=== PATIENT | male | born 1935 | race Caucasian/White ===

== ENCOUNTER → 2016-06-17 | Outpatient (CLI) | payer BC ==
[~2016-06-17] MED LIST: ACET-1047 PO; ASCA500 PO; ASPI81TA28 PO; ATOR-26 PO; DAPT500I IV; DILT120C50 PO; DOXY-300 PO; DOXY100C76 PO; ENOX120I SQ; ERYOPO1 OPL; ERYTHROMYCIN OPL; FERR1TAB13 PO; FERR1TAB61 PO; FERROUS SULFATE PO; FOLI-29 PO; FURO-85 PO; IPRASOL4 INH; LEVO-366 PO; LINE1TAB2 PO; LNX125 PO; LPR100 PO; LPR25 PO; LVQ500 PO; MULT-506 PO; OXYC-57 PO; PANT40TA PO; POTA10CA28 PO; PRED10TA PO; PRED1SUS3 OPL; PREDFORTE OPL; PRLSR20 PO; PROB1CAP54 PO; SENN-65 PO; SOTA80TA PO; SULF800T23 PO; WARF2.5T8 PO; WARF2TAB8 PO
== END | disposition home or self-care (01) ==
LOC: C.LAB 11:14
PROVIDERS: ATTEND Internal Medicine Hematology & Oncology
DX: D69.6 Thrombocytopenia, unspecified (principal); D75.89 Other specified diseases of blood and blood-forming organs

== ENCOUNTER 2016-08-09 05:19 | Day surgery (SDC) | payer BC ==
[2016-08-08 19:12] VITALS: BMI 27.0
[~2016-08-09] VITALS: Ht 180.3 cm; Wt 88.5 kg
[~2016-08-09 05:19] MED LIST changes: -ACET-1047 PO; -DAPT500I IV; -DILT120C50 PO; -DOXY-300 PO; -ENOX120I SQ; -ERYOPO1 OPL; -FERR1TAB13 PO; -FERROUS SULFATE PO; -IPRASOL4 INH; -LEVO-366 PO; -LINE1TAB2 PO; -LNX125 PO; -LPR100 PO; -LPR25 PO; -LVQ500 PO; -OXYC-57 PO; -PANT40TA PO; -PRED10TA PO; -PRED1SUS3 OPL; -SENN-65 PO; -WARF2TAB8 PO
[2016-08-09 05:39] VITALS: BP 73/48; PULSE 71; TEMP 36.7; O2SAT 94; Ht 180.3 cm; Wt 88.5 kg
[2016-08-09] MEDS ORDERED: LACTATED RINGER'S 1000ML 1,000 ML IV SCH (06:00)
[2016-08-09] MEDS ORDERED: CEFAZOLIN 2000 MG/60 ML D5W IV SCH (06:00)
[2016-08-09 06:31] LABS: INR 1.3 (0.9-1.1); PARTIAL THROMBOPLASTIN RATIO 1.1; PROTHROMBIN TIME (PATIENT) 14.5 SECONDS (9.0-12.0)
[2016-08-09] MEDS ORDERED: MIDAZOLAM HCL 1 MG/ML 2ML VIAL ONE (06:43)
[2016-08-09] MEDS ORDERED: FENTANYL CITRATE INJ 50 MCG/1 ML 2 ML VIAL ONE (06:43)
[2016-08-09 06:56] LABS: HEMATOCRIT 42.7 % (42-52); MEAN CELL VOLUME 97.9 fL (80-100); MEAN CORPUSCULAR HEMOGLOBIN 33.7 pg (25-34); MEAN CORPUSCULAR HGB CONC 34.4 g/dl (32-36); MEAN PLATELET VOLUME 9.2 fL (7.4-10.4); PLATELET COUNT 90 K/uL (130-400); PLT ESTIMATE DECREASED; RED BLOOD COUNT 4.36 M/uL (4.7-6.1); WHITE BLOOD COUNT 5.24 K/uL (4.8-10.8)
[2016-08-09] MEDS ORDERED: BUPIVACAINE 0.5 % 5 MG/1 ML MPF 30ML VIAL ONE (06:56)
[2016-08-09] MEDS ORDERED: LIDOCAINE HCL 1% 20 ML VIAL ONE (06:56)
[2016-08-09] MEDS ORDERED: VANCOMYCIN 1GM/270ML NSS ONE (07:04)
--- NOTE | 2016-08-09 07:17 | History and Physical ---
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 Allergies Coded Allergies: No Known Allergies (Unverified , 08/09/16) Home Medications Scheduled Ascorbic Acid (Vitamin C), 1 TAB PO QAM Aspirin (Aspirin Ec), 81 MG PO DAILY Atorvastatin (Lipitor), 80 MG PO QAM Doxycycline Monohydrate (Monodox), 100 MG PO QAM Ferrous Sulfate (Iron), 65 MG PO QAM Folic Acid-Vit B2-Vit B6-Vit B (Folgard), 1 TAB PO QAM Furosemide (Lasix), 20 MG PO QAM Multivitamin (Multivitamin), 1 TAB PO QAM Omeprazole (Prilosec), 20 MG PO BID Potassium Chloride (Micro-K Ext Rel), Unknown Dose PO DAILY Probiotic Product (Acidophilus), 1 TAB PO BID Sotalol Hcl (Sotalol Hcl), 1 TAB PO BID Sulfa/Trimethoprim (Bactrim Ds 800MG/160MG), 1 TAB PO BID Warfarin Sod (Jantoven), 2.5 MG PO QAM [Erythromcin Oint], Unknown Dose OPL QPM [Predforte], Unknown Dose OPL BID Review of Systems Constitutional: No fever, No chills, No sweats, No weight loss, No weakness, No fatigue, No problem reported Eyes: No worsening of vision, No eye pain, No redness, No discharge, No diplopia, No problem reported ENT: No hearing loss, No unusual epistaxis, No nasal symptoms, No sore throat, No tinnitus, No dental problems, No trouble swallowing, No problem reported Respiratory: No cough, No sputum, No wheezing, No shortness of breath, No dyspnea on exertion, No dyspnea at rest, No hemoptysis, No problem reported Cardiovascular: + problem reported (CAD, pacemaker, ), No chest pain, No orthopnea, No PND, No edema, No claudication, No palpitations Abdomen: + problem reported (abdominal surgery for colon cancer), No pain, No nausea, No vomiting, No diarrhea, No constipation, No GI bleeding Genitourinary - Male: No hematuria, No dysuria, No urinary frequency, No urinary urgency, No urinary hesitancy, No urinary retention, No urinary incontinence, No penile discharge, No lesions, No impotence, No problem reported Neurologic: No memory loss, No paralysis, No weakness, No numbness/tingling, No vertigo, No balance problems, No problem reported Psychiatric: No depression symptoms, No anhedonism, No anxiety, No insomnia, No substance abuse, No problem reported Endocrine: No fatigue, No excessive thirst, No excessive urination, No problem reported Integumentary: No rash, No itch, No new/changing skin lesions, No color change , No bleeding, No problem reported Physical Exam Vital Signs Date Time Temp Pulse Resp B/P (MAP) Pulse Ox O2 Delivery O2 Flow Rate FiO2 08/09/16 05:39 36.7 71 18 73/48 (56) 94 Room Air General Appearance: WD/WN, no apparent distress Head: normocephalic Eyes: normal inspection ENT: normal ENT inspection Neck: supple, no JVD Respiratory/Chest: chest non-tender, lungs clear Cardiovascular: regular rate, rhythm, no edema, no gallop, no JVD Abdomen/GI: normal bowel sounds, non tender, soft Genitourinary - Male: normal male genitalia, normal phallus Extremities/Musculoskelatal: normal inspection, no calf tenderness Neurologic/Psych: alert, normal mood/affect Diagnostics Laboratory Results Results Past 24 Hours Test 08/09/16 05:47 Range/Units White Blood Count 5.24 4.8-10.8 K/uL Red Blood Count 4.36 4.7-6.1 M/uL Hemoglobin 14.7 14.0-18.0 g/dL Hematocrit 42.7 42-52 % Mean Corpuscular Volume 97.9 80-100 fL Mean Corpuscular Hemoglobin 33.7 25-34 pg Mean Corpuscular Hemoglobin Concent 34.4 32-36 g/dl RDW Standard Deviation 53.8 36.4-46.3 fL RDW Coefficient of Variation 15.2 11.5-14.5 % Platelet Count 90 130-400 K/uL Mean Platelet Volume 9.2 7.4-10.4 fL Platelet Estimate DECREASED Prothrombin Time 14.5 9.0-12.0 SECONDS Prothromb Time International Ratio 1.3 0.9-1.1 Activated Partial Thromboplast Time 27.5 21.0-31.0 SECONDS Partial Thromboplastin Ratio 1.1 Impression Assessment and Plan IMP: infected port site, base wound culture is MRSA- staph-A, I recommend to removal port catheter, D/W benefits, risks and alternatives of the procedure, the risks- infection, bleeding, sepsis, pt understood, he agrees with the procedure, I answered all questions, pt will see wound care doctor in 2 days, once the wound healed pt will have new port insertion, ASA Classification: ASA Class III VTE Prophylaxis VTE Risk Assessment Done? Y/N: Yes Risk Level: Moderate Given or contraindicated: SCD's Note Total Time: Critical Care 30 - 74 minutes
--- NOTE | 2016-08-09 07:17 | History & Physical Bridge Note ---
H&P Re-Evaluation Bridge Note: I have examined the patient, reviewed the History & Physical and in the interval since the performance of the History & Physical I have noted the following changes of clinical significance: No changes noted
[2016-08-09] MEDS ORDERED: VANCOMYCIN 1GM/270ML NSS IV ONE (07:30)
[2016-08-09] MEDS ORDERED: LACTATED RINGER'S 1000ML 1,000 ML IV PRN (07:39)
[2016-08-09] MEDS ORDERED: DiphenhydrAMINE HCL 50 MG/ML VIAL ONE (07:44)
[2016-08-09] MEDS ORDERED: ONDANSETRON INJ 2 MG/ML 2 ML VIAL IV PRN (07:45)
[2016-08-09] MEDS ORDERED: SODIUM CHLORIDE 0.9% 1000ML 1,000 ML IV SCH (07:55)
--- NOTE | 2016-08-09 07:55 | [facility] Post Operative Brief Note ---
Immediate Operative Summary Operative Date Aug 09, 2016. Pre-Operative Diagnosis infected port site Post-Operative Diagnosis same Procedure(s) Performed removal port catheter Surgeon Holden Luque Independent Producer Surgeon(s) technical sme Estimated Blood Loss 2 ml Findings infected port site Fluids (cc crystalloids) 1000ml Specimens culture tip of catheter Drains packing the wound Anesthesia sedation + local anesthesia Complication(s) None Disposition Recovery Room / PACU
[2016-08-09] MEDS ORDERED: OXYCODONE/ACETAMINOPHEN 5-325 TAB PO PRN ×2 (08:00)
--- NOTE | 2016-08-09 08:03 | Discharge Instructions ---
Discharge Instructions Date of Service Aug 09, 2016. Visit Reason for Visit: Port Catheter In Place Discharge Discharge Diagnosis / Problem: S/P removal port Discharge Goals Goal(s): Decrease discomfort, Improve nutritional status Activity Recommendations Activity Limitations: resume your previous activity Lifting Limitations: none Exercise/Sports Limitations: none May Resume Sexual Activity: when tolerated Shower/Bathe: may shower/bathe in 3 days Driving or Machine Use: resume 3 days after discharge Anesthesia . Post Anesthesia Instructions: If you have had General Anesthesia or IV Sedation: * Do not drive today. * Resume driving when surgeon permits. * Do not make important decisions or sign legal documents today. * Call surgeon for: 1. Temperature elevations greater than 101 degrees F. 2. Uncontrollable pain. 3. Excessive bleeding. 4. Persistent nausea and vomiting. 5. Medication intolerance (nausea, vomiting or rash). * For nausea and vomiting use only clear liquids such as: tea, soda, bouillon until nausea subsides, then gradually increase diet as tolerated. * If you have any concerns or questions, call your surgeon's office. If physician is unavailable and it is an emergency, call 911 or go to the nearest emergency room. . Instructions / Follow-Up Instructions / Follow-Up keep the dressing for 2 days, follow up wound care center in 2 days, please to make an appointment for wound care center before pt discharge to home, Follow up me on next Monday. Diet Recommendations Recommended Home Diet: resume previous diet Procedures Procedures Performed: removal port catheter Pending Studies Studies pending at discharge: no Medical Emergencies . Who to Call and When: Medical Emergencies: If at any time you feel your situation is an emergency, please call 911 immediately. . Non-Emergent Contact Non-Emergency issues call your: Primary Care Provider, Surgeon Call Non-Emergent contact if: you have a fever, temperature is above 100.5, your pain is not controlled, your pain is worsening, wound has increased drainage, wound has increased redness . . "Provider Documentation" section prepared by Holden Xie. . [place] Drug Monitoring Program Search Results: no issues identified
[2016-08-09 08:25] VITALS: BP 95/48; PULSE 62; TEMP 37; O2SAT 96
--- NOTE | 2016-08-09 08:40 | OPERATIVE REPORT ---
DATE OF OPERATION: 08/09/2016 PREOPERATIVE DIAGNOSIS: Infected port site. POSTOPERATIVE DIAGNOSIS: Same. PROCEDURE: Removed of the port. SURGEON: Dr. Holden Xie. ANESTHESIA: Conscious sedation plus local. ESTIMATED BLOOD LOSS: About 2 mL. IV FLUIDS: 1000 mL. FINDINGS: Infected port site, culture tip of the catheter. COMPLICATIONS: None. INDICATIONS FOR THE PROCEDURE: This is an 81-year-old gentleman who presented infected port site and the patient had a wound culture showing MRSA and the patient required to remove the port. I did talk to the patient about the benefit and risk, alternate procedure. I indicated the risks may include but not limited such as bleeding, infection, sepsis. The patient understands and he signed informed consent. I answered all questions. DETAILS OF PROCEDURE: We brought the patient to the OR, put the patient in the supine position. The patient received SCD on bilateral legs to prevent DVT. Also, the patient received 1 gram of vancomycin IV for prophylactic antibiotic based on the patient has MRSA infection and also the patient received 2 grams Ancef for prophylactic antibiotic. The patient received conscious sedation by the anesthesiology and the patient's right upper chest was prepped and draped in routine sterile fashion. After a timeout the patient had a small opening on the port site we injected the local by using 1% lidocaine mixed with 2.5% Marcaine to make a little bit bigger incision. Then we removed the 4-0 Prolene suture on the port site and then we easily completely removal of the port and the catheter. We cut the tip of the catheter and sent for culture. Then I used Betadine packing the wound. Hemostasis was obtained. We put the dressing on. The patient tolerated the procedure well. All the instrument, needle and sponge count correct x2 at the end of case. After the procedure, I did talk to the patient's about the OR finding and procedure we did and also gave them postop care instruction. They understand. The patient will follow up with wound care center in 2 days. We will follow up patient next Monday. The patient is still on p.o. clindamycin and patient will resume Coumadin today. They understand. I attest to the content of the Intraoperative Record and any orders documented therein. Any exceptions are noted below. ALAINA
--- NOTE | 2016-08-09 08:50 | Anesthesiology Progress Note ---
Anesthesia Post Op Note Date & Time Aug 09, 2016 at 08:49 Vital Signs Pain Intensity: 0 Vital Signs Past 12 Hours Date Time Temp Pulse Resp B/P (MAP) Pulse Ox O2 Delivery O2 Flow Rate FiO2 08/09/16 08:25 37 62 20 95/48 96 Room Air 08/09/16 08:15 37.6 59 21 83/54 99 Room Air 08/09/16 08:05 57 22 86/52 97 Mask 10 08/09/16 07:59 37.2 58 23 93/51 100 Mask 10 08/09/16 05:39 36.7 71 18 73/48 (56) 94 Room Air Notes Mental Status: alert / awake / arousable, participated in evaluation Pt Amnestic to Procedure: No (recall as expected) Nausea / Vomiting: adequately controlled Pain: adequately controlled Airway Patency, RR, SpO2: stable & adequate BP & HR: stable & adequate Hydration State: stable & adequate Anesthetic Complications: no major complications apparent
[2016-08-09 08:55] VITALS: BP 90/49; PULSE 64; O2SAT 98
[2016-08-09 09:10] VITALS: BP 78/49; PULSE 65; TEMP 37.1; O2SAT 98
[2016-08-10] MEDS ORDERED: CEFAZOLIN IV 2,000 MG/60 ML D5W IV ONE (06:00)
[2016-08-10] MEDS ORDERED: FERROUS SULFATE PO (15:59)
[2016-08-10] MEDS ORDERED: WARF2TAB8 PO (16:04)
[2016-08-10] MEDS ORDERED: ERYOPO1 OPL (16:08)
[2016-08-10] MEDS ORDERED: PRED1SUS3 OPL (16:10)
[2016-08-17] MEDS ORDERED: LNX125 PO (13:28)
[2016-08-17] MEDS ORDERED: LPR100 PO (13:28)
[2016-08-17] MEDS ORDERED: DILT120C50 PO (13:28)
[2016-08-17] MEDS ORDERED: ENOX120I SQ (13:30)
[2016-08-17] MEDS ORDERED: DAPT500I IV (13:30)
[2016-08-25] MEDS ORDERED: ENOX120I SQ (09:24)
[2016-08-25] MEDS ORDERED: DOXY-300 PO (09:24)
[2016-08-25] MEDS ORDERED: ATOR-26 PO (09:24)
[2016-08-25] MEDS ORDERED: FERR1TAB13 PO ×2 (09:26)
[2016-08-25] MEDS ORDERED: LEVO-366 PO (09:28)
[2016-08-25] MEDS ORDERED: PANT40TA PO (09:30)
[2016-08-25] MEDS ORDERED: POTA10CA28 PO (09:30)
[2016-08-25] MEDS ORDERED: FOLI-29 PO (09:31)
[2016-09-09] MEDS ORDERED: LINE1TAB2 PO (08:14)
[2016-09-09] MEDS ORDERED: LVQ500 PO (08:14)
[2016-09-09] MEDS ORDERED: LPR25 PO (08:14)
[2016-09-09] MEDS ORDERED: ACET-1047 PO (08:14)
[2016-09-09] MEDS ORDERED: DOXY-300 PO (08:18)
[2016-09-09] MEDS ORDERED: PRED10TA PO (08:18)
== END 2016-08-09 09:10 | disposition home or self-care (01) ==
LOC: C.ACU 05:19
PROVIDERS: ATTEND Surgery
DX: T82.7XXA Infection and inflammatory reaction due to other cardiac and vascular devices, implants and grafts, initial encounter (principal); X58.XXXA Exposure to other specified factors, initial encounter; C18.9 Malignant neoplasm of colon, unspecified

== ENCOUNTER 2016-08-10 15:25 | Inpatient (IN) | payer OTHER, BC ==
[~2016-08-10] VITALS: Ht 180.3 cm; Wt 87.0 kg
[2016-08-10] MEDS ORDERED: ACETAMINOPHEN 500 MG TAB PO STA (15:30)
[2016-08-10] MEDS ORDERED: SODIUM CHLORIDE 0.9% 1000ML 1,000 ML IV ONE (15:30)
[2016-08-10] MEDS ORDERED: PIPERACILLIN/TAZOBACTAM 4.5 GM/100ML D5W IV STA (15:34)
[2016-08-10] MEDS ORDERED: LEVOFLOXACIN / D5W 750 MG IV STA (15:35)
[2016-08-10] MEDS ORDERED: VANCOMYCIN INJ 2,250 MG in SODIUM CHLORIDE 0.9% 500ML 500 ML IV ONE (15:45)
[2016-08-10] MEDS ORDERED: FERROUS SULFATE PO (15:59)
--- NOTE | 2016-08-10 15:59 | DIAGNOSTIC IMAGING REPORT ---
CHEST ONE VIEW PORTABLE CLINICAL HISTORY: Sepsis COMPARISON STUDY: 06/13/2016 FINDINGS: The cardiac and mediastinal contours remain stable. There is a left subclavian pacer/defibrillator present. The previously identified right internal jugular A-Port catheter has been removed. There is enlargement central pulmonary arteries suggestive of pulmonary arterial hypertension. There is no lobar consolidation. There is no overt failure. There are no pleural effusions.[ There are multiple calcifications in the region of the left shoulder. 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 IMPRESSION: AP portable study. Possible pulmonary arterial hypertension. No acute findings. Electronically signed by: Eyad Escobar M.D. 08/10/2016 3:57 PM Dictated Date/Time: 08/10/2016 3:55 PM
[2016-08-10] MEDS ORDERED: DAPTOmycin IV 550 MG in SODIUM CHLORIDE 0.9% 50ML 50 ML IV ONE (16:00)
[2016-08-10] MEDS ORDERED: WARF2TAB8 PO (16:04)
[2016-08-10] MEDS ORDERED: ERYOPO1 OPL (16:08)
[2016-08-10 16:09] LABS: HEMATOCRIT 41.1 % (42-52); MEAN CORPUSCULAR HEMOGLOBIN 33.7 pg (25-34); MEAN CORPUSCULAR HGB CONC 34.1 g/dl (32-36); RED BLOOD COUNT 4.15 M/uL (4.7-6.1); WHITE BLOOD COUNT 8.76 K/uL (4.8-10.8)
[2016-08-10] MEDS ORDERED: PRED1SUS3 OPL (16:10)
[2016-08-10 16:20] LABS: MEAN PLATELET VOLUME 10.1 fL (7.4-10.4); PLATELET COUNT 69 K/uL (130-400)
[2016-08-10 16:26] LABS: COMPLETE YES; EOS % 2.1 %; IG% 0.2 %; LYMPH % 6.3 %; LYMPH ABS # 0.55 K/uL (1.2-3.4); MONO % 5.1 %; NEUT % 86.3 %
[2016-08-10 16:32] LABS: BUN/CREATININE RATIO 14.2 (10-20); CALCIUM 8.1 mg/dl (8.5-10.1); CREATININE 1.9 mg/dl (0.60-1.40); MAGNESIUM 2.1 mg/dl (1.8-2.4); POTASSIUM 4.7 mmol/L (3.5-5.1)
[2016-08-10] MEDS ORDERED: GELATIN SPONGE 12-7MM ONE (16:47)
[2016-08-10] MEDS ORDERED: SODIUM CHLORIDE 0.9% 1000ML 1,000 ML IV STA ×2 (16:53)
[2016-08-10 16:57] LABS: ALB/GLOB RATIO 1.1 (0.9-2); C-REACTIVE PROTEIN 9.31 mg/dl (0-0.29); CKMB/CK RATIO 1.6 (0-3.0); PHOSPHORUS 2.6 mg/dl (2.5-4.9)
[2016-08-10 16:58] LABS: VEN BLD GAS O2 SATURATION 62.4 %; VEN BLOOD GAS BASE EXCESS -0.9 mmol/L
[2016-08-10 17:00] LABS: INR 1.5 (0.9-1.1); PARTIAL THROMBOPLASTIN RATIO 1.1; PROTHROMBIN TIME (PATIENT) 16.3 SECONDS (9.0-12.0)
[2016-08-10] MEDS ORDERED: NOREPINEPHRINE BIT INJ 8 MG in DEXTROSE 5% 500ML 500 ML IV STA (17:19)
--- NOTE | 2016-08-10 17:20 | DIAGNOSTIC IMAGING REPORT ---
CHEST ONE VIEW PORTABLE CLINICAL HISTORY: central line placement COMPARISON STUDY: 08/10/2016 FINDINGS: The cardiac and mediastinal contours remain stable. There is a left subclavian pacer/defibrillator present. Since the prior study, a left internal jugular central venous catheter has been placed. The tip projects over the superior vena cava. There is no pneumothorax. There is progressive elevation of the interstitium. An element of mild congestive failure/fluid overload but be considered. Multiple calcifications project over the left shoulder similar to the prior study.[ IMPRESSION: No evidence of pneumothorax status post placement of a left internal jugular central venous catheter. The tip projects over the superior vena cava. Electronically signed by: Eyad Escobar M.D. 08/10/2016 5:18 PM Dictated Date/Time: 08/10/2016 5:17 PM
--- NOTE | 2016-08-10 17:27 | EMERGENCY ROOM VISIT NOTE ---
History Report prepared by [place]: Waldemar Phillips Under the Supervision of: Dr. Grover Burton D.O. First contact with patient: 14:53 Stated Complaint: SEPTIC History of Present Illness The patient is a 81 year old male who presents to the Emergency Room with complaints of a persistent fever beginning today. Per EMS, the patient has a history of colon cancer. He has a history of a partial colectomy and has received one chemotherapy treatment. He had his port removed yesterday at the cancer center due to apparent infection. The patient was hypotensive with a systolic pressure in the 70's yesterday. His oxygen saturation was 84% on room air today. He is on Coumadin for A-Fib. The patient denies any urinary symptoms , headache, chest pain or SOB. He notes that he has been coughing a bit. He was placed on Bactrim following his port removal yesterday. Source of History: patient Onset: Today Quality: other (fever) Timing: other (persistent) Associated Symptoms: + cough, No headache, No chest pain, No SOB Review of Systems See HPI for pertinent positives & negatives. A total of 10 systems reviewed and were otherwise negative. Past Medical & Surgical Medical Problems: (1) RADHA (acute kidney injury) (2) Colon cancer (3) DVT, bilateral lower limbs (4) Elevated troponin (5) Hyperlipidemia (6) Septic shock Family History No pertinent family history stated. Social History Smoking Status: Never Smoker Drug Use: none Marital Status: Current/Historical Medications Scheduled Ascorbic Acid (Vitamin C), 1 TAB PO QAM Aspirin (Aspirin Ec), 81 MG PO DAILY Atorvastatin (Lipitor), 80 MG PO QAM Doxycycline Monohydrate (Monodox), 100 MG PO QAM Erythromycin (Erythromycin), 1 APPLN OPL QPM Folic Acid-Vit B2-Vit B6-Vit B (Folgard), 1 TAB PO QAM Furosemide (Lasix), 20 MG PO QAM Multivitamin (Multivitamin), 1 TAB PO QAM Omeprazole (Prilosec), 20 MG PO BID Potassium Chloride (Micro-K Ext Rel), 10 MEQ PO DAILY Prednisolone Acetate (Ophth) (Pred Forte 1% Oph), 1 DROPS OPL BID Probiotic Product (Acidophilus), 1 TAB PO BID Sotalol Hcl (Sotalol Hcl), 1 TAB PO BID Sulfa/Trimethoprim (Bactrim Ds 800MG/160MG), 1 TAB PO BID Warfarin Sod (Jantoven), 2 MG PO QPM [Ferrous Sulfate], 65 MG PO DAILY Allergies Coded Allergies: Vancomycin (Verified Allergy, Unknown, SHORTNESS OF BREATH, 08/10/16) Physical Exam Vital Signs Date Time Temp Pulse Resp B/P (MAP) Pulse Ox O2 Delivery O2 Flow Rate FiO2 08/10/16 17:46 125 18 83/62 93 Room Air 08/10/16 16:55 134 22 94 08/10/16 16:54 127 18 76/51 94 Room Air 08/10/16 16:54 76/51 08/10/16 16:53 67/51 08/10/16 16:45 77/49 08/10/16 16:40 126 24 94 08/10/16 16:30 89/55 08/10/16 16:25 126 23 96 08/10/16 16:20 84/55 08/10/16 16:14 137 08/10/16 16:10 106 26 98 08/10/16 15:55 92/50 08/10/16 15:55 138 25 76 08/10/16 15:54 96 Room Air 08/10/16 15:47 92/50 08/10/16 15:45 39.5 131 20 75/56 98 Room Air 08/10/16 15:40 128 27 90 08/10/16 15:29 75/56 Physical Exam GENERAL: Patient is awake, alert, and mildly anxious appearing, but does not appear uncomfortable. EYES: The conjunctivae are clear. Surgical changes to the left eye. PERRL. EARS, NOSE, MOUTH AND THROAT: The nose is without any evidence of any deformity. Mucous membranes are dry, tongue is midline NECK: The neck is nontender and supple. RESPIRATORY: Lung sounds diminished throughout. Rales at both bases. No tachypnea or conversational dyspnea. CARDIOVASCULAR: Tachycardic and irregular. No definite murmur noted to auscultation. GASTROINTESTINAL: The abdomen is soft. Bowel sounds are present in all quadrants. Abdomen is nontender MUSCULOSKELETAL/EXTREMITIES: There is no evidence of gross deformity full range of motion is noted in the hips and shoulders SKIN: Color was rutty. Pedal edema bilaterally. Warm and dry. Pulses symmetric but diminished. Wound noted in the right upper chest wall consistent with recently removed port. Wound was packed with mild surrounding erythema noted. NEUROLOGIC: Patient is awake alert and oriented x3. Medical Decision & Procedures ER Provider Diagnostic Interpretation: X-ray results as stated below per interpretation by me and the radiologist. CHEST ONE VIEW PORTABLE FINDINGS: The cardiac and mediastinal contours remain stable. There is a left subclavian pacer/defibrillator present. The previously identified right internal jugular A-Port catheter has been removed. There is enlargement central pulmonary arteries suggestive of pulmonary arterial hypertension. There is no lobar consolidation. There is no overt failure. There are no pleural effusions.[ There are multiple calcifications in the region of the left shoulder. 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 IMPRESSION: AP portable study. Possible pulmonary arterial hypertension. No acute findings. Electronically signed by: Eyad Escobar M.D. CHEST ONE VIEW PORTABLE CLINICAL HISTORY: central line placement FINDINGS: The cardiac and mediastinal contours remain stable. There is a left subclavian pacer/defibrillator present. Since the prior study, a left internal jugular central venous catheter has been placed. The tip projects over the superior vena cava. There is no pneumothorax. There is progressive elevation of the interstitium. An element of mild congestive failure/fluid overload but be considered. Multiple calcifications project over the left shoulder similar to the prior study.[ IMPRESSION: No evidence of pneumothorax status post placement of a left internal jugular central venous catheter. The tip projects over the superior vena cava. Electronically signed by: Eyad Escboar M.D. Laboratory Results 08/10/16 15:45 Red Blood Count 4.15, Mean Corpuscular Volume 99.0, Mean Corpuscular Hemoglobin 33.7, Mean Corpuscular Hemoglobin Concent 34.1, Mean Platelet Volume 10.1, Neutrophils (%) (Auto) 86.3, Lymphocytes (%) (Auto) 6.3, Monocytes (%) (Auto) 5.1, Eosinophils (%) (Auto) 2.1, Basophils (%) (Auto) 0.0, Neutrophils # (Auto) 7.56, Lymphocytes # (Auto) 0.55, Monocytes # (Auto) 0.45, Eosinophils # (Auto) 0.18, Basophils # (Auto) 0.00 08/10/16 15:45 Test 08/10/16 15:45 08/10/16 16:42 White Blood Count 8.76 K/uL (4.8-10.8) Red Blood Count 4.15 M/uL (4.7-6.1) Hemoglobin 14.0 g/dL (14.0-18.0) Hematocrit 41.1 % (42-52) Mean Corpuscular Volume 99.0 fL (80-100) Mean Corpuscular Hemoglobin 33.7 pg (25-34) Mean Corpuscular Hemoglobin Concent 34.1 g/dl (32-36) Platelet Count 69 K/uL (130-400) Mean Platelet Volume 10.1 fL (7.4-10.4) Neutrophils (%) (Auto) 86.3 % Lymphocytes (%) (Auto) 6.3 % Monocytes (%) (Auto) 5.1 % Eosinophils (%) (Auto) 2.1 % Basophils (%) (Auto) 0.0 % Neutrophils # (Auto) 7.56 K/uL (1.4-6.5) Lymphocytes # (Auto) 0.55 K/uL (1.2-3.4) Monocytes # (Auto) 0.45 K/uL (0.11-0.59) Eosinophils # (Auto) 0.18 K/uL (0-0.5) Basophils # (Auto) 0.00 K/uL (0-0.2) RDW Standard Deviation 56.3 fL (36.4-46.3) RDW Coefficient of Variation 15.7 % (11.5-14.5) Immature Granulocyte % (Auto) 0.2 % Immature Granulocyte # (Auto) 0.02 K/uL (0.00-0.02) Erythrocyte Sedimentation Rate 8 mm/hr (0-14) Anion Gap 7.0 mmol/L (3-11) Est Creatinine Clear Calc Drug Dose 31.9 ml/min Estimated GFR () 37.2 Estimated GFR (Non- 32.1 BUN/Creatinine Ratio 14.2 (10-20) Calcium Level 8.1 mg/dl (8.5-10.1) Phosphorus Level 2.6 mg/dl (2.5-4.9) Magnesium Level 2.1 mg/dl (1.8-2.4) Total Bilirubin 1.1 mg/dl (0.2-1) Aspartate Amino Transf (AST/SGOT) 29 U/L (15-37) Alanine Aminotransferase (ALT/SGPT) 22 U/L (12-78) Alkaline Phosphatase 64 U/L (45-117) Total Creatine Kinase 83 U/L (39-308) Creatine Kinase MB 1.3 ng/ml (0.5-3.6) Creatine Kinase MB Ratio 1.6 (0-3.0) Troponin I 0.756 ng/ml (0-0.045) C-Reactive Protein 9.31 mg/dl (0-0.29) Pro-B-Type Natriuretic Peptide 7355 pg/ml (0-1800) Total Protein 6.4 gm/dl (6.4-8.2) Albumin 3.3 gm/dl (3.4-5.0) Globulin 3.1 gm/dl (2.5-4.0) Albumin/Globulin Ratio 1.1 (0.9-2) Lipase 77 U/L (73-393) Prothrombin Time 16.3 SECONDS (9.0-12.0) Prothromb Time International Ratio 1.5 (0.9-1.1) Activated Partial Thromboplast Time 28.9 SECONDS (21.0-31.0) Partial Thromboplastin Ratio 1.1 Venous Blood pH 7.43 (7.36-7.41) Venous Blood Partial Pressure CO2 36 mmHg (38.0-50.0) Venous Blood Partial Pressure O2 32 mmHg Venous Blood HCO3 23 mmol/L Venous Blood Oxygen Saturation 62.4 % Venous Blood Base Excess -0.9 mmol/L Date/Time Source Procedure Growth Status 08/10/16 00:00 Nasal MRSA DNA Surveillance Screen - Final Specimen Positive for MRSA by DNA Probe Complete Laboratory results per my review. Medications Administered Medications (Trade) Dose Ordered Sig/Thu Route Start Time Stop Time Status Last Admin Dose Admin Sodium Chloride 1,000 ml @ 999 mls/hr Q1H1M ONCE IV 08/10/16 15:30 08/10/16 16:30 DC 08/10/16 15:59 999 MLS/HR Acetaminophen (Tylenol Tab) 1,000 mg NOW STAT PO 08/10/16 15:30 08/10/16 15:32 DC 08/10/16 16:04 1,000 MG Piperacillin Sod/ Tazobactam Sod (Zosyn Iv) 4.5 gm NOW STAT IV 08/10/16 15:34 08/10/16 15:35 DC 08/10/16 16:04 4.5 GM Levofloxacin 150 ml @ 100 mls/hr NOW STAT IV 08/10/16 15:35 08/10/16 17:04 DC 08/10/16 16:04 100 MLS/HR Daptomycin 550 mg/ Sodium Chloride 61 ml @ 120 mls/hr NOW ONCE IV 08/10/16 16:00 08/10/16 16:30 DC 08/10/16 16:45 120 MLS/HR Gelatin (Surgifoam Sponge 12-7MM (SMALL)) 1 ea STK-MED ONCE .ROUTE 08/10/16 16:47 08/10/16 16:48 DC 08/10/16 16:47 1 EA Sodium Chloride 1,000 ml @ 999 mls/hr Q1H1M STAT IV 08/10/16 16:53 08/10/16 17:53 DC 08/10/16 17:02 999 MLS/HR Sodium Chloride 1,000 ml @ 250 mls/hr Q4H STAT IV 08/10/16 16:53 08/10/16 20:52 DC 08/10/16 18:15 250 MLS/HR Norepinephrine Bitartrate 8 mg/ Dextrose 508 ml @ 0 mls/hr Q0M STAT IV 08/10/16 17:19 08/10/16 17:22 DC 08/10/16 17:40 33 MLS/HR Procedure Central Venous Catheter Indication: sepsis Catheter type: triple lumen Location: left IJ Verbal consent was obtained after the risks and benefits were explained, including but not limited to pneumothorax, hemothorax, vessel injury, bleeding, scarring, infection, pain, and bone/joint/nerve damage. At this time, the risks of the procedure are less than the risks of NOT performing the procedure. A time out was taken and the correct patient and site identified. The patient was placed in the supine position and the skin was prepped in the standard fashion with chlorhexidine and full sterile drapes applied. The proper landmarks were identified with ultrasound, anesthetized with 1% lidocaine without epinephrine, and the needle was inserted through the skin in the standard fashion. The needle was carefully advanced into blood vessel lumen under ultrasound guidance. The guidewire was placed uneventfully. The vessel is dilated and the catheter was placed. It was sutured into position. There was good blood return from all ports. The patient tolerated the procedure well and there were no complications. Post procedure x-ray was normal. ECG Indication: other (sepsis) Rate (beats per minute): 135 Rhythm: atrial fibrillation (with RVR) Findings: other (Diffuse T-wave abnormality. No PVC. ) Comparison ECG Date: no prior available ED Course 1523: The patient was evaluated in room B11B. A complete history and physical examination were performed. 1530: Ordered Tylenol Tab 1000 mg PO, NSS 1,000 ml @ 999 mls/hr IV, Zosyn 4.5 gm IV, Levofloxacin 150 mL @ 100 mL/hr IV. 1600: Ordered Daptomycin 550 mg/NSS 61 ml @ 1000 mls/hr IV. 1620: I placed the central line. See the procedure note for details. 1653: Ordered NSS 1,000 ml @ 250 mls/hr IV, NSS 1,000 ml @ 999 mls/hr IV 1719: Ordered Norepinephrine Bitartrate 8 mg/Dextrose 508 mL IV. 1720: Upon reevaluation, the patient is resting. I discussed results and treatment plan with him. He verbalizes agreement and understanding. I spoke with Dr. David of the [facility]. The patient will be evaluated for further management and care. Medical Decision Differential diagnosis: Etiologies such as sepsis, UTI, pneumonia, metabolic, electrolyte abnormalities , cardiac sources, intracerebral event, toxicologic, neurologic, as well as others were entertained. Blood pressure screening: Patient was found to have low blood pressure on screening and does not require follow-up. Medication Reconciliation: I attest that I have personally reviewed the patient' s current medications list. The patient is an 81-year-old male who presented to emergency department for an evaluation of hypotension. The patient has a history of colon cancer and recently had a port removed from his right chest wall because of infection at the skin site and a reported positive culture for Staphylococcus. The final culture is still pending and we do not know if this is MRSA. The patient was started on Bactrim and had approximately 3 doses of this medication but continued to have worsening symptoms. He went to his outpatient physician today and they were concerned because the patient was tachycardic and hypotensive. The patient came to our emergency department by ambulance. He was also noted to have hypoxia. The patient denies having any chest pain or shortness of breath. The patient states that he x-ray feels quite well but he was found to have a fever upon arrival to our facility. Given the patient's past medical history and comorbidities a septic protocol workup was undertaken. The patient was treated with IV fluids with only a minimal improvement in his blood pressure. He was also given IV antibiotics to try to cover the possibility of line sepsis and bacteremia. The patient was reevaluated multiple times. A central line was placed. I discussed his case with the on-call [facility] hospitalist as well as the on-call custom shop worker. The patient was evaluated in the emergency department by the admitting team. I discussed the patient's laboratory and radiographic studies with him. Consults Time Called: 1700 Consulting Physician: Dr. David -[facility] Returned Call: [phone] I discussed the patient's case with Dr. David. The patient will be evaluated for further management. Additional Consults: Time Called: [phone] Consulted Physician: Dr. Angel -ICU Returned Call: [phone] Additional Comments: I discussed the patient's case with Dr. Angel. He would like a repeat lactic acid. The patient will be evaluated in the ICU. Impression Primary Impression: Sepsis Additional Impressions: Bacteremia Atrial fibrillation with RVR Critical Care I have personally spent greater than 50 minutes of critical care time in the direct management of this patient. This includes bedside care, interpretation of diagnostic studies, and testing, discussion with consultants, patient, and family members, and other required patient management activities. This 50 minutes is in excess of all separately billable procedures. Scribe Attestation The scribe's documentation has been prepared under my direction and personally reviewed by me in its entirety. I confirm that the note above accurately reflects all work, treatment, procedures, and medical decision making performed by me. Departure Information Dispostion Being Evaluated By Hospitalist Referrals Janeen Graves (PCP) Problem Qualifiers Primary Impression: Sepsis Sepsis type: sepsis due to unspecified organism Qualified Codes: A41.9 - Sepsis, unspecified organism
[2016-08-10] MEDS ORDERED: VANCOMYCIN INJ 1,000 MG in SODIUM CHLORIDE 0.9% 250ML 250 ML IV STA (18:43)
[2016-08-10] MEDS ORDERED: HEPARIN SOD 5000 UNIT/0.5 ML CARP SQ SCH (18:45)
[2016-08-10] MEDS ORDERED: ACETAMINOPHEN 325 MG TAB PO PRN (18:45)
[2016-08-10] MEDS ORDERED: NOREPINEPHRINE BIT INJ 8 MG in DEXTROSE 5% 500ML 500 ML IV PRN (20:12)
[2016-08-10 20:51] LABS: URINE APPEARANCE CLEAR (CLEAR); URINE BILIRUBIN NEG (NEG); URINE COLOR YELLOW; URINE NITRITE NEG (NEG); URINE SPECIFIC GRAVITY 1.019 (1.000-1.030); UROBILINOGEN NEG (NEG); ZZUR CULT IF INDIC CLEAN CATCH NO
[2016-08-10 20:52] LABS: MANUAL MICROSCOPIC REQUIRED? NO; REVIEW REQ? NO
[2016-08-10] MEDS ORDERED: WARFARIN SOD 2 MG TAB PO SCH (21:00)
[2016-08-10] MEDS: SODIUM CHLORIDE 0.9% 1000ML 1,000 ML IV SCH (21:16)
--- NOTE | 2016-08-10 21:24 | Critical Care Consultation ---
Critical Care Consultation Date of Consultation: Aug 10, 2016. Attending Physician: Remi Berg MD Reason for Consultation: Hypotension requiring pressors and tachycardic: Presumed Sepsis History of Present Illness Chuy White is a 81-year-old male who presented to the emergency room 1 day post removal of an infected port in his right upper chest. Patient was seen in the cancer center yesterday for removal and placed on Bactrim. Cultures were taken from the port which has since grown staph aureus; unknown at this time if culture is MRSA. However, pt has past history of MRSA infection s/p lower extremity bypass surgery. According to the patient and his he became dizzy today and has been experiencing a persistent fever. The attempted to take his blood pressure with a home cuff and was unable to obtain a reading. They called his family doctor who suggested a higher level of care. Per emergency room documentation patient's systolic blood pressure was in the mid 70s upon arrival. Pulse oximetry read 90-98% on room air; however, per emergency room physician H&P at some point his pulse oximetry had read 84% on room air. Patient is treated with Coumadin for persistent atrial fibrillation; heart rate in the emergency department was in the low 100s. INR is 1.5 Patient has a history of colon cancer stage IIIB with partial colectomy in March 2016 and is status post one chemotherapy treatment of FOLFOX. Family states that chemotherapy had been delayed multiple times due to illness/ thrombocytopenia/infected port. Cytogenetics and MDS FISH panels were negative at last office visit. Due to thrombocytopenia, pt was advised to speak with his engine mechanic for alternate anticoagulation. Dr. Jaramillo feels that Xeloda tablets should be the next chemotherapy plan; however, Coumadin is known to cause hemorrhage in combination. Per out pt records, this does not appear to have been followed up on as of yet since pt has experienced this infectious complication. Cr is 1.9 on admission, per out pt records baseline Cr is 1.2 Patient denies chills, malaise, dyspnea/shortness of breath/cough, chest pain/ pressure, awareness of tachyarrhythmia. He denies abdominal pain, nausea/ vomiting/diarrhea, change in bowel or bladder habits. He has no ongoing numbness/tingling and denies loss of consciousness. 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 Quit within the last month secondary to thrombocytopenia with chemotherapy) Drug Use: none Marital Status: Housing Status: lives with significant other Occupation Status: retired Allergies Coded Allergies: Vancomycin (Verified Allergy, Unknown, SHORTNESS OF BREATH, 08/10/16) Home Medications Scheduled Ascorbic Acid (Vitamin C), 1 TAB PO QAM Aspirin (Aspirin Ec), 81 MG PO DAILY Atorvastatin (Lipitor), 80 MG PO QAM Doxycycline Monohydrate (Monodox), 100 MG PO QAM Erythromycin (Erythromycin), 1 APPLN OPL QPM Folic Acid-Vit B2-Vit B6-Vit B (Folgard), 1 TAB PO QAM Furosemide (Lasix), 20 MG PO QAM Multivitamin (Multivitamin), 1 TAB PO QAM Omeprazole (Prilosec), 20 MG PO BID Potassium Chloride (Micro-K Ext Rel), 10 MEQ PO DAILY Prednisolone Acetate (Ophth) (Pred Forte 1% Oph), 1 DROPS OPL BID Probiotic Product (Acidophilus), 1 TAB PO BID Sotalol Hcl (Sotalol Hcl), 1 TAB PO BID Sulfa/Trimethoprim (Bactrim Ds 800MG/160MG), 1 TAB PO BID Warfarin Sod (Jantoven), 2 MG PO QPM [Ferrous Sulfate], 65 MG PO DAILY Current Inpatient Medications Current Inpatient Medications Medications (Trade) Dose Ordered Sig/Thu Route Start Time Stop Time Status Last Admin Dose Admin Sodium Chloride 1,000 ml @ 100 mls/hr Q10H IV 08/10/16 19:00 09/09/16 18:59 08/10/16 21:16 100 MLS/HR Acetaminophen (Tylenol Tab) 650 mg Q4H PRN PO 08/10/16 18:45 09/09/16 18:44 Ranitidine HCl (zANTac SYRUP) 300 mg HS PO 08/10/16 21:00 09/09/16 20:59 Piperacillin Sod/ Tazobactam Sod 3.375 gm/Dextrose 115 ml @ 28.75 mls/ hr Q8 STAT IV 08/10/16 18:43 08/10/16 22:42 UNV Lactobacillus Acidophilus (Lactinex Granules Pack) 1 gm TIDM PO 08/11/16 07:15 09/10/16 07:59 Daptomycin 520 mg/ Sodium Chloride 60.4 ml @ 100 mls/hr DAILY IV 08/11/16 09:00 08/25/16 08:59 UNV Norepinephrine Bitartrate 8 mg/ Dextrose 508 ml @ 0 mls/hr Q0M PRN IV 08/10/16 20:12 09/09/16 20:11 Aspirin (Ecotrin Tab) 81 mg DAILY PO 08/11/16 09:00 09/10/16 08:59 Atorvastatin Calcium (Lipitor Tab) 80 mg QAM PO 08/11/16 09:00 09/10/16 08:59 UNV Erythromycin (Erythromycin Oph Oint) 1 appln QPM OPL 08/10/16 21:00 08/20/16 20:59 Prednisolone Acetate (Pred Forte 1% Oph Susp) 1 drops BID OPL 08/10/16 21:00 09/09/16 20:59 Warfarin Sodium (Coumadin Tab) 2 mg QPM PO 08/10/16 21:00 09/09/16 20:59 UNV Review of Systems 12 systems reviewed and negative other than previously mentioned in the HPI. Physical Exam Date Time Temp Pulse Resp B/P (MAP) Pulse Ox O2 Delivery O2 Flow Rate FiO2 08/10/16 20:31 122 18 109/76 97 Room Air 08/10/16 20:00 113 18 92/64 94 Room Air 08/10/16 19:12 37.1 08/10/16 17:46 125 18 83/62 93 Room Air 08/10/16 16:55 134 22 94 08/10/16 16:54 127 18 76/51 94 Room Air 08/10/16 16:54 76/51 08/10/16 16:53 67/51 08/10/16 16:45 77/49 08/10/16 16:40 126 24 94 08/10/16 16:30 89/55 08/10/16 16:25 126 23 96 08/10/16 16:20 84/55 08/10/16 16:14 137 08/10/16 16:10 106 26 98 08/10/16 15:55 92/50 08/10/16 15:55 138 25 76 08/10/16 15:54 96 Room Air 08/10/16 15:47 92/50 08/10/16 15:45 39.5 131 20 75/56 98 Room Air 08/10/16 15:40 128 27 90 08/10/16 15:29 75/56 Vital Signs - as noted Laboratory Data - as noted Physical Exam: General - NAD, sleeping in bed comfortably upon entering Eyes - PERRL, EOMI No icterus, gaze conjugate, left eye partially suturing closed 2/2 to PMHx above ENT - Mucosa moist, no lesions or candidiasis Neck - Supple, trachea midline, no masses or lymphadenopathy, no JVD or bruits Lungs - No paradoxical chest wall movement, clear to auscultation bilaterally, no wheezes, rales, or rhonchi Heart - irregularly irregular, No murmur, rubs, clicks, or gallops appreciated Abdomen - BS present, no bruits noted, tympanic to percussion, soft, nontender, nondistended, no organomegaly Extremities - No edema, pedal pulses intact Neuro - A&O X 4 Strength extremities equal and appropriate bilaterally Reflexes: Normal and equal CN:PERRL, EOMI, no facial asymmetry, uvula/tongue midline Laboratory Results Last 24 Hours Test 08/10/16 15:40 08/10/16 15:45 08/10/16 16:42 08/10/16 19:21 Bedside Lactic Acid Venous 1.60 mmol/L 0.53 mmol/L White Blood Count 8.76 K/uL Red Blood Count 4.15 M/uL Hemoglobin 14.0 g/dL Hematocrit 41.1 % Mean Corpuscular Volume 99.0 fL Mean Corpuscular Hemoglobin 33.7 pg Mean Corpuscular Hemoglobin Concent 34.1 g/dl Platelet Count 69 K/uL Mean Platelet Volume 10.1 fL Neutrophils (%) (Auto) 86.3 % Lymphocytes (%) (Auto) 6.3 % Monocytes (%) (Auto) 5.1 % Eosinophils (%) (Auto) 2.1 % Basophils (%) (Auto) 0.0 % Neutrophils # (Auto) 7.56 K/uL Lymphocytes # (Auto) 0.55 K/uL Monocytes # (Auto) 0.45 K/uL Eosinophils # (Auto) 0.18 K/uL Basophils # (Auto) 0.00 K/uL RDW Standard Deviation 56.3 fL RDW Coefficient of Variation 15.7 % Immature Granulocyte % (Auto) 0.2 % Immature Granulocyte # (Auto) 0.02 K/uL Erythrocyte Sedimentation Rate 8 mm/hr Sodium Level 137 mmol/L Potassium Level 4.7 mmol/L Chloride Level 104 mmol/L Carbon Dioxide Level 26 mmol/L Anion Gap 7.0 mmol/L Blood Urea Nitrogen 27 mg/dl Creatinine 1.90 mg/dl Est Creatinine Clear Calc Drug Dose 31.9 ml/min Estimated GFR () 37.2 Estimated GFR (Non- 32.1 BUN/Creatinine Ratio 14.2 Random Glucose 97 mg/dl Calcium Level 8.1 mg/dl Phosphorus Level 2.6 mg/dl Magnesium Level 2.1 mg/dl Total Bilirubin 1.1 mg/dl Aspartate Amino Transf (AST/SGOT) 29 U/L Alanine Aminotransferase (ALT/SGPT) 22 U/L Alkaline Phosphatase 64 U/L Total Creatine Kinase 83 U/L Creatine Kinase MB 1.3 ng/ml Creatine Kinase MB Ratio 1.6 Troponin I 0.756 ng/ml C-Reactive Protein 9.31 mg/dl Pro-B-Type Natriuretic Peptide 7355 pg/ml Total Protein 6.4 gm/dl Albumin 3.3 gm/dl Globulin 3.1 gm/dl Albumin/Globulin Ratio 1.1 Lipase 77 U/L Prothrombin Time 16.3 SECONDS Prothromb Time International Ratio 1.5 Activated Partial Thromboplast Time 28.9 SECONDS Partial Thromboplastin Ratio 1.1 Venous Blood pH 7.43 Venous Blood Partial Pressure CO2 36 mmHg Venous Blood Partial Pressure O2 32 mmHg Venous Blood HCO3 23 mmol/L Venous Blood Oxygen Saturation 62.4 % Venous Blood Base Excess -0.9 mmol/L Test 08/10/16 20:34 Urine Color YELLOW Urine Appearance CLEAR Urine pH 5.0 Urine Specific [place] 1.019 Urine Protein 1+ Urine Glucose (UA) NEG Urine Ketones NEG Urine Occult Blood 2+ Urine Nitrite NEG Urine Bilirubin NEG Urine Urobilinogen NEG Urine Leukocyte Esterase NEG Urine WBC (Auto) 1-5 /hpf Urine RBC (Auto) 5-10 /hpf Urine Hyaline Casts (Auto) 1-5 /lpf Urine Epithelial Cells (Auto) 5-10 /lpf Urine Bacteria (Auto) NEG Diagnostic Results ULTRASOUND VENOUS DOPPLER LWR EXT BILA CLINICAL HISTORY: Leg swelling COMPARISON STUDY: No previous studies for comparison. FINDINGS: The right common femoral vein is incompletely compressible. There is intraluminal thrombus present. It is conceivable that this is subacute. No thrombus is visualized within the right superficial femoral vein. There is a 7.6 cm right popliteal fossa mass with echogenic borders. This appears avascular. It is unclear whether this is solid or complex cystic. An MRI is recommended in follow-up. Left common femoral vein is incompletely compressible. No thrombus is visualized within the left superficial femoral or popliteal veins. The proximal trifurcation veins of the left calf appear unremarkable. IMPRESSION: 1. Bilateral common femoral vein DVT 2. Indeterminate 7.6 cm right popliteal fossa mass. Further workup is recommended in follow-up. Electronically signed by: Eyad Escobar M.D. 08/10/2016 10:49 PM Dictated Date/Time: 08/10/2016 10:46 PM CHEST ONE VIEW PORTABLE CLINICAL HISTORY: Sepsis COMPARISON STUDY: 06/13/2016 FINDINGS: The cardiac and mediastinal contours remain stable. There is a left subclavian pacer/defibrillator present. The previously identified right internal jugular A-Port catheter has been removed. There is enlargement central pulmonary arteries suggestive of pulmonary arterial hypertension. There is no lobar consolidation. There is no overt failure. There are no pleural effusions.[ There are multiple calcifications in the region of the left shoulder. 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 IMPRESSION: AP portable study. Possible pulmonary arterial hypertension. No acute findings. Electronically signed by: Eyad Escobar M.D. 08/10/2016 3:57 PM Dictated Date/Time: 08/10/2016 3:55 PM CHEST ONE VIEW PORTABLE CLINICAL HISTORY: central line placement COMPARISON STUDY: 08/10/2016 FINDINGS: The cardiac and mediastinal contours remain stable. There is a left subclavian pacer/defibrillator present. Since the prior study, a left internal jugular central venous catheter has been placed. The tip projects over the superior vena cava. There is no pneumothorax. There is progressive elevation of the interstitium. An element of mild congestive failure/fluid overload but be considered. Multiple calcifications project over the left shoulder similar to the prior study. IMPRESSION: No evidence of pneumothorax status post placement of a left internal jugular central venous catheter. The tip projects over the superior vena cava. Electronically signed by: Eyad Escobar M.D. 08/10/2016 5:18 PM Dictated Date/Time: 08/10/2016 5:17 PM Assessment & Plan (1) Elevated troponin (2) RADHA (acute kidney injury) (3) Septic shock (4) Bacteremia (5) Atrial fibrillation with RVR (6) Hyperlipidemia (7) Colon cancer (8) DVT, bilateral lower limbs I.D: * WBC: WNL 8.76 * Febrile on Admission: 39.5 * Septic Shock: Hypotensive, tachycardia, tachypnea, RADHA, infected port on right upper thorax with Staph Aureus * Lactic Acid: 1.60 to 0.53 * Obtain Procalcitonin with next Lab * Abx: * Continue Daptomycin (1st Dose in ED 08/10/16) * Add Zosyn (1st Dose 08/10/16) * Trend Fever Curve, Tx fever with Tylenol * Blood Cultures Pending * Follow Daily Labs Cardiovascular: * Hypotension with systolic pressures in the 70s * Patient started levophed in the emergency department; D/C'd now * Due to tachycardia; will switch vasopressor to phenylephrine with the hopes that reflex bradycardia often seen with phenylephrine will assist patient's A. fib RVR * SOFA Score: 7: < 33% Mortality * [place] II Score: 15 (22% non-operative mortality) * Tachycardia in the low 100s to 120s * Continue to monitor; will consider low dose metoprolol if phenylephrine does not assist with improvement of HR * Known atrial fibrillation on Coumadin * Patient started on heparin drip for bilateral DVTs; will hold Coumadin currently and bridge prior to discharge * Hyperlipidemia on atorvastatin 80 mg * Hold secondary to interaction with daptomycin: Increased risk for myopathies * Will consider cardiology consult for future anticoagulation needs * Patient was to follow-up with Dr. Roberts in regards to thrombocytopenia hindering chemotherapy treatment. Heme/onc requesting alternate anticoagulation as Coumadin increases hemorrhage risk with future plans for chemotherapy PO. * Monitor on telemetry * Obtain echo * Trend CPK, troponin, and BNP * Elevated troponin, no acute changes on EKG/Chest Pain, Likely secondary to cardiac demand due to A. Fib RVR Heme: * H&H: 14.0/41.1; platelets 69 (chronic thrombocytopenia) * PT/INR: 16.3/1.5 & APTT 28.9 * Obtained lower extremity venous Dopplers to rule out DVT: Results as above in imaging * Begin Standard Dose Heparin without Bolus * Cross and Screen ordered * Consider filter placement for high risk DVT/PE * PESI Score: 192 Class V, Very High Risk (10-24.5% 30 day mortality) * Spoke with pt: no objections to receiving blood products if needed : * RADHA: Creatinine 1.5 (baseline 1.2) * Continue NSS at 100 * Pt 2.3L positive after fluid resuscitation in ED * Avoid nephrotoxic agents * Patient voiding; no Armstrong in place * Monitor daily labs Pulmonary: * Adequate saturations on room air * Supplemental oxygen as needed * Monitor on telemetry GI: * Nothing by mouth while on pressors * Continue home medications: Ranitidine & Lactobacillus acidophilus Neuro: * A&O x 4 * Pain well controlled * Monitor for neurologic changes * Known Alcohol Abuse: pt states no use in 3 wks and never experienced withdrawal * Monitor for signs of withdrawal Endocrine: * No known formal dx of DM or thyroid dz * Will check A1c and TSH with morning labs in setting of A. Fib RVR as well as steroid tx Access: Left IJ in ED, [address]. Will monitor SBP with regards to consideration of Arterial Line CCT: 60 minutes; Not including any billable procedures. Thank you for including us in the care of this patient. Please review Dr. Delvis Angel's addendum for further recommendations. I have personally evaluated and examined this patient. I agree with assessment and plan of Ced Swain PA-C. Patient is an 81-year-old male with stage III colon cancer, concern for sepsis related to a tunnel catheter which had to be removed. Patient is previously had MRSA in his femoropopliteal bypass graft. In discussion with the family he has bilateral femoropopliteal bypasses, the right being vein harvest in the left being graft material. He is on 100 mg doxycycline daily as prophylaxis. Additionally he was found to have what appear to be subacute DVTs in the bilateral common femoral veins. If we presume that he has additional pulmonary embolism, his PESI score based on his vital signs are characteristics we give him 142 points placing the classify very high risk tendon 24% 30 day mortality. Patient has an elevated BNP as well as troponins, formal echocardiogram pending. Will restart Coumadin.
[2016-08-10] MEDS ORDERED: PHENYLEPHRINE HCL INJ 20 MG in DEXTROSE 5% 500ML 500 ML IV PRN (21:25)
--- NOTE | 2016-08-10 21:35 | HISTORY & PHYSICAL EXAMINATION ---
DATE OF ADMISSION: 08/10/2016 CHIEF COMPLAINT: Severe fatigue. HISTORY OF PRESENT ILLNESS: The patient is an 81-year-old man, who was recently diagnosed with colon cancer about 3 months ago during an abdominal surgery for intestinal obstruction. Status post resection, he started chemotherapy. He had a port placed in his right upper chest. He received one dose of chemotherapy. The port looked infected and hence was removed yesterday at the cancer center. The patient was given Bactrim and the port was sent for analysis. The port grew Staph aureus, but unsure if it is MRSA or not yet. The patient presented today hypotensive, systolic blood pressure in the 70s and hypoxic with oxygen saturation in the 80s. The patient is on Coumadin for atrial fibrillation. His INR was 1.5 and his creatinine was 1.9; there is no old creatinine to compare with, so renal baseline creatinine is unknown. LABORATORY DATA: Rest of his lab showed a sodium of 137, potassium 4.7, BUN is 27, normal magnesium and phosphorus. Troponin was 0.75, likely demand ischemia and natriuretic peptide was 7355. White blood cell count 8.7, hemoglobin is 14 and platelet count was 69. IMAGING: Chest x-ray showed no evidence of pneumothorax after placement of an internal jugular venous catheter. There were no other acute findings. REVIEW OF SYSTEMS: Denies any headache, double vision, blurry vision. Denies any chest pain or palpitations. He denied any shortness of breath despite having oxygen saturation of 84% on admission. Currently his breathing is much better. Denies any cough or wheezing. Denies any vomiting, abdominal pain or nausea. Denies any focal weakness, tingling or numbness. He admits to fever, chills, generalized weakness and fatigue. PAST MEDICAL HISTORY: Dyslipidemia, colon cancer and status post lower extremity stent. FAMILY HISTORY: Noncontributory. SOCIAL HISTORY: Does not smoke or drink. , lives with his . HOME MEDICATIONS 1. Ascorbic acid supplement. 2. Aspirin 81 mg daily. 3. Atorvastatin. 4. Doxycycline 100 mg p.o. q.a.m. 5. Erythromycin ophthalmic cream, q.p.m. 6. Folic acid. 7. Lasix 20 mg daily. 8. Multivitamin. 9. Omeprazole. 10. Potassium supplements. 11. Prednisolone ophthalmic drops. 12. Probiotic. 13. Sotalol 1 tablet p.o. b.i.d. 14. Bactrim that he was given recently. 15. Warfarin 2 mg p.o. daily. 16. Ferrous sulfate supplement. ALLERGIES: TO VANCOMYCIN; ALLERGY WAS NOT IDENTIFIED. PHYSICAL EXAMINATION: VITAL SIGNS: Temperature is 37.1, heart rate 125, respirations 18, blood pressure 83/63 and pulse ox 93% on room air. GENERAL: The patient is of average built, in moderate distress. HEENT: No jaundice, no pallor, wet mucous membrane. NECK: Supple. HEART: S1, S2 irregular irregularity , A-Fib with RVR, LUNGS: Clear to auscultation bilaterally. Normal chest wall expansion. ABDOMEN: Soft, nontender and nondistended. NEUROLOGIC: Awake, alert, oriented to time, place and person. Moves all extremities. Sensation is intact. Cranial nerves II-XII appears to be intact. SKIN: No rash or erythema. Previous port site is covered. ASSESSMENT AND PLAN: 1. Septic shock secondary to below. 2. Staph infection of port device and status post removal, 08/09/2016. 3. Most likely bacteremia secondary to above. 4. History of colon cancer, status post resection and chemotherapy. 5. Elevated creatinine, baseline renal function is unknown. 6. Elevated troponin, likely demand ischemia. 7. Dyslipidemia. 8. Peripheral artery disease status post peripheral stents. PLAN: 1. Admit patient to ICU. 2. IV fluid hydration. 3. Follow up lactic acid. 4. Keep patient on IV pressors as needed. 5. Start patient on Zosyn and daptomycin for potential mixed infections. 6. Follow up blood cultures. 7. Follow up report culture, which is growing Staph so far. 8. Due to thrombocytopenia of 69 and being on Coumadin with an INR of 1.5, we will hold pharmacologic deep venous thrombosis prophylaxis, we will keep patient only on sequential compression device boots. 9. Consult critical care attending on the case. 10. Consult infectious diseases. Further recommendations will follow. PARKD
[2016-08-10 21:59] VITALS: BP 101/66; PULSE 102; TEMP 36.8; O2SAT 94; Ht 180.3 cm; Wt 87.0 kg
[2016-08-10] MEDS ORDERED: PIPERACILL/TAZOBAC IV 3.375 GM in DEXTROSE 5% 100ML 100 ML IV SCH (22:00)
[2016-08-10] MEDS: PIPERACILL/TAZOBAC IV 4.5 GM in DEXTROSE 5% 100ML 100 ML IV SCH (22:07)
[2016-08-10] MEDS: PrednisoLONE ACET 1% OP SUSP 5 ML BTL OPL SCH (22:17)
[2016-08-10] MEDS: ERYTHROMYCIN OP OINT 5 MG/GM 3.5 GM TUBE OPL SCH (22:17)
[2016-08-10] MEDS: RANITIDINE HCL SYRUP 150 MG/10 ML UDC PO SCH (22:18)
[2016-08-10 22:30] VITALS: BP 91/70; PULSE 102; TEMP 36.8; O2SAT 94
--- NOTE | 2016-08-10 22:51 | DIAGNOSTIC IMAGING REPORT ---
ULTRASOUND VENOUS DOPPLER LWR EXT BILA CLINICAL HISTORY: Leg swelling COMPARISON STUDY: No previous studies for comparison. FINDINGS: The right common femoral vein is incompletely compressible. There is intraluminal thrombus present. It is conceivable that this is subacute. No thrombus is visualized within the right superficial femoral vein. There is a 7.6 cm right popliteal fossa mass with echogenic borders. This appears avascular. It is unclear whether this is solid or complex cystic. An MRI is recommended in follow-up. Left common femoral vein is incompletely compressible. No thrombus is visualized within the left superficial femoral or popliteal veins. The proximal trifurcation veins of the left calf appear unremarkable. IMPRESSION: 1. Bilateral common femoral vein DVT 2. Indeterminate 7.6 cm right popliteal fossa mass. Further workup is recommended in follow-up. Electronically signed by: Eyad Escobar M.D. 08/10/2016 10:49 PM Dictated Date/Time: 08/10/2016 10:46 PM
[2016-08-10] MEDS ORDERED: HEPARIN 25,000 UNIT/500ML D5W 500 ML IV PRN (23:30)
[2016-08-10 23:59] VITALS: O2SAT 94
[2016-08-11] VITALS (40 sets, daily range): BP systolic 88–130; BP diastolic 30–87; PULSE 108–140; TEMP 36.7–37.1; O2SAT 69–99
[2016-08-11] MEDS ORDERED: METOPROLOL TARTRATE 1 MG/ML VIAL IV STA ×4 (04:47→23:35)
[2016-08-11] MEDS ORDERED: METOPROLOL TARTRATE 1 MG/ML VIAL ONE ×4 (05:08→23:38)
[2016-08-11] MEDS: SODIUM CHLORIDE 0.9% 1000ML 1,000 ML IV SCH (05:27)
[2016-08-11] MEDS: PIPERACILL/TAZOBAC IV 4.5 GM in DEXTROSE 5% 100ML 100 ML IV SCH (05:27)
[2016-08-11 06:14] LABS: COMPLETE YES; EOS % 2.7 %; HEMATOCRIT 35.8 % (42-52); IG% 0.4 %; LYMPH % 5.9 %; MEAN CORPUSCULAR HEMOGLOBIN 34.1 pg (25-34); MEAN CORPUSCULAR HGB CONC 35.2 g/dl (32-36); MEAN PLATELET VOLUME 9.5 fL (7.4-10.4); MONO % 3.6 %; NEUT % 87.4 %; PLATELET COUNT 47 K/uL (130-400); RED BLOOD COUNT 3.69 M/uL (4.7-6.1); WHITE BLOOD COUNT 6.74 K/uL (4.8-10.8)
[2016-08-11 06:31] LABS: PARTIAL THROMBOPLASTIN RATIO 3.9
[2016-08-11 06:57] LABS: CALCIUM 7.1 mg/dl (8.5-10.1); CREATININE 1.3 mg/dl (0.60-1.40); MAGNESIUM 1.8 mg/dl (1.8-2.4); POTASSIUM 3.9 mmol/L (3.5-5.1)
[2016-08-11 07:03] LABS: PHOSPHORUS 2.5 mg/dl (2.5-4.9); THYROID STIMULATING HORMONE 1.01 uIu/ml (0.300-4.500)
[2016-08-11 07:44] LABS: ESTIMATED AVERAGE GLUCOSE 123 mg/dl; HA1C FLAG Normal (Normal)
[2016-08-11] MEDS: PrednisoLONE ACET 1% OP SUSP 5 ML BTL OPL SCH ×2 (07:50→20:24)
[2016-08-11] MEDS: LACTOBACILLUS ACIDOPHILUS 1 GM PACK PO SCH ×3 (07:50→17:52)
[2016-08-11] MEDS: ASPIRIN 81 MG ECTAB PO SCH (07:51)
[2016-08-11] MEDS ORDERED: ATORVASTATIN 40 MG TAB PO SCH (09:00)
[2016-08-11] MEDS ORDERED: PERFLUTREN LIPID MICROSPHERE (DEFINITY) IV ONE (09:18)
--- NOTE | 2016-08-11 09:57 | Medical Consult ---
Consultation Date of Consultation: Aug 11, 2016. Attending Physician: Chad Badillo MD, PhD Reason for Consultation: Septic shock History of Present Illness Patient is an 81-year-old male who presents the emergency department with complaints of fever prior to admission. The patient has recent history of colon cancer, and he had partial colectomy completed in March 2016. Following colectomy, the patient had a port placed for chemotherapy. He received 1 dose of chemotherapy, and upon re-evaluation yesterday of his port was noted to have increasing erythema of the surrounding area and had removal of his port. Following removal of his port, the patient noted that his blood pressure dropped., and the had decreased oxygen saturation. He did have a culture of the removed port which is growing MRSA that is resistant to clindamycin, erythromycin, and doxycycline. The patient's white blood cell count on admission was 8.73. The ESR was 8. His troponin was mildly elevated at 0.756. PC reactive protein was 9.31. Lactic acid was unremarkable. Blood cultures are pending. MRSA nasal swab was negative. C diff toxin is pending. He did have a chest x-ray on admission which showed possible pulmonary arterial hypertension. Venous showed bilateral common femoral vein DVT. He was started empirically on IV daptomycin, Levaquin and Zosyn. Past Medical/Surgical History Medical Problems: (1) Atrial fibrillation with RVR Status: Acute (2) Bacteremia Status: Acute (3) Sepsis Status: Acute Medical Problems: (1) RADHA (acute kidney injury) (2) Colon cancer (3) DVT, bilateral lower limbs (4) Elevated troponin (5) Hyperlipidemia (6) Septic shock Family History Noncontributory Social History Smoking Status: Former Smoker (30 year history, 1-1.5 ppd; quit 2006) Smokeless Tobacco Use: No Alcohol Use: heavy (patient reports 2 pints of beer per day; outpatient record states to light beers per day. Quit within the last month secondary to thrombocytopenia with chemotherapy) Drug Use: none Marital Status: Housing Status: lives with significant other Occupation Status: retired Allergies Coded Allergies: Vancomycin (Verified Allergy, Severe, SHORTNESS OF BREATH, 08/11/16) Home Medications Reported Home Medications Medications Dose Route/Sig Max Daily Dose Days Date Category Dose Instructions Pred Forte 1% Oph (Prednisolone Acetate (Ophth)) 1 % Liudmila 1 Drops OPL BID 08/10/16 Reported Erythromycin 1 Appln/1 Gm Oint 1 Appln OPL QPM 08/10/16 Reported Jantoven (Warfarin Sodium) 2 Mg Tab 2 Mg PO QPM 08/10/16 Reported [Ferrous Sulfate] 65 Mg PO DAILY 08/10/16 Reported Bactrim Ds 800MG/160MG (Trimethoprim/Sulfamethoxazole) Tab 1 Tab PO BID 08/08/16 Reported Aspirin Ec (Aspirin) 81 Mg Tab 81 Mg PO DAILY 06/07/16 Reported TO START THIS MED WHEN STOPS WARFARIN (4 DAYS PRIOR TO SURGERY) Acidophilus (Probiotic Product) 1 Cap Cap 1 Tab PO BID 06/07/16 Reported Prilosec (Omeprazole) 20 Mg Capcr 20 Mg PO BID 06/07/16 Reported Sotalol Hcl 80 Mg Tab 1 Tab PO BID 90 06/07/16 Reported Monodox (Doxycycline Monohydrate) 100 Mg Cap 100 Mg PO QAM 06/07/16 Reported TAKES EVERY DAY...DUE TO PAST INFECTION...WAS TOLD TO CONTINUE UNTIL FURTHER NOTICE Micro-K Ext Rel (Potassium Chloride) Unknown Strength Capcr 10 Meq PO DAILY 06/07/16 Reported 2 TAB PO QAM Folgard (Folic Acid-Vit B2-Vit B6-Vit B) 1 Tab Tab 1 Tab PO QAM 06/07/16 Reported Lasix (Furosemide) 20 Mg Tab 20 Mg PO QAM 06/07/16 Reported Multivitamin (Multivitamins) Tab 1 Tab PO QAM 06/07/16 Reported Lipitor (Atorvastatin Calcium) 80 Mg Tab 80 Mg PO QAM 06/07/16 Reported Vitamin C (Ascorbic Acid) 500 Mg Tab 1 Tab PO QAM 06/07/16 Reported Current Inpatient Medications Current Inpatient Medications Medications (Trade) Dose Ordered Sig/Thu Route Start Time Stop Time Status Last Admin Dose Admin Acetaminophen (Tylenol Tab) 650 mg Q4H PRN PO 08/10/16 18:45 09/09/16 18:44 Ranitidine HCl (zANTac SYRUP) 300 mg HS PO 08/10/16 21:00 09/09/16 20:59 08/10/16 22:18 300 MG Lactobacillus Acidophilus (Lactinex Granules Pack) 1 gm TIDM PO 08/11/16 07:15 09/10/16 07:59 08/11/16 07:50 1 GM Daptomycin 525 mg/ Sodium Chloride 60.5 ml @ 100 mls/hr Q24H IV 08/11/16 16:00 08/24/16 15:59 Aspirin (Ecotrin Tab) 81 mg DAILY PO 08/11/16 09:00 09/10/16 08:59 08/11/16 07:51 81 MG Atorvastatin Calcium (Lipitor Tab) 80 mg QAM PO 08/11/16 09:00 09/10/16 08:59 Future Hold Erythromycin (Erythromycin Oph Oint) 1 appln QPM OPL 08/10/16 21:00 08/20/16 20:59 08/10/16 22:17 1 APPLN Prednisolone Acetate (Pred Forte 1% Oph Susp) 1 drops BID OPL 08/10/16 21:00 09/09/16 20:59 08/11/16 07:50 1 DROPS Heparin Sodium/ Dextrose 500 ml @ 26 mls/hr [id number] PRN IV 08/10/16 23:30 09/09/16 23:29 08/10/16 23:56 29 MLS/HR Review of Systems Constitutional: + fever, + weakness, + fatigue, No chills, No sweats Eyes: No worsening of vision ENT: No hearing loss Respiratory: No cough, No shortness of breath Cardiovascular: No chest pain, No palpitations Abdomen: No pain, No nausea, No vomiting, No diarrhea Musculoskeletal: No joint pain, No muscle pain, No swelling Genitourinary - Male: No hematuria, No dysuria, No urinary frequency Integumentary: + new/changing skin lesions (erythema around port site prior to removal), No rash, No itch Physical Exam Date Time Temp Pulse Resp B/P (MAP) Pulse Ox O2 Delivery O2 Flow Rate FiO2 08/11/16 08:00 Nasal Cannula 2.0 08/11/16 08:00 37.1 127 22 97/70 (79) 99 Nasal Cannula 2.0 08/11/16 07:46 130 24 102/30 (54) 08/11/16 07:15 126 23 110/70 (83) 98 08/11/16 07:00 124 27 101/65 (77) 08/11/16 06:00 119 16 110/70 (83) 93 Nasal Cannula 2.0 08/11/16 05:50 125 24 102/67 (79) 08/11/16 05:40 121 23 98/68 (78) 96 08/11/16 05:30 118 24 101/66 (78) 96 08/11/16 05:23 108 21 114/69 (84) 69 08/11/16 05:10 121 31 101/72 (82) 96 08/11/16 05:01 117 27 113/72 (86) 97 08/11/16 05:00 115 30 91 08/11/16 04:57 121 113/72 08/11/16 04:20 120 26 107/72 (84) 97 Nasal Cannula 2.0 08/11/16 04:10 121 24 93/70 (78) 98 Nasal Cannula 2.0 08/11/16 04:00 96 Nasal Cannula 2.0 08/11/16 04:00 36.9 123 26 100/76 (84) 97 Nasal Cannula 2.0 08/11/16 03:50 123 25 100/65 (77) 91 Room Air 08/11/16 03:40 125 22 102/65 (77) 90 Room Air 08/11/16 03:30 120 28 89/68 (75) 93 Room Air 08/11/16 03:21 123 26 111/75 (87) 91 Room Air 08/11/16 03:10 124 23 103/80 (88) 93 Room Air 08/11/16 03:00 118 23 119/84 (96) 93 Room Air 08/11/16 02:00 126 24 100/68 (79) 92 Room Air 08/11/16 01:50 117 25 100/68 (79) 92 Room Air 08/11/16 00:00 36.8 118 19 110/78 (89) 93 Room Air 08/10/16 23:59 94 Room Air 08/10/16 22:30 36.8 102 18 91/70 (77) 94 Room Air 08/10/16 21:59 36.8 102 18 101/66 94 Room Air 08/10/16 20:31 122 18 109/76 97 Room Air 08/10/16 20:00 113 18 92/64 94 Room Air 08/10/16 19:12 37.1 08/10/16 17:46 125 18 83/62 93 Room Air 08/10/16 16:55 134 22 94 08/10/16 16:54 127 18 76/51 94 Room Air 08/10/16 16:54 76/51 08/10/16 16:53 67/51 08/10/16 16:45 77/49 08/10/16 16:40 126 24 94 08/10/16 16:30 89/55 08/10/16 16:25 126 23 96 08/10/16 16:20 84/55 08/10/16 16:14 137 08/10/16 16:10 106 26 98 08/10/16 15:55 92/50 08/10/16 15:55 138 25 76 08/10/16 15:54 96 Room Air 08/10/16 15:47 92/50 08/10/16 15:45 39.5 131 20 75/56 98 Room Air 08/10/16 15:40 128 27 90 08/10/16 15:29 75/56 General Appearance: WD/WN, no apparent distress Head: normocephalic, atraumatic Eyes: normal inspection, sclerae normal ENT: hearing grossly normal Neck: supple, + pertinent finding (Left IJ in place) Respiratory/Chest: chest non-tender, no respiratory distress, no accessory muscle use, + wheezing (very mild end expiratory left) Cardiovascular: + tachycardia Abdomen/GI: normal bowel sounds, non tender, soft Extremities/Musculoskelatal: normal inspection, no pedal edema Neurologic/Psych: alert, normal mood/affect Skin: normal color, warm/dry, no rash Laboratory Results ULTRASOUND VENOUS DOPPLER LWR EXT BILA CLINICAL HISTORY: Leg swelling COMPARISON STUDY: No previous studies for comparison. FINDINGS: The right common femoral vein is incompletely compressible. There is intraluminal thrombus present. It is conceivable that this is subacute. No thrombus is visualized within the right superficial femoral vein. There is a 7.6 cm right popliteal fossa mass with echogenic borders. This appears avascular. It is unclear whether this is solid or complex cystic. An MRI is recommended in follow-up. Left common femoral vein is incompletely compressible. No thrombus is visualized within the left superficial femoral or popliteal veins. The proximal trifurcation veins of the left calf appear unremarkable. IMPRESSION: 1. Bilateral common femoral vein DVT 2. Indeterminate 7.6 cm right popliteal fossa mass. Further workup is recommended in follow-up. CHEST ONE VIEW PORTABLE CLINICAL HISTORY: central line placement COMPARISON STUDY: 08/10/2016 FINDINGS: The cardiac and mediastinal contours remain stable. There is a left subclavian pacer/defibrillator present. Since the prior study, a left internal jugular central venous catheter has been placed. The tip projects over the superior vena cava. There is no pneumothorax. There is progressive elevation of the interstitium. An element of mild congestive failure/fluid overload but be considered. Multiple calcifications project over the left shoulder similar to the prior study.[ IMPRESSION: No evidence of pneumothorax status post placement of a left internal jugular central venous catheter. The tip projects over the superior vena cava. Item Value Date Time Blood Culture Received 08/10/16 1545 Blood Pending Blood Culture Received 08/10/16 1535 Blood Pending MRSA DNA Surveillance Screen - Final Complete 08/10/16 0000 Nasal Specimen Positive for MRSA by DNA Probe Last 24 Hours Test 08/10/16 15:40 08/10/16 15:45 08/10/16 16:42 08/10/16 19:21 Bedside Lactic Acid Venous 1.60 mmol/L 0.53 mmol/L White Blood Count 8.76 K/uL Red Blood Count 4.15 M/uL Hemoglobin 14.0 g/dL Hematocrit 41.1 % Mean Corpuscular Volume 99.0 fL Mean Corpuscular Hemoglobin 33.7 pg Mean Corpuscular Hemoglobin Concent 34.1 g/dl Platelet Count 69 K/uL Mean Platelet Volume 10.1 fL Neutrophils (%) (Auto) 86.3 % Lymphocytes (%) (Auto) 6.3 % Monocytes (%) (Auto) 5.1 % Eosinophils (%) (Auto) 2.1 % Basophils (%) (Auto) 0.0 % Neutrophils # (Auto) 7.56 K/uL Lymphocytes # (Auto) 0.55 K/uL Monocytes # (Auto) 0.45 K/uL Eosinophils # (Auto) 0.18 K/uL Basophils # (Auto) 0.00 K/uL RDW Standard Deviation 56.3 fL RDW Coefficient of Variation 15.7 % Immature Granulocyte % (Auto) 0.2 % Immature Granulocyte # (Auto) 0.02 K/uL Erythrocyte Sedimentation Rate 8 mm/hr Sodium Level 137 mmol/L Potassium Level 4.7 mmol/L Chloride Level 104 mmol/L Carbon Dioxide Level 26 mmol/L Anion Gap 7.0 mmol/L Blood Urea Nitrogen 27 mg/dl Creatinine 1.90 mg/dl Est Creatinine Clear Calc Drug Dose 31.9 ml/min Estimated GFR () 37.2 Estimated GFR (Non- 32.1 BUN/Creatinine Ratio 14.2 Random Glucose 97 mg/dl Calcium Level 8.1 mg/dl Phosphorus Level 2.6 mg/dl Magnesium Level 2.1 mg/dl Total Bilirubin 1.1 mg/dl Aspartate Amino Transf (AST/SGOT) 29 U/L Alanine Aminotransferase (ALT/SGPT) 22 U/L Alkaline Phosphatase 64 U/L Total Creatine Kinase 83 U/L Creatine Kinase MB 1.3 ng/ml Creatine Kinase MB Ratio 1.6 Troponin I 0.756 ng/ml C-Reactive Protein 9.31 mg/dl Pro-B-Type Natriuretic Peptide 7355 pg/ml Total Protein 6.4 gm/dl Albumin 3.3 gm/dl Globulin 3.1 gm/dl Albumin/Globulin Ratio 1.1 Lipase 77 U/L Prothrombin Time 16.3 SECONDS Prothromb Time International Ratio 1.5 Activated Partial Thromboplast Time 28.9 SECONDS Partial Thromboplastin Ratio 1.1 Venous Blood pH 7.43 Venous Blood Partial Pressure CO2 36 mmHg Venous Blood Partial Pressure O2 32 mmHg Venous Blood HCO3 23 mmol/L Venous Blood Oxygen Saturation 62.4 % Venous Blood Base Excess -0.9 mmol/L Test 08/10/16 20:34 08/10/16 23:26 08/11/16 00:34 08/11/16 05:59 Urine Color YELLOW Urine Appearance CLEAR Urine pH 5.0 Urine Specific [place] 1.019 Urine Protein 1+ Urine Glucose (UA) NEG Urine Ketones NEG Urine Occult Blood 2+ Urine Nitrite NEG Urine Bilirubin NEG Urine Urobilinogen NEG Urine Leukocyte Esterase NEG Urine WBC (Auto) 1-5 /hpf Urine RBC (Auto) 5-10 /hpf Urine Hyaline Casts (Auto) 1-5 /lpf Urine Epithelial Cells (Auto) 5-10 /lpf Urine Bacteria (Auto) NEG Bedside Glucose 135 mg/dl Total Creatine Kinase 83 U/L Troponin I 0.680 ng/ml Pro-B-Type Natriuretic Peptide 7346 pg/ml White Blood Count 6.74 K/uL Red Blood Count 3.69 M/uL Hemoglobin 12.6 g/dL Hematocrit 35.8 % Mean Corpuscular Volume 97.0 fL Mean Corpuscular Hemoglobin 34.1 pg Mean Corpuscular Hemoglobin Concent 35.2 g/dl Platelet Count 47 K/uL Mean Platelet Volume 9.5 fL Neutrophils (%) (Auto) 87.4 % Lymphocytes (%) (Auto) 5.9 % Monocytes (%) (Auto) 3.6 % Eosinophils (%) (Auto) 2.7 % Basophils (%) (Auto) 0.0 % Neutrophils # (Auto) 5.89 K/uL Lymphocytes # (Auto) 0.40 K/uL Monocytes # (Auto) 0.24 K/uL Eosinophils # (Auto) 0.18 K/uL Basophils # (Auto) 0.00 K/uL RDW Standard Deviation 55.5 fL RDW Coefficient of Variation 15.6 % Immature Granulocyte % (Auto) 0.4 % Immature Granulocyte # (Auto) 0.03 K/uL Activated Partial Thromboplast Time 100.8 SECONDS Partial Thromboplastin Ratio 3.9 Sodium Level 137 mmol/L Potassium Level 3.9 mmol/L Chloride Level 106 mmol/L Carbon Dioxide Level 24 mmol/L Anion Gap 7.0 mmol/L Blood Urea Nitrogen 19 mg/dl Creatinine 1.30 mg/dl Est Creatinine Clear Calc Drug Dose 50.7 ml/min Estimated GFR () 58.9 Estimated GFR (Non- 50.8 BUN/Creatinine Ratio 15.0 Random Glucose 110 mg/dl Estimated Average Glucose 123 mg/dl Hemoglobin A1c 5.9 % Lactic Acid Level 0.7 mmol/L Calcium Level 7.1 mg/dl Phosphorus Level 2.5 mg/dl Magnesium Level 1.8 mg/dl Total Bilirubin 1.0 mg/dl Aspartate Amino Transf (AST/SGOT) 26 U/L Alanine Aminotransferase (ALT/SGPT) 20 U/L Alkaline Phosphatase 51 U/L Total Protein 5.1 gm/dl Albumin 2.5 gm/dl Globulin 2.6 gm/dl Albumin/Globulin Ratio 1.0 Procalcitonin 0.07 ng/ml Thyroid Stimulating Hormone (TSH) 1.010 uIu/ml Random Cortisol 24.80 mcg/dl Test 08/11/16 09:08 Assessment & Plan Patient with septic shock, infected port with MRSA 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 The patient is currently on IV Daptomycin, Levaquin and Zosyn. Blood cultures are pending. Will D/C Zosyn/Levaquin but continue Daptomycin. Patient may need echo if blood cultures are positive. We will continue to follow. Case reviewed and agree with above assessment.
--- NOTE | 2016-08-11 11:36 | ECHOCARDIOGRAM REPORT ---
*NOTICE TO RECEIVING [employer] This information is strictly Confidential and protected under [place] law. [place] law prohibits you from making any further disclosure of this information unless further disclosure is expressly permitted by the written consent of the person to whom it pertains or is authorized by law. A general authorization for the release of medical or other information is not sufficient for this purpose. Hospital accepts no responsibility if the information is made available to any other person, INCLUDING THE PATIENT. Interpretation Summary * Name: SWATI PERERA Study Date: 08/11/2016 08:36 AM BP: 97/70 mmHg * Patient Location: .MSICU\S\E107\S\1 HR: 127 * : 1935 (M/d/yyyy) Gender: Male Height: 71 in * Age: 81 yrs Ethnicity: [place] Weight: 193 lb * Ordering Physician: Monisha Swain * Referring Physician: Self, Referred * Performed By: Diane Hernandez RDCS * * Reason For Study: DVT, possible PE, Pulm HTN * BSA: 2.1 m2 * -- Conclusions -- * Normal LV chamber size with mild concentric LVH. * Normal LV systolic function, EF 60-65%. * No segmental left ventricular wall motion abnormalities are noted. * Grade II diastolic dysfunction. * The right ventricular cavity size is normal (basal dimension <4.2 cm in right ventricular apical 4-chamber view). * There is a pacemaker lead in the right ventricle. * The right ventricular systolic function is mildly reduced. * Aortic valve sclerosis moderate, without significant aortic valvular stenosis. * Trace tricuspid regurgitation. Procedure Details * A complete two-dimensional transthoracic echocardiogram was performed (2D, M-mode, Doppler and color flow Doppler). * A contrast injection of Definity was performed to improve assessment of LV function. * Contrast was injected into an intravenous site in the central line. * One vial of Definity ultrasound contrast was diluted in normal saline to a total volume of 10 ml. A total of '3' ml of solution was administered during imaging. * Lot # [id number] of Definity utilized for procedure. * Expiration date SEP 06. * The attending nurse who injected the contrast agent was Liana Sanchez RN. Left Ventricle * The left ventricle is normal in size. * There is mild concentric left ventricular hypertrophy. * Ejection Fraction = 60-65%. * Left ventricular systolic function is normal. * No segmental left ventricular wall motion abnormalities are noted. * The left ventricular wall motion is normal. Right Ventricle * The right ventricular cavity size is normal (basal dimension <4.2 cm in right ventricular apical 4-chamber view). * There is a pacemaker lead in the right ventricle. * The right ventricular systolic function is mildly reduced. Atria * The left atrial size is normal. * Right atrial size is normal. * No ASD detected; PFO is not assessed. Mitral Valve * The mitral valve is normal in structure and function. Tricuspid Valve * The tricuspid valve anatomy is normal. * There is no tricuspid stenosis. * There is trace tricuspid regurgitation. Aortic Valve * The aortic valve is trileaflet. * Aortic valve sclerosis moderate, without significant aortic valvular stenosis. * There is no significant aortic regurgitation. Pulmonic Valve * The pulmonary valve is not well seen, but the Doppler examination is normal without significant regurgitation or stenosis. Great Vessels * The aortic root and proximal ascending aorta are normal sized. Pericardium/Pleural * There is no pericardial effusion. Left Ventricular Diastolic Function * Diastolic dysfunction, Grade II (pseudonormalization pattern). MMode 2D Measurements and Calculations IVSd 1.2 cm LVIDd 4.2 cm LVIDs 2.6 cm LVPWd 0.81 cm IVS/LVPW 1.5 FS 36.5 % EDV(Teich) 77.3 ml ESV(Teich) 25.7 ml EF(Teich) 66.7 % EDV(cubed) 72.5 ml ESV(cubed) 18.5 ml EF(cubed) 74.4 % LV mass(C)d 136.9 grams LV mass(C)dI 65.9 grams/m\S\2 SV(Teich) 51.5 ml SI(Teich) 24.8 ml/m\S\2 SV(cubed) 54.0 ml SI(cubed) 26.0 ml/m\S\2 Ao root diam 2.9 cm Ao root area 6.8 cm\S\2 ACS 1.3 cm LA dimension 3.4 cm asc Aorta Diam 3.2 cm LA/Ao 1.2 LVAd ap4 24.4 cm\S\2 LVLd ap4 7.6 cm EDV(MOD-sp4) 65.9 ml EDV(sp4-el) 66.3 ml LVAs ap4 13.3 cm\S\2 LVLs ap4 5.6 cm ESV(MOD-sp4) 27.2 ml ESV(sp4-el) 26.9 ml EF(MOD-sp4) 58.7 % EF(sp4-el) 59.5 % SV(MOD-sp4) 38.7 ml SI(MOD-sp4) 18.6 ml/m\S\2 SV(sp4-el) 39.4 ml SI(sp4-el) 19.0 ml/m\S\2 Doppler Measurements and Calculations MV E max julian 85.9 cm/sec MV dec time 0.21 sec Ao V2 max 122.7 cm/sec Ao max PG 6.0 mmHg Ao max PG (full) 3.9 mmHg LV V1 max PG 2.1 mmHg LV V1 max 73.2 cm/sec PA V2 max 71.9 cm/sec PA max PG 2.1 mmHg PA acc slope 616.3 cm/sec\S\2 PA acc time 0.07 sec TR max julian 245.7 cm/sec PA pr(Accel) 48.9 mmHg
[2016-08-11] MEDS: DAPTOmycin IV 525 MG in SODIUM CHLORIDE 0.9% 50ML 50 ML IV SCH (16:55)
--- NOTE | 2016-08-11 17:40 | Progress Note ---
Subjective Date of Service: Aug 11, 2016. Subjective Pt evaluation today including: conversation w/ patient, conversation w/ family , physical exam, chart review, lab review, conversation w/ data virtualization consultant, review of inpatient medication list feeling ok, no c/o, was feeling cold, but no more, no f/c Problem List Medical Problems: (1) Atrial fibrillation with RVR Status: Acute (2) Bacteremia Status: Acute (3) Sepsis Status: Acute Review of Systems Constitutional: + weakness, + fatigue, No fever, No chills, No sweats, No weight loss, No problem reported Eyes: No worsening of vision, No eye pain, No redness, No discharge, No diplopia ENT: No hearing loss, No unusual epistaxis, No nasal symptoms, No sore throat, No tinnitus, No dental problems, No trouble swallowing Respiratory: No cough, No sputum, No wheezing, No shortness of breath, No dyspnea on exertion, No dyspnea at rest, No hemoptysis Cardiac: No chest pain, No orthopnea, No PND, No edema, No claudication, No palpitations Abdomen: No pain, No nausea, No vomiting, No diarrhea, No constipation Musculoskeletal: No joint pain, No muscle pain, No swelling, No calf pain Male : No dysuria, No urinary frequency, No incontinence, No nocturia more than once/night, No slowing stream, No hematuria Neurologic: No memory loss, No paralysis, No weakness, No numbness/tingling, No vertigo, No balance problems Psychiatric: No depression symptoms, No anhedonism, No anxiety, No insomnia, No substance abuse Heme: No abnormal bleeding/bruising, No clotting problems, No swollen lymph nodes, No night sweats Endo: No fatigue, No excessive thirst, No excessive urination Skin: No rash, No itch, No new/changing skin lesions, No color change, No bleeding Objective Vital Signs Date Time Temp Pulse Resp B/P (MAP) Pulse Ox O2 Delivery O2 Flow Rate FiO2 08/11/16 16:00 36.7 129 29 115/82 (93) 98 Nasal Cannula 2.0 08/11/16 16:00 Nasal Cannula 2.0 08/11/16 15:00 128 30 114/76 (89) 98 Nasal Cannula 2.0 08/11/16 14:00 124 30 130/87 (101) 97 Nasal Cannula 2.0 08/11/16 13:00 124 27 97/63 (74) 98 Nasal Cannula 2.0 08/11/16 12:00 Nasal Cannula 2.0 08/11/16 12:00 36.9 136 22 92/65 (74) 97 Nasal Cannula 2.0 08/11/16 11:00 130 24 97/66 (76) 91 Nasal Cannula 2.0 08/11/16 10:00 126 24 88/64 (72) 95 Nasal Cannula 2.0 08/11/16 09:16 127 30 92/70 (77) 96 Nasal Cannula 2.0 08/11/16 08:00 Nasal Cannula 2.0 08/11/16 08:00 37.1 127 22 97/70 (79) 99 Nasal Cannula 2.0 08/11/16 07:46 130 24 102/30 (54) 08/11/16 07:15 126 23 110/70 (83) 98 08/11/16 07:00 124 27 101/65 (77) 08/11/16 06:00 119 16 110/70 (83) 93 Nasal Cannula 2.0 08/11/16 05:50 125 24 102/67 (79) 08/11/16 05:40 121 23 98/68 (78) 96 08/11/16 05:30 118 24 101/66 (78) 96 08/11/16 05:23 108 21 114/69 (84) 69 08/11/16 05:10 121 31 101/72 (82) 96 08/11/16 05:01 117 27 113/72 (86) 97 08/11/16 05:00 115 30 91 08/11/16 04:57 121 113/72 08/11/16 04:20 120 26 107/72 (84) 97 Nasal Cannula 2.0 08/11/16 04:10 121 24 93/70 (78) 98 Nasal Cannula 2.0 08/11/16 04:00 96 Nasal Cannula 2.0 08/11/16 04:00 36.9 123 26 100/76 (84) 97 Nasal Cannula 2.0 08/11/16 03:50 123 25 100/65 (77) 91 Room Air 08/11/16 03:40 125 22 102/65 (77) 90 Room Air 08/11/16 03:30 120 28 89/68 (75) 93 Room Air 08/11/16 03:21 123 26 111/75 (87) 91 Room Air 08/11/16 03:10 124 23 103/80 (88) 93 Room Air 08/11/16 03:00 118 23 119/84 (96) 93 Room Air 08/11/16 02:00 126 24 100/68 (79) 92 Room Air 08/11/16 01:50 117 25 100/68 (79) 92 Room Air 08/11/16 00:00 36.8 118 19 110/78 (89) 93 Room Air 08/10/16 23:59 94 Room Air 08/10/16 22:30 36.8 102 18 91/70 (77) 94 Room Air 08/10/16 21:59 36.8 102 18 101/66 94 Room Air 08/10/16 20:31 122 18 109/76 97 Room Air 08/10/16 20:00 113 18 92/64 94 Room Air 08/10/16 19:12 37.1 08/10/16 17:46 125 18 83/62 93 Room Air Physical Exam General Appearance: WD/WN, no apparent distress, + thin, + pertinent finding ( sick looking) Eyes: normal inspection, PERRL, EOMI, sclerae normal ENT: normal ENT inspection, hearing grossly normal, pharynx normal Neck: supple, no adenopathy, thyroid normal, no JVD, no carotid bruits, trachea midline Respiratory/Chest: chest non-tender, normal breath sounds, no respiratory distress, no accessory muscle use, + decreased breath sounds Cardiovascular: regular rate, rhythm, no edema, no gallop, no JVD, no murmur Abdomen: normal bowel sounds, non tender, soft, no organomegaly, no pulsatile mass Extremities: normal range of motion, non-tender, normal inspection, no pedal edema, no calf tenderness, normal capillary refill, pelvis stable Neurologic/Psychiatric: pan washer hand II-XII nml as tested, no motor/sensory deficits, alert, normal mood/affect, oriented x 3 Skin: normal color, warm/dry, no rash Lymphatic: no adenopathy Laboratory Results Last 24 Hours Test 08/10/16 19:21 08/10/16 20:34 08/10/16 23:26 08/11/16 00:34 Bedside Lactic Acid Venous 0.53 mmol/L Urine Color YELLOW Urine Appearance CLEAR Urine pH 5.0 Urine Specific [place] 1.019 Urine Protein 1+ Urine Glucose (UA) NEG Urine Ketones NEG Urine Occult Blood 2+ Urine Nitrite NEG Urine Bilirubin NEG Urine Urobilinogen NEG Urine Leukocyte Esterase NEG Urine WBC (Auto) 1-5 /hpf Urine RBC (Auto) 5-10 /hpf Urine Hyaline Casts (Auto) 1-5 /lpf Urine Epithelial Cells (Auto) 5-10 /lpf Urine Bacteria (Auto) NEG Bedside Glucose 135 mg/dl Total Creatine Kinase 83 U/L Troponin I 0.680 ng/ml Pro-B-Type Natriuretic Peptide 7346 pg/ml Test 08/11/16 05:59 08/11/16 09:08 08/11/16 11:25 08/11/16 14:10 White Blood Count 6.74 K/uL Red Blood Count 3.69 M/uL Hemoglobin 12.6 g/dL Hematocrit 35.8 % Mean Corpuscular Volume 97.0 fL Mean Corpuscular Hemoglobin 34.1 pg Mean Corpuscular Hemoglobin Concent 35.2 g/dl Platelet Count 47 K/uL Mean Platelet Volume 9.5 fL Neutrophils (%) (Auto) 87.4 % Lymphocytes (%) (Auto) 5.9 % Monocytes (%) (Auto) 3.6 % Eosinophils (%) (Auto) 2.7 % Basophils (%) (Auto) 0.0 % Neutrophils # (Auto) 5.89 K/uL Lymphocytes # (Auto) 0.40 K/uL Monocytes # (Auto) 0.24 K/uL Eosinophils # (Auto) 0.18 K/uL Basophils # (Auto) 0.00 K/uL RDW Standard Deviation 55.5 fL RDW Coefficient of Variation 15.6 % Immature Granulocyte % (Auto) 0.4 % Immature Granulocyte # (Auto) 0.03 K/uL Activated Partial Thromboplast Time 100.8 SECONDS 78.0 SECONDS Partial Thromboplastin Ratio 3.9 3.0 Sodium Level 137 mmol/L Potassium Level 3.9 mmol/L Chloride Level 106 mmol/L Carbon Dioxide Level 24 mmol/L Anion Gap 7.0 mmol/L Blood Urea Nitrogen 19 mg/dl Creatinine 1.30 mg/dl Est Creatinine Clear Calc Drug Dose 50.7 ml/min Estimated GFR () 58.9 Estimated GFR (Non- 50.8 BUN/Creatinine Ratio 15.0 Random Glucose 110 mg/dl Estimated Average Glucose 123 mg/dl Hemoglobin A1c 5.9 % Lactic Acid Level 0.7 mmol/L Calcium Level 7.1 mg/dl Phosphorus Level 2.5 mg/dl Magnesium Level 1.8 mg/dl Total Bilirubin 1.0 mg/dl Aspartate Amino Transf (AST/SGOT) 26 U/L Alanine Aminotransferase (ALT/SGPT) 20 U/L Alkaline Phosphatase 51 U/L Total Protein 5.1 gm/dl Albumin 2.5 gm/dl Globulin 2.6 gm/dl Albumin/Globulin Ratio 1.0 Procalcitonin 0.07 ng/ml Thyroid Stimulating Hormone (TSH) 1.010 uIu/ml Random Cortisol 24.80 mcg/dl Total Creatine Kinase 76 U/L Troponin I 0.902 ng/ml Pro-B-Type Natriuretic Peptide 8000 pg/ml Bedside Glucose 113 mg/dl Assessment and Plan 81 yo admitted on 08/10/2016 with sepsis and Staph infection of port device and status post removal Septic shock upon admission, improved MRSA infection of port device and status post removal, 08/09/2016. bacteremia secondary to above acute letty lower ext DVT, on heparin drip 7.6 cm popliteal fossa mass , need to f/u colon cancer, status post resection and chemotherapy. possible acute kidney failure with Elevated creatinine, baseline renal function is unknown. Elevated troponin, likely demand ischemia. Dyslipidemia. Peripheral artery disease status post peripheral stents. Thrombocytopenia of 69 to 40's , worsening today hx of afib being on Coumadin with an INR of 1.5, cont ICU, IV fluid hydration, IV pressors as needed ID on the case , Follow up blood cultures to adjust abx d/w pt and fam full code Continued [facility] stay due to: multiple IV medications needed Discharge planning: uncertain
[2016-08-11] MEDS ORDERED: NURSING VERBAL MED ORDER STA (20:12)
[2016-08-11] MEDS ORDERED: LEVALBUTEROL 1.25MG/0.5ML NEB INH PRN (20:15)
[2016-08-11] MEDS ORDERED: FONDAPARINUX 2.5 MG/0.5 ML SYR SQ SCH (20:15)
[2016-08-11] MEDS: RANITIDINE HCL SYRUP 150 MG/10 ML UDC PO SCH (20:24)
[2016-08-11] MEDS: ERYTHROMYCIN OP OINT 5 MG/GM 3.5 GM TUBE OPL SCH (20:24)
--- NOTE | 2016-08-11 21:27 | Critical Care Progress Note ---
Critical Care Progress Note Date of Service Aug 11, 2016. ICU Day ICU Day Number: [address] Angel Subjective Chuy White is an 81yo M who presented to the ICU last evening in septic shock and was later found have bilateral femoral DVTs. Pt was initially treated for sepsis with fluid resuscitation; Zosyn, Levaquin, and daptomycin. His SBP was in the mid 70's and required pressors. Patient was switched from levophed to phenylephrine upon arrival in the ICU. Blood cultures are still pending; however, patient's removed tunnel catheter has grown MRSA that is resistant to clindamycin, erythromycin, doxycycline. Patient was seen by infectious disease today who agreed with d/c of levaquin and zosyn. Otherwise patient had no acute events overnight or during the day. He is resting comfortably in bed upon my evaluation. Patient underwent Cardiac ECHO today after discovery of his bilateral femoral DVTs. Findings were as follows: * Normal LV chamber size with mild concentric LVH. * Normal LV systolic function, EF 60-65%. * No segmental left ventricular wall motion abnormalities are noted. * Grade II diastolic dysfunction. * The right ventricular cavity size is normal (basal dimension <4.2 cm in right ventricular apical 4-chamber view). * There is a pacemaker lead in the right ventricle. * The right ventricular systolic function is mildly reduced. * Aortic valve sclerosis moderate, without significant aortic valvular stenosis. * Trace tricuspid regurgitation. Patient spoke at length with Dr. Angel regarding CODE STATUS and treatment options. He stated he has a living will at home and will request his bring it in the morning. He states that he does not wish to have heroic measures and wishes to begin DO NOT INTUBATE/DO NOT RESUSCITATE. Patient will seek further advice from Dr. Jaramillo (Heme/Onc) in regards to placement of filter for PE prophylaxis as well as with his . Patient is understanding that he requires continued anticoagulation for both his bilateral femoral DVTs as well as ongoing A. fib. Patient was willing to speak with palliative care in regards to future options. Patient denies fever, chills, malaise. He denies dyspnea, shortness of breath, cough, chest pain/pressure, awareness of tachyarrhythmia. Patient denies change in bowel or bladder habits, abdominal pain, N/V/D, numbness/tingling of extremities, dizzy or lightheadedness. Objective Vital Signs - as noted Laboratory Data - as noted Physical Exam: General - NAD Eyes - PERRL, EOMI No icterus, gaze conjugate ENT - Mucosa moist, no lesions or candidiasis Neck - Supple, trachea midline, no masses or lymphadenopathy, no JVD or bruits Lungs - No paradoxical chest wall movement, clear to auscultation bilaterally, no wheezing noted to right lung trujillo without rales, or rhonchi Heart -irregularly irregular, No murmur, rubs, clicks, or gallops appreciated, dressing clean, dry, and intact in right pectoral area Abdomen - BS present, no bruits noted, tympanic to percussion, soft, nontender, nondistended, no organomegaly Extremities - No edema, pedal pulses intact, skin with many purpura/ecchymosis Neuro - A&O x 4 Strength extremities equal and appropriate bilaterally Reflexes: Normal and equal CN:PERRL, EOMI, no facial asymmetry, uvula/tongue midline Current SOFA Score SOFA Score Response (Comments) Value Platelets (x10) < 50 3 Bilirubin (mg/dL) < 1.2 0 Cassandra Coma Score 15 0 Level of Hypotension No Hypotension 0 Creatinine (mg/dL) 1.2 - 1.9 1 Total 4 Previous SOFA Scores 08/10/16: 7 Assessment & Plan (1) Elevated troponin (2) RADHA (acute kidney injury) (3) Septic shock (4) Bacteremia (5) Atrial fibrillation with RVR (6) Hyperlipidemia (7) Colon cancer (8) DVT, bilateral lower limbs (9) MRSA (methicillin resistant Staphylococcus aureus) infection Infectious Disease: * MRSA noted on cultures from removed port: Resistant to gentamicin, erythromycin, and doxycycline * Infectious disease consult: Appreciate Rabia Bernabe's input * Blood cultures pending * Negative lactic acid * Negative procalcitonin * Continue Unasyn Coverage (first day 08/10/16) * Afebrile 24 hours * WBCs: 6.74 * Continue to follow clinically Cardiac: * Echo today: Findings as listed above in HPI * Continues with A. fib RVR * 5 mg metoprolol IV Now and then scheduled 5mg q4h * Continued anticoagulation * BNP/Troponin: Continues to be elevated * Trend q 8h * hypotension resolved: Phenylephrine discontinued at 05 30 this morning * Continue to hold patient's home atorvastatin secondary to daptomycin treatment : Increase risk of myopathy when used in combination * Monitor on telemetry Heme/Onc: * Spoke with patient's oncology doctor: Dr. Jaramillo * She recommends temporary filter placement and consult of vascular surgeon * She is concerned about platelets being below 50 while patient continues on anticoagulation; may suggest supplemental platelets * Hit panel ordered: Negative * Discontinued heparin drip; creatinine clearance/GFR reviewed * Ordered Arixtra 7.5 mg subcutaneous daily * Monitor daily labs Pulmonary: * Today's ECHO is not convincing for acute pulmonary embolus: No abnormalities noted to Right heart movement on ultrasound * Patient requires continued anticoagulation secondary to bilateral femoral DVTs and A. fib * Anticoagulation therapy changed as stated in heme above * Wheezing on physical exam today * Scheduled levalbuterol respiratory regimen * Adequate saturations on room air; supplemental oxygen as needed * Continue to monitor /electrolytes: * RADHA improving: Now 1.3, down from 1.9 (baseline 1.2) * Fluids discontinued today as patient was off pressors and diet was started * Continues to void; no Armstrong * Monitor daily labs GI: * 2 bowel movements today, loose and brown; no current sign of GI bleed * Low Fat Diet started: Pt tolerating well * Continue patient's home ranitidine & Lactobacillus acidophilus Neuro: * Alert and oriented 4 * No complaints of pain * Monitor clinically for neurologic changes Endocrine: * TSH within normal limits * Elevated A1C: No current indication for insulin use as inpatient * Alert provider of BSG greater than 180 Access: Left IJ placed in ED, [address]: 47 minutes; Not including any billable procedures. Thank you for including us in the care of this patient. Please review Dr. Delvis Angel's addendum for further recommendations. I have personally evaluated and examined this patient. I agree with assessment and plan of Ced Swain PA-C. Will start HR control with Beta-hailey, may add Calcium channel hailey. DIgoxin relatively contraindicated given ckd and RADHA. will discuss goals of care. Consults & Procedures Consultants: Infectious disease: Shy Bernabe PA-C Wound Care Heme/Onc: Dr Jaramillo Procedures: Left I.J: 08/10 in ED Data Medications: Current Inpatient Medications Medications (Trade) Dose Ordered Sig/Thu Route Start Time Stop Time Status Last Admin Dose Admin Acetaminophen (Tylenol Tab) 650 mg Q4H PRN PO 08/10/16 18:45 09/09/16 18:44 Ranitidine HCl (zANTac SYRUP) 300 mg HS PO 08/10/16 21:00 09/09/16 20:59 08/11/16 20:24 300 MG Lactobacillus Acidophilus (Lactinex Granules Pack) 1 gm TIDM PO 08/11/16 07:15 09/10/16 07:59 08/11/16 17:52 1 GM Daptomycin 525 mg/ Sodium Chloride 60.5 ml @ 100 mls/hr Q24H IV 08/11/16 16:00 08/24/16 15:59 08/11/16 16:55 100 MLS/HR Aspirin (Ecotrin Tab) 81 mg DAILY PO 08/11/16 09:00 09/10/16 08:59 08/11/16 07:51 81 MG Atorvastatin Calcium (Lipitor Tab) 80 mg QAM PO 08/11/16 09:00 09/10/16 08:59 Future Hold Erythromycin (Erythromycin Oph Oint) 1 appln QPM OPL 08/10/16 21:00 08/20/16 20:59 08/11/16 20:24 1 APPLN Prednisolone Acetate (Pred Forte 1% Oph Susp) 1 drops BID OPL 08/10/16 21:00 09/09/16 20:59 08/11/16 20:24 1 DROPS Fondaparinux (Arixtra Inj) 7.5 mg QD SQ 08/11/16 20:15 09/10/16 20:14 UNV Levalbuterol (Xopenex 1.25MG/ 0.5ML Neb) 1.25 mg Q6R PRN INH 08/11/16 20:15 09/10/16 20:14 08/11/16 20:34 1.25 MG I & O: 24-Hour Column 08/12/16 08:00 Intake Total 1016 ml Output Total 750 ml Balance 266 ml Vital Signs: Date Time Temp Pulse Resp B/P (MAP) Pulse Ox O2 Delivery O2 Flow Rate FiO2 08/11/16 20:35 126 24 95 Nasal Cannula 2.0 08/11/16 20:23 136 119/83 08/11/16 18:01 131 28 110/63 (79) 95 Nasal Cannula 2.0 08/11/16 17:00 130 26 127/78 (94) 92 Nasal Cannula 2.0 08/11/16 16:00 36.7 129 29 115/82 (93) 98 Nasal Cannula 2.0 08/11/16 16:00 Nasal Cannula 2.0 08/11/16 15:00 128 30 114/76 (89) 98 Nasal Cannula 2.0 08/11/16 14:00 124 30 130/87 (101) 97 Nasal Cannula 2.0 08/11/16 13:00 124 27 97/63 (74) 98 Nasal Cannula 2.0 08/11/16 12:00 Nasal Cannula 2.0 08/11/16 12:00 36.9 136 22 92/65 (74) 97 Nasal Cannula 2.0 08/11/16 11:00 130 24 97/66 (76) 91 Nasal Cannula 2.0 08/11/16 10:00 126 24 88/64 (72) 95 Nasal Cannula 2.0 08/11/16 09:16 127 30 92/70 (77) 96 Nasal Cannula 2.0 08/11/16 08:00 Nasal Cannula 2.0 08/11/16 08:00 37.1 127 22 97/70 (79) 99 Nasal Cannula 2.0 08/11/16 07:46 130 24 102/30 (54) 08/11/16 07:15 126 23 110/70 (83) 98 08/11/16 07:00 124 27 101/65 (77) 08/11/16 06:00 119 16 110/70 (83) 93 Nasal Cannula 2.0 08/11/16 05:50 125 24 102/67 (79) 08/11/16 05:40 121 23 98/68 (78) 96 08/11/16 05:30 118 24 101/66 (78) 96 08/11/16 05:23 108 21 114/69 (84) 69 08/11/16 05:10 121 31 101/72 (82) 96 08/11/16 05:01 117 27 113/72 (86) 97 08/11/16 05:00 115 30 91 08/11/16 04:57 121 113/72 08/11/16 04:20 120 26 107/72 (84) 97 Nasal Cannula 2.0 08/11/16 04:10 121 24 93/70 (78) 98 Nasal Cannula 2.0 08/11/16 04:00 96 Nasal Cannula 2.0 08/11/16 04:00 36.9 123 26 100/76 (84) 97 Nasal Cannula 2.0 08/11/16 03:50 123 25 100/65 (77) 91 Room Air 08/11/16 03:40 125 22 102/65 (77) 90 Room Air 08/11/16 03:30 120 28 89/68 (75) 93 Room Air 08/11/16 03:21 123 26 111/75 (87) 91 Room Air 08/11/16 03:10 124 23 103/80 (88) 93 Room Air 08/11/16 03:00 118 23 119/84 (96) 93 Room Air 08/11/16 02:00 126 24 100/68 (79) 92 Room Air 08/11/16 01:50 117 25 100/68 (79) 92 Room Air 08/11/16 00:00 36.8 118 19 110/78 (89) 93 Room Air 08/10/16 23:59 94 Room Air 08/10/16 22:30 36.8 102 18 91/70 (77) 94 Room Air 08/10/16 21:59 36.8 102 18 101/66 94 Room Air Laboratory Results: Last 24 Hours Test 08/10/16 23:26 08/11/16 00:34 08/11/16 05:59 08/11/16 09:08 Bedside Glucose 135 mg/dl Total Creatine Kinase 83 U/L 76 U/L Troponin I 0.680 ng/ml 0.902 ng/ml Pro-B-Type Natriuretic Peptide 7346 pg/ml 8000 pg/ml White Blood Count 6.74 K/uL Red Blood Count 3.69 M/uL Hemoglobin 12.6 g/dL Hematocrit 35.8 % Mean Corpuscular Volume 97.0 fL Mean Corpuscular Hemoglobin 34.1 pg Mean Corpuscular Hemoglobin Concent 35.2 g/dl Platelet Count 47 K/uL Mean Platelet Volume 9.5 fL Neutrophils (%) (Auto) 87.4 % Lymphocytes (%) (Auto) 5.9 % Monocytes (%) (Auto) 3.6 % Eosinophils (%) (Auto) 2.7 % Basophils (%) (Auto) 0.0 % Neutrophils # (Auto) 5.89 K/uL Lymphocytes # (Auto) 0.40 K/uL Monocytes # (Auto) 0.24 K/uL Eosinophils # (Auto) 0.18 K/uL Basophils # (Auto) 0.00 K/uL RDW Standard Deviation 55.5 fL RDW Coefficient of Variation 15.6 % Immature Granulocyte % (Auto) 0.4 % Immature Granulocyte # (Auto) 0.03 K/uL Activated Partial Thromboplast Time 100.8 SECONDS Partial Thromboplastin Ratio 3.9 Sodium Level 137 mmol/L Potassium Level 3.9 mmol/L Chloride Level 106 mmol/L Carbon Dioxide Level 24 mmol/L Anion Gap 7.0 mmol/L Blood Urea Nitrogen 19 mg/dl Creatinine 1.30 mg/dl Est Creatinine Clear Calc Drug Dose 50.7 ml/min Estimated GFR () 58.9 Estimated GFR (Non- 50.8 BUN/Creatinine Ratio 15.0 Random Glucose 110 mg/dl Estimated Average Glucose 123 mg/dl Hemoglobin A1c 5.9 % Lactic Acid Level 0.7 mmol/L Calcium Level 7.1 mg/dl Phosphorus Level 2.5 mg/dl Magnesium Level 1.8 mg/dl Total Bilirubin 1.0 mg/dl Aspartate Amino Transf (AST/SGOT) 26 U/L Alanine Aminotransferase (ALT/SGPT) 20 U/L Alkaline Phosphatase 51 U/L Total Protein 5.1 gm/dl Albumin 2.5 gm/dl Globulin 2.6 gm/dl Albumin/Globulin Ratio 1.0 Procalcitonin 0.07 ng/ml Thyroid Stimulating Hormone (TSH) 1.010 uIu/ml Random Cortisol 24.80 mcg/dl Test 08/11/16 11:25 08/11/16 14:10 08/11/16 20:07 08/11/16 20:22 Bedside Glucose 113 mg/dl 117 mg/dl Activated Partial Thromboplast Time 78.0 SECONDS Partial Thromboplastin Ratio 3.0
[2016-08-11] MEDS ORDERED: FONDAPARINUX SQ SCH (21:30)
--- NOTE | 2016-08-11 22:17 | Medical Consult ---
Consultation Date of Consultation: Aug 11, 2016. Attending Physician: Chad Badillo MD, PhD Reason for Consultation: colon cancer History of Present Illness 81 year old male with stage IIIB colon cancer s/p surgery and was started on adjuvant chemotherapy with FOLFOX He received 1 cycle of chemotherapy with FOLFOX with 20% dose reduction due to thrombocytopenia. He was on doxycycline prophylaxis Last chemotherapy was 3 weeks ago. Treatment delayed last week due to problem with his portacath, his incision opened and surgery recommended port removal. . He states that after port removed he developed chills and fever and felt generally weak. He denies any cough or shortness of breath or pain in his legs He is admitted with septic shock and infected portacath MRSA, RADHA, elevated troponin and bilateral DVT He received BS antibiotics with daptomycin zosyn and levaquin. 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 Quit within the last month secondary to thrombocytopenia with chemotherapy) Drug Use: none Marital Status: Housing Status: lives with significant other Occupation Status: retired Allergies Coded Allergies: Vancomycin (Verified Allergy, Severe, SHORTNESS OF BREATH, 08/11/16) Current Inpatient Medications Current Inpatient Medications Medications (Trade) Dose Ordered Sig/Thu Route Start Time Stop Time Status Last Admin Dose Admin Acetaminophen (Tylenol Tab) 650 mg Q4H PRN PO 08/10/16 18:45 09/09/16 18:44 Ranitidine HCl (zANTac SYRUP) 300 mg HS PO 08/10/16 21:00 09/09/16 20:59 08/11/16 20:24 300 MG Lactobacillus Acidophilus (Lactinex Granules Pack) 1 gm TIDM PO 08/11/16 07:15 09/10/16 07:59 08/11/16 17:52 1 GM Daptomycin 525 mg/ Sodium Chloride 60.5 ml @ 100 mls/hr Q24H IV 08/11/16 16:00 08/24/16 15:59 08/11/16 16:55 100 MLS/HR Aspirin (Ecotrin Tab) 81 mg DAILY PO 08/11/16 09:00 09/10/16 08:59 08/11/16 07:51 81 MG Atorvastatin Calcium (Lipitor Tab) 80 mg QAM PO 08/11/16 09:00 09/10/16 08:59 Future Hold Erythromycin (Erythromycin Oph Oint) 1 appln QPM OPL 08/10/16 21:00 08/20/16 20:59 08/11/16 20:24 1 APPLN Prednisolone Acetate (Pred Forte 1% Oph Susp) 1 drops BID OPL 08/10/16 21:00 09/09/16 20:59 08/11/16 20:24 1 DROPS Levalbuterol (Xopenex 1.25MG/ 0.5ML Neb) 1.25 mg Q6R PRN INH 08/11/16 20:15 09/10/16 20:14 08/11/16 20:34 1.25 MG Fondaparinux 7.5 mg/Syringe 1.5 ml @ 0 mls/sec Q24H SQ 08/11/16 21:30 09/10/16 21:29 Review of Systems Constitutional: + fever, + weakness (generalized), + fatigue, No weight loss Eyes: No eye pain ENT: No unusual epistaxis, No nasal symptoms Respiratory: No cough, No sputum, No shortness of breath, No dyspnea on exertion, No dyspnea at rest Cardiovascular: No chest pain, No orthopnea, No palpitations Abdomen: No pain, No nausea, No vomiting, No diarrhea, No constipation, No GI bleeding Genitourinary - Male: No hematuria, No dysuria Psychiatric: No depression symptoms, No anxiety Endocrine: No fatigue Hematologic / Lymphatic: No swollen lymph nodes Integumentary: No rash, No itch Physical Exam Date Time Temp Pulse Resp B/P (MAP) Pulse Ox O2 Delivery O2 Flow Rate FiO2 08/11/16 21:02 124 103/66 08/11/16 20:35 126 24 95 Nasal Cannula 2.0 08/11/16 20:23 136 119/83 08/11/16 18:01 131 28 110/63 (79) 95 Nasal Cannula 2.0 08/11/16 17:00 130 26 127/78 (94) 92 Nasal Cannula 2.0 08/11/16 16:00 36.7 129 29 115/82 (93) 98 Nasal Cannula 2.0 08/11/16 16:00 Nasal Cannula 2.0 08/11/16 15:00 128 30 114/76 (89) 98 Nasal Cannula 2.0 08/11/16 14:00 124 30 130/87 (101) 97 Nasal Cannula 2.0 08/11/16 13:00 124 27 97/63 (74) 98 Nasal Cannula 2.0 08/11/16 12:00 Nasal Cannula 2.0 08/11/16 12:00 36.9 136 22 92/65 (74) 97 Nasal Cannula 2.0 08/11/16 11:00 130 24 97/66 (76) 91 Nasal Cannula 2.0 08/11/16 10:00 126 24 88/64 (72) 95 Nasal Cannula 2.0 08/11/16 09:16 127 30 92/70 (77) 96 Nasal Cannula 2.0 08/11/16 08:00 Nasal Cannula 2.0 08/11/16 08:00 37.1 127 22 97/70 (79) 99 Nasal Cannula 2.0 08/11/16 07:46 130 24 102/30 (54) 08/11/16 07:15 126 23 110/70 (83) 98 08/11/16 07:00 124 27 101/65 (77) 08/11/16 06:00 119 16 110/70 (83) 93 Nasal Cannula 2.0 08/11/16 05:50 125 24 102/67 (79) 08/11/16 05:40 121 23 98/68 (78) 96 08/11/16 05:30 118 24 101/66 (78) 96 08/11/16 05:23 108 21 114/69 (84) 69 08/11/16 05:10 121 31 101/72 (82) 96 08/11/16 05:01 117 27 113/72 (86) 97 08/11/16 05:00 115 30 91 08/11/16 04:57 121 113/72 08/11/16 04:20 120 26 107/72 (84) 97 Nasal Cannula 2.0 08/11/16 04:10 121 24 93/70 (78) 98 Nasal Cannula 2.0 08/11/16 04:00 96 Nasal Cannula 2.0 08/11/16 04:00 36.9 123 26 100/76 (84) 97 Nasal Cannula 2.0 08/11/16 03:50 123 25 100/65 (77) 91 Room Air 08/11/16 03:40 125 22 102/65 (77) 90 Room Air 08/11/16 03:30 120 28 89/68 (75) 93 Room Air 08/11/16 03:21 123 26 111/75 (87) 91 Room Air 08/11/16 03:10 124 23 103/80 (88) 93 Room Air 08/11/16 03:00 118 23 119/84 (96) 93 Room Air 08/11/16 02:00 126 24 100/68 (79) 92 Room Air 08/11/16 01:50 117 25 100/68 (79) 92 Room Air 08/11/16 00:00 36.8 118 19 110/78 (89) 93 Room Air 08/10/16 23:59 94 Room Air 08/10/16 22:30 36.8 102 18 91/70 (77) 94 Room Air 08/10/16 21:59 36.8 102 18 101/66 94 Room Air General Appearance: WD/WN, no apparent distress, + pertinent finding (ill appearing, awake and alert, oriented x 3) Head: normocephalic, atraumatic Neck: supple, no adenopathy, no JVD Respiratory/Chest: chest non-tender, lungs clear, normal breath sounds, no respiratory distress, no accessory muscle use Cardiovascular: regular rate, rhythm, no edema, no JVD Abdomen/GI: normal bowel sounds, non tender, soft, no organomegaly Neurologic/Psych: no motor/sensory deficits (grossly), alert, oriented x 3 Skin: warm/dry Laboratory Results Last 24 Hours Test 08/10/16 23:26 08/11/16 00:34 08/11/16 05:59 08/11/16 09:08 Bedside Glucose 135 mg/dl Total Creatine Kinase 83 U/L 76 U/L Troponin I 0.680 ng/ml 0.902 ng/ml Pro-B-Type Natriuretic Peptide 7346 pg/ml 8000 pg/ml White Blood Count 6.74 K/uL Red Blood Count 3.69 M/uL Hemoglobin 12.6 g/dL Hematocrit 35.8 % Mean Corpuscular Volume 97.0 fL Mean Corpuscular Hemoglobin 34.1 pg Mean Corpuscular Hemoglobin Concent 35.2 g/dl Platelet Count 47 K/uL Mean Platelet Volume 9.5 fL Neutrophils (%) (Auto) 87.4 % Lymphocytes (%) (Auto) 5.9 % Monocytes (%) (Auto) 3.6 % Eosinophils (%) (Auto) 2.7 % Basophils (%) (Auto) 0.0 % Neutrophils # (Auto) 5.89 K/uL Lymphocytes # (Auto) 0.40 K/uL Monocytes # (Auto) 0.24 K/uL Eosinophils # (Auto) 0.18 K/uL Basophils # (Auto) 0.00 K/uL RDW Standard Deviation 55.5 fL RDW Coefficient of Variation 15.6 % Immature Granulocyte % (Auto) 0.4 % Immature Granulocyte # (Auto) 0.03 K/uL Activated Partial Thromboplast Time 100.8 SECONDS Partial Thromboplastin Ratio 3.9 Sodium Level 137 mmol/L Potassium Level 3.9 mmol/L Chloride Level 106 mmol/L Carbon Dioxide Level 24 mmol/L Anion Gap 7.0 mmol/L Blood Urea Nitrogen 19 mg/dl Creatinine 1.30 mg/dl Est Creatinine Clear Calc Drug Dose 50.7 ml/min Estimated GFR () 58.9 Estimated GFR (Non- 50.8 BUN/Creatinine Ratio 15.0 Random Glucose 110 mg/dl Estimated Average Glucose 123 mg/dl Hemoglobin A1c 5.9 % Lactic Acid Level 0.7 mmol/L Calcium Level 7.1 mg/dl Phosphorus Level 2.5 mg/dl Magnesium Level 1.8 mg/dl Total Bilirubin 1.0 mg/dl Aspartate Amino Transf (AST/SGOT) 26 U/L Alanine Aminotransferase (ALT/SGPT) 20 U/L Alkaline Phosphatase 51 U/L Total Protein 5.1 gm/dl Albumin 2.5 gm/dl Globulin 2.6 gm/dl Albumin/Globulin Ratio 1.0 Procalcitonin 0.07 ng/ml Thyroid Stimulating Hormone (TSH) 1.010 uIu/ml Random Cortisol 24.80 mcg/dl Test 08/11/16 11:25 08/11/16 14:10 08/11/16 20:22 08/11/16 20:58 Bedside Glucose 113 mg/dl 117 mg/dl Activated Partial Thromboplast Time 78.0 SECONDS Partial Thromboplastin Ratio 3.0 Assessment & Plan 81 year old male with stage III colon cancer s/p surgery and 1 cycle of FOLFOX admitted with septic shock, MRSA infection, infected port, RADHA He is feeling improved today - he is On Daptomycin Colon cancer: I explained to patient that chemotherapy will need to be held at this time due to sepsis. Bilateral DVTs: on anticoagulation. No bleeding symptoms. recommend close monitoring of his CBC. Recommend consult vascular surgery for consideration for temporary IVC filter if thrombocytopenia persists or if any bleeding Acute on chronic thrombocytopenia: likely worsened due to sepsis. Thrombocytopenia had improved since he quit alcohol Support provided Thank you for consult.
[2016-08-12] VITALS (22 sets, daily range): BP systolic 78–128; BP diastolic 51–89; PULSE 115–162; TEMP 36.4–37.4; O2SAT 79–98
[2016-08-12] MEDS: METOPROLOL TARTRATE 1 MG/ML VIAL IV. SCH ×2 (01:02→04:34)
[2016-08-12 05:39] LABS: BASO % 0.1 %; BASO ABS # 0.01 K/uL (0-0.2); COMPLETE YES; EOS % 2.1 %; HEMATOCRIT 36.5 % (42-52); IG% 0.3 %; LYMPH % 9.6 %; LYMPH ABS # 0.96 K/uL (1.2-3.4); MEAN CELL VOLUME 96.8 fL (80-100); MEAN CORPUSCULAR HEMOGLOBIN 33.2 pg (25-34); MEAN CORPUSCULAR HGB CONC 34.2 g/dl (32-36); MEAN PLATELET VOLUME 10.1 fL (7.4-10.4); MONO % 6.7 %; NEUT % 81.2 %; PLATELET COUNT 55 K/uL (130-400); RED BLOOD COUNT 3.77 M/uL (4.7-6.1); WHITE BLOOD COUNT 9.95 K/uL (4.8-10.8)
[2016-08-12 05:57] LABS: BUN/CREATININE RATIO 12.6 (10-20); CREATININE 1.1 mg/dl (0.60-1.40); MAGNESIUM 1.9 mg/dl (1.8-2.4); POTASSIUM 3.7 mmol/L (3.5-5.1)
[2016-08-12 06:03] LABS: ALB/GLOB RATIO 0.9 (0.9-2); CALCIUM 7.6 mg/dl (8.5-10.1); PHOSPHORUS 2.3 mg/dl (2.5-4.9)
[2016-08-12] MEDS ORDERED: SODIUM PHOSPHATE 3 MMOL/1 ML INFUSION IV STA (06:07)
[2016-08-12] MEDS: LACTOBACILLUS ACIDOPHILUS 1 GM PACK PO SCH ×3 (06:40→16:21)
[2016-08-12] MEDS ORDERED: POTASSIUM CHLORIDE 10 MEQ TABCR PO ONE (06:45)
[2016-08-12] MEDS ORDERED: SODIUM PHOSPHATE INJ 15 MMOL in SODIUM CHLORIDE 0.9% 250ML 250 ML IV SCH (07:00)
--- NOTE | 2016-08-12 07:58 | Critical Care Progress Note ---
Critical Care Progress Note Date of Service Aug 12, 2016. ICU Day ICU Day Number: [address] Angel Subjective Feels fine, no chest pain nor shortness of breath. No nausea, no vomiting Objective Vital Signs - as noted Laboratory Data - as noted Physical Exam: General - NAD Eyes - PERRL, EOMI No icterus, gaze conjugate ENT - Mucosa moist, no lesions or candidiasis Neck - Supple, trachea midline, no masses or lymphadenopathy, no JVD or bruits Lungs - No paradoxical chest wall movement, clear to auscultation bilaterally, no wheezing noted to right lung trujillo without rales, or rhonchi Heart -irregularly irregular, No murmur, rubs, clicks, or gallops appreciated, dressing clean, dry, and intact in right pectoral area Abdomen - BS present, no bruits noted, tympanic to percussion, soft, nontender, nondistended, no organomegaly Extremities - No edema, pedal pulses intact, skin with many purpura/ecchymosis Neuro - A&O x 4 Strength extremities equal and appropriate bilaterally Reflexes: Normal and equal CN:PERRL, EOMI, no facial asymmetry, uvula/tongue midline Current SOFA Score SOFA Score Response (Comments) Value Platelets (x10) < 100 2 Bilirubin (mg/dL) < 1.2 0 Cassandra Coma Score 15 0 Level of Hypotension No Hypotension 0 Creatinine (mg/dL) < 1.2 0 Total 2 Previous SOFA Scores 08/10/16: 7; 08/11/16: 4 Assessment & Plan (1) Elevated troponin (2) RADHA (acute kidney injury) (3) Septic shock (4) Bacteremia (5) Atrial fibrillation with RVR (6) Hyperlipidemia (7) Colon cancer (8) DVT, bilateral lower limbs (9) MRSA (methicillin resistant Staphylococcus aureus) infection Infectious Disease: * MRSA noted on cultures from removed port: Resistant to gentamicin, erythromycin, and doxycycline * Infectious disease consult: Appreciate Rabia Bernabe's input * Blood cultures pending Cardiac: * Echo today: Findings as listed above in HPI * Continues with A. fib RVR * increase Beta blockade * Continued anticoagulation * BNP/Troponin: Continues to be elevated * Trend q 8h * Continue to hold patient's home atorvastatin secondary to daptomycin treatment : Increase risk of myopathy when used in combination * Monitor on telemetry Heme/Onc: * Spoke with patient's oncology doctor: Dr. Jaramillo * She recommends temporary filter placement and consult of vascular surgeon * She is concerned about platelets being below 50 while patient continues on anticoagulation; may suggest supplemental platelets * Hit panel ordered: Negative * Discontinued heparin drip; creatinine clearance/GFR reviewed * Ordered Arixtra 7.5 mg subcutaneous daily * Monitor daily labs * Bilateral DVT * placed consult for IVC filter with Vasc Surgery * awaiting further discussion with . Pulmonary: * Today's ECHO is not convincing for acute pulmonary embolus: No abnormalities noted to Right heart movement on ultrasound * Patient requires continued anticoagulation secondary to bilateral femoral DVTs and A. fib /electrolytes: * RADHA improving: Now 1.1, down from 1.9 (baseline 1.2) * Continues to void; no Armstrong * Monitor daily labs GI: * Low Fat Diet started: Pt tolerating well * Continue patient's home ranitidine & Lactobacillus acidophilus Neuro: * Alert and oriented 4 * No complaints of pain * Monitor clinically for neurologic changes Endocrine: * TSH within normal limits * Elevated A1C: No current indication for insulin use as inpatient * Alert provider of BSG greater than 180 Access: Left IJ placed in ED, [address] I have personally spent 40 minutes of critical care time in the direct management of this patient. This is a life/limb threatening event. This includes time spent evaluating patient, direct bedside care, chart review, placing orders, interpretation of diagnostic studies, discussion with consultants, patient, and family members, as well as other required patient management activities. This time is exclusive of all separately billable procedures, and teaching time and separate from and in addition to any other critical care service time. Consults & Procedures Consultants: Infectious disease: Shy Bernabe PA-C Wound Care Heme/Onc: Dr Jaramillo Procedures: Left I.J: 08/10 in ED Data Medications: Current Inpatient Medications Medications (Trade) Dose Ordered Sig/Thu Route Start Time Stop Time Status Last Admin Dose Admin Acetaminophen (Tylenol Tab) 650 mg Q4H PRN PO 08/10/16 18:45 09/09/16 18:44 Ranitidine HCl (zANTac SYRUP) 300 mg HS PO 08/10/16 21:00 09/09/16 20:59 08/11/16 20:24 300 MG Lactobacillus Acidophilus (Lactinex Granules Pack) 1 gm TIDM PO 08/11/16 07:15 09/10/16 07:59 08/12/16 06:40 1 GM Daptomycin 525 mg/ Sodium Chloride 60.5 ml @ 100 mls/hr Q24H IV 08/11/16 16:00 08/24/16 15:59 08/11/16 16:55 100 MLS/HR Aspirin (Ecotrin Tab) 81 mg DAILY PO 08/11/16 09:00 09/10/16 08:59 08/11/16 07:51 81 MG Atorvastatin Calcium (Lipitor Tab) 80 mg QAM PO 08/11/16 09:00 09/10/16 08:59 Future Hold Erythromycin (Erythromycin Oph Oint) 1 appln QPM OPL 08/10/16 21:00 08/20/16 20:59 08/11/16 20:24 1 APPLN Prednisolone Acetate (Pred Forte 1% Oph Susp) 1 drops BID OPL 08/10/16 21:00 09/09/16 20:59 08/11/16 20:24 1 DROPS Levalbuterol (Xopenex 1.25MG/ 0.5ML Neb) 1.25 mg Q6R PRN INH 08/11/16 20:15 09/10/16 20:14 08/11/16 20:34 1.25 MG Fondaparinux 7.5 mg/Syringe 1.5 ml @ 0 mls/sec Q24H SQ 08/11/16 21:30 09/10/16 21:29 08/11/16 21:59 1.5 MLS/SEC Metoprolol Tartrate (Lopressor Iv) 5 mg Q4 IV. 08/12/16 00:00 09/11/16 00:00 08/12/16 04:34 5 MG Heparin Sodium (Porcine) (Heparin 10 Unit/ ml 5 ml Flush) 5 ml PRN PRN FLUSH 08/12/16 02:30 09/11/16 02:29 Sodium Phosphate 15 mmol/Sodium Chloride 255 ml @ 127.5 mls/ hr TODAY@0700 IV 08/12/16 07:00 08/12/16 08:59 08/12/16 06:41 127.5 MLS/HR Vital Signs: Date Time Temp Pulse Resp B/P (MAP) Pulse Ox O2 Delivery O2 Flow Rate FiO2 08/12/16 06:00 129 25 119/77 94 08/12/16 05:00 130 25 98/73 92 08/12/16 04:34 124 119/76 08/12/16 04:30 143 25 119/76 93 08/12/16 04:00 137 26 99/64 92 08/12/16 04:00 37.4 08/12/16 04:00 93 Nasal Cannula 2.0 08/12/16 03:37 140 25 94/72 94 08/12/16 03:01 143 26 88/64 93 08/12/16 02:17 134 26 117/76 93 08/12/16 01:02 141 108/89 08/12/16 01:01 138 24 108/89 93 08/12/16 00:01 36.7 08/12/16 00:00 136 29 109/68 94 08/11/16 23:59 95 Nasal Cannula 2.0 08/11/16 23:41 120 117/84 08/11/16 23:05 133 25 117/84 95 08/11/16 22:00 133 26 108/74 95 08/11/16 21:02 124 103/66 08/11/16 20:56 129 33 103/66 96 08/11/16 20:35 126 24 95 Nasal Cannula 2.0 08/11/16 20:23 136 119/83 08/11/16 20:00 140 35 119/83 95 08/11/16 20:00 95 Nasal Cannula 2.0 08/11/16 20:00 36.7 08/11/16 18:01 131 28 110/63 (79) 95 Nasal Cannula 2.0 08/11/16 17:00 130 26 127/78 (94) 92 Nasal Cannula 2.0 08/11/16 16:00 36.7 129 29 115/82 (93) 98 Nasal Cannula 2.0 08/11/16 16:00 Nasal Cannula 2.0 08/11/16 15:00 128 30 114/76 (89) 98 Nasal Cannula 2.0 08/11/16 14:00 124 30 130/87 (101) 97 Nasal Cannula 2.0 08/11/16 13:00 124 27 97/63 (74) 98 Nasal Cannula 2.0 08/11/16 12:00 Nasal Cannula 2.0 08/11/16 12:00 36.9 136 22 92/65 (74) 97 Nasal Cannula 2.0 08/11/16 11:00 130 24 97/66 (76) 91 Nasal Cannula 2.0 08/11/16 10:00 126 24 88/64 (72) 95 Nasal Cannula 2.0 08/11/16 09:16 127 30 92/70 (77) 96 Nasal Cannula 2.0 08/11/16 08:00 Nasal Cannula 2.0 08/11/16 08:00 37.1 127 22 97/70 (79) 99 Nasal Cannula 2.0 08/11/16 07:46 130 24 102/30 (54) 08/11/16 07:15 126 23 110/70 (83) 98 08/11/16 07:00 124 27 101/65 (77) Laboratory Results: Last 24 Hours Test 08/11/16 09:08 08/11/16 11:25 08/11/16 14:10 08/11/16 20:22 Total Creatine Kinase 76 U/L Troponin I 0.902 ng/ml Pro-B-Type Natriuretic Peptide 8000 pg/ml Bedside Glucose 113 mg/dl 117 mg/dl Activated Partial Thromboplast Time 78.0 SECONDS Partial Thromboplastin Ratio 3.0 Test 08/11/16 20:58 08/12/16 05:10 08/12/16 05:13 Heparin-PF4 Antibody Screen NEG White Blood Count 9.95 K/uL Red Blood Count 3.77 M/uL Hemoglobin 12.5 g/dL Hematocrit 36.5 % Mean Corpuscular Volume 96.8 fL Mean Corpuscular Hemoglobin 33.2 pg Mean Corpuscular Hemoglobin Concent 34.2 g/dl Platelet Count 55 K/uL Mean Platelet Volume 10.1 fL Neutrophils (%) (Auto) 81.2 % Lymphocytes (%) (Auto) 9.6 % Monocytes (%) (Auto) 6.7 % Eosinophils (%) (Auto) 2.1 % Basophils (%) (Auto) 0.1 % Neutrophils # (Auto) 8.07 K/uL Lymphocytes # (Auto) 0.96 K/uL Monocytes # (Auto) 0.67 K/uL Eosinophils # (Auto) 0.21 K/uL Basophils # (Auto) 0.01 K/uL RDW Standard Deviation 54.4 fL RDW Coefficient of Variation 15.5 % Immature Granulocyte % (Auto) 0.3 % Immature Granulocyte # (Auto) 0.03 K/uL Sodium Level 137 mmol/L Potassium Level 3.7 mmol/L Chloride Level 104 mmol/L Carbon Dioxide Level 26 mmol/L Anion Gap 7.0 mmol/L Blood Urea Nitrogen 14 mg/dl Creatinine 1.10 mg/dl Est Creatinine Clear Calc Drug Dose 59.9 ml/min Estimated GFR () 72.1 Estimated GFR (Non- 62.2 BUN/Creatinine Ratio 12.6 Random Glucose 90 mg/dl Calcium Level 7.6 mg/dl Phosphorus Level 2.3 mg/dl Magnesium Level 1.9 mg/dl Total Bilirubin 0.8 mg/dl Aspartate Amino Transf (AST/SGOT) 24 U/L Alanine Aminotransferase (ALT/SGPT) 21 U/L Alkaline Phosphatase 53 U/L Troponin I 0.547 ng/ml Pro-B-Type Natriuretic Peptide 9190 pg/ml Total Protein 5.3 gm/dl Albumin 2.5 gm/dl Globulin 2.8 gm/dl Albumin/Globulin Ratio 0.9 Bedside Glucose 92 mg/dl
[2016-08-12] MEDS: ASPIRIN 81 MG ECTAB PO SCH (08:03)
[2016-08-12] MEDS: PrednisoLONE ACET 1% OP SUSP 5 ML BTL OPL SCH ×2 (08:03→22:05)
[2016-08-12] MEDS ORDERED: METOPROLOL TARTRATE 50 MG TAB PO SCH (09:00)
--- NOTE | 2016-08-12 13:43 | Infectious Disease Progress Nt ---
Progress Note Date of Service Aug 12, 2016. Subjective Pt evaluation today including: conversation w/ patient, conversation w/ family , physical exam, chart review, lab review, review of studies, review of inpatient medication list Patient is feeling slightly improved today. He feels that his breathing is better. His white blood cell count was 9.95 today. His creatinine was 1.10. His BMP is trending up slightly and was 9190 today. His blood cultures are showing no growth to date. C diff toxin was negative. MRSA nasal swab was positive. The patient was evaluated by wound care. He continues on IV daptomycin without problems. Patient states that he has moved his bowels, but has not had diarrhea today. All Other Systems: Reviewed and Negative Medications Current Inpatient Medications Medications (Trade) Dose Ordered Sig/Thu Route Start Time Stop Time Status Last Admin Dose Admin Acetaminophen (Tylenol Tab) 650 mg Q4H PRN PO 08/10/16 18:45 09/09/16 18:44 Lactobacillus Acidophilus (Lactinex Granules Pack) 1 gm TIDM PO 08/11/16 07:15 09/10/16 07:59 08/12/16 06:40 1 GM Daptomycin 525 mg/ Sodium Chloride 60.5 ml @ 100 mls/hr Q24H IV 08/11/16 16:00 08/24/16 15:59 08/11/16 16:55 100 MLS/HR Aspirin (Ecotrin Tab) 81 mg DAILY PO 08/11/16 09:00 09/10/16 08:59 08/12/16 08:03 81 MG Atorvastatin Calcium (Lipitor Tab) 80 mg QAM PO 08/11/16 09:00 09/10/16 08:59 Future Hold Erythromycin (Erythromycin Oph Oint) 1 appln QPM OPL 08/10/16 21:00 08/20/16 20:59 08/11/16 20:24 1 APPLN Prednisolone Acetate (Pred Forte 1% Oph Susp) 1 drops BID OPL 08/10/16 21:00 09/09/16 20:59 08/12/16 08:03 1 DROPS Levalbuterol (Xopenex 1.25MG/ 0.5ML Neb) 1.25 mg Q6R PRN INH 08/11/16 20:15 09/10/16 20:14 08/11/16 20:34 1.25 MG Fondaparinux 7.5 mg/Syringe 1.5 ml @ 0 mls/sec Q24H SQ 08/11/16 21:30 09/10/16 21:29 08/11/16 21:59 1.5 MLS/SEC Metoprolol Tartrate (Lopressor Iv) 5 mg Q4 IV. 08/12/16 00:00 09/11/16 00:00 Future Hold 08/12/16 04:34 5 MG Heparin Sodium (Porcine) (Heparin 10 Unit/ ml 5 ml Flush) 5 ml PRN PRN FLUSH 08/12/16 02:30 09/11/16 02:29 Metoprolol Tartrate (Lopressor Tab) 75 mg BID PO 08/12/16 21:00 08/12/16 21:01 Metoprolol Tartrate (Lopressor Tab) 100 mg BID PO 08/13/16 09:00 09/12/16 08:59 Ranitidine HCl (zANTac TAB) 300 mg HS PO 08/12/16 21:00 09/11/16 20:59 Objective Vital Signs Date Time Temp Pulse Resp B/P (MAP) Pulse Ox O2 Delivery O2 Flow Rate FiO2 08/12/16 10:00 133 23 107/66 (80) 93 08/12/16 09:01 115 24 102/65 (77) 94 08/12/16 08:00 Nasal Cannula 08/12/16 08:00 36.4 142 27 92/60 (71) 93 Nasal Cannula 2.0 08/12/16 08:00 93 Nasal Cannula 2.0 08/12/16 06:00 129 25 119/77 94 08/12/16 05:00 130 25 98/73 92 08/12/16 04:34 124 119/76 08/12/16 04:30 143 25 119/76 93 08/12/16 04:00 137 26 99/64 92 08/12/16 04:00 37.4 08/12/16 04:00 93 Nasal Cannula 2.0 08/12/16 03:37 140 25 94/72 94 08/12/16 03:01 143 26 88/64 93 08/12/16 02:17 134 26 117/76 93 08/12/16 01:02 141 108/89 08/12/16 01:01 138 24 108/89 93 08/12/16 00:01 36.7 6/23/17 00:00 136 29 109/68 94 08/11/16 23:59 95 Nasal Cannula 2.0 08/11/16 23:41 120 117/84 08/11/16 23:05 133 25 117/84 95 08/11/16 22:00 133 26 108/74 95 08/11/16 21:02 124 103/66 08/11/16 20:56 129 33 103/66 96 08/11/16 20:35 126 24 95 Nasal Cannula 2.0 08/11/16 20:23 136 119/83 08/11/16 20:00 140 35 119/83 95 08/11/16 20:00 95 Nasal Cannula 2.0 08/11/16 20:00 36.7 08/11/16 18:01 131 28 110/63 (79) 95 Nasal Cannula 2.0 08/11/16 17:00 130 26 127/78 (94) 92 Nasal Cannula 2.0 08/11/16 16:00 36.7 129 29 115/82 (93) 98 Nasal Cannula 2.0 08/11/16 16:00 Nasal Cannula 2.0 08/11/16 15:00 128 30 114/76 (89) 98 Nasal Cannula 2.0 08/11/16 14:00 124 30 130/87 (101) 97 Nasal Cannula 2.0 Physical Exam General Appearance: WD/WN, no apparent distress Eyes: normal inspection, sclerae normal ENT: hearing grossly normal Neck: supple, trachea midline Respiratory/Chest: chest non-tender, no respiratory distress, no accessory muscle use, + decreased breath sounds Cardiovascular: + tachycardia Abdomen: normal bowel sounds, non tender, soft Neurologic/Psychiatric: alert, normal mood/affect Skin: normal color, warm/dry, no rash Laboratory Results Item Value Date Time C.difficile Toxin B Gene (PCR) - Final Complete 08/11/16 1155 Stool No C. difficile toxin B gene detected Blood Culture - Preliminary Resulted 08/10/16 1545 Blood NO GROWTH TO DATE. Blood Culture - Preliminary Resulted 08/10/16 1535 Blood NO GROWTH TO DATE. MRSA DNA Surveillance Screen - Final Complete 08/10/16 0000 Nasal Specimen Positive for MRSA by DNA Probe Last 24 Hours Test 08/11/16 14:10 08/11/16 20:22 08/11/16 20:58 08/12/16 05:10 Activated Partial Thromboplast Time 78.0 SECONDS Partial Thromboplastin Ratio 3.0 Bedside Glucose 117 mg/dl Heparin-PF4 Antibody Screen NEG White Blood Count 9.95 K/uL Red Blood Count 3.77 M/uL Hemoglobin 12.5 g/dL Hematocrit 36.5 % Mean Corpuscular Volume 96.8 fL Mean Corpuscular Hemoglobin 33.2 pg Mean Corpuscular Hemoglobin Concent 34.2 g/dl Platelet Count 55 K/uL Mean Platelet Volume 10.1 fL Neutrophils (%) (Auto) 81.2 % Lymphocytes (%) (Auto) 9.6 % Monocytes (%) (Auto) 6.7 % Eosinophils (%) (Auto) 2.1 % Basophils (%) (Auto) 0.1 % Neutrophils # (Auto) 8.07 K/uL Lymphocytes # (Auto) 0.96 K/uL Monocytes # (Auto) 0.67 K/uL Eosinophils # (Auto) 0.21 K/uL Basophils # (Auto) 0.01 K/uL RDW Standard Deviation 54.4 fL RDW Coefficient of Variation 15.5 % Immature Granulocyte % (Auto) 0.3 % Immature Granulocyte # (Auto) 0.03 K/uL Sodium Level 137 mmol/L Potassium Level 3.7 mmol/L Chloride Level 104 mmol/L Carbon Dioxide Level 26 mmol/L Anion Gap 7.0 mmol/L Blood Urea Nitrogen 14 mg/dl Creatinine 1.10 mg/dl Est Creatinine Clear Calc Drug Dose 59.9 ml/min Estimated GFR () 72.1 Estimated GFR (Non- 62.2 BUN/Creatinine Ratio 12.6 Random Glucose 90 mg/dl Calcium Level 7.6 mg/dl Phosphorus Level 2.3 mg/dl Magnesium Level 1.9 mg/dl Total Bilirubin 0.8 mg/dl Aspartate Amino Transf (AST/SGOT) 24 U/L Alanine Aminotransferase (ALT/SGPT) 21 U/L Alkaline Phosphatase 53 U/L Troponin I 0.547 ng/ml Pro-B-Type Natriuretic Peptide 9190 pg/ml Total Protein 5.3 gm/dl Albumin 2.5 gm/dl Globulin 2.8 gm/dl Albumin/Globulin Ratio 0.9 Test 08/12/16 05:13 Bedside Glucose 92 mg/dl Assessment and Plan (1) RADHA (acute kidney injury) Status: Resolved (2) Septic shock (3) Atrial fibrillation with RVR Status: Resolved (4) DVT, bilateral lower limbs (5) MRSA (methicillin resistant Staphylococcus aureus) infection Status: Acute Patient with septic shock, infected port with MRSA now s/p removal [employer], and B/L LE DVT in the setting of colorectal cancer receiving chemotherapy as outpatient. The patient is currently on IV Daptomycin. Blood cultures are showing no growth. Because it does not appear that this patient is bacteremic and port was removed, feel that he likely will only need about 2 weeks of IV abx therapy. Also, with history of previously infected venous graft, feel that the patient should restart his previous Doxycycline suppression following IV therapy- since he was not bacteremic, feel that the area should not have been seeded with the more resistant MRSA. Discussed this with Dr. Angel and Dr. Nino. We will follow. Case reviewed and agree with above assessment. No alternative suppressive agents available for this pt, doxy is safest for jail use, would resume with this when ready
--- NOTE | 2016-08-12 14:20 | Surgery Consultation ---
Consultation Date of Service Aug 12, 2016. (Kaitlin Mohr, MAILE) Chief Complaint BLE DVT, need IVC filter (Kaitlin Mohr, MAILE) History of Present Illness The patient is a 81 year old male with multiple medical problems, including Stage III colon ca and thrombocytopenia, admitted with sepsis and BL common femoral v DVT, seen in consultation today for possible IVC filter insertion. Pt on anticoagulation, however, d/t hypercoagulable state and moderate bleeding risk, IVC filter being considered. Pt denies any complaints presently except fatigue. Denies CASTANEDA, fever, chills, chest pain, SOB, abd pain, N/V, rest pain, claudication, other complaints. (Kaitlin Mohr, MAILE) Vitals Vital Signs Past 12 Hours Date Time Temp Pulse Resp B/P (MAP) Pulse Ox O2 Delivery O2 Flow Rate FiO2 08/12/16 10:00 133 23 107/66 (80) 93 08/12/16 09:01 115 24 102/65 (77) 94 08/12/16 08:00 Nasal Cannula 08/12/16 08:00 36.4 142 27 92/60 (71) 93 Nasal Cannula 2.0 08/12/16 08:00 93 Nasal Cannula 2.0 08/12/16 06:00 129 25 119/77 94 08/12/16 05:00 130 25 98/73 92 08/12/16 04:34 124 119/76 08/12/16 04:30 143 25 119/76 93 08/12/16 04:00 137 26 99/64 92 08/12/16 04:00 37.4 08/12/16 04:00 93 Nasal Cannula 2.0 08/12/16 03:37 140 25 94/72 94 08/12/16 03:01 143 26 88/64 93 08/12/16 02:17 134 26 117/76 93 (Kaitlin Mohr, MAILE) Allergies Coded Allergies: Vancomycin (Verified Allergy, Severe, SHORTNESS OF BREATH, 08/11/16) Home Medications Scheduled Ascorbic Acid (Vitamin C), 1 TAB PO QAM Aspirin (Aspirin Ec), 81 MG PO DAILY Atorvastatin (Lipitor), 80 MG PO QAM Doxycycline Monohydrate (Monodox), 100 MG PO QAM Erythromycin (Erythromycin), 1 APPLN OPL QPM Folic Acid-Vit B2-Vit B6-Vit B (Folgard), 1 TAB PO QAM Furosemide (Lasix), 20 MG PO QAM Multivitamin (Multivitamin), 1 TAB PO QAM Omeprazole (Prilosec), 20 MG PO BID Potassium Chloride (Micro-K Ext Rel), 10 MEQ PO DAILY Prednisolone Acetate (Ophth) (Pred Forte 1% Oph), 1 DROPS OPL BID Probiotic Product (Acidophilus), 1 TAB PO BID Sotalol Hcl (Sotalol Hcl), 1 TAB PO BID Sulfa/Trimethoprim (Bactrim Ds 800MG/160MG), 1 TAB PO BID Warfarin Sod (Jantoven), 2 MG PO QPM [Ferrous Sulfate], 65 MG PO DAILY Problem List Medical Problems: (1) RADHA (acute kidney injury) (2) Colon cancer (3) DVT, bilateral lower limbs (4) Elevated troponin (5) Hyperlipidemia (6) MRSA (methicillin resistant Staphylococcus aureus) infection (7) Septic shock (Kaitlin Mohr, SEBASTIANC) Surgical / Medical History Hx Cardiac Surgery: No Hx Abdominal Surgery: Yes (Colon surgery (not spec.)) Hx Cancer Surgery: Yes (Removal of Colon mass) Hx Thoracic Surgery: No Hx Orthopedic: No Hx Urinary Tract Surgery: No HX Other Surgery: Yes (Bilateral popliteal bypass ) Past Medical/Surgical History: High Cholesterol, Hypertension, Other (atrial fibrillation) (Kaitlin Mohr, SEBASTIANC) Family History + HTN (Kaitlin Mohr, SEBASTIANC) Social History Smoking Status: Former Smoker (30 year history, 1-1.5 ppd; quit 2006) Hx Tobacco Use In Past Year?: No (Quit smoking in 2006) Hx Alcohol Use - Type & Amnt: No Hx Substance Use -Type & Amnt: No (Kaitlin Mohr, SEBASTIANC) Review of Systems Constitutional: + malaise, No chills, No fever Skin: No change in color Eyes: No visual changes ENMT: No sore throat Respiratory: No cough, No GRAY, No hemoptysis, No short of breath Cardiovascular: No chest pain, No palpitations, No syncope, No edema, No intermittent claudication Gastrointestinal: No abdominal pain, No nausea, No vomiting Neurologic: No dizziness, No headache, No numbness, No tingling (Kaitlin Mohr, PA-C) Physical Exam Constitutional: General Apperance: well-nourished, well-developed Level of Distress: NAD, chronically ill Psychiatric: Mental Status: active & alert, normal mood, normal affect Orientation: oriented except where noted, to time, to place, to person Memory: recent memory normal, remote memory normal Head: normocephalic, atraumatic Eyes: EOM: EOMI ENMT: normal ENT inspection, hearing grossly normal Neck: supple, trachea midline Lungs: Respiratory effort: no dyspnea Auscultation: no wheezing, no rales/crackles, no rhonchi Cardiovascular: Apical Impulse: not displaced Heart Auscultation: no rubs, no gallops, pertinent finding (irregular) Peripheral Pulses: Pulses: full and equal, in all extremities except if noted Bruits: none appreciated Carotid Pulse: normal on the left, normal on the right Brachial Pulses: normal on the left, normal on the right Radial Pulse: normal on the left, normal on the right Femoral Pulse: normal on the left, normal on the right Posterior Tibialis Pulse: decreased on the left, decreased on the right Dorsalis Pedis Pulse: decreased on the left, decreased on the right Abdomen: Bowel Sounds: normal Inspection & Palpation: soft, non-distended, no tenderness, guarding & rebound Musculoskeletal: normal strength (5/5 throughout), normal tone Extremities: Upper Right: no cyanosis, no edema, no varicosities Upper Left: no cyanosis, no edema, no varicosities Lower Right: no cyanosis, no edema, no varicosities Lower Left: no cyanosis, no edema, no varicosities Neurologic: Cranial Nerves: grossly intact Sensation: grossly intact (Kaitlin Mohr, PA-C) Assessment and Plan ASSESSMENT and PLAN: BL comm fem DVT thrombocytopenia Hypercoagulable state d/t stage III colon ca Pt discussed with Dr Molina, recommend IVC filter insertion. Procedure, risks, benefits, and alternatives discussed with pt, he expresses understanding and agreement. (Kaitlin Mohr, PA-C) Patient was seen, examined, and chart reviewed. Agree with exam and treatment plan of the Vascular PA. I have discussed the risks options and benefits of the procedure with the patient. The patient understands the risks options and benefits and agrees to the procedure. (Curt Molina M.D.)
[2016-08-12] MEDS ORDERED: CEFAZOLIN IV 1,000 MG in DEXTROSE 5% 50ML 50 ML IV ONE (15:00)
[2016-08-12] MEDS: SODIUM CHLOR 0.45% + 20MEQ KCL 1,000 ML IV SCH (15:15)
[2016-08-12] MEDS ORDERED: ONDANSETRON INJ 2 MG/ML 2 ML VIAL IV PRN (15:30)
[2016-08-12] MEDS ORDERED: ATROPINE SULFATE 0.1 MG/ML 5ML SYR IV PRN (15:30)
[2016-08-12] MEDS ORDERED: FENTANYL CITRATE INJ 50 MCG/1 ML 2 ML VIAL IV PRN (15:30)
[2016-08-12] MEDS ORDERED: WARFARIN SOD 5 MG TAB PO ONE (16:00)
[2016-08-12] MEDS ORDERED: MIDAZOLAM HCL 1 MG/ML 2ML VIAL ONE (16:17)
[2016-08-12] MEDS ORDERED: FENTANYL CITRATE INJ 50 MCG/1 ML 2 ML VIAL ONE (16:18)
[2016-08-12] MEDS: DAPTOmycin IV 525 MG in SODIUM CHLORIDE 0.9% 50ML 50 ML IV SCH (16:20)
[2016-08-12] MEDS ORDERED: PROPOFOL IV EMULSION 10 MG/ML 20 ML VIAL IV ONE (17:08)
[2016-08-12] MEDS ORDERED: LIDOCAINE HCL 1% 20 ML VIAL SQ ONE (17:09)
[2016-08-12] MEDS ORDERED: IODIXANOL (VISIPAQUE) 270 MG/ML 50ML FLUSH ONE (17:09)
--- NOTE | 2016-08-12 17:12 | [facility] Post Operative Brief Note ---
Immediate Operative Summary Operative Date Aug 12, 2016. Pre-Operative Diagnosis DVT, Thrombocytopenia, Hypercoagulable state Post-Operative Diagnosis Same Procedure(s) Performed Insertion of Vena Cava Filter, Right Jugular Approach, Ultrasound Localization of Right Internal Jugular vein, Fluoroscopy for positioning. Surgeon Dr. Willis Clinical Document Improvement Educator Surgeon(s) Dr. Harrell Estimated Blood Loss 1 Findings filter upright in infrarenal IVC Specimens NONE Anesthesia MAC Complication(s) None Disposition Surgical ICU
--- NOTE | 2016-08-12 17:25 | Progress Note ---
Subjective Date of Service: Aug 12, 2016. Subjective Pt evaluation today including: conversation w/ patient, conversation w/ family , physical exam, chart review, lab review, review of studies, conversation w/ product/industry consultant, review of inpatient medication list Report feeling okay, eating and drinking, pressor support was off yesterday 5 AM Probably generalized weakness, no fever and chill Problem List Medical Problems: (1) Atrial fibrillation with RVR Status: Acute (2) Bacteremia Status: Acute (3) Sepsis Status: Acute Review of Systems Constitutional: + weakness, + fatigue, No fever, No chills, No sweats, No weight loss, No problem reported Eyes: No worsening of vision, No eye pain, No redness, No discharge, No diplopia ENT: No hearing loss, No unusual epistaxis, No nasal symptoms, No sore throat, No tinnitus, No dental problems, No trouble swallowing Respiratory: No cough, No sputum, No wheezing, No shortness of breath, No dyspnea on exertion, No dyspnea at rest, No hemoptysis Cardiac: No chest pain, No orthopnea, No PND, No edema, No claudication, No palpitations Abdomen: No pain, No nausea, No vomiting, No diarrhea, No constipation Musculoskeletal: No joint pain, No muscle pain, No swelling, No calf pain Male : No dysuria, No urinary frequency, No incontinence, No nocturia more than once/night, No slowing stream, No hematuria Neurologic: No memory loss, No paralysis, No weakness, No numbness/tingling, No vertigo, No balance problems Psychiatric: No depression symptoms, No anhedonism, No anxiety, No insomnia, No substance abuse Heme: No abnormal bleeding/bruising, No clotting problems, No swollen lymph nodes, No night sweats Endo: No fatigue, No excessive thirst, No excessive urination Skin: No rash, No itch, No new/changing skin lesions, No color change, No bleeding Objective Vital Signs Date Time Temp Pulse Resp B/P (MAP) Pulse Ox O2 Delivery O2 Flow Rate FiO2 08/12/16 12:00 96 Nasal Cannula 2.0 08/12/16 10:00 133 23 107/66 (80) 93 08/12/16 09:01 115 24 102/65 (77) 94 08/12/16 08:00 Nasal Cannula 08/12/16 08:00 36.4 142 27 92/60 (71) 93 Nasal Cannula 2.0 08/12/16 08:00 93 Nasal Cannula 2.0 08/12/16 06:00 129 25 119/77 94 08/12/16 05:00 130 25 98/73 92 08/12/16 04:34 124 119/76 08/12/16 04:30 143 25 119/76 93 08/12/16 04:00 137 26 99/64 92 08/12/16 04:00 37.4 08/12/16 04:00 93 Nasal Cannula 2.0 08/12/16 03:37 140 25 94/72 94 08/12/16 03:01 143 26 88/64 93 08/12/16 02:17 134 26 117/76 93 08/12/16 01:02 141 108/89 08/12/16 01:01 138 24 108/89 93 08/12/16 00:01 36.7 08/12/16 00:00 136 29 109/68 94 08/11/16 23:59 95 Nasal Cannula 2.0 08/11/16 23:41 120 117/84 08/11/16 23:05 133 25 117/84 95 08/11/16 22:00 133 26 108/74 95 08/11/16 21:02 124 103/66 08/11/16 20:56 129 33 103/66 96 08/11/16 20:35 126 24 95 Nasal Cannula 2.0 08/11/16 20:23 136 119/83 08/11/16 20:00 140 35 119/83 95 08/11/16 20:00 95 Nasal Cannula 2.0 08/11/16 20:00 36.7 08/11/16 18:01 131 28 110/63 (79) 95 Nasal Cannula 2.0 Physical Exam General Appearance: WD/WN, no apparent distress, + thin, + pertinent finding Eyes: normal inspection, PERRL, EOMI, sclerae normal ENT: normal ENT inspection, hearing grossly normal, pharynx normal Neck: supple, no adenopathy, thyroid normal, no JVD, no carotid bruits, trachea midline Respiratory/Chest: chest non-tender, normal breath sounds, no respiratory distress, no accessory muscle use, + decreased breath sounds Cardiovascular: regular rate, rhythm, no edema, no gallop, no JVD, no murmur Abdomen: normal bowel sounds, non tender, soft, no organomegaly, no pulsatile mass Extremities: normal range of motion, non-tender, normal inspection, no pedal edema, no calf tenderness, normal capillary refill, pelvis stable Neurologic/Psychiatric: yarder boss II-XII nml as tested, no motor/sensory deficits, alert, normal mood/affect, oriented x 3 Skin: normal color, warm/dry, no rash Lymphatic: no adenopathy Laboratory Results Last 24 Hours Test 08/11/16 20:22 08/11/16 20:58 08/12/16 05:10 08/12/16 05:13 Bedside Glucose 117 mg/dl 92 mg/dl Heparin-PF4 Antibody Screen NEG White Blood Count 9.95 K/uL Red Blood Count 3.77 M/uL Hemoglobin 12.5 g/dL Hematocrit 36.5 % Mean Corpuscular Volume 96.8 fL Mean Corpuscular Hemoglobin 33.2 pg Mean Corpuscular Hemoglobin Concent 34.2 g/dl Platelet Count 55 K/uL Mean Platelet Volume 10.1 fL Neutrophils (%) (Auto) 81.2 % Lymphocytes (%) (Auto) 9.6 % Monocytes (%) (Auto) 6.7 % Eosinophils (%) (Auto) 2.1 % Basophils (%) (Auto) 0.1 % Neutrophils # (Auto) 8.07 K/uL Lymphocytes # (Auto) 0.96 K/uL Monocytes # (Auto) 0.67 K/uL Eosinophils # (Auto) 0.21 K/uL Basophils # (Auto) 0.01 K/uL RDW Standard Deviation 54.4 fL RDW Coefficient of Variation 15.5 % Immature Granulocyte % (Auto) 0.3 % Immature Granulocyte # (Auto) 0.03 K/uL Sodium Level 137 mmol/L Potassium Level 3.7 mmol/L Chloride Level 104 mmol/L Carbon Dioxide Level 26 mmol/L Anion Gap 7.0 mmol/L Blood Urea Nitrogen 14 mg/dl Creatinine 1.10 mg/dl Est Creatinine Clear Calc Drug Dose 59.9 ml/min Estimated GFR () 72.1 Estimated GFR (Non- 62.2 BUN/Creatinine Ratio 12.6 Random Glucose 90 mg/dl Calcium Level 7.6 mg/dl Phosphorus Level 2.3 mg/dl Magnesium Level 1.9 mg/dl Total Bilirubin 0.8 mg/dl Aspartate Amino Transf (AST/SGOT) 24 U/L Alanine Aminotransferase (ALT/SGPT) 21 U/L Alkaline Phosphatase 53 U/L Troponin I 0.547 ng/ml Pro-B-Type Natriuretic Peptide 9190 pg/ml Total Protein 5.3 gm/dl Albumin 2.5 gm/dl Globulin 2.8 gm/dl Albumin/Globulin Ratio 0.9 Test 08/12/16 13:48 08/12/16 13:58 Bedside Glucose 96 mg/dl Assessment and Plan 81 yo admitted on 08/10/2016 with sepsis and Staph infection of port device and status post removal Septic shock upon admission, require pressor support, improved /resolved MRSA infection of port device and status post removal, 08/09/2016. bacteremia secondary to above, infectious disease on the case, need to have daptomycin iv for 2 week acute letty lower ext DVT, on heparin drip Per ICU service : Patient does want IVC, and wants anticoagulation with Coumadin. Patient had respiratory failure secondary to PE, if able to undergo clot removal, would be agreeable to intubation. If clot removal contraindicated , he would not want to undergo intubation. Patient understands embolic stroke risk from Afib and DVT/PE risk. HAS-BLED score 2, moderate risk for major bleeding. Patient affirms he has reasonably good life currently, would prefer to prevent stroke or PE to maximize this quality while accepting bleeding risk. will continue IV herpain while in hospital for reversibility and less effect on INR. Transition to lovenox at 1.5 mg/Kg daily until off IV ABX. After that time could consider transition to Warfarin. Ideally, lovenox over warfarin, regardless opt for reversible medication given thrombocytopenia. 7.6 cm popliteal fossa mass , need to f/u colon cancer, status post resection and chemotherapy. possible acute kidney failure with Elevated creatinine, baseline renal function is unknown. Elevated troponin, likely demand ischemia. Dyslipidemia. Peripheral artery disease status post peripheral stents. Thrombocytopenia of 69 to 40's , worsening today A. fib with RVR heart rate at 130, and hx of afib being on Coumadin, pt is getting Lopressor cont ICU, IV fluid hydration, ID on the case , PT OT evaluation and treatment d/w pt and fam full code Continued [facility] stay due to: multiple IV medications needed Discharge planning: rehab hospital, snf facility, uncertain
[2016-08-12] MEDS ORDERED: DIGOXIN IV 250 MCG in SYRINGE 9 ML IV ONE ×2 (18:45→20:00)
[2016-08-12 19:53] LABS: HEMATOCRIT 35.9 % (42-52); MEAN CELL VOLUME 96.8 fL (80-100); MEAN CORPUSCULAR HEMOGLOBIN 33.4 pg (25-34); RED BLOOD COUNT 3.71 M/uL (4.7-6.1); WHITE BLOOD COUNT 9.45 K/uL (4.8-10.8)
[2016-08-12 19:58] LABS: BASO % 0.1 %; BASO ABS # 0.01 K/uL (0-0.2); COMPLETE YES; EOS % 2.8 %; IG% 0.2 %; LYMPH % 15.9 %; MEAN CORPUSCULAR HGB CONC 34.5 g/dl (32-36); MEAN PLATELET VOLUME 9.9 fL (7.4-10.4); MONO % 7.5 %; NEUT % 73.5 %; PLATELET COUNT 51 K/uL (130-400)
[2016-08-12 20:04] LABS: INR 1.1 (0.9-1.1); PARTIAL THROMBOPLASTIN RATIO 1.4
[2016-08-12] MEDS ORDERED: METOPROLOL TARTRATE 25 MG TAB PO SCH (21:00)
[2016-08-12] MEDS: ERYTHROMYCIN OP OINT 5 MG/GM 3.5 GM TUBE OPL SCH (22:05)
[2016-08-12] MEDS: RANITIDINE HCL 150 MG TAB PO SCH (22:05)
--- NOTE | 2016-08-12 22:26 | Anesthesiology Progress Note ---
Anesthesia Post Op Note Date & Time Aug 12, 2016 at 22:25 Vital Signs Pain Intensity: 0.0 Vital Signs Past 12 Hours Date Time Temp Pulse Resp B/P (MAP) Pulse Ox O2 Delivery O2 Flow Rate FiO2 08/12/16 20:00 138 08/12/16 19:52 138 08/12/16 17:46 162 23 109/76 (87) 79 08/12/16 17:30 131 20 80/62 (68) 91 08/12/16 17:30 97 Nasal Cannula 2.0 08/12/16 17:25 36.7 127 22 85/65 (72) 92 08/12/16 15:00 133 21 93/74 (80) 96 08/12/16 14:02 137 38 78/63 (68) 96 08/12/16 13:01 125 26 87/72 (77) 88 08/12/16 12:00 96 Nasal Cannula 2.0 08/12/16 12:00 36.7 130 25 128/88 (101) 96 Notes Mental Status: alert / awake / arousable Pt Amnestic to Procedure: Yes Nausea / Vomiting: adequately controlled Pain: adequately controlled Airway Patency, RR, SpO2: stable & adequate BP & HR: stable & adequate Hydration State: stable & adequate Anesthetic Complications: no major complications apparent
[2016-08-12] MEDS: HEPARIN 25,000 UNIT/500ML D5W 500 ML IV PRN (22:59)
[2016-08-13] VITALS (28 sets, daily range): BP systolic 87–138; BP diastolic 54–113; PULSE 74–279; TEMP 36.4–36.8; O2SAT 82–98
[2016-08-13] MEDS: SODIUM CHLOR 0.45% + 20MEQ KCL 1,000 ML IV SCH (00:23)
[2016-08-13] MEDS ORDERED: DIGOXIN IV 125 MCG in SYRINGE 9.5 ML IV ONE (00:30)
[2016-08-13 05:43] LABS: HEMATOCRIT 35.2 % (42-52); MEAN CORPUSCULAR HEMOGLOBIN 33.3 pg (25-34); MEAN CORPUSCULAR HGB CONC 34.4 g/dl (32-36); RED BLOOD COUNT 3.63 M/uL (4.7-6.1); WHITE BLOOD COUNT 8.13 K/uL (4.8-10.8)
[2016-08-13 05:46] LABS: BASO % 0.1 %; BASO ABS # 0.01 K/uL (0-0.2); COMPLETE YES; EOS % 3.1 %; IG% 0.1 %; LYMPH % 17.2 %; MEAN PLATELET VOLUME 10.5 fL (7.4-10.4); MONO % 8.1 %; NEUT % 71.4 %; PLATELET COUNT 57 K/uL (130-400)
[2016-08-13 05:59] LABS: PARTIAL THROMBOPLASTIN RATIO 2.4
[2016-08-13 06:19] LABS: ALB/GLOB RATIO 0.9 (0.9-2); CALCIUM 7.8 mg/dl (8.5-10.1); PHOSPHORUS 2.7 mg/dl (2.5-4.9); POTASSIUM 4.3 mmol/L (3.5-5.1)
--- NOTE | 2016-08-13 07:08 | Critical Care Progress Note ---
Critical Care Progress Note Date of Service Aug 13, 2016. ICU Day ICU Day Number: [address] Angel Subjective Resting comfortably, nursing reports that patient achieved heart rate control at approximately midnight last night Objective Vital Signs - as noted Laboratory Data - as noted Physical Exam: General - NAD Eyes - PERRL, EOMI No icterus, gaze conjugate ENT - Mucosa moist, no lesions or candidiasis Neck - Supple, trachea midline, no masses or lymphadenopathy, no JVD or bruits Lungs - No paradoxical chest wall movement, clear to auscultation bilaterally, no wheezing noted to right lung trujillo without rales, or rhonchi Heart -irregularly irregular, No murmur, rubs, clicks, or gallops appreciated, dressing clean, dry, and intact in right pectoral area Abdomen - BS present, no bruits noted, tympanic to percussion, soft, nontender, nondistended, no organomegaly Extremities - No edema, pedal pulses intact, skin with many purpura/ecchymosis Neuro - A&O x 4 Strength extremities equal and appropriate bilaterally Reflexes: Normal and equal CN:PERRL, EOMI, no facial asymmetry, uvula/tongue midline Current SOFA Score SOFA Score Response (Comments) Value Platelets (x10) < 100 2 Bilirubin (mg/dL) < 1.2 0 Cassandra Coma Score 15 0 Level of Hypotension No Hypotension 0 Creatinine (mg/dL) < 1.2 0 Total 2 Previous SOFA Scores 08/10/16: 7; 08/11/16: 4 Assessment & Plan (1) Elevated troponin Likely demand related ischemia due to rapid ventricular response (2) RADHA (acute kidney injury) (3) Atrial fibrillation with RVR (4) Hyperlipidemia (5) Colon cancer (6) DVT, bilateral lower limbs (7) MRSA (methicillin resistant Staphylococcus aureus) infection Infectious Disease: * MRSA noted on cultures from removed port: Resistant to gentamicin, erythromycin, and doxycycline * Blood cultures remained negative at this time * Continue IV daptomycin for 2 weeks * Per ID recommendations transitioned back to doxycycline: This appears to be a pocket infection and may represent a second MRSA infection. 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 * I would continue the central venous access until completing his course of IV antibiotics. PICC line's are associated with increased rates of thrombus in the setting of active cancer. I feel this patient is at high risk for complications related to PICC line's Cardiac: * Echo today: Findings as listed above in HPI * Achieved heart rate control with increasing beta hailey and loaded digoxin. * I will continue to increase the beta hailey and hold the digoxin at this time. I believe the beta hailey will now be able to maintain heart rate control. * Maxx ramey still avoid digoxin given the patient's history of acute kidney injury and drug-related interactions * Continue to hold patient's home atorvastatin secondary to daptomycin treatment : Increase risk of myopathy when used in combination * Monitor on telemetry Heme/Onc: * Chemotherapy per Dr. Jaramillo * Hit panel ordered: Negative * Continue heparin while inpatient * Convert to 1.5 mg/kg Lovenox upon discharge while patient is receiving IV antibiotics, will require close monitoring of renal function * Monitor daily labs * Bilateral DVT * IVC filter in place Pulmonary: * Wean oxygen as tolerated /electrolytes: * Stop IV fluids GI: * Low Fat Diet started: Pt tolerating well * Continue patient's home ranitidine & Lactobacillus acidophilus Neuro: * Alert and oriented 4 * No complaints of pain * Monitor clinically for neurologic changes Endocrine: * TSH within normal limits * Elevated A1C: No current indication for insulin use as inpatient * Alert provider of BSG greater than 180 Access: Left IJ placed in ED, [address] Stable for downgrade to telemetry status. Consults & Procedures Consultants: Infectious disease: Shy Bernabe PA-C Wound Care Heme/Onc: Dr Jaramillo Vascular surgery: Dr. Molina Procedures: Left I.J: 08/10 in ED IVC filter placed in 08/12/2016 Data Medications: Current Inpatient Medications Medications (Trade) Dose Ordered Sig/Thu Route Start Time Stop Time Status Last Admin Dose Admin Acetaminophen (Tylenol Tab) 650 mg Q4H PRN PO 08/10/16 18:45 09/09/16 18:44 Lactobacillus Acidophilus (Lactinex Granules Pack) 1 gm TIDM PO 08/11/16 07:15 09/10/16 07:59 08/12/16 06:40 1 GM Daptomycin 525 mg/ Sodium Chloride 60.5 ml @ 100 mls/hr Q24H IV 08/11/16 16:00 08/24/16 15:59 08/12/16 16:20 100 MLS/HR Aspirin (Ecotrin Tab) 81 mg DAILY PO 08/11/16 09:00 09/10/16 08:59 08/12/16 08:03 81 MG Atorvastatin Calcium (Lipitor Tab) 80 mg QAM PO 08/11/16 09:00 09/10/16 08:59 Future Hold Erythromycin (Erythromycin Oph Oint) 1 appln QPM OPL 08/10/16 21:00 08/20/16 20:59 08/12/16 22:05 1 APPLN Prednisolone Acetate (Pred Forte 1% Oph Susp) 1 drops BID OPL 08/10/16 21:00 09/09/16 20:59 08/12/16 22:05 1 DROPS Levalbuterol (Xopenex 1.25MG/ 0.5ML Neb) 1.25 mg Q6R PRN INH 08/11/16 20:15 09/10/16 20:14 08/11/16 20:34 1.25 MG Metoprolol Tartrate (Lopressor Iv) 5 mg Q4 IV. 08/12/16 00:00 09/11/16 00:00 Future Hold 08/12/16 04:34 5 MG Heparin Sodium (Porcine) (Heparin 10 Unit/ ml 5 ml Flush) 5 ml PRN PRN FLUSH 08/12/16 02:30 09/11/16 02:29 Metoprolol Tartrate (Lopressor Tab) 100 mg BID PO 08/13/16 09:00 09/12/16 08:59 Ranitidine HCl (zANTac TAB) 300 mg HS PO 08/12/16 21:00 09/11/16 20:59 08/12/16 22:05 300 MG Potassium Chloride/Sodium Chloride 1,000 ml @ 125 mls/hr Q8H IV 08/12/16 14:00 09/11/16 13:29 08/13/16 00:23 125 MLS/HR Heparin Sodium/ Dextrose 500 ml @ 23 mls/hr [id number] PRN IV 08/12/16 21:00 09/11/16 20:59 08/12/16 22:59 23 MLS/HR Digoxin (Lanoxin Tab) 0.125 mg DAILY@16 PO 08/13/16 16:00 09/12/16 15:59 Vital Signs: Date Time Temp Pulse Resp B/P (MAP) Pulse Ox O2 Delivery O2 Flow Rate FiO2 08/13/16 06:01 74 20 105/80 (88) 98 Nasal Cannula 3.0 08/13/16 04:01 36.4 80 20 112/74 (87) 97 Nasal Cannula 3.0 08/13/16 04:00 Nasal Cannula 3.0 08/13/16 02:01 77 19 103/62 (76) 97 Nasal Cannula 3.0 08/13/16 00:24 104 08/13/16 00:01 36.5 119 22 89/66 (74) 95 Nasal Cannula 3.0 08/12/16 23:59 Nasal Cannula 3.0 08/12/16 22:00 122 19 91/64 (73) 94 Nasal Cannula 3.0 08/12/16 20:01 36.4 131 26 89/51 (64) 98 Nasal Cannula 3.0 08/12/16 20:00 Nasal Cannula 3.0 08/12/16 20:00 138 08/12/16 19:52 138 08/12/16 17:46 162 23 109/76 (87) 79 08/12/16 17:30 131 20 80/62 (68) 91 08/12/16 17:30 97 Nasal Cannula 2.0 08/12/16 17:25 36.7 127 22 85/65 (72) 92 08/12/16 15:00 133 21 93/74 (80) 96 08/12/16 14:02 137 38 78/63 (68) 96 08/12/16 13:01 125 26 87/72 (77) 88 08/12/16 12:00 96 Nasal Cannula 2.0 08/12/16 12:00 36.7 130 25 128/88 (101) 96 08/12/16 10:00 133 23 107/66 (80) 93 08/12/16 09:01 115 24 102/65 (77) 94 08/12/16 08:00 Nasal Cannula 08/12/16 08:00 36.4 142 27 92/60 (71) 93 Nasal Cannula 2.0 08/12/16 08:00 93 Nasal Cannula 2.0 Laboratory Results: Last 24 Hours Test 08/12/16 13:48 08/12/16 19:46 08/12/16 21:55 08/13/16 01:08 Bedside Glucose 96 mg/dl 108 mg/dl White Blood Count 9.45 K/uL Red Blood Count 3.71 M/uL Hemoglobin 12.4 g/dL Hematocrit 35.9 % Mean Corpuscular Volume 96.8 fL Mean Corpuscular Hemoglobin 33.4 pg Mean Corpuscular Hemoglobin Concent 34.5 g/dl Platelet Count 51 K/uL Mean Platelet Volume 9.9 fL Neutrophils (%) (Auto) 73.5 % Lymphocytes (%) (Auto) 15.9 % Monocytes (%) (Auto) 7.5 % Eosinophils (%) (Auto) 2.8 % Basophils (%) (Auto) 0.1 % Neutrophils # (Auto) 6.95 K/uL Lymphocytes # (Auto) 1.50 K/uL Monocytes # (Auto) 0.71 K/uL Eosinophils # (Auto) 0.26 K/uL Basophils # (Auto) 0.01 K/uL RDW Standard Deviation 54.8 fL RDW Coefficient of Variation 15.4 % Immature Granulocyte % (Auto) 0.2 % Immature Granulocyte # (Auto) 0.02 K/uL Prothrombin Time 12.0 SECONDS Prothromb Time International Ratio 1.1 Activated Partial Thromboplast Time 35.3 SECONDS Partial Thromboplastin Ratio 1.4 Random Cortisol 10.57 mcg/dl Test 08/13/16 05:20 White Blood Count 8.13 K/uL Red Blood Count 3.63 M/uL Hemoglobin 12.1 g/dL Hematocrit 35.2 % Mean Corpuscular Volume 97.0 fL Mean Corpuscular Hemoglobin 33.3 pg Mean Corpuscular Hemoglobin Concent 34.4 g/dl Platelet Count 57 K/uL Mean Platelet Volume 10.5 fL Neutrophils (%) (Auto) 71.4 % Lymphocytes (%) (Auto) 17.2 % Monocytes (%) (Auto) 8.1 % Eosinophils (%) (Auto) 3.1 % Basophils (%) (Auto) 0.1 % Neutrophils # (Auto) 5.80 K/uL Lymphocytes # (Auto) 1.40 K/uL Monocytes # (Auto) 0.66 K/uL Eosinophils # (Auto) 0.25 K/uL Basophils # (Auto) 0.01 K/uL RDW Standard Deviation 55.0 fL RDW Coefficient of Variation 15.5 % Immature Granulocyte % (Auto) 0.1 % Immature Granulocyte # (Auto) 0.01 K/uL Activated Partial Thromboplast Time 62.9 SECONDS Partial Thromboplastin Ratio 2.4 Sodium Level 140 mmol/L Potassium Level 4.3 mmol/L Chloride Level 108 mmol/L Carbon Dioxide Level 26 mmol/L Anion Gap 6.0 mmol/L Blood Urea Nitrogen 16 mg/dl Creatinine 1.00 mg/dl Est Creatinine Clear Calc Drug Dose 65.7 ml/min Estimated GFR () 80.9 Estimated GFR (Non- 69.8 BUN/Creatinine Ratio 16.0 Random Glucose 93 mg/dl Calcium Level 7.8 mg/dl Phosphorus Level 2.7 mg/dl Magnesium Level 2.0 mg/dl Total Bilirubin 0.8 mg/dl Aspartate Amino Transf (AST/SGOT) 18 U/L Alanine Aminotransferase (ALT/SGPT) 19 U/L Alkaline Phosphatase 50 U/L Total Protein 4.9 gm/dl Albumin 2.3 gm/dl Globulin 2.6 gm/dl Albumin/Globulin Ratio 0.9 Problem Qualifiers (1) Colon cancer: Colon location: unspecified part of colon Qualified Codes: C18.9 - Malignant neoplasm of colon, unspecified (2) DVT, bilateral lower limbs: Affected thrombotic vein of extremity: femoral Chronicity: unspecified Qualified Codes: I82.413 - Acute embolism and thrombosis of femoral vein, bilateral
[2016-08-13] MEDS: PrednisoLONE ACET 1% OP SUSP 5 ML BTL OPL SCH ×2 (07:58→21:19)
[2016-08-13] MEDS: LACTOBACILLUS ACIDOPHILUS 1 GM PACK PO SCH ×3 (07:58→16:03)
[2016-08-13] MEDS: ASPIRIN 81 MG ECTAB PO SCH (07:58)
[2016-08-13] MEDS: METOPROLOL TARTRATE 100 MG TAB PO SCH ×2 (07:58→21:20)
--- NOTE | 2016-08-13 08:50 | Progress Note ---
Subjective Date of Service: Aug 13, 2016. Subjective Pt evaluation today including: conversation w/ patient, physical exam, chart review, lab review, review of studies, conversation w/ physician practice consultant, review of inpatient medication list Doing okay, no fever or chill, had breakfast first, no cough sputum, has urination, has bowel movement yesterday, no complaining Problem List Medical Problems: (1) Bacteremia Status: Acute (2) Sepsis Status: Acute Review of Systems Constitutional: + weakness, + fatigue, No fever, No chills, No sweats, No weight loss, No problem reported Eyes: No worsening of vision, No eye pain, No redness, No discharge, No diplopia ENT: No hearing loss, No unusual epistaxis, No nasal symptoms, No sore throat, No tinnitus, No dental problems, No trouble swallowing Respiratory: No cough, No sputum, No wheezing, No shortness of breath, No dyspnea on exertion, No dyspnea at rest, No hemoptysis Cardiac: No chest pain, No orthopnea, No PND, No edema, No claudication, No palpitations Abdomen: No pain, No nausea, No vomiting, No diarrhea, No constipation Musculoskeletal: No joint pain, No muscle pain, No swelling, No calf pain Male : No dysuria, No urinary frequency, No incontinence, No nocturia more than once/night, No slowing stream, No hematuria Neurologic: No memory loss, No paralysis, No weakness, No numbness/tingling, No vertigo, No balance problems Psychiatric: No depression symptoms, No anhedonism, No anxiety, No insomnia, No substance abuse Heme: No abnormal bleeding/bruising, No clotting problems, No swollen lymph nodes, No night sweats Endo: No fatigue, No excessive thirst, No excessive urination Skin: No rash, No itch, No new/changing skin lesions, No color change, No bleeding Objective Vital Signs Date Time Temp Pulse Resp B/P (MAP) Pulse Ox O2 Delivery O2 Flow Rate FiO2 08/13/16 07:30 36.4 82 20 103/68 (80) 98 Nasal Cannula 3.0 08/13/16 07:30 Nasal Cannula 3.0 08/13/16 06:01 74 20 105/80 (88) 98 Nasal Cannula 3.0 08/13/16 04:01 36.4 80 20 112/74 (87) 97 Nasal Cannula 3.0 08/13/16 04:00 Nasal Cannula 3.0 08/13/16 02:01 77 19 103/62 (76) 97 Nasal Cannula 3.0 08/13/16 00:24 104 08/13/16 00:01 36.5 119 22 89/66 (74) 95 Nasal Cannula 3.0 08/12/16 23:59 Nasal Cannula 3.0 08/12/16 22:00 122 19 91/64 (73) 94 Nasal Cannula 3.0 08/12/16 20:01 36.4 131 26 89/51 (64) 98 Nasal Cannula 3.0 08/12/16 20:00 Nasal Cannula 3.0 08/12/16 20:00 138 08/12/16 19:52 138 08/12/16 17:46 162 23 109/76 (87) 79 08/12/16 17:30 131 20 80/62 (68) 91 08/12/16 17:30 97 Nasal Cannula 2.0 08/12/16 17:25 36.7 127 22 85/65 (72) 92 08/12/16 15:00 133 21 93/74 (80) 96 08/12/16 14:02 137 38 78/63 (68) 96 08/12/16 13:01 125 26 87/72 (77) 88 08/12/16 12:00 96 Nasal Cannula 2.0 08/12/16 12:00 36.7 130 25 128/88 (101) 96 08/12/16 10:00 133 23 107/66 (80) 93 08/12/16 09:01 115 24 102/65 (77) 94 Physical Exam General Appearance: WD/WN, no apparent distress, + thin, + pertinent finding ( frail and chronically ill-looking) Eyes: normal inspection, PERRL, EOMI, sclerae normal ENT: normal ENT inspection, hearing grossly normal, pharynx normal Neck: supple, no adenopathy, thyroid normal, no JVD, no carotid bruits, trachea midline Respiratory/Chest: chest non-tender, normal breath sounds, no respiratory distress, no accessory muscle use, + decreased breath sounds, + pertinent finding (right chest wall S/P port removal, local in dressing, no tender or erythema) Cardiovascular: regular rate, rhythm, no edema, no gallop, no JVD, no murmur Abdomen: normal bowel sounds, non tender, soft, no organomegaly, no pulsatile mass Extremities: normal range of motion, non-tender, normal inspection, no pedal edema, no calf tenderness, normal capillary refill, pelvis stable Neurologic/Psychiatric: chute builder II-XII nml as tested, no motor/sensory deficits, alert, normal mood/affect, oriented x 3 Skin: normal color, warm/dry, no rash Lymphatic: no adenopathy Laboratory Results Last 24 Hours Test 08/12/16 13:48 08/12/16 19:46 08/12/16 21:55 08/13/16 01:08 Bedside Glucose 96 mg/dl 108 mg/dl White Blood Count 9.45 K/uL Red Blood Count 3.71 M/uL Hemoglobin 12.4 g/dL Hematocrit 35.9 % Mean Corpuscular Volume 96.8 fL Mean Corpuscular Hemoglobin 33.4 pg Mean Corpuscular Hemoglobin Concent 34.5 g/dl Platelet Count 51 K/uL Mean Platelet Volume 9.9 fL Neutrophils (%) (Auto) 73.5 % Lymphocytes (%) (Auto) 15.9 % Monocytes (%) (Auto) 7.5 % Eosinophils (%) (Auto) 2.8 % Basophils (%) (Auto) 0.1 % Neutrophils # (Auto) 6.95 K/uL Lymphocytes # (Auto) 1.50 K/uL Monocytes # (Auto) 0.71 K/uL Eosinophils # (Auto) 0.26 K/uL Basophils # (Auto) 0.01 K/uL RDW Standard Deviation 54.8 fL RDW Coefficient of Variation 15.4 % Immature Granulocyte % (Auto) 0.2 % Immature Granulocyte # (Auto) 0.02 K/uL Prothrombin Time 12.0 SECONDS Prothromb Time International Ratio 1.1 Activated Partial Thromboplast Time 35.3 SECONDS Partial Thromboplastin Ratio 1.4 Random Cortisol 10.57 mcg/dl Test 08/13/16 05:20 White Blood Count 8.13 K/uL Red Blood Count 3.63 M/uL Hemoglobin 12.1 g/dL Hematocrit 35.2 % Mean Corpuscular Volume 97.0 fL Mean Corpuscular Hemoglobin 33.3 pg Mean Corpuscular Hemoglobin Concent 34.4 g/dl Platelet Count 57 K/uL Mean Platelet Volume 10.5 fL Neutrophils (%) (Auto) 71.4 % Lymphocytes (%) (Auto) 17.2 % Monocytes (%) (Auto) 8.1 % Eosinophils (%) (Auto) 3.1 % Basophils (%) (Auto) 0.1 % Neutrophils # (Auto) 5.80 K/uL Lymphocytes # (Auto) 1.40 K/uL Monocytes # (Auto) 0.66 K/uL Eosinophils # (Auto) 0.25 K/uL Basophils # (Auto) 0.01 K/uL RDW Standard Deviation 55.0 fL RDW Coefficient of Variation 15.5 % Immature Granulocyte % (Auto) 0.1 % Immature Granulocyte # (Auto) 0.01 K/uL Activated Partial Thromboplast Time 62.9 SECONDS Partial Thromboplastin Ratio 2.4 Sodium Level 140 mmol/L Potassium Level 4.3 mmol/L Chloride Level 108 mmol/L Carbon Dioxide Level 26 mmol/L Anion Gap 6.0 mmol/L Blood Urea Nitrogen 16 mg/dl Creatinine 1.00 mg/dl Est Creatinine Clear Calc Drug Dose 65.7 ml/min Estimated GFR () 80.9 Estimated GFR (Non- 69.8 BUN/Creatinine Ratio 16.0 Random Glucose 93 mg/dl Calcium Level 7.8 mg/dl Phosphorus Level 2.7 mg/dl Magnesium Level 2.0 mg/dl Total Bilirubin 0.8 mg/dl Aspartate Amino Transf (AST/SGOT) 18 U/L Alanine Aminotransferase (ALT/SGPT) 19 U/L Alkaline Phosphatase 50 U/L Total Protein 4.9 gm/dl Albumin 2.3 gm/dl Globulin 2.6 gm/dl Albumin/Globulin Ratio 0.9 Assessment and Plan 81 yo admitted on 08/10/2016 with sepsis and Staph infection of port device and status post removal Later was found has bilateral lower extremity DVT, IVC filter placed Septic shock upon admission, require pressor support, improved /resolved MRSA infection of port device and status post removal, 08/09/2016. Resistant to gentamicin, erythromycin, and doxycycline Blood cultures remained negative at this time Continue IV daptomycin for 2 weeks Per ID recommendations transitioned back to doxycycline: This appears to be a pocket infection and may represent a second MRSA infection. 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 continue the central venous access until completing his course of IV antibiotics. PICC line's are associated with increased rates of thrombus in the setting of active cancer. acute letty lower ext DVT, had ivc filter, on heparin drip Per ICU service : Patient does want IVC, and wants anticoagulation with Coumadin. Patient had respiratory failure secondary to PE, if able to undergo clot removal, would be agreeable to intubation. If clot removal contraindicated , he would not want to undergo intubation. Patient understands embolic stroke risk from Afib and DVT/PE risk. HAS-BLED score 2, moderate risk for major bleeding. Patient affirms he has reasonably good life currently, would prefer to prevent stroke or PE to maximize this quality while accepting bleeding risk. will continue IV herpain while in hospital for reversibility and less effect on INR. Transition to lovenox at 1.5 mg/Kg daily until off IV ABX. After that time could consider transition to Warfarin. Ideally, lovenox over warfarin, regardless opt for reversible medication given thrombocytopenia. Hit panel ordered: Negative Continue heparin while inpatient Convert to 1.5 mg/kg Lovenox upon discharge while patient is receiving IV antibiotics, will require close monitoring of renal function Monitor daily labs 7.6 cm popliteal fossa mass , need to f/u colon cancer, status post resection and chemotherapy. Chemotherapy per Dr. Jaramillo possible acute kidney failure with Elevated creatinine, baseline renal function is unknown. Elevated troponin, likely demand ischemia. Dyslipidemia. Peripheral artery disease status post peripheral stents. Thrombocytopenia of 69 to 40's , worsening today A. fib with RVR heart rate at 130, and hx of afib being on Coumadin, pt is getting Lopressor plan to achieved heart rate control with increasing beta hailey and loaded digoxin will continue to increase the beta hailey and hold the digoxin at this time. will still avoid digoxin given the patient's history of acute kidney injury and drug-related interactions Continue to hold patient's home atorvastatin secondary to daptomycin treatment: Increase risk of myopathy when used in combination d/w pt and fam full code d/w rn, structured cabling technician Continued [facility] stay due to: multiple IV medications needed Discharge planning: rehab hospital, longterm facility, uncertain
[2016-08-13 11:32] LABS: PARTIAL THROMBOPLASTIN RATIO 3.3
[2016-08-13 13:47] LABS: FIBRINOGEN* 454 mg/dl (184-400)
[2016-08-13] MEDS: HEPARIN 25,000 UNIT/500ML D5W 500 ML IV PRN (15:01)
[2016-08-13] MEDS ORDERED: WARFARIN SOD 2 MG TAB PO SCH (16:00)
[2016-08-13] MEDS ORDERED: DIGOXIN 0.125 MG TAB PO SCH (16:00)
[2016-08-13] MEDS: DAPTOmycin IV 525 MG in SODIUM CHLORIDE 0.9% 50ML 50 ML IV SCH (16:03)
[2016-08-13] MEDS ORDERED: NURSING VERBAL MED ORDER ONE (19:30)
[2016-08-13] MEDS: ERYTHROMYCIN OP OINT 5 MG/GM 3.5 GM TUBE OPL SCH (21:19)
[2016-08-13] MEDS: RANITIDINE HCL 150 MG TAB PO SCH (21:22)
[2016-08-14] VITALS (12 sets, daily range): BP systolic 94–121; BP diastolic 60–80; PULSE 78–125; TEMP 36.3–37.1; O2SAT 94–99
[2016-08-14 06:16] LABS: HEMATOCRIT 35.1 % (42-52); MEAN CORPUSCULAR HEMOGLOBIN 32.9 pg (25-34); MEAN CORPUSCULAR HGB CONC 33.9 g/dl (32-36); RED BLOOD COUNT 3.62 M/uL (4.7-6.1); WHITE BLOOD COUNT 6.21 K/uL (4.8-10.8)
[2016-08-14 06:17] LABS: BASO % 0.3 %; BASO ABS # 0.02 K/uL (0-0.2); COMPLETE YES; EOS % 3.4 %; IG% 0.2 %; LYMPH % 24.3 %; LYMPH ABS # 1.51 K/uL (1.2-3.4); MEAN PLATELET VOLUME 10.2 fL (7.4-10.4); NEUT % 62.8 %; PLATELET COUNT 64 K/uL (130-400)
[2016-08-14 06:36] LABS: PARTIAL THROMBOPLASTIN RATIO 2.2
[2016-08-14 06:51] LABS: BUN/CREATININE RATIO 17.1 (10-20); CREATININE 0.94 mg/dl (0.60-1.40); MAGNESIUM 2.1 mg/dl (1.8-2.4)
[2016-08-14 06:54] LABS: ALB/GLOB RATIO 0.8 (0.9-2); PHOSPHORUS 3.1 mg/dl (2.5-4.9)
[2016-08-14 07:24] LABS: CALCIUM 8.2 mg/dl (8.5-10.1)
[2016-08-14] MEDS: LACTOBACILLUS ACIDOPHILUS 1 GM PACK PO SCH ×3 (07:57→16:45)
[2016-08-14] MEDS: PrednisoLONE ACET 1% OP SUSP 5 ML BTL OPL SCH ×2 (07:58→20:35)
[2016-08-14] MEDS: METOPROLOL TARTRATE 100 MG TAB PO SCH ×2 (07:58→20:39)
[2016-08-14] MEDS: ASPIRIN 81 MG ECTAB PO SCH (07:58)
--- NOTE | 2016-08-14 10:47 | Hospitalist Progress Note ---
Hospitalist Progress Note Date of Service Aug 14, 2016. Subjective Pt evaluation today including: conversation w/ patient, physical exam, chart review, lab review, review of inpatient medication list Pain: None PO Intake: Tolerating PO diet Voiding: no voiding problems Patient reports feeling well. He is eating well and urinating without difficulties. He denies any pain or discomfort. He states he feels somewhat weak as he has not been out of bed much. He does note a mild productive cough as well. The patient denies fevers, chills, sweats, chest pain, palpitations, claudication, wheezing, shortness of breath, nausea, vomiting, abdominal pain, dysuria, hematuria, urinary retention, paralysis, weakness, numbness and tingling. Additional Comments: See HPI for pertinent positives and negatives. All other systems reviewed and negative. Objective Vital Signs Date Time Temp Pulse Resp B/P (MAP) Pulse Ox O2 Delivery O2 Flow Rate FiO2 08/14/16 07:23 36.3 89 20 116/77 (90) 95 Nasal Cannula 3.0 08/14/16 04:51 37.1 92 16 121/80 (94) 97 2.0 08/14/16 04:00 98 Nasal Cannula 3.0 08/14/16 00:20 36.4 80 18 108/73 (85) 96 2.0 08/13/16 23:59 98 Nasal Cannula 3.0 08/13/16 21:22 90 116/75 (89) 08/13/16 20:00 98 Nasal Cannula 3.0 08/13/16 19:10 36.7 86 20 90/61 (71) 98 Nasal Cannula 3.0 08/13/16 15:30 Nasal Cannula 3.0 08/13/16 15:30 36.8 92 20 89/62 (71) 97 Nasal Cannula 3.0 08/13/16 11:30 Nasal Cannula 3.0 08/13/16 11:30 36.8 93 20 98/54 (69) 97 Nasal Cannula 3.0 Physical Exam General Appearance: WD/WN, no apparent distress Eyes: normal inspection, sclerae normal, + pertinent finding (left pupil irregular in shape, dilated, nonreactive. chronic.) ENT: normal ENT inspection, hearing grossly normal, pharynx normal Neck: supple, no JVD, trachea midline Respiratory/Chest: normal breath sounds, no respiratory distress, + crackles ( slight crackles in bases) Cardiovascular: no gallop, no murmur, + irregularly irregular (rate controlled) Abdomen: normal bowel sounds, non tender, soft Extremities: non-tender, normal inspection, no pedal edema, no calf tenderness Neurologic/Psychiatric: alert, normal mood/affect, oriented x 3 Skin: normal color, warm/dry, no rash Laboratory Results Last 24 Hours Test 08/13/16 10:57 08/13/16 11:10 08/13/16 12:23 08/13/16 20:03 Activated Partial Thromboplast Time 85.7 SECONDS 53.2 SECONDS Partial Thromboplastin Ratio 3.3 2.0 Bedside Glucose 122 mg/dl Fibrinogen 454 mg/dl Fibrin Degradation Products 10-40 mcg/ml Test 08/14/16 05:48 White Blood Count 6.21 K/uL Red Blood Count 3.62 M/uL Hemoglobin 11.9 g/dL Hematocrit 35.1 % Mean Corpuscular Volume 97.0 fL Mean Corpuscular Hemoglobin 32.9 pg Mean Corpuscular Hemoglobin Concent 33.9 g/dl Platelet Count 64 K/uL Mean Platelet Volume 10.2 fL Neutrophils (%) (Auto) 62.8 % Lymphocytes (%) (Auto) 24.3 % Monocytes (%) (Auto) 9.0 % Eosinophils (%) (Auto) 3.4 % Basophils (%) (Auto) 0.3 % Neutrophils # (Auto) 3.90 K/uL Lymphocytes # (Auto) 1.51 K/uL Monocytes # (Auto) 0.56 K/uL Eosinophils # (Auto) 0.21 K/uL Basophils # (Auto) 0.02 K/uL RDW Standard Deviation 54.3 fL RDW Coefficient of Variation 15.3 % Immature Granulocyte % (Auto) 0.2 % Immature Granulocyte # (Auto) 0.01 K/uL Activated Partial Thromboplast Time 57.0 SECONDS Partial Thromboplastin Ratio 2.2 Sodium Level 140 mmol/L Potassium Level 4.0 mmol/L Chloride Level 107 mmol/L Carbon Dioxide Level 28 mmol/L Anion Gap 5.0 mmol/L Blood Urea Nitrogen 16 mg/dl Creatinine 0.94 mg/dl Est Creatinine Clear Calc Drug Dose 64.5 ml/min Estimated GFR () 87.2 Estimated GFR (Non- 75.2 BUN/Creatinine Ratio 17.1 Random Glucose 92 mg/dl Calcium Level 8.2 mg/dl Phosphorus Level 3.1 mg/dl Magnesium Level 2.1 mg/dl Total Bilirubin 0.8 mg/dl Aspartate Amino Transf (AST/SGOT) 16 U/L Alanine Aminotransferase (ALT/SGPT) 22 U/L Alkaline Phosphatase 51 U/L Total Protein 5.1 gm/dl Albumin 2.3 gm/dl Globulin 2.8 gm/dl Albumin/Globulin Ratio 0.8 Assessment and Plan 81 y/o male with a history of a-fib, colon cancer s/p removal of infected port on 08/09, and HLD who presented to the ED on 08/10 with fever, chills, weakness and fatigue. Septic shock secondary to infected a-port--improving -Admitted to ICU, required pressor support for BP -Transferred to tele 08/13. Pt remained in a-fib overnight with HR mostly 80s- 90s, now 100s-110s this morning -A-port culture positive for MRSA, also resistant to clindamycin, erythromycin, tetracycline -Blood cultures NGTD x 2 -Infectious disease consulted, appreciate recs: IV daptomycin x 2 weeks, then restart previous doxycycline suppression -Critical care recommends maintaining central venous access until IV abx completed as PICC lines associated with increased risk of thrombus in cancer pts -IVF d/c'd -O2 by protocol -TSH WNL -HgbA1c 5.9 on 08/11, no ISS at this time Acute bilateral common femoral vein DVTs--stable -Continue heparin drip while inpatient, then therapeutic Lovenox -IVC filter placed on 08/[address] Molina -Doppler ultrasound also shows indeterminate 7.6 cm right popliteal fossa mass. Recommend further work up as outpatient Atrial fibrillation w/RVR--stable. HR up to 140s overnight but back down to 100s-110s after receiving scheduled meds -Continue metoprolol tartrate 100 mg PO BID -Hold digoxin -Heparin drip -Echo: * Normal LV chamber size with mild concentric LVH. * Normal LV systolic function, EF 60-65%. * No segmental left ventricular wall motion abnormalities are noted. * Grade II diastolic dysfunction. * The right ventricular cavity size is normal (basal dimension <4.2 cm in right ventricular apical 4-chamber view). * There is a pacemaker lead in the right ventricle. * The right ventricular systolic function is mildly reduced. * Aortic valve sclerosis moderate, without significant aortic valvular stenosis. * Trace tricuspid regurgitation. RADHA, unknown baseline--resolved -Creatinine 1.9 on arrival -Creatinine remains stable, under 1.0 Acute on chronic thrombocytopenia--improving -HIT panel negative -PLT 64 on 08/14, up from 57 Elevated troponin--stable -Likely secondary to demand ischemia -Troponin peaked at 0.902, then trended down Colon cancer stage IIIB--stable -Heme/onc consulted, appreciate recs: Chemo held due to sepsis. Acute on chronic thrombocytopenia likely worse due to sepsis. HLD -Hold atorvastatin while on daptomycin DVT prophylaxis -Heparin drip -SCDs Code Status -Level V, DO NOT RESUSCITATE Dispo -From home -Pt plans to return home at discharge with home health -Case management looking into sending pt home with central line, home health states they are comfortable with this
--- NOTE | 2016-08-14 13:57 | Cardiology Consultation ---
Cardiology Consultation Date of Consultation: Aug 14, 2016 History of Present Illness Chuy White is a 81 year old male seen in cardiology consultation per the request of Dr. Badillo for the evaluation of atrial fibrillation. He was initially admitted to [facility] on 08/10/16 due to complaint of persistent fever. He has a history of colon cancer with partial colectomy and had a port placed and received one chemotherapy treatment. The port had been removed on 08/09/16 due to concern of apparent infection the patient was subsequently admitted and has been treated for MRSA bacteremia with resultant sepsis. Review of his record reveals that he had stay in the intensive care unit and required support with norepinephrine and phenylephrine. A single EKG is available on the chart from 08/10/16 revealed atrial fibrillation with rapid ventricular rate at [address] abnormality. During his hospital stay, he was in atrial fibrillation with rapid ventricular rate while in the intensive care unit. His home sotalol dose was held on admission due to hypotension and the patient required transient support with norepinephrine and phenylephrine as outlined above and therefore he was not on a beta hailey initially. I reviewed his chart and also discuss his case with Dr. Angel and during the patient's ICU stay he received several doses of IV digoxin and ultimately he was placed on oral beta hailey with metoprolol as his blood pressure recovered from his sepsis. At present on telemetry the patient's rates are in the 80 beat per minute range. Today he was as high as the 130 beat per minute range but remained asymptomatic. The patient had been seen in the PCU, room 216. Per review of his admission medication list. Patient was on sotalol 80 mg twice a day at the time of admission as well as furosemide 20 mg daily, aspirin 81 mg daily, atorvastatin, and Coumadin. A lower extremity venous duplex performed on 08/10/16 revealed bilateral common femoral vein DVTs. The patient subsequently was noted to have thrombocytopenia and underwent inferior vena cava filter placement on 08/12/16. He is currently on unfractionated heparin infusion. He is on the antibiotic daptomycin. He is no longer on sotalol. The patient has not been seen by our practice as an outpatient in the past but does have a tentative appointment scheduled with Dr. Armando Atkins of our practice scheduled for 09/19/16 as the patient is reportedly transferring care from Dr. Shipley of [facility] cardiology to Dr Atkins. 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 Cardiac catheterization at that time revealed severe stenosis of the circumflex and right coronary arteries received a total of 4 bare meta stents. Electrophysiology study performed at that time revealed inducible ventricular tachycardia and therefore he received an AICD. The ejection fraction at that time was reportedly 35-40% and has since improved to the lower limit of normal on a last outpatient echocardiogram performed with Dr Shipley August 2015 the ejection fraction was graded at 50-55% at that time. Past AICD interrogations at [facility] describe a single chamber [employer] AICD, he since had a generator change in early 2016 in [place] and now apparently has a [employer] AICD. He has a history of inappropriate AICD shocks due to atrial fibrillation with rapid ventricular rate with no recurrence since been placed on sotalol 2009. At the time of the April 2016 he was still dose sotalol 80 mg twice a day. He has a history of severe amiodarone toxicity and therefore amiodarone was present discontinued. He also carries a history of abdominal aortic aneurysm with previous endovascular stenting in [address] [facility]. 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 It appears that this was a bypass graft to the left popliteal artery. Within the last year he had apparently been hospitalized for a significant gastrointestinal bleed while on Coumadin and his anticoagulation was stopped. Colonoscopy is performed and he was diagnosed with colon cancer. His Coumadin was stopped and apparently aspirin was stopped and was placed back on Coumadin at 1 point. History Past Medical Surgical History: Coronary heart disease, inferior wall myocardial infarction October 2006, complicated by cardiac arrest, seizures, anoxic brain injury with bare metal stents to the right coronary artery and circumflex coronary arteries at that time Subsequent basement of a single chamber AICD, 2006, Generator change to [employer] AICD [place] Paroxysmal atrial fibrillation with resultant inappropriate AICD shocks, amiodarone toxicity, subsequent sotalol therapy Abdominal aortic aneurysm with endovascular stenting in [address] [facility] Peripheral arterial disease with bypass graft in the left popliteal artery which was apparently infected with MRSA in 2015 Gastrointestinal bleeding in 2016 prompted diagnosis of colon cancer A-port placed for chemotherapy 2017, subsequently removed 08/09/16 due to concerns of infection Inferior vena cava filter placed for acute bilateral lower extremity DVTs [facility] Review Of Systems See above for pertinent positives & negatives. A total of 10 systems reviewed and were otherwise negative. Allergies Coded Allergies: Vancomycin (Verified Allergy, Severe, SHORTNESS OF BREATH, 08/11/16) Medications Reported Home Medications Medications Dose Route/Sig Max Daily Dose Days Date Category Dose Instructions Pred Forte 1% Oph (Prednisolone Acetate (Ophth)) 1 % Liudmila 1 Drops OPL BID 08/10/16 Reported Erythromycin 1 Appln/1 Gm Oint 1 Appln OPL QPM 08/10/16 Reported Jantoven (Warfarin Sodium) 2 Mg Tab 2 Mg PO QPM 08/10/16 Reported [Ferrous Sulfate] 65 Mg PO DAILY 08/10/16 Reported Bactrim Ds 800MG/160MG (Trimethoprim/Sulfamethoxazole) Tab 1 Tab PO BID 08/08/16 Reported Aspirin Ec (Aspirin) 81 Mg Tab 81 Mg PO DAILY 06/07/16 Reported TO START THIS MED WHEN STOPS WARFARIN (4 DAYS PRIOR TO SURGERY) Acidophilus (Probiotic Product) 1 Cap Cap 1 Tab PO BID 06/07/16 Reported Prilosec (Omeprazole) 20 Mg Capcr 20 Mg PO BID 06/07/16 Reported Sotalol Hcl 80 Mg Tab 1 Tab PO BID 90 06/07/16 Reported Monodox (Doxycycline Monohydrate) 100 Mg Cap 100 Mg PO QAM 06/07/16 Reported TAKES EVERY DAY...DUE TO PAST INFECTION...WAS TOLD TO CONTINUE UNTIL FURTHER NOTICE Micro-K Ext Rel (Potassium Chloride) Unknown Strength Capcr 10 Meq PO DAILY 06/07/16 Reported 2 TAB PO QAM Folgard (Folic Acid-Vit B2-Vit B6-Vit B) 1 Tab Tab 1 Tab PO QAM 06/07/16 Reported Lasix (Furosemide) 20 Mg Tab 20 Mg PO QAM 06/07/16 Reported Multivitamin (Multivitamins) Tab 1 Tab PO QAM 06/07/16 Reported Lipitor (Atorvastatin Calcium) 80 Mg Tab 80 Mg PO QAM 06/07/16 Reported Vitamin C (Ascorbic Acid) 500 Mg Tab 1 Tab PO QAM 06/07/16 Reported Current Inpatient Medications Medications (Trade) Dose Ordered Sig/Thu Route Start Time Stop Time Status Last Admin Dose Admin Acetaminophen (Tylenol Tab) 650 mg Q4H PRN PO 08/10/16 18:45 09/09/16 18:44 Lactobacillus Acidophilus (Lactinex Granules Pack) 1 gm TIDM PO 08/11/16 07:15 09/10/16 07:59 08/14/16 12:44 1 GM Daptomycin 525 mg/ Sodium Chloride 60.5 ml @ 100 mls/hr Q24H IV 08/11/16 16:00 08/24/16 15:59 08/13/16 16:03 100 MLS/HR Aspirin (Ecotrin Tab) 81 mg DAILY PO 08/11/16 09:00 09/10/16 08:59 08/14/16 07:58 81 MG Atorvastatin Calcium (Lipitor Tab) 80 mg QAM PO 08/11/16 09:00 09/10/16 08:59 Future Hold Erythromycin (Erythromycin Oph Oint) 1 appln QPM OPL 08/10/16 21:00 08/20/16 20:59 08/13/16 21:19 1 APPLN Prednisolone Acetate (Pred Forte 1% Oph Susp) 1 drops BID OPL 08/10/16 21:00 09/09/16 20:59 08/14/16 07:58 1 DROPS Levalbuterol (Xopenex 1.25MG/ 0.5ML Neb) 1.25 mg Q6R PRN INH 08/11/16 20:15 09/10/16 20:14 08/11/16 20:34 1.25 MG Heparin Sodium (Porcine) (Heparin 10 Unit/ ml 5 ml Flush) 5 ml PRN PRN FLUSH 08/12/16 02:30 09/11/16 02:29 Metoprolol Tartrate (Lopressor Tab) 100 mg BID PO 08/13/16 09:00 09/12/16 08:59 08/14/16 07:58 100 MG Ranitidine HCl (zANTac TAB) 300 mg HS PO 08/12/16 21:00 09/11/16 20:59 08/13/16 21:22 300 MG Heparin Sodium/ Dextrose 500 ml @ 26 mls/hr [id number] PRN IV 08/12/16 21:00 09/11/16 20:59 08/13/16 15:01 26 MLS/HR Physical Exam Vital Signs (Last 8hrs): Last 8 Hrs Date Time Temp Pulse Resp B/P (MAP) Pulse Ox O2 Delivery O2 Flow Rate FiO2 08/14/16 10:33 36.5 87 20 105/74 (84) 98 3.0 08/14/16 07:23 36.3 89 20 116/77 (90) 95 Nasal Cannula 3.0 08/14/16 04:51 37.1 92 16 121/80 (94) 97 2.0 General Appearance: Alert and Oriented x3. NAD. Head: Normocephalic Atraumatic. Eyes: PERRLA, EOMI, conjunctiva and sclera clear Neck: Supple. No carotid bruits noted. No JVD. No HJD. Respiratory: Breath sounds clear to auscultation bilaterally. No w/r/r. Cardiovascular: Reg rate and rhythm. S1 and S2 noted. No murmurs, rubs, gallops. PMI non displace. Abdomen: Normal bowel sounds, soft nontender. no abdominal bruits. Extremities: No edema, no clubbing or cyanosis. distal pulses 2/4 bilaterally. Neuro: No focal deficits. Psychiatric: Normal affect. Data Last 24 Hours Test 08/13/16 20:03 08/14/16 05:48 Activated Partial Thromboplast Time 53.2 SECONDS 57.0 SECONDS Partial Thromboplastin Ratio 2.0 2.2 White Blood Count 6.21 K/uL Red Blood Count 3.62 M/uL Hemoglobin 11.9 g/dL Hematocrit 35.1 % Mean Corpuscular Volume 97.0 fL Mean Corpuscular Hemoglobin 32.9 pg Mean Corpuscular Hemoglobin Concent 33.9 g/dl Platelet Count 64 K/uL Mean Platelet Volume 10.2 fL Neutrophils (%) (Auto) 62.8 % Lymphocytes (%) (Auto) 24.3 % Monocytes (%) (Auto) 9.0 % Eosinophils (%) (Auto) 3.4 % Basophils (%) (Auto) 0.3 % Neutrophils # (Auto) 3.90 K/uL Lymphocytes # (Auto) 1.51 K/uL Monocytes # (Auto) 0.56 K/uL Eosinophils # (Auto) 0.21 K/uL Basophils # (Auto) 0.02 K/uL RDW Standard Deviation 54.3 fL RDW Coefficient of Variation 15.3 % Immature Granulocyte % (Auto) 0.2 % Immature Granulocyte # (Auto) 0.01 K/uL Sodium Level 140 mmol/L Potassium Level 4.0 mmol/L Chloride Level 107 mmol/L Carbon Dioxide Level 28 mmol/L Anion Gap 5.0 mmol/L Blood Urea Nitrogen 16 mg/dl Creatinine 0.94 mg/dl Est Creatinine Clear Calc Drug Dose 64.5 ml/min Estimated GFR () 87.2 Estimated GFR (Non- 75.2 BUN/Creatinine Ratio 17.1 Random Glucose 92 mg/dl Calcium Level 8.2 mg/dl Phosphorus Level 3.1 mg/dl Magnesium Level 2.1 mg/dl Total Bilirubin 0.8 mg/dl Aspartate Amino Transf (AST/SGOT) 16 U/L Alanine Aminotransferase (ALT/SGPT) 22 U/L Alkaline Phosphatase 51 U/L Total Protein 5.1 gm/dl Albumin 2.3 gm/dl Globulin 2.8 gm/dl Albumin/Globulin Ratio 0.8 EKG as noted above. Echocardiogram performed this admission 08/11/[address] Romero's rising the following: Normal left ventricular chamber size with mild concentric left ventricular hypertrophy. Left ventricular systolic function, left ventricular ejection fraction 60-65%. No segmental left anterior wall motion however maladies noted. Grade 2 diastolic dysfunction was noted. Aortic valve sclerosis without stenosis. Trace tricuspid regurgitation was noted. The right ventricular chamber size is normal with mildly reduced right ventricular systolic function. Assessment & Plan Impression: 81-year-old male 1. Paroxysmal atrial fibrillation 2. Past history of ischemic heart disease, cardiac arrest, prompting single- chamber AICD placement 3. Peripheral arterial disease with apparent endovascular repair of abdominal aortic aneurysm, lower extremity surgical revascularization with infected popliteal artery grafted past 4. Admitted with MRSA sepsis due to presumed port infection 5. Underlying colon CA 6. Acute bilateral common femoral vein DVT prompting intravenous vena cava filter placement concerns with thrombocytopenia on 08/12/69 Recommendations: Per review of his outside records the patient has a history of inappropriate AICD discharges due to atrial fibrillation with rapid ventricular rate. He previously been on amiodarone but this was subsequently discontinued due to concerns of toxicity. His outpatient cardiology note describes that he had been on sotalol 80 mg twice a day for several years with control of his atrial fibrillation. Based on his cardiology visit in April 2016 he was in sinus at that time. He was in atrial fibrillation with rapid ventricular rate when he was initially hospitalized here on 08/10/16 and has remained in atrial fibrillation during this hospital stay. Sotalol was held on admission due to acute kidney injury, and hypotension requiring pressor support and currently he is on metoprolol tartrate 100 mg twice a day with reasonable rate control and the patient remains a symptomatically from a atrial fibrillation standpoint. Given his multiple medical problems, the patient actually looks remarkably well but he of course has significant on going issues. He was reportedly on Coumadin at the time of admission per his medication list perhaps this was held leading up to his port removal and his admission INR was 1.5. He transiently been off anticoagulation therefore when he developed bilateral lower extremity deep venous thrombosis. He subsequently had significant thrombocytopenia in the setting of sepsis and his platelet count has recovered to 64,000 range today and he is on unfractionated heparin. At present his kidney function and electrolytes have improved. I'm hesitant to place him back on his prior to arrival sotalol dose as he has been off of anticoagulation long enough to develop lower extremity DVT and therefore he could also developed atrial/left atrial appendage thrombus and therefore placing him on a medication that can induce pharmacologic cardioversion and provoke stroke is risky. At this time I recommend continuing his current dose of oral metoprolol. I'm going to add oral digoxin. Regarding anticoagulation. Coumadin will be sufficient for stroke prophylaxis from an atrial fibrillation standpoint. It appears he has tolerated Coumadin well in the past. Recent guidelines however have recommended that the drug of choice for venous thrombosis in the setting of malignancy is low molecular weight heparin, but given his thrombocytopenia Coumadin may be a better choice since it can be reversed. It is noted that he had a negative upper and associated platelet antibody test earlier this hospital stay. Could consider placing patient back on sotalol after he has been on anticoagulation for a adequate duration of time, such as 3 weeks, but sotalol initiation is to take place as an inpatient. As noted above, he has a history of past amiodarone toxicity. Case was discussed with Dr Lin. Claudette Santana
[2016-08-14] MEDS ORDERED: ENOX120I SQ (16:00)
[2016-08-14] MEDS ORDERED: DAPT500I IV (16:00)
[2016-08-14] MEDS: DIGOXIN 0.125 MG TAB PO SCH (16:54)
[2016-08-14] MEDS: DAPTOmycin IV 525 MG in SODIUM CHLORIDE 0.9% 50ML 50 ML IV SCH (16:58)
[2016-08-14] MEDS: ERYTHROMYCIN OP OINT 5 MG/GM 3.5 GM TUBE OPL SCH (20:35)
[2016-08-14] MEDS: RANITIDINE HCL 150 MG TAB PO SCH (20:36)
[2016-08-15] VITALS (9 sets, daily range): BP systolic 91–124; BP diastolic 53–73; PULSE 74–114; TEMP 36.4–36.8; O2SAT 91–98
[2016-08-15] MEDS: HEPARIN 25,000 UNIT/500ML D5W 500 ML IV PRN ×2 (03:18→21:09)
[2016-08-15 04:49] LABS: HEMATOCRIT 35.3 % (42-52); MEAN CORPUSCULAR HEMOGLOBIN 33.2 pg (25-34); MEAN CORPUSCULAR HGB CONC 34.3 g/dl (32-36); RED BLOOD COUNT 3.64 M/uL (4.7-6.1); WHITE BLOOD COUNT 6.38 K/uL (4.8-10.8)
[2016-08-15 04:52] LABS: BASO % 0.3 %; BASO ABS # 0.02 K/uL (0-0.2); COMPLETE YES; EOS % 3.6 %; IG% 0.3 %; LYMPH % 23.8 %; LYMPH ABS # 1.52 K/uL (1.2-3.4); MEAN PLATELET VOLUME 10.3 fL (7.4-10.4); MONO % 9.6 %; NEUT % 62.4 %; PLATELET COUNT 87 K/uL (130-400)
[2016-08-15 05:06] LABS: CREATININE 0.88 mg/dl (0.60-1.40); MAGNESIUM 2.1 mg/dl (1.8-2.4); POTASSIUM 3.7 mmol/L (3.5-5.1)
[2016-08-15 05:09] LABS: ALB/GLOB RATIO 0.9 (0.9-2); PHOSPHORUS 3.5 mg/dl (2.5-4.9)
[2016-08-15 05:15] LABS: CALCIUM 8.4 mg/dl (8.5-10.1)
[2016-08-15] MEDS: METOPROLOL TARTRATE 100 MG TAB PO SCH ×2 (08:35→20:33)
[2016-08-15] MEDS: LACTOBACILLUS ACIDOPHILUS 1 GM PACK PO SCH ×3 (08:35→16:37)
[2016-08-15] MEDS: ASPIRIN 81 MG ECTAB PO SCH (08:36)
[2016-08-15] MEDS: PrednisoLONE ACET 1% OP SUSP 5 ML BTL OPL SCH ×2 (08:36→20:32)
--- NOTE | 2016-08-15 09:39 | CONSULTATION REPORT ---
DATE OF CONSULTATION: 08/12/2016 CHIEF COMPLAINT: Postoperative wound right chest wall. HISTORY OF PRESENT ILLNESS: The patient was recently admitted to [facility] for evaluation of sepsis due to an infected port in the right chest wall which was removed 3 days prior. The patient was receiving treatment for colon cancer with chemotherapy. The patient at the current time denies any fever, chills or night sweats. The patient denies any lightheadedness, dizziness, nausea, vomiting, chest pain, shortness of breath or abdominal discomfort. The patient denies any other systemic complaints. PAST MEDICAL HISTORY: Positive for colon cancer as noted above, dyslipidemia and peripheral vascular disease. SOCIAL HISTORY: The patient does not smoke and lives at home with his . MEDICATIONS: Noted in the nursing notes and were reviewed. ALLERGIES: TO VANCOMYCIN. REVIEW OF SYSTEMS: Ten systems were reviewed in their entirety and positive findings were noted in the chief complaint and history of present illness. PHYSICAL EXAMINATION: VITAL SIGNS: Reviewed and found to be unremarkable. The patient is afebrile. GENERAL: The patient is currently lying in the hospital bed in no acute distress, alert and cooperative throughout the examination. HEENT: Pupils are reactive. NECK: Supple. HEART: Atrial fibrillation, rate controlled. LUNGS: Clear to auscultation. CHEST: Chest wall shows the presence of a postoperative wound to the right chest wall measuring 1 x 3 x 0.2 cm. There is central slough present in the base of the wound. There is no active drainage or odor. No periwound erythema noted. NEUROLOGIC: The patient is alert and oriented x3. No focal deficits noted. IMPRESSION: Postoperative wound right chest wall. PLAN: At this time, the site did require debridement. With the patient's permission and after the application of topical Xylocaine 4%, the site was debrided with a #5 curette. Central slough was removed. No significant bleeding occurred. The patient tolerated the procedure well. Site will be dressed with Aquacel Ag and gauze, changed on a daily basis. The patient will be reevaluated as needed during hospitalization and can be followed in the outpatient clinic upon discharge. This represented a nonexcisional debridement of less than 20 square cm.
--- NOTE | 2016-08-15 09:41 | Cardiology Follow-Up ---
Subjective General Date of Service: Aug 15, 2016. Chief Complaint: atrial fibrillation Pt evaluation today including: conversation w/ patient, physical exam, chart review, lab review, review of studies, review of inpatient medication list History of Present Illness Patient seen and examined. No complaints. Denies chest pain/discomfort, palpitations, dyspnea, or orthopnea. Telemetry: Atrial fibrillation, currently with a controlled ventricular response. There was a brief period of time, prior to AM metoprolol administration this morning, where there was a rapid ventricular response to the persistent atrial fibrillation. No significant periods of slow ventricular response/bradycardia observed. No pauses. No ventricular arrhythmias observed. August 11, 2016 TTE Interpretation Summary ([facility], Dr. Romero): Normal left ventricular chamber size with mild concentric left ventricular hypertrophy. Left ventricular systolic function, left ventricular ejection fraction 60-65%. No segmental left anterior wall motion however maladies noted. Grade 2 diastolic dysfunction was noted. Aortic valve sclerosis without stenosis. Trace tricuspid regurgitation was noted. The right ventricular chamber size is normal with mildly reduced right ventricular systolic function. Allergies Coded Allergies: Vancomycin (Verified Allergy, Severe, SHORTNESS OF BREATH, 08/11/16) Social History Smoking Status: Former Smoker (30 year history, 1-1.5 ppd; quit 2006) Hx Tobacco Use In Past Year?: No (Quit smoking in 2006) Hx Alcohol Use - Type And Amou: No Hx Substance Use - Type And Am: No Problem List Medical Problems: (1) Bacteremia Status: Acute (2) Sepsis Status: Acute Physical Exam Vital Signs Last Vital Signs Documentation Date Time Temp Pulse Resp B/P (MAP) Pulse Ox O2 Delivery O2 Flow Rate FiO2 08/15/16 08:06 36.8 110 18 124/68 (86) 96 08/15/16 04:00 Nasal Cannula 2.0 Physical Exam Constitutional: General Apperance: well-nourished, well-developed Level of Distress: NAD, chronically ill Psychiatric: Mental Status: active & alert, normal mood, normal affect Orientation: to time, to place, to person Memory: recent memory normal, remote memory normal Head: normocephalic, atraumatic Eyes: EOM: EOMI Neck: supple, trachea midline, pertinent finding (Central line, left neck. No JVD/HJR) Lungs: Respiratory effort: no dyspnea Auscultation: no wheezing, no rales/crackles, no rhonchi Cardiovascular: Apical Impulse: not displaced Heart Auscultation: no murmurs, no rubs, tachycardia (100), irregular rate rhythm Peripheral Pulses: Bruits: none appreciated Radial Pulse: normal on the left, normal on the right Dorsalis Pedis Pulse: decreased on the left, decreased on the right Abdomen: Bowel Sounds: normal Inspection & Palpation: soft, non-distended, no tenderness, guarding & rebound Extremities: no cyanosis, no edema, no clubbing Neurologic: Cranial Nerves: grossly intact Assessment and Plan Assessment and Plan Admission with MRSA sepsis due to 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 Sotalol 80 BID prescribed prior to admission, held secondary to hypotension, acute kidney injury History of amiodarone toxicity History of inappropriate ICD discharges due to atrial fibrillation with rapid ventricular rate. History of ischemic heart disease, cardiac arrest, single-chamber AICD implantation, generator exchange. Peripheral arterial disease with apparent endovascular repair of an AAA, lower extremity surgical revascularization with infected popliteal artery grafted past RECOMMENDATIONS/PLAN: Rate control with metoprolol and digoxin. No sotalol at this point. ? Future resumption of sotalol after adequate anticoagulation (minimum 3 weeks of therapeutic anticoagulation); this would require inpatient initiation. Current plans are to transition IV heparin to Lovenox, eventually resuming Coumadin anticoagulation after completion of IV antibiotics and removal of the central line. Cardiology attending: Pt seen and examined, agree with findings and assessment as per Richie Conde. Very medically complex gentlemen, sotalol held this admission due to shock. Would be weary of restarting sotalol given risk for cardioversion in the setting of DVT development and high risk for NANI thrombus and stroke. Coumadin restarted for DVT's. Patient tolerating afib well, will cont with a rate control strategy. Cont metoprolol and dig Laboratory Results Last 24 Hours Test 08/15/16 04:30 White Blood Count 6.38 K/uL Red Blood Count 3.64 M/uL Hemoglobin 12.1 g/dL Hematocrit 35.3 % Mean Corpuscular Volume 97.0 fL Mean Corpuscular Hemoglobin 33.2 pg Mean Corpuscular Hemoglobin Concent 34.3 g/dl Platelet Count 87 K/uL Mean Platelet Volume 10.3 fL Neutrophils (%) (Auto) 62.4 % Lymphocytes (%) (Auto) 23.8 % Monocytes (%) (Auto) 9.6 % Eosinophils (%) (Auto) 3.6 % Basophils (%) (Auto) 0.3 % Neutrophils # (Auto) 3.98 K/uL Lymphocytes # (Auto) 1.52 K/uL Monocytes # (Auto) 0.61 K/uL Eosinophils # (Auto) 0.23 K/uL Basophils # (Auto) 0.02 K/uL RDW Standard Deviation 53.5 fL RDW Coefficient of Variation 15.1 % Immature Granulocyte % (Auto) 0.3 % Immature Granulocyte # (Auto) 0.02 K/uL Sodium Level 143 mmol/L Potassium Level 3.7 mmol/L Chloride Level 106 mmol/L Carbon Dioxide Level 29 mmol/L Anion Gap 8.0 mmol/L Blood Urea Nitrogen 12 mg/dl Creatinine 0.88 mg/dl Est Creatinine Clear Calc Drug Dose 68.9 ml/min Estimated GFR () 92.7 Estimated GFR (Non- 80.0 BUN/Creatinine Ratio 14.0 Random Glucose 87 mg/dl Calcium Level 8.4 mg/dl Phosphorus Level 3.5 mg/dl Magnesium Level 2.1 mg/dl Total Bilirubin 0.8 mg/dl Aspartate Amino Transf (AST/SGOT) 15 U/L Alanine Aminotransferase (ALT/SGPT) 21 U/L Alkaline Phosphatase 51 U/L Total Protein 5.2 gm/dl Albumin 2.5 gm/dl Globulin 2.7 gm/dl Albumin/Globulin Ratio 0.9
--- NOTE | 2016-08-15 13:25 | Hospitalist Progress Note ---
Hospitalist Progress Note Date of Service Aug 15, 2016. (Batsheva De La Cruz ., MAILE) Subjective Pt evaluation today including: conversation w/ patient, physical exam, chart review, lab review, review of inpatient medication list Pain: None PO Intake: Tolerating PO diet Voiding: no voiding problems Patient reports feeling well. He denies any pain/discomfort. He is tolerating a PO diet and urinating without difficulties. The patient denies fevers, chills , sweats, chest pain, palpitations, claudication, cough, wheezing, shortness of breath, nausea, vomiting, abdominal pain, dysuria, hematuria, urinary retention , paralysis, weakness, numbness and tingling. Additional Comments: See HPI for pertinent positives and negatives. All other systems reviewed and negative. (Batsheva De La Cruz PA-C) Objective Vital Signs Date Time Temp Pulse Resp B/P (MAP) Pulse Ox O2 Delivery O2 Flow Rate FiO2 08/15/16 12:00 Nasal Cannula 2.0 08/15/16 11:15 36.8 74 16 115/72 (86) 96 08/15/16 08:10 Nasal Cannula 2.0 08/15/16 08:06 36.8 110 18 124/68 (86) 96 08/15/16 04:00 98 Nasal Cannula 2.0 08/15/16 03:29 36.5 85 18 108/72 (84) 95 Nasal Cannula 2.0 08/14/16 23:59 98 Nasal Cannula 2.0 08/14/16 23:21 36.5 85 18 94/60 (71) 94 Nasal Cannula 2.0 08/14/16 20:40 105 108/71 (83) 08/14/16 20:00 98 Nasal Cannula 2.0 08/14/16 19:31 36.6 78 18 95/62 (73) 98 2.0 08/14/16 16:54 96 08/14/16 16:27 36.6 125 20 107/77 (87) 99 Nasal Cannula 2.0 08/14/16 16:00 Nasal Cannula 3.0 08/14/16 14:03 115 98 (Batsheva De La Cruz PA-C) Physical Exam Notes: General Appearance: WD/WN, no apparent distress Eyes: normal inspection, sclerae normal, + pertinent finding (left pupil irregular in shape, dilated, nonreactive. chronic.) ENT: normal ENT inspection, hearing grossly normal, pharynx normal Neck: supple, no JVD, trachea midline Respiratory/Chest: lungs clear to auscultations, normal breath sounds, no respiratory distress Cardiovascular: no gallop, no murmur, + irregularly irregular (rate controlled) Abdomen: normal bowel sounds, non tender, soft Extremities: non-tender, normal inspection, no pedal edema, no calf tenderness Neurologic/Psychiatric: alert, normal mood/affect, oriented x 3 Skin: normal color, warm/dry, no rash (Batsheva De La Cruz ., MAILE) Laboratory Results Last 24 Hours Test 08/15/16 04:30 08/15/16 11:27 White Blood Count 6.38 K/uL Red Blood Count 3.64 M/uL Hemoglobin 12.1 g/dL Hematocrit 35.3 % Mean Corpuscular Volume 97.0 fL Mean Corpuscular Hemoglobin 33.2 pg Mean Corpuscular Hemoglobin Concent 34.3 g/dl Platelet Count 87 K/uL Mean Platelet Volume 10.3 fL Neutrophils (%) (Auto) 62.4 % Lymphocytes (%) (Auto) 23.8 % Monocytes (%) (Auto) 9.6 % Eosinophils (%) (Auto) 3.6 % Basophils (%) (Auto) 0.3 % Neutrophils # (Auto) 3.98 K/uL Lymphocytes # (Auto) 1.52 K/uL Monocytes # (Auto) 0.61 K/uL Eosinophils # (Auto) 0.23 K/uL Basophils # (Auto) 0.02 K/uL RDW Standard Deviation 53.5 fL RDW Coefficient of Variation 15.1 % Immature Granulocyte % (Auto) 0.3 % Immature Granulocyte # (Auto) 0.02 K/uL Sodium Level 143 mmol/L Potassium Level 3.7 mmol/L Chloride Level 106 mmol/L Carbon Dioxide Level 29 mmol/L Anion Gap 8.0 mmol/L Blood Urea Nitrogen 12 mg/dl Creatinine 0.88 mg/dl Est Creatinine Clear Calc Drug Dose 68.9 ml/min Estimated GFR () 92.7 Estimated GFR (Non- 80.0 BUN/Creatinine Ratio 14.0 Random Glucose 87 mg/dl Calcium Level 8.4 mg/dl Phosphorus Level 3.5 mg/dl Magnesium Level 2.1 mg/dl Total Bilirubin 0.8 mg/dl Aspartate Amino Transf (AST/SGOT) 15 U/L Alanine Aminotransferase (ALT/SGPT) 21 U/L Alkaline Phosphatase 51 U/L Total Protein 5.2 gm/dl Albumin 2.5 gm/dl Globulin 2.7 gm/dl Albumin/Globulin Ratio 0.9 Bedside Glucose 138 mg/dl (Batsheva De La Cruz ., MAILE) Assessment and Plan 81 y/o male with a history of a-fib, colon cancer s/p removal of infected port on 08/09, and HLD who presented to the ED on 08/10 with fever, chills, weakness and fatigue. Septic shock secondary to infected a-port--improving -Admitted to ICU, required pressor support for BP -Transferred to tele 08/13. Pt remained in a-fib overnight with HR 70s-90s -A-port culture positive for MRSA, also resistant to clindamycin, erythromycin, tetracycline -Blood cultures NGTD x 2 -Infectious disease consulted, appreciate recs: IV daptomycin x 2 weeks, then restart previous doxycycline suppression -Daptomycin IV day 5 of 14 -Critical care recommends maintaining central venous access until IV abx completed as PICC lines associated with increased risk of thrombus in cancer pts -IVF d/c'd -O2 by protocol -TSH WNL -HgbA1c 5.9 on 08/11, no ISS at this time -Wound care provider consulted for right chest wall: site debrided 08/14, will need daily dressing changes. F/u in outpatient clinic on discharge. Acute bilateral common femoral vein DVTs--stable -Continue heparin drip while inpatient, then therapeutic Lovenox on discharge while on IV abx. Can then transition to warfarin -IVC filter placed on 08/[address] Molina -Doppler ultrasound also shows indeterminate 7.6 cm right popliteal fossa mass. Recommend further work up as outpatient Atrial fibrillation w/RVR--stable. -Continue metoprolol tartrate 100 mg PO BID -Cardiology consulted, appreciate recs: Add digoxin. Suggest using Coumadin for anticoagulation due to thrombocytopenia as it is reversible. -Digoxin restarted by cardio -Heparin drip -Echo: * Normal LV chamber size with mild concentric LVH. * Normal LV systolic function, EF 60-65%. * No segmental left ventricular wall motion abnormalities are noted. * Grade II diastolic dysfunction. * The right ventricular cavity size is normal (basal dimension <4.2 cm in right ventricular apical 4-chamber view). * There is a pacemaker lead in the right ventricle. * The right ventricular systolic function is mildly reduced. * Aortic valve sclerosis moderate, without significant aortic valvular stenosis. * Trace tricuspid regurgitation. RADHA, unknown baseline--resolved -Creatinine 1.9 on arrival -Creatinine remains stable, under 1.0 Acute on chronic thrombocytopenia--improving -HIT panel negative -PLT 87 on 08/15, up from 64 Elevated troponin--stable -Likely secondary to demand ischemia -Troponin peaked at 0.902, then trended down Colon cancer stage IIIB--stable -Heme/onc consulted, appreciate recs: Chemo held due to sepsis. Acute on chronic thrombocytopenia likely worse due to sepsis. HLD -Hold atorvastatin while on daptomycin DVT prophylaxis -Heparin drip -SCDs Code Status -Level V, DO NOT RESUSCITATE Dispo -From home -Pt plans to return home at discharge with home health -Case management looking into sending pt home with central line, [facility] states they are comfortable with this. Awaiting administration approval for central line (Batsheva De La Cruz ., PA-C) I agree with PA assessment and plan and have seen and examined pt myself Resting comfortably in bed VSS Labs reviewed Central line in place Awaiting auth to utilize HH for IV antibx via IJ Afib with RVR (Jorge A Gunn, D.O.)
--- NOTE | 2016-08-15 14:35 | Infectious Disease Progress Nt ---
Progress Note Date of Service Aug 15, 2016. Subjective Pt evaluation today including: conversation w/ patient, physical exam, chart review, lab review, review of studies, review of inpatient medication list WBC count today was 6.38. Creatinine was stable at 0.88. Blood cultures continue to show no growth. Patient is s/p IVC filter placement. Patient continues on IV Daptomycin. He has completed 6/14 days. Patient complains of no pain today. He denies N/V/D. All Other Systems: Reviewed and Negative Medications Current Inpatient Medications Medications (Trade) Dose Ordered Sig/Thu Route Start Time Stop Time Status Last Admin Dose Admin Acetaminophen (Tylenol Tab) 650 mg Q4H PRN PO 08/10/16 18:45 09/09/16 18:44 Lactobacillus Acidophilus (Lactinex Granules Pack) 1 gm TIDM PO 08/11/16 07:15 09/10/16 07:59 08/15/16 11:18 1 GM Daptomycin 525 mg/ Sodium Chloride 60.5 ml @ 100 mls/hr Q24H IV 08/11/16 16:00 08/24/16 15:59 08/14/16 16:58 100 MLS/HR Aspirin (Ecotrin Tab) 81 mg DAILY PO 08/11/16 09:00 09/10/16 08:59 08/15/16 08:36 81 MG Atorvastatin Calcium (Lipitor Tab) 80 mg QAM PO 08/11/16 09:00 09/10/16 08:59 Future Hold Erythromycin (Erythromycin Oph Oint) 1 appln QPM OPL 08/10/16 21:00 08/20/16 20:59 08/14/16 20:35 1 APPLN Prednisolone Acetate (Pred Forte 1% Oph Susp) 1 drops BID OPL 08/10/16 21:00 09/09/16 20:59 08/15/16 08:36 1 DROPS Levalbuterol (Xopenex 1.25MG/ 0.5ML Neb) 1.25 mg Q6R PRN INH 08/11/16 20:15 09/10/16 20:14 08/11/16 20:34 1.25 MG Heparin Sodium (Porcine) (Heparin 10 Unit/ ml 5 ml Flush) 5 ml PRN PRN FLUSH 08/12/16 02:30 09/11/16 02:29 Metoprolol Tartrate (Lopressor Tab) 100 mg BID PO 08/13/16 09:00 09/12/16 08:59 08/15/16 08:35 100 MG Ranitidine HCl (zANTac TAB) 300 mg HS PO 08/12/16 21:00 09/11/16 20:59 08/14/16 20:36 300 MG Heparin Sodium/ Dextrose 500 ml @ 26 mls/hr [id number] PRN IV 08/12/16 21:00 09/11/16 20:59 08/15/16 03:18 26 MLS/HR Digoxin (Lanoxin Tab) 0.125 mg DAILY@16 PO 08/14/16 16:00 09/13/16 15:59 08/14/16 16:54 0.125 MG Objective Vital Signs Date Time Temp Pulse Resp B/P (MAP) Pulse Ox O2 Delivery O2 Flow Rate FiO2 08/15/16 12:00 Nasal Cannula 2.0 08/15/16 11:15 36.8 74 16 115/72 (86) 96 08/15/16 08:10 Nasal Cannula 2.0 08/15/16 08:06 36.8 110 18 124/68 (86) 96 08/15/16 04:00 98 Nasal Cannula 2.0 08/15/16 03:29 36.5 85 18 108/72 (84) 95 Nasal Cannula 2.0 08/14/16 23:59 98 Nasal Cannula 2.0 08/14/16 23:21 36.5 85 18 94/60 (71) 94 Nasal Cannula 2.0 08/14/16 20:40 105 108/71 (83) 08/14/16 20:00 98 Nasal Cannula 2.0 08/14/16 19:31 36.6 78 18 95/62 (73) 98 2.0 08/14/16 16:54 96 08/14/16 16:27 36.6 125 20 107/77 (87) 99 Nasal Cannula 2.0 08/14/16 16:00 Nasal Cannula 3.0 Physical Exam General Appearance: WD/WN, no apparent distress Eyes: normal inspection, sclerae normal ENT: hearing grossly normal Neck: supple, + pertinent finding (left IJ) Respiratory/Chest: no respiratory distress, no accessory muscle use Cardiovascular: + pertinent finding (regular rate) Extremities: normal range of motion Neurologic/Psychiatric: alert, normal mood/affect Skin: normal color, warm/dry, no rash Laboratory Results Item Value Date Time Blood Culture - Preliminary Resulted 08/10/16 1545 Blood NO GROWTH TO DATE. Blood Culture - Preliminary Resulted 08/10/16 1535 Blood NO GROWTH TO DATE. Last 24 Hours Test 08/15/16 04:30 08/15/16 11:27 White Blood Count 6.38 K/uL Red Blood Count 3.64 M/uL Hemoglobin 12.1 g/dL Hematocrit 35.3 % Mean Corpuscular Volume 97.0 fL Mean Corpuscular Hemoglobin 33.2 pg Mean Corpuscular Hemoglobin Concent 34.3 g/dl Platelet Count 87 K/uL Mean Platelet Volume 10.3 fL Neutrophils (%) (Auto) 62.4 % Lymphocytes (%) (Auto) 23.8 % Monocytes (%) (Auto) 9.6 % Eosinophils (%) (Auto) 3.6 % Basophils (%) (Auto) 0.3 % Neutrophils # (Auto) 3.98 K/uL Lymphocytes # (Auto) 1.52 K/uL Monocytes # (Auto) 0.61 K/uL Eosinophils # (Auto) 0.23 K/uL Basophils # (Auto) 0.02 K/uL RDW Standard Deviation 53.5 fL RDW Coefficient of Variation 15.1 % Immature Granulocyte % (Auto) 0.3 % Immature Granulocyte # (Auto) 0.02 K/uL Sodium Level 143 mmol/L Potassium Level 3.7 mmol/L Chloride Level 106 mmol/L Carbon Dioxide Level 29 mmol/L Anion Gap 8.0 mmol/L Blood Urea Nitrogen 12 mg/dl Creatinine 0.88 mg/dl Est Creatinine Clear Calc Drug Dose 68.9 ml/min Estimated GFR () 92.7 Estimated GFR (Non- 80.0 BUN/Creatinine Ratio 14.0 Random Glucose 87 mg/dl Calcium Level 8.4 mg/dl Phosphorus Level 3.5 mg/dl Magnesium Level 2.1 mg/dl Total Bilirubin 0.8 mg/dl Aspartate Amino Transf (AST/SGOT) 15 U/L Alanine Aminotransferase (ALT/SGPT) 21 U/L Alkaline Phosphatase 51 U/L Total Protein 5.2 gm/dl Albumin 2.5 gm/dl Globulin 2.7 gm/dl Albumin/Globulin Ratio 0.9 Bedside Glucose 138 mg/dl Assessment and Plan (1) RADHA (acute kidney injury) Status: Resolved (2) Atrial fibrillation with RVR Status: Resolved (3) Colon cancer Status: Chronic (4) DVT, bilateral lower limbs (5) MRSA (methicillin resistant Staphylococcus aureus) infection Status: Acute Patient with septic shock, infected port with MRSA now s/p removal [employer], and B/L LE DVT in the setting of colorectal cancer receiving chemotherapy as outpatient. The patient is currently on IV Daptomycin. Blood cultures are showing no growth. Because it does not appear that this patient is bacteremic and port was removed, feel that he likely will only need about 2 weeks of IV abx therapy. Tentative stop date of 08/23/16. Patient will resume previous Doxycycline suppression following discontinuation of IV abx therapy. He should follow up with ID next week as an outpatient. Thanks Case reviewed and agree with above assessment.
--- NOTE | 2016-08-15 14:46 | Hematology/Oncology Prog Note ---
Hematology/Onc Progress Note Date of Service Aug 15, 2016. Medications Current Inpatient Medications Medications (Trade) Dose Ordered Sig/Thu Route Start Time Stop Time Status Last Admin Dose Admin Acetaminophen (Tylenol Tab) 650 mg Q4H PRN PO 08/10/16 18:45 09/09/16 18:44 Lactobacillus Acidophilus (Lactinex Granules Pack) 1 gm TIDM PO 08/11/16 07:15 09/10/16 07:59 08/15/16 11:18 1 GM Daptomycin 525 mg/ Sodium Chloride 60.5 ml @ 100 mls/hr Q24H IV 08/11/16 16:00 08/24/16 15:59 08/14/16 16:58 100 MLS/HR Aspirin (Ecotrin Tab) 81 mg DAILY PO 08/11/16 09:00 09/10/16 08:59 08/15/16 08:36 81 MG Atorvastatin Calcium (Lipitor Tab) 80 mg QAM PO 08/11/16 09:00 09/10/16 08:59 Future Hold Erythromycin (Erythromycin Oph Oint) 1 appln QPM OPL 08/10/16 21:00 08/20/16 20:59 08/14/16 20:35 1 APPLN Prednisolone Acetate (Pred Forte 1% Oph Susp) 1 drops BID OPL 08/10/16 21:00 09/09/16 20:59 08/15/16 08:36 1 DROPS Levalbuterol (Xopenex 1.25MG/ 0.5ML Neb) 1.25 mg Q6R PRN INH 08/11/16 20:15 09/10/16 20:14 08/11/16 20:34 1.25 MG Heparin Sodium (Porcine) (Heparin 10 Unit/ ml 5 ml Flush) 5 ml PRN PRN FLUSH 08/12/16 02:30 09/11/16 02:29 Metoprolol Tartrate (Lopressor Tab) 100 mg BID PO 08/13/16 09:00 09/12/16 08:59 08/15/16 08:35 100 MG Ranitidine HCl (zANTac TAB) 300 mg HS PO 08/12/16 21:00 09/11/16 20:59 08/14/16 20:36 300 MG Heparin Sodium/ Dextrose 500 ml @ 26 mls/hr [id number] PRN IV 08/12/16 21:00 7/23/17 20:59 08/15/16 03:18 26 MLS/HR Digoxin (Lanoxin Tab) 0.125 mg DAILY@16 PO 08/14/16 16:00 09/13/16 15:59 08/14/16 16:54 0.125 MG Subjective Mr. White Reports feeling overall better today. He has no respiratory complaints. He has no abdominal pain or bowel issues. He has not had fever since initial admission. He has no lower extremity pain or edema. He has been up walking. Review of Systems: Constitutional: + see HPI Respiratory: + see HPI Abdomen: + see HPI Vital Signs Vital Signs Past 12 Hours Date Time Temp Pulse Resp B/P (MAP) Pulse Ox O2 Delivery O2 Flow Rate FiO2 08/15/16 12:00 Nasal Cannula 2.0 08/15/16 11:15 36.8 74 16 115/72 (86) 96 08/15/16 08:10 Nasal Cannula 2.0 08/15/16 08:06 36.8 110 18 124/68 (86) 96 08/15/16 04:00 98 Nasal Cannula 2.0 08/15/16 03:29 36.5 85 18 108/72 (84) 95 Nasal Cannula 2.0 Physical Exam Constitutional: General Apperance: well-nourished, well-developed Level of Distress: chronically ill ENMT: hearing grossly normal Lungs: Respiratory Effort: no dyspnea Auscuitation: breath sounds normal Cardiovascular: Heart Auscultation: pertinent finding (distant heart tones) Abdomen: Bowel Sounds: normal Inspection & Palpation: soft Extremities: no edema, no palpable cord Laboratory 08/15/16 04:30 Red Blood Count 3.64, Mean Corpuscular Volume 97.0, Mean Corpuscular Hemoglobin 33.2, Mean Corpuscular Hemoglobin Concent 34.3, Mean Platelet Volume 10.3, Neutrophils (%) (Auto) 62.4, Lymphocytes (%) (Auto) 23.8, Monocytes (%) (Auto) 9.6, Eosinophils (%) (Auto) 3.6, Basophils (%) (Auto) 0.3, Neutrophils # (Auto) 3.98, Lymphocytes # (Auto) 1.52, Monocytes # (Auto) 0.61, Eosinophils # (Auto) 0.23, Basophils # (Auto) 0.02 6/26/17 04:30 Test 08/15/16 04:30 08/15/16 11:27 White Blood Count 6.38 K/uL (4.8-10.8) Red Blood Count 3.64 M/uL (4.7-6.1) Hemoglobin 12.1 g/dL (14.0-18.0) Hematocrit 35.3 % (42-52) Mean Corpuscular Volume 97.0 fL (80-100) Mean Corpuscular Hemoglobin 33.2 pg (25-34) Mean Corpuscular Hemoglobin Concent 34.3 g/dl (32-36) Platelet Count 87 K/uL (130-400) Mean Platelet Volume 10.3 fL (7.4-10.4) Neutrophils (%) (Auto) 62.4 % Lymphocytes (%) (Auto) 23.8 % Monocytes (%) (Auto) 9.6 % Eosinophils (%) (Auto) 3.6 % Basophils (%) (Auto) 0.3 % Neutrophils # (Auto) 3.98 K/uL (1.4-6.5) Lymphocytes # (Auto) 1.52 K/uL (1.2-3.4) Monocytes # (Auto) 0.61 K/uL (0.11-0.59) Eosinophils # (Auto) 0.23 K/uL (0-0.5) Basophils # (Auto) 0.02 K/uL (0-0.2) RDW Standard Deviation 53.5 fL (36.4-46.3) RDW Coefficient of Variation 15.1 % (11.5-14.5) Immature Granulocyte % (Auto) 0.3 % Immature Granulocyte # (Auto) 0.02 K/uL (0.00-0.02) Anion Gap 8.0 mmol/L (3-11) Est Creatinine Clear Calc Drug Dose 68.9 ml/min Estimated GFR () 92.7 Estimated GFR (Non- 80.0 BUN/Creatinine Ratio 14.0 (10-20) Calcium Level 8.4 mg/dl (8.5-10.1) Phosphorus Level 3.5 mg/dl (2.5-4.9) Magnesium Level 2.1 mg/dl (1.8-2.4) Total Bilirubin 0.8 mg/dl (0.2-1) Aspartate Amino Transf (AST/SGOT) 15 U/L (15-37) Alanine Aminotransferase (ALT/SGPT) 21 U/L (12-78) Alkaline Phosphatase 51 U/L (45-117) Total Protein 5.2 gm/dl (6.4-8.2) Albumin 2.5 gm/dl (3.4-5.0) Globulin 2.7 gm/dl (2.5-4.0) Albumin/Globulin Ratio 0.9 (0.9-2) Bedside Glucose 138 mg/dl (70-99) Assessment & Plan 1.Stage III colon cancer s/p surgery and 1 cycle of FOLFOX * Chemotherapy on hold while getting treatment for infected port site complicated by sepsis * Patient will require reinsertion of port after infection resolved, can be done as outpatient 2. Septic shock, MRSA infection after removal of infected port * On Daptomycin * Management per hospitalist and ID 3. Acute bilateral lower extremity DVTs * Due to persisting thrombocytopenia, IVC filter placed on 08/12/16 * Patient currently on heparin gtt * Plan is to switch patient to Lovenox on discharge while patient is on IV antibiotics to complete a 14 day course for MRSA sepsis then Coumadin bridge after abx 4. Thrombocytopenia- multifactorial * Improving * Plt baseline was 94K at start of chemotherapy, apparently ETOH use was contributing to decrease in PLT * Bone marrow suppression from recent treatment * Thought to be potentiated by severe acute illness on admission * Continue to monitor CBC daily while inpatient 5. Afib- management per cardiology Attending note Patient seen and examined Feels improved. no bleeding or bruising Gen awake and alert NAD Lungs: CTAB CV: S1 S2 Abd: soft NT/ND Ext no edema Stage IIIB colon cancer - adjuvant chemo delayed due to MRSA infection w/ septic shock. Follow up in office on discharge. Thrombocytopenia acute on chronic: exacerbated by sepsis, now improving MRSA infection: on daptomycin b/l DVT s/p IVC filter on heparin gtt support provided and his questions were answered
[2016-08-15] MEDS: DAPTOmycin IV 525 MG in SODIUM CHLORIDE 0.9% 50ML 50 ML IV SCH (16:37)
[2016-08-15] MEDS: DIGOXIN 0.125 MG TAB PO SCH (16:37)
[2016-08-15] MEDS: ERYTHROMYCIN OP OINT 5 MG/GM 3.5 GM TUBE OPL SCH (20:32)
[2016-08-15] MEDS: RANITIDINE HCL 150 MG TAB PO SCH (20:32)
[2016-08-16] VITALS (13 sets, daily range): BP systolic 92–121; BP diastolic 56–77; PULSE 68–105; TEMP 36.5–37.1; O2SAT 89–99
[2016-08-16 04:51] LABS: BASO % 0.2 %; BASO ABS # 0.02 K/uL (0-0.2); COMPLETE YES; EOS % 2.5 %; HEMATOCRIT 35.1 % (42-52); IG% 0.2 %; LYMPH % 17.3 %; LYMPH ABS # 1.39 K/uL (1.2-3.4); MEAN CELL VOLUME 95.6 fL (80-100); MEAN CORPUSCULAR HEMOGLOBIN 33.5 pg (25-34); MEAN PLATELET VOLUME 9.6 fL (7.4-10.4); MONO % 11.1 %; NEUT % 68.7 %; PLATELET COUNT 116 K/uL (130-400); RED BLOOD COUNT 3.67 M/uL (4.7-6.1); WHITE BLOOD COUNT 8.04 K/uL (4.8-10.8)
[2016-08-16 05:16] LABS: BUN/CREATININE RATIO 12.5 (10-20); CREATININE 0.94 mg/dl (0.60-1.40); POTASSIUM 3.6 mmol/L (3.5-5.1)
[2016-08-16 07:10] LABS: PARTIAL THROMBOPLASTIN RATIO 1.8
[2016-08-16] MEDS: ASPIRIN 81 MG ECTAB PO SCH (07:28)
[2016-08-16] MEDS: METOPROLOL TARTRATE 100 MG TAB PO SCH ×2 (07:28→20:13)
[2016-08-16] MEDS: LACTOBACILLUS ACIDOPHILUS 1 GM PACK PO SCH ×3 (07:28→16:14)
[2016-08-16] MEDS: PrednisoLONE ACET 1% OP SUSP 5 ML BTL OPL SCH ×2 (07:28→20:11)
[2016-08-16] MEDS ORDERED: HEPARIN IV BOLUS 3,000 UNIT in SYRINGE 0 ML IV STA (07:29)
[2016-08-16] MEDS: HEPARIN 25,000 UNIT/500ML D5W 500 ML IV PRN ×2 (08:37→15:43)
--- NOTE | 2016-08-16 10:58 | Cardiology Follow-Up ---
Subjective General Date of Service: Aug 16, 2016. Chief Complaint: atrial fibrillation Pt evaluation today including: conversation w/ patient, physical exam, chart review, lab review, review of studies, review of inpatient medication list History of Present Illness Patient seen and examined. No complaints. Denies chest pain/discomfort, palpitations, dyspnea, or orthopnea. Telemetry: Atrial fibrillation, currently with a rapid ventricular response. No significant periods of slow ventricular response/bradycardia observed. No pauses. No ventricular arrhythmias observed. August 11, 2016 TTE Interpretation Summary ([facility], [place], Dr. Romero): Normal left ventricular chamber size with mild concentric left ventricular hypertrophy. Left ventricular systolic function, left ventricular ejection fraction 60-65%. No segmental left anterior wall motion however maladies noted. Grade 2 diastolic dysfunction was noted. Aortic valve sclerosis without stenosis. Trace tricuspid regurgitation was noted. The right ventricular chamber size is normal with mildly reduced right ventricular systolic function. Allergies Coded Allergies: Vancomycin (Verified Allergy, Severe, SHORTNESS OF BREATH, 08/11/16) Social History Smoking Status: Former Smoker (30 year history, 1-1.5 ppd; quit 2006) Hx Tobacco Use In Past Year?: No (Quit smoking in 2006) Hx Alcohol Use - Type And Amou: No Hx Substance Use - Type And Am: No Problem List Medical Problems: (1) Bacteremia Status: Acute (2) Sepsis Status: Acute Physical Exam Vital Signs Last Vital Signs Documentation Date Time Temp Pulse Resp B/P (MAP) Pulse Ox O2 Delivery O2 Flow Rate FiO2 08/16/16 08:00 99 Room Air 08/16/16 07:53 36.5 94 18 121/74 (90) 08/15/16 16:10 2.0 Physical Exam Constitutional: General Apperance: well-nourished, well-developed Level of Distress: NAD, chronically ill Psychiatric: Mental Status: active & alert, normal mood, normal affect Orientation: to time, to place, to person Memory: recent memory normal, remote memory normal Head: normocephalic, atraumatic Eyes: EOM: EOMI Neck: supple, trachea midline, pertinent finding (Central line, left neck. No JVD/HJR) Lungs: Respiratory effort: no dyspnea Auscultation: no wheezing, no rales/crackles, no rhonchi Cardiovascular: Apical Impulse: not displaced Heart Auscultation: no murmurs, no rubs, tachycardia (130), irregular rate rhythm Peripheral Pulses: Bruits: none appreciated Radial Pulse: normal on the left, normal on the right Dorsalis Pedis Pulse: decreased on the left, decreased on the right Abdomen: Bowel Sounds: normal Inspection & Palpation: soft, non-distended, no tenderness, guarding & rebound Extremities: no cyanosis, no edema, no clubbing Neurologic: Cranial Nerves: grossly intact Assessment and Plan Assessment and Plan Admission with MRSA sepsis due to 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 Sotalol 80 BID prescribed prior to admission, held secondary to hypotension, acute kidney injury History of amiodarone toxicity History of inappropriate ICD discharges due to atrial fibrillation with rapid ventricular rate. History of ischemic heart disease, cardiac arrest, single-chamber AICD implantation, generator exchange. Peripheral arterial disease with apparent endovascular repair of an AAA, lower extremity surgical revascularization with infected popliteal artery grafted past RECOMMENDATIONS/PLAN: Rate control with metoprolol and digoxin. Add immediate release Cardizem 30 mg three times per day for additional heart rate control. No sotalol at this point. ? Future resumption of sotalol after adequate anticoagulation (minimum 3 weeks of therapeutic anticoagulation); this would require inpatient initiation. Current plans per report are to transition IV heparin to Lovenox, eventually resuming Coumadin anticoagulation after completion of IV antibiotics and removal of the central line. Cardiology attending: Pt seen and examined, agree with findings and assessment as per Richie Conde. Rates remain elevated, in the setting of normal LV systolic function will add cardizem on top of metoprolol and digoxin. Anticoagulation with heparin, to be transitions to Lovenox and ultimately coumadin. Laboratory Results Last 24 Hours Test 08/15/16 11:27 08/16/16 04:40 Bedside Glucose 138 mg/dl White Blood Count 8.04 K/uL Red Blood Count 3.67 M/uL Hemoglobin 12.3 g/dL Hematocrit 35.1 % Mean Corpuscular Volume 95.6 fL Mean Corpuscular Hemoglobin 33.5 pg Mean Corpuscular Hemoglobin Concent 35.0 g/dl Platelet Count 116 K/uL Mean Platelet Volume 9.6 fL Neutrophils (%) (Auto) 68.7 % Lymphocytes (%) (Auto) 17.3 % Monocytes (%) (Auto) 11.1 % Eosinophils (%) (Auto) 2.5 % Basophils (%) (Auto) 0.2 % Neutrophils # (Auto) 5.52 K/uL Lymphocytes # (Auto) 1.39 K/uL Monocytes # (Auto) 0.89 K/uL Eosinophils # (Auto) 0.20 K/uL Basophils # (Auto) 0.02 K/uL RDW Standard Deviation 51.3 fL RDW Coefficient of Variation 14.7 % Immature Granulocyte % (Auto) 0.2 % Immature Granulocyte # (Auto) 0.02 K/uL Activated Partial Thromboplast Time 46.2 SECONDS Partial Thromboplastin Ratio 1.8 Sodium Level 141 mmol/L Potassium Level 3.6 mmol/L Chloride Level 104 mmol/L Carbon Dioxide Level 32 mmol/L Anion Gap 5.0 mmol/L Blood Urea Nitrogen 12 mg/dl Creatinine 0.94 mg/dl Est Creatinine Clear Calc Drug Dose 64.5 ml/min Estimated GFR () 87.2 Estimated GFR (Non- 75.2 BUN/Creatinine Ratio 12.5 Random Glucose 94 mg/dl
[2016-08-16 12:55] LABS: CALCIUM 8.3 mg/dl (8.5-10.1)
--- NOTE | 2016-08-16 13:57 | Progress Note ---
Subjective Date of Service: Aug 16, 2016. Subjective Pt evaluation today including: conversation w/ patient, physical exam, chart review, lab review, review of studies, review of inpatient medication list Pt reports fatigue and weakness Not comfortable with antibx and lovenox at home No fevers or chills or acute events overnight Problem List Medical Problems: (1) Bacteremia Status: Acute (2) Sepsis Status: Acute Review of Systems Constitutional: No fever, No chills, No sweats Eyes: No worsening of vision, No eye pain, No redness Respiratory: No cough, No sputum, No wheezing, No shortness of breath Cardiac: No chest pain, No orthopnea, No PND, No edema Abdomen: No pain, No nausea, No vomiting, No diarrhea, No constipation Musculoskeletal: No joint pain, No muscle pain, No swelling Male : No dysuria, No urinary frequency, No incontinence, No nocturia more than once/night Neurologic: No memory loss, No paralysis, No weakness, No numbness/tingling Psychiatric: No depression symptoms, No anhedonism, No anxiety, No insomnia Objective Vital Signs Date Time Temp Pulse Resp B/P (MAP) Pulse Ox O2 Delivery O2 Flow Rate FiO2 08/16/16 12:00 99 Room Air 08/16/16 11:43 36.5 68 18 121/60 (80) 96 08/16/16 08:00 99 Room Air 08/16/16 07:53 36.5 94 18 121/74 (90) 99 08/16/16 04:24 36.6 100 18 116/77 (90) 92 Room Air 08/16/16 04:00 91 Room Air 08/16/16 00:07 36.5 90 18 108/68 (81) 93 Room Air 08/15/16 23:59 91 Room Air 08/15/16 20:30 114 102/70 (81) 08/15/16 20:00 91 Room Air 08/15/16 19:18 36.4 103 18 91/53 (66) 91 Room Air 08/15/16 16:37 90 08/15/16 16:10 Nasal Cannula 2.0 08/15/16 15:43 36.6 105 16 104/73 (83) 96 Nasal Cannula 2.0 Physical Exam General Appearance: WD/WN, no apparent distress Eyes: normal inspection, PERRL, EOMI, sclerae normal Neck: supple, no adenopathy, thyroid normal, no JVD Respiratory/Chest: chest non-tender, lungs clear, normal breath sounds, no respiratory distress Cardiovascular: regular rate, rhythm, no edema, no gallop, no JVD Abdomen: normal bowel sounds, non tender, soft, no organomegaly Neurologic/Psychiatric: no motor/sensory deficits, alert, normal mood/affect, oriented x 3 Laboratory Results Last 24 Hours Test 08/16/16 04:40 08/16/16 13:30 White Blood Count 8.04 K/uL Red Blood Count 3.67 M/uL Hemoglobin 12.3 g/dL Hematocrit 35.1 % Mean Corpuscular Volume 95.6 fL Mean Corpuscular Hemoglobin 33.5 pg Mean Corpuscular Hemoglobin Concent 35.0 g/dl Platelet Count 116 K/uL Mean Platelet Volume 9.6 fL Neutrophils (%) (Auto) 68.7 % Lymphocytes (%) (Auto) 17.3 % Monocytes (%) (Auto) 11.1 % Eosinophils (%) (Auto) 2.5 % Basophils (%) (Auto) 0.2 % Neutrophils # (Auto) 5.52 K/uL Lymphocytes # (Auto) 1.39 K/uL Monocytes # (Auto) 0.89 K/uL Eosinophils # (Auto) 0.20 K/uL Basophils # (Auto) 0.02 K/uL RDW Standard Deviation 51.3 fL RDW Coefficient of Variation 14.7 % Immature Granulocyte % (Auto) 0.2 % Immature Granulocyte # (Auto) 0.02 K/uL Activated Partial Thromboplast Time 46.2 SECONDS Partial Thromboplastin Ratio 1.8 Sodium Level 141 mmol/L Potassium Level 3.6 mmol/L Chloride Level 104 mmol/L Carbon Dioxide Level 32 mmol/L Anion Gap 5.0 mmol/L Blood Urea Nitrogen 12 mg/dl Creatinine 0.94 mg/dl Est Creatinine Clear Calc Drug Dose 64.5 ml/min Estimated GFR () 87.2 Estimated GFR (Non- 75.2 BUN/Creatinine Ratio 12.5 Random Glucose 94 mg/dl Calcium Level 8.3 mg/dl Assessment and Plan 81 y/o male with a history of a-fib, colon cancer s/p removal of infected port on 08/09, and HLD who presented to the ED on 08/10 with fever, chills, weakness and fatigue. Septic shock secondary to infected a-port--resolved -Admitted to ICU, initially required pressor support for BP -Transferred to tele 08/13. Pt remained in a-fib overnight with HR 70s-90s -A-port culture positive for MRSA, also resistant to clindamycin, erythromycin, tetracycline -Blood cultures NGTD x 2 -Infectious disease consulted, appreciate recs: IV daptomycin x 2 weeks, then restart previous doxycycline suppression -Daptomycin IV day 6 of -Critical care recommends maintaining central venous access until IV abx completed as PICC lines associated with increased risk of thrombus in cancer pts -Wound care provider consulted for right chest wall: site debrided 08/14, will need daily dressing changes. F/u in outpatient clinic on discharge. -Pt uncomfortable with IJ line and antibx as well as lovenox, requesting placement at this time Acute bilateral common femoral vein DVTs--stable -Continue heparin drip while inpatient, then therapeutic Lovenox on discharge while on IV abx. Can then transition to warfarin -IVC filter placed on 08/[address] Molina -Doppler ultrasound also shows indeterminate 7.6 cm right popliteal fossa mass. Recommend further work up as outpatient Atrial fibrillation w/RVR--stable. -Continue metoprolol tartrate 100 mg PO BID -Cardiology consulted, appreciate recs: Cont digoxin. Suggest using Coumadin for anticoagulation due to thrombocytopenia as it is reversible. -Digoxin restarted by cardio at 0.125 mg PO daily -Heparin drip -Echo: * Normal LV chamber size with mild concentric LVH. * Normal LV systolic function, EF 60-65%. * No segmental left ventricular wall motion abnormalities are noted. * Grade II diastolic dysfunction. * The right ventricular cavity size is normal (basal dimension <4.2 cm in right ventricular apical 4-chamber view). * There is a pacemaker lead in the right ventricle. * The right ventricular systolic function is mildly reduced. * Aortic valve sclerosis moderate, without significant aortic valvular stenosis. * Trace tricuspid regurgitation. RADHA, unknown baseline--resolved -Creatinine 1.9 on arrival -Creatinine remains stable, under 1.0 Acute on chronic thrombocytopenia--improving -HIT panel negative -PLT improved to 116 on 08/16, up from 64 Elevated troponin--stable -Likely secondary to demand ischemia -Troponin peaked at 0.902, then trended down Colon cancer stage IIIB--stable -Heme/onc consulted, appreciate recs: Chemo held due to sepsis. Acute on chronic thrombocytopenia likely worse due to sepsis. HLD -Hold atorvastatin while on daptomycin DVT prophylaxis -Heparin drip, will DC on lovenox 1.5mg/kg SC for duration of IV antibx -SCDs Code Status -Level V, DO NOT RESUSCITATE Continued [facility] stay due to: multiple IV medications needed Discharge planning: rehab hospital, [facility] facility, uncertain
[2016-08-16] MEDS: DILTIAZEM HCL 30 MG TAB PO SCH ×2 (14:13→20:13)
[2016-08-16 14:47] LABS: PARTIAL THROMBOPLASTIN RATIO 2.5
[2016-08-16] MEDS: DIGOXIN 0.125 MG TAB PO SCH (16:13)
[2016-08-16] MEDS: DAPTOmycin IV 525 MG in SODIUM CHLORIDE 0.9% 50ML 50 ML IV SCH (16:13)
[2016-08-16] MEDS: RANITIDINE HCL 150 MG TAB PO SCH (20:12)
[2016-08-16] MEDS: ERYTHROMYCIN OP OINT 5 MG/GM 3.5 GM TUBE OPL SCH (20:12)
[2016-08-17] VITALS (8 sets, daily range): BP systolic 93–132; BP diastolic 56–74; PULSE 86–140; TEMP 37–37.6; O2SAT 89–99
[2016-08-17 07:53] LABS: PARTIAL THROMBOPLASTIN RATIO 2.4
[2016-08-17] MEDS: METOPROLOL TARTRATE 100 MG TAB PO SCH (08:06)
[2016-08-17] MEDS: ASPIRIN 81 MG ECTAB PO SCH (08:07)
[2016-08-17] MEDS: LACTOBACILLUS ACIDOPHILUS 1 GM PACK PO SCH ×3 (08:07→15:20)
[2016-08-17] MEDS: PrednisoLONE ACET 1% OP SUSP 5 ML BTL OPL SCH (08:08)
[2016-08-17] MEDS: DILTIAZEM HCL 30 MG TAB PO SCH ×2 (08:08→14:34)
[2016-08-17] MEDS: HEPARIN 25,000 UNIT/500ML D5W 500 ML IV PRN (08:48)
--- NOTE | 2016-08-17 11:20 | Cardiology Follow-Up ---
Subjective General Date of Service: Aug 17, 2016. Chief Complaint: atrial fibrillation Pt evaluation today including: conversation w/ patient, physical exam, chart review, lab review, review of studies, review of inpatient medication list History of Present Illness Patient seen and examined. No complaints. Denies chest pain/discomfort, palpitations, dyspnea, or orthopnea. Telemetry: Atrial fibrillation, currently in the 70's. Intermittently with a rapid ventricular response. No bradycardia observed. No pauses. No ventricular arrhythmias observed. August 11, 2016 TTE Interpretation Summary ([facility], Dr. Romero): Normal left ventricular chamber size with mild concentric left ventricular hypertrophy. Left ventricular systolic function, left ventricular ejection fraction 60-65%. No segmental left anterior wall motion however maladies noted. Grade 2 diastolic dysfunction was noted. Aortic valve sclerosis without stenosis. Trace tricuspid regurgitation was noted. The right ventricular chamber size is normal with mildly reduced right ventricular systolic function. Allergies Coded Allergies: Vancomycin (Verified Allergy, Severe, SHORTNESS OF BREATH, 08/11/16) Social History Smoking Status: Former Smoker (30 year history, 1-1.5 ppd; quit 2006) Hx Tobacco Use In Past Year?: No (Quit smoking in 2006) Hx Alcohol Use - Type And Amou: No Hx Substance Use - Type And Am: No Problem List Medical Problems: (1) Bacteremia Status: Acute (2) Sepsis Status: Acute Physical Exam Vital Signs Last Vital Signs Documentation Date Time Temp Pulse Resp B/P (MAP) Pulse Ox O2 Delivery O2 Flow Rate FiO2 08/17/16 08:02 37.0 140 18 129/63 (85) 96 08/17/16 08:00 Room Air 08/15/16 16:10 2.0 Physical Exam Constitutional: General Apperance: well-nourished, well-developed Level of Distress: NAD, chronically ill Psychiatric: Mental Status: active & alert, normal mood, normal affect Orientation: to time, to place, to person Memory: recent memory normal, remote memory normal Head: normocephalic, atraumatic Eyes: EOM: EOMI Neck: supple, trachea midline, pertinent finding (Central line, left neck. No JVD/HJR) Lungs: Respiratory effort: no dyspnea Auscultation: no wheezing, no rales/crackles, no rhonchi Cardiovascular: Apical Impulse: not displaced Heart Auscultation: no murmurs, no rubs, irregular rate rhythm Peripheral Pulses: Bruits: none appreciated Radial Pulse: normal on the left, normal on the right Dorsalis Pedis Pulse: decreased on the left, decreased on the right Abdomen: Bowel Sounds: normal Inspection & Palpation: soft, non-distended, no tenderness, guarding & rebound Extremities: no cyanosis, no edema, no clubbing Neurologic: Cranial Nerves: grossly intact Assessment and Plan Assessment and Plan Admission with MRSA sepsis due to 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 Sotalol 80 BID prescribed prior to admission, held secondary to hypotension, acute kidney injury History of amiodarone toxicity History of inappropriate ICD discharges due to atrial fibrillation with rapid ventricular rate. History of ischemic heart disease, cardiac arrest, single-chamber AICD implantation, generator exchange. Peripheral arterial disease with apparent endovascular repair of an AAA, lower extremity surgical revascularization with infected popliteal artery grafted past RECOMMENDATIONS/PLAN: Rate control and anticoagulation Continue metoprolol 100 mg twice a day and digoxin 125 mcg/day Change/increase immediate release Cardizem to Cardizem CD 120 mg/day No sotalol at this point. ? Future resumption of sotalol after adequate anticoagulation (minimum 3 weeks of therapeutic anticoagulation); this would require inpatient initiation. Current plans per report are to transition IV heparin to Lovenox, eventually resuming Coumadin anticoagulation after completion of IV antibiotics and removal of the central line. Please call if there are any other issues or concerns during the remainder of his hospitalization. Laboratory Results Last 24 Hours Test 08/16/16 14:01 08/17/16 07:19 Activated Partial Thromboplast Time 64.8 SECONDS 62.0 SECONDS Partial Thromboplastin Ratio 2.5 2.4
[2016-08-17] MEDS ORDERED: LPR100 PO (13:28)
[2016-08-17] MEDS ORDERED: LNX125 PO (13:28)
[2016-08-17] MEDS ORDERED: CRDCD120 PO (13:28)
[2016-08-17] MEDS ORDERED: ENOX120I SQ (13:30)
[2016-08-17] MEDS ORDERED: DAPT500I IV (13:30)
--- NOTE | 2016-08-17 13:36 | Discharge Instructions ---
Discharge Instructions Date of Service Aug 17, 2016. Admission Reason for Admission: Septic Shock Discharge Discharge Diagnosis / Problem: septic shock Discharge Goals Goal(s): Decrease discomfort, Improve function, Increase independence, Improve disease control, Diagnostic testing, Therapeutic intervention Activity Recommendations Activity Limitations: resume your previous activity Exercise/Sports Limitations: none . Instructions / Follow-Up Instructions / Follow[facility] Please note antibiotics daptomycin 525 mg IV once dailyand lovenox 1.5 mg/kg one time dose for additional 8 days on discharge Please also note changes in heart medications: cardizem CD 120 mg by mouth once daily and metoprolol tartrate 100 mg tablet by mouth twice a day Please follow up with Dr Mike, Dr Santana and Dr Ferrell in 1 week Please follow up with Janeen LICEA in 1-2 weeks Patient will need to resume on coumadin after completion of IV antibiotics If worsening pain, shortness of breath, chest pain, fevers, please report to ER Current Hospital Diet Patient's current hospital diet: Low Fat Diet Discharge Diet Recommended Diet: Low Fat Diet Procedures Procedures Performed: Insertion of Vena Cava Filter, Right Jugular Approach, Ultrasound Localization of Right Internal Jugular vein, Fluoroscopy for positioning. Pending Studies Studies pending at discharge: no Laboratory Results Hemoglobin A1c Test 08/11/16 05:59 Range/Units Estimated Average Glucose 123 mg/dl Hemoglobin A1c 5.9 H 4.5-5.6 % Medical Emergencies . Who to Call and When: Medical Emergencies: If at any time you feel your situation is an emergency, please call 911 immediately. . Non-Emergent Contact Non-Emergency issues call your: Primary Care Provider Call Non-Emergent contact if: you have a fever, your pain is worsening . . "Provider Documentation" section prepared by Jorge A Gunn. . VTE Core Measure Inpt VTE Proph given/why not?: Enoxaparin (Lovenox)SQ, Unfractionated heparin SQ
--- NOTE | 2016-08-17 14:31 | Discharge Summary ---
Discharge Summary Date of Service Aug 17, 2016. Discharge Summary Admission Date: Aug 10, 2016 at 18:52 Discharge Date: Aug 17, 2016 Discharge Disposition: Rehab Principal Diagnosis: Septic shock Consultations: Infectious disease Office Services Manager Wound care Cardiology Medication Reconciliation New Medications: Daptomycin (Daptomycin) 500 Mg Inj 525 MG IV DAILY for 8 Days Enoxaparin (Lovenox) 120 Mg/0.8 Ml Inj 130 MG SQ DAILY for 8 Days, SYR Digoxin (Digoxin) 0.125 Mg Tab 0.125 MG PO DAILY@16 for 30 Days, #30 TAB Diltiazem HCl (Diltiazem Cd) 120 Mg Capcr 120 MG PO QAM for 30 Days, #30 TAB Metoprolol Tartrate (Metoprolol Tartrate) 100 Mg Tab 100 MG PO BID for 30 Days, #60 TAB Continued Medications: Ascorbic Acid (Vitamin C) 500 Mg Tab 1 TAB PO QAM Aspirin (Aspirin Ec) 81 Mg Tab 81 MG PO DAILY TO START THIS MED WHEN STOPS WARFARIN (4 DAYS PRIOR TO SURGERY) Atorvastatin (Lipitor) 80 Mg Tab 80 MG PO QAM, TAB Erythromycin (Erythromycin) 1 Appln/1 Gm Oint 1 APPLN OPL QPM Folic Acid-Vit B2-Vit B6-Vit B (Folgard) 1 Tab Tab 1 TAB PO QAM Furosemide (Lasix) 20 Mg Tab 20 MG PO QAM, TAB Multivitamin (Multivitamin) Tab 1 TAB PO QAM, TAB Omeprazole (Prilosec) 20 Mg Capcr 20 MG PO BID, CAP Potassium Chloride (Micro-K Ext Rel) Unknown Strength Capcr 10 MEQ PO DAILY, CAP 2 TAB PO QAM Prednisolone Acetate (Ophth) (Pred Forte 1% Oph) 1 % Liudmila 1 DROPS OPL BID, #5 ML Probiotic Product (Acidophilus) 1 Cap Cap 1 TAB PO BID [Ferrous Sulfate] () 65 MG PO DAILY Discontinued Medications: Doxycycline Monohydrate (Monodox) 100 Mg Cap 100 MG PO QAM, CAP TAKES EVERY DAY...DUE TO PAST INFECTION...WAS TOLD TO CONTINUE UNTIL FURTHER NOTICE Sotalol Hcl (Sotalol Hcl) 80 Mg Tab 1 TAB PO BID for 90 Days, #180 TAB 3 Refills Sulfa/Trimethoprim (Bactrim Ds 800MG/160MG) Tab 1 TAB PO BID, #6 TAB Warfarin Sod (Jantoven) 2 Mg Tab 2 MG PO QPM, TAB Discharge Exam Review of Systems: Constitutional: + fatigue, No fever, No chills, No sweats, No weakness ENT: No hearing loss, No unusual epistaxis, No nasal symptoms, No sore throat Respiratory: No cough, No sputum, No wheezing, No shortness of breath, No dyspnea on exertion Cardiovascular: No chest pain, No orthopnea, No PND, No edema, No claudication Abdomen: No pain, No nausea, No vomiting, No diarrhea, No constipation Musculoskeletal: No joint pain, No muscle pain, No swelling, No calf pain Genitourinary - Male: No hematuria, No dysuria, No urinary frequency, No urinary urgency Neurologic: No memory loss, No paralysis, No weakness, No numbness/tingling Psychiatric: No depression symptoms, No anhedonism, No anxiety, No insomnia Hematologic / Lymphatic: No abnormal bleeding/bruising, No clotting problems Physical Exam: General Appearance: WD/WN, no apparent distress Eyes: normal inspection, PERRL, EOMI, sclerae normal Neck: supple, no adenopathy, thyroid normal, no JVD Respiratory/Chest: chest non-tender, lungs clear, normal breath sounds, no respiratory distress Cardiovascular: regular rate, rhythm, no gallop, no JVD, no murmur Abdomen / GI: normal bowel sounds, non tender, soft, no organomegaly Extremities: normal inspection, no calf tenderness, normal capillary refill , no pedal edema Neurologic/Psychiatric: alert, normal mood/affect, normal reflexes, oriented x 3 Skin: normal color, no rash Lymphatic: no adenopathy Hospital Course 81 y/o male with a history of a-fib, colon cancer s/p removal of infected port on 08/09, and HLD who presented to the ED on 08/10 with fever, chills, weakness and fatigue. Septic shock secondary to infected a-port--resolved -Admitted to ICU, initially required pressor support for BP -Transferred to tele 08/13. -A-port culture positive for MRSA, also resistant to clindamycin, erythromycin, tetracycline -Blood cultures NGTD x 2 -Infectious disease consulted, appreciate recs: IV daptomycin x 2 weeks, then restart previous doxycycline suppression -Daptomycin IV day 7 of 14, discharged on 08/17 will need daptomycin 525 mg IV once daily for remainder of course -Critical care recommends maintaining central venous access until IV abx completed as PICC lines associated with increased risk of thrombus in cancer pts -Wound care provider consulted for right chest wall: site debrided 08/14, will need daily dressing changes. F/u in outpatient clinic on discharge. -Pt uncomfortable with IJ line and antibx as well as lovenox, discharged to [facility] for duration of treatment Acute bilateral common femoral vein DVTs--stable -Continue heparin drip while inpatient, then therapeutic Lovenox 1.5 mg/kg SC daily on discharge while on IV abx. Can then transition to warfarin -IVC filter placed on 08/[address] Molina -Doppler ultrasound also shows indeterminate 7.6 cm right popliteal fossa mass. Recommend further work up as outpatient Atrial fibrillation w/RVR--stable. -Continue metoprolol tartrate 100 mg PO BID -Cardiology consulted, appreciate recs: Cont digoxin. Suggest using Coumadin for anticoagulation due to thrombocytopenia as it is reversible. -Digoxin restarted by cardio at 0.125 mg PO daily -Heparin drip continued and will be dced on discharge -Cardizem CD 120 mg PO daily started on 08/17 -Echo: * Normal LV chamber size with mild concentric LVH. * Normal LV systolic function, EF 60-65%. * No segmental left ventricular wall motion abnormalities are noted. * Grade II diastolic dysfunction. * The right ventricular cavity size is normal (basal dimension <4.2 cm in right ventricular apical 4-chamber view). * There is a pacemaker lead in the right ventricle. * The right ventricular systolic function is mildly reduced. * Aortic valve sclerosis moderate, without significant aortic valvular stenosis. * Trace tricuspid regurgitation. RADHA, unknown baseline--resolved -Creatinine 1.9 on arrival -Creatinine remains stable, under 1.0 Acute on chronic thrombocytopenia--improving -HIT panel negative -PLT improved to 116 on 08/16, up from 64 Elevated troponin--stable -Likely secondary to demand ischemia -Troponin peaked at 0.902, then trended down Colon cancer stage IIIB--stable -Heme/onc consulted, appreciate recs: Chemo held due to sepsis. Acute on chronic thrombocytopenia likely worse due to sepsis. HLD -Hold atorvastatin while on daptomycin DVT prophylaxis -Heparin drip, will DC on lovenox 1.5mg/kg SC for duration of IV antibx -SCDs Code Status -Level V, DO NOT RESUSCITATE Total Time Spent: Greater than 30 minutes This includes examination of the patient, discharge planning, medication reconciliation, and communication with other providers. Discharge Instructions Please refer to the electronic Patient Visit Report (Discharge Instructions) for additional information. Additional Copies To Janeen Graves.
[2016-08-17] MEDS: DAPTOmycin IV 525 MG in SODIUM CHLORIDE 0.9% 50ML 50 ML IV SCH (14:34)
[2016-08-17] MEDS ORDERED: NURSING VERBAL MED ORDER ONE (14:45)
[2016-08-17] MEDS: DIGOXIN 0.125 MG TAB PO SCH (15:21)
[2016-08-17] MEDS ORDERED: ENOXAPARIN 40 MG/0.4 ML SYR SQ ONE (15:30)
[2016-08-18] MEDS ORDERED: DILTIAZEM HCL 120 MG CAPCR PO SCH (09:00)
[2016-08-25] MEDS ORDERED: ATOR-26 PO (09:24)
[2016-08-25] MEDS ORDERED: DOXY-300 PO (09:24)
[2016-08-25] MEDS ORDERED: ENOX120I SQ (09:24)
[2016-08-25] MEDS ORDERED: FERR1TAB13 PO ×2 (09:26)
[2016-08-25] MEDS ORDERED: LEVO-366 PO (09:28)
[2016-08-25] MEDS ORDERED: PANT40TA PO (09:30)
[2016-08-25] MEDS ORDERED: POTA10CA28 PO (09:30)
[2016-08-25] MEDS ORDERED: FOLI-29 PO (09:31)
[2016-09-09] MEDS ORDERED: LVQ500 PO (08:14)
[2016-09-09] MEDS ORDERED: ACET-1047 PO (08:14)
[2016-09-09] MEDS ORDERED: LINE1TAB2 PO (08:14)
[2016-09-09] MEDS ORDERED: LPR25 PO (08:14)
[2016-09-09] MEDS ORDERED: DOXY-300 PO (08:18)
[2016-09-09] MEDS ORDERED: PRED10TA PO (08:18)
--- NOTE | 2016-09-12 11:27 | DIAGNOSTIC IMAGING REPORT ---
PREOPERATIVE DIAGNOSES: Stage III colon cancer, thrombocytopenia, and bilateral common femoral deep vein thrombosis with contraindications to anticoagulation. POSTOPERATIVE DIAGNOSIS: Same. PROCEDURE: Placement of IVC filter from right IJ approach. SURGEON: Dr. Curt Molina. SED HIGH SCHOOL TEACHER: Dr. Emerald Harrell. ANESTHESIA: Monitored anesthesia care plus local. ESTIMATED BLOOD LOSS: 1 mL. COMPLICATIONS: None. CONDITION: Stable. INDICATIONS: Mr. Chuy White is an 81-year-old gentleman with multiple medical problems including stage III colon cancer and thrombocytopenia. He is currently admitted with sepsis and found to have bilateral common femoral DVTs. He was unable to tolerate anticoagulation. For this reason, he was recommended to undergo placement of an IVC filter. The risks, benefits and alternatives were discussed with patient and he consented to the procedure. DESCRIPTION OF PROCEDURE: The patient was taken to the hybrid OR and placed in supine position. His right neck and upper chest were prepped and draped in the usual sterile fashion. Ultrasound was used to identify the right internal jugular vein. Safety timeout was performed on patient, procedure, The patient and procedure were correctly identified. Sedation was administered by anesthesia colleagues. Local anesthesia was used to anesthetize the skin overlying the right IJ. An 18-gauge access needle was used to access the right internal jugular vein under ultrasound guidance. A 0.035 guidewire was passed through the access needle into the IVC. The dilator was used to dilate the tract. A Cook Celect IVC filter was then brought onto the field and the sheath was placed over the wire down into the infrarenal IVC. A venocavagram was obtained through the sheath to identify the position of the regional veins. The filter was then passed through the sheath and the filter was deployed below both renal veins. It appeared to be in good position. The sheath was removed and manual pressure was held over the IJ access site for approximately 5 minutes with good hemostasis. A sterile dressing was applied. The patient was returned to his ICU room in satisfactory condition. He tolerated the procedure well and there were no immediate complications. Dr. Curt Molina was present for the entire procedure. I, Dr. Molina was present and scrubbed for the entire procedure.
== END 2016-08-17 17:10 | DRG 314 ==
LOC: EDBD 15:25 → C.EDB 15:26 → C.MSICU 18:52 → EDBEDREQ 19:00 → ENRESERV 19:10 → C.2T 08-13 19:23
PROVIDERS: ADMIT Internal Medicine; ATTEND Hospitalist
PROC: 05HM33Z Insertion of Infusion Device into Right Internal Jugular Vein, Percutaneous Approach (ICD-10-PCS; principal; 2016-08-12 14:00)
PROC: 0JB63ZZ Excision of Chest Subcutaneous Tissue and Fascia, Percutaneous Approach (ICD-10-PCS; 2016-08-15)
DX: T82.7XXA Infection and inflammatory reaction due to other cardiac and vascular devices, implants and grafts, initial encounter (principal); R65.21 Severe sepsis with septic shock; A41.02 Sepsis due to Methicillin resistant Staphylococcus aureus; C18.9 Malignant neoplasm of colon, unspecified; N17.9 Acute kidney failure, unspecified; I82.413 Acute embolism and thrombosis of femoral vein, bilateral; I24.8 Other forms of acute ischemic heart disease; D68.59 Other primary thrombophilia; E78.5 Hyperlipidemia, unspecified; I48.91 Unspecified atrial fibrillation; D69.6 Thrombocytopenia, unspecified; Z66 Do not resuscitate; Z16.24 Resistance to multiple antibiotics; Z79.82 Long term (current) use of aspirin; Z79.01 Long term (current) use of anticoagulants; Z95.820 Peripheral vascular angioplasty status with implants and grafts; Z85.038 Personal history of other malignant neoplasm of large intestine; Z90.49 Acquired absence of other specified parts of digestive tract; Z87.891 Personal history of nicotine dependence; I95.9 Hypotension, unspecified; I48.2 Chronic atrial fibrillation; I25.2 Old myocardial infarction; Z95.810 Presence of automatic (implantable) cardiac defibrillator

== ENCOUNTER 2016-08-26 12:06 | Inpatient (IN) | payer OTHER, BC ==
[~2016-08-26] VITALS: Ht 180.3 cm; Wt 86.6 kg
[~2016-08-26 12:06] MED LIST changes: +CRDCD120 PO; +DOXY-300 PO; -DOXY100C76 PO; +ENOX120I SQ; +ERYOPO1 OPL; -ERYTHROMYCIN OPL; +FERR1TAB13 PO; -FERR1TAB61 PO; +LNX125 PO; +LPR100 PO; +PANT40TA PO; +PRED1SUS3 OPL; -PREDFORTE OPL; -PRLSR20 PO; -SOTA80TA PO; -SULF800T23 PO; -WARF2.5T8 PO
[2016-08-26] MEDS ORDERED: ALBUT/IPRATROP 3MG/0.5MG NEB 3 ML VIAL INH STA (12:54)
[2016-08-26] MEDS ORDERED: SODIUM CHLORIDE 0.9% 1000ML 2,000 ML IV STA (12:54)
[2016-08-26] MEDS ORDERED: PIPERACILLIN/TAZOBACTAM 4.5 GM/100ML D5W IV ONE (13:04)
[2016-08-26] MEDS ORDERED: SENN-65 PO (13:12)
[2016-08-26] MEDS ORDERED: IPRASOL4 INH (13:12)
[2016-08-26] MEDS ORDERED: LEVOFLOXACIN / D5W 750 MG IV ONE (13:15)
[2016-08-26] MEDS ORDERED: LINEZOLID 600MG / D5W IV ONE (13:15)
[2016-08-26 13:17] LABS: BASO % 0.1 %; BASO ABS # 0.01 K/uL (0-0.2); COMPLETE YES; EOS % 2.5 %; HEMATOCRIT 30.7 % (42-52); IG% 0.3 %; LYMPH % 7.2 %; LYMPH ABS # 0.79 K/uL (1.2-3.4); MEAN CELL VOLUME 97.5 fL (80-100); MEAN CORPUSCULAR HEMOGLOBIN 32.7 pg (25-34); MEAN CORPUSCULAR HGB CONC 33.6 g/dl (32-36); MONO % 7.6 %; NEUT % 82.3 %; PLATELET COUNT 360 K/uL (130-400); RED BLOOD COUNT 3.15 M/uL (4.7-6.1); WHITE BLOOD COUNT 11.01 K/uL (4.8-10.8)
--- NOTE | 2016-08-26 13:19 | DIAGNOSTIC IMAGING REPORT ---
CHEST ONE VIEW PORTABLE CLINICAL HISTORY: Evaluate Fever/Sepsis COMPARISON STUDY: 08/10/2016 FINDINGS: The heart is the upper limits of normal in size. There is a left subclavian pacer/defibrillator present. There is a left internal jugular central venous catheter. Since the prior study, the patient has developed bilateral airspace opacities most pronounced the left lung base and right midlung zone. Small bilateral pleural effusions are suspected. Diagnostic considerations include a multifocal pneumonia versus areas of asymmetric pulmonary edema. Clinical and radiographic follow-up is recommended. [Multiple calcifications again project over the left shoulder similar to the prior study. IMPRESSION: 1. Interval development of bilateral pulmonary airspace opacities. Diagnostic considerations include a multifocal pneumonia versus areas of asymmetric pulmonary edema. Clinical and radiographic follow-up is recommended. Electronically signed by: Eyad Escobar M.D. 08/26/2016 1:18 PM Dictated Date/Time: 08/26/2016 1:15 PM
[2016-08-26 13:25] LABS: ALT/SGPT 48 U/L (12-78); BLOOD UREA NITROGEN 18 mg/dl (7-18); BUN/CREATININE RATIO 16.2 (10-20); CALCIUM 8.1 mg/dl (8.5-10.1); CARBON DIOXIDE 27 mmol/L (21-32); CHLORIDE 96 mmol/L (98-107); GLUCOSE 104 mg/dl (70-99); POTASSIUM 4.4 mmol/L (3.5-5.1); SODIUM 131 mmol/L (136-145)
[2016-08-26 13:30] LABS: ALKALINE PHOSPHATASE 90 U/L (45-117); AST/SGOT 41 U/L (15-37)
[2016-08-26 13:41] LABS: INR 1.2 (0.9-1.1); PARTIAL THROMBOPLASTIN RATIO 1.3; PROTHROMBIN TIME (PATIENT) 12.9 SECONDS (9.0-12.0)
[2016-08-26 14:04] LABS: URINE APPEARANCE CLEAR (CLEAR); URINE BILIRUBIN NEG (NEG); URINE COLOR YELLOW; URINE EPITHELIAL CELL AUTO 0-5 /lpf (0-5); URINE NITRITE NEG (NEG); UROBILINOGEN POS (NEG)
[2016-08-26 14:05] LABS: MANUAL MICROSCOPIC REQUIRED? NO; REVIEW REQ? NO
--- NOTE | 2016-08-26 14:21 | EMERGENCY ROOM VISIT NOTE ---
History Report prepared by [place]: Deisy Garza Under the Supervision of: Dr. Gallo Olson D.O. First contact with patient: 12:40 Chief Complaint: HYPOTENSION Stated Complaint: sob, hypotension History of Present Illness The patient is a 81 year old male who presents to the Emergency Room from [facility] with complaints of worsening hypoxia starting a few days ago. About 2 weeks ago, the patient was hospitalized for sepsis. He recently had his port removed due to infection. As per , the patient normally does not wear oxygen. When he was hospitalized about 2 weeks ago, he was placed on 2 L of oxygen which was recently increased to 3 L. Yesterday, the patient's oxygen was increased to 4 L. Today, the patient's physician at [facility] referred him to the Emergency Room for concerns about diaphoresis, intermittent fevers, hypoxia, and hypotension. The patient currently denies any shortness of breath. He denies any other complaints. He currently denies any pain. He has a history of colon cancer and his last chemo treatment was about 5 weeks ago. Source of History: patient Onset: a few days ago Position: other (global) Symptom Intensity: No pain Quality: other (hypoxia) Timing: worsening Associated Symptoms: + fevers, + diaphoresis, No SOB Review of Systems See HPI for pertinent positives & negatives. A total of 10 systems reviewed and were otherwise negative. Past Medical & Surgical Medical Problems: (1) RADHA (acute kidney injury) (2) Atrial fibrillation with RVR (3) Colon cancer (4) DVT, bilateral lower limbs (5) Hyperlipidemia (6) Septic shock Family History Patient reports no known family medical history. Social History Smoking Status: Former Smoker Drug Use: none Marital Status: Housing Status: lives with significant other Occupation Status: retired Current/Historical Medications Scheduled Ascorbic Acid (Vitamin C), 1 TAB PO QAM Aspirin (Aspirin Ec), 81 MG PO DAILY Atorvastatin (Lipitor), 80 MG PO DAILY Digoxin (Digoxin), 0.125 MG PO DAILY@16 Diltiazem HCl (Diltiazem Cd), 120 MG PO QAM Doxycycline (Monohydrate) (Doxycycline), 100 MG PO DAILY Enoxaparin (Lovenox), 120 MG SQ DAILY Erythromycin (Erythromycin), 1 APPLN OPL QPM Ferrous Sulfate (Kp Ferrous Sulfate), 1 TAB PO DAILY Folic Acid-Vit B2-Vit B6-Vit B (Folgard), 1 TAB PO DAILY Furosemide (Lasix), 20 MG PO QAM Ipratropium-Albuterol (Duoneb), 1 TREATMENT INH Q6 Metoprolol Tartrate (Metoprolol Tartrate), 100 MG PO BID Multivitamin (Multivitamin), 1 TAB PO QAM Pantoprazole (Protonix), 40 MG PO DAILY Potassium Chloride (Micro-K Ext Rel), 10 MEQ PO DAILY Prednisolone Acetate (Ophth) (Pred Forte 1% Oph), 1 DROPS OPL BID Probiotic Product (Acidophilus), 1 TAB PO BID Senna/Docusate Sod (Senokot S), 1 TAB PO NOON Allergies Coded Allergies: Vancomycin (Verified Allergy, Severe, SHORTNESS OF BREATH, 08/26/16) Physical Exam Vital Signs Date Time Temp Pulse Resp B/P (MAP) Pulse Ox O2 Delivery O2 Flow Rate FiO2 08/26/16 13:51 99 23 95 Nasal Cannula 4.0 08/26/16 13:46 83/54 08/26/16 13:36 89 32 08/26/16 13:31 81 24 85/47 10 Nebulizer 10.0 08/26/16 13:26 85 24 97 Nasal Cannula 4.0 08/26/16 13:16 81/47 08/26/16 13:11 98 17 08/26/16 13:02 81/50 08/26/16 13:02 88 81/50 99 Nasal Cannula 4.0 08/26/16 13:01 99 Nasal Cannula 4.0 08/26/16 12:56 94 22 86 08/26/16 12:51 85 24 92 Nasal Cannula 4.0 08/26/16 12:36 96 24 08/26/16 12:31 79/53 92 Nasal Cannula 4.0 08/26/16 12:28 37.1 24 87 90/57 92 Nasal Cannula 4.0 08/26/16 12:28 76 Room Air 08/26/16 12:21 84 24 08/26/16 12:14 90 08/26/16 12:10 90/57 89 Room Air Physical Exam CONSTITUTIONAL/VITAL SIGNS: Reviewed / noted above. GENERAL: Non-toxic in appearance. INTEGUMENTARY: Warm, dry, and [place]. HEAD: Normocephalic. EYES: without scleral icterus or trauma. ENT/OROPHARYNX: clear and moist. LYMPHADENOPATHY/NECK: Is supple without lymphadenopathy or meningismus. Left neck tipple lumen catheter in place prior to arrival. RESPIRATORY: Crackles in the right lung base. CARDIOVASCULAR: Regular rate and rhythm. GI/ABDOMEN: Soft and nontender. No organomegaly or pulsatile mass. No rebound or guarding. Normal bowel sounds. EXTREMITIES: Warm and well perfused. BACK: No CVA tenderness. NEUROLOGICAL: Intact without focal deficits. PSYCHIATRIC: normal affect. MUSCULOSKELETAL: Normally developed with good muscle tone. Medical Decision & Procedures ER Provider Diagnostic Interpretation: X ray results and stated below per my interpretation and radiology interpretation. CHEST ONE VIEW PORTABLE CLINICAL HISTORY: Evaluate Fever/Sepsis COMPARISON STUDY: 08/10/2016 FINDINGS: The heart is the upper limits of normal in size. There is a left subclavian pacer/defibrillator present. There is a left internal jugular central venous catheter. Since the prior study, the patient has developed bilateral airspace opacities most pronounced the left lung base and right midlung zone. Small bilateral pleural effusions are suspected. Diagnostic considerations include a multifocal pneumonia versus areas of asymmetric pulmonary edema. Clinical and radiographic follow-up is recommended. [Multiple calcifications again project over the left shoulder similar to the prior study. IMPRESSION: 1. Interval development of bilateral pulmonary airspace opacities. Diagnostic considerations include a multifocal pneumonia versus areas of asymmetric pulmonary edema. Clinical and radiographic follow-up is recommended. Electronically signed by: Eyad Escobar M.D. 08/26/2016 1:18 PM Dictated Date/Time: 08/26/2016 1:15 PM Laboratory Results 08/26/16 12:25 Red Blood Count 3.15, Mean Corpuscular Volume 97.5, Mean Corpuscular Hemoglobin 32.7, Mean Corpuscular Hemoglobin Concent 33.6, Mean Platelet Volume 9.0, Neutrophils (%) (Auto) 82.3, Lymphocytes (%) (Auto) 7.2, Monocytes (%) (Auto) 7.6, Eosinophils (%) (Auto) 2.5, Basophils (%) (Auto) 0.1, Neutrophils # (Auto) 9.06, Lymphocytes # (Auto) 0.79, Monocytes # (Auto) 0.84, Eosinophils # (Auto) 0.28, Basophils # (Auto) 0.01 08/26/16 12:25 Test 08/26/16 12:25 08/26/16 12:52 08/26/16 13:35 White Blood Count 11.01 K/uL (4.8-10.8) Red Blood Count 3.15 M/uL (4.7-6.1) Hemoglobin 10.3 g/dL (14.0-18.0) Hematocrit 30.7 % (42-52) Mean Corpuscular Volume 97.5 fL (80-100) Mean Corpuscular Hemoglobin 32.7 pg (25-34) Mean Corpuscular Hemoglobin Concent 33.6 g/dl (32-36) Platelet Count 360 K/uL (130-400) Mean Platelet Volume 9.0 fL (7.4-10.4) Neutrophils (%) (Auto) 82.3 % Lymphocytes (%) (Auto) 7.2 % Monocytes (%) (Auto) 7.6 % Eosinophils (%) (Auto) 2.5 % Basophils (%) (Auto) 0.1 % Neutrophils # (Auto) 9.06 K/uL (1.4-6.5) Lymphocytes # (Auto) 0.79 K/uL (1.2-3.4) Monocytes # (Auto) 0.84 K/uL (0.11-0.59) Eosinophils # (Auto) 0.28 K/uL (0-0.5) Basophils # (Auto) 0.01 K/uL (0-0.2) RDW Standard Deviation 53.6 fL (36.4-46.3) RDW Coefficient of Variation 15.1 % (11.5-14.5) Immature Granulocyte % (Auto) 0.3 % Immature Granulocyte # (Auto) 0.03 K/uL (0.00-0.02) Prothrombin Time 12.9 SECONDS (9.0-12.0) Prothromb Time International Ratio 1.2 (0.9-1.1) Activated Partial Thromboplast Time 34.7 SECONDS (21.0-31.0) Partial Thromboplastin Ratio 1.3 Anion Gap 8.0 mmol/L (3-11) Est Creatinine Clear Calc Drug Dose 55.1 ml/min Estimated GFR () 72.1 Estimated GFR (Non- 62.2 BUN/Creatinine Ratio 16.2 (10-20) Calcium Level 8.1 mg/dl (8.5-10.1) Total Bilirubin 1.1 mg/dl (0.2-1) Direct Bilirubin 0.5 mg/dl (0-0.2) Aspartate Amino Transf (AST/SGOT) 41 U/L (15-37) Alanine Aminotransferase (ALT/SGPT) 48 U/L (12-78) Alkaline Phosphatase 90 U/L (45-117) Total Creatine Kinase 15 U/L (39-308) Creatine Kinase MB < 0.5 ng/ml (0.5-3.6) Creatine Kinase MB Ratio (0-3.0) Troponin I < 0.015 ng/ml (0-0.045) Total Protein 5.6 gm/dl (6.4-8.2) Albumin 1.7 gm/dl (3.4-5.0) Lipase 68 U/L (73-393) Bedside Lactic Acid Venous 1.22 mmol/L (0.90-1.70) Urine Color YELLOW Urine Appearance CLEAR (CLEAR) Urine pH 6.0 (4.5-7.5) Urine Specific Graham 1.010 (1.000-1.030) Urine Protein NEG (NEG) Urine Glucose (UA) NEG (NEG) Urine Ketones NEG (NEG) Urine Occult Blood NEG (NEG) Urine Nitrite NEG (NEG) Urine Bilirubin NEG (NEG) Urine Urobilinogen POS (NEG) Urine Leukocyte Esterase NEG (NEG) Urine WBC (Auto) 1-5 /hpf (0-5) Urine RBC (Auto) 0-4 /hpf (0-4) Urine Hyaline Casts (Auto) 0 /lpf (0-5) Urine Epithelial Cells (Auto) 0-5 /lpf (0-5) Urine Bacteria (Auto) NEG (NEG) Laboratory results as stated above per my review. Medications Administered Medications (Trade) Dose Ordered Sig/Thu Route Start Time Stop Time Status Last Admin Dose Admin Sodium Chloride 2,000 ml @ 999 mls/hr Q2H1M STAT IV 08/26/16 12:54 08/26/16 14:54 08/26/16 13:27 999 MLS/HR Albuterol/ Ipratropium (Duoneb) 3 ml NOW STAT INH 08/26/16 12:54 08/26/16 12:58 DC 08/26/16 13:25 3 ML Piperacillin Sod/ Tazobactam Sod (Zosyn Iv) 4.5 gm NOW ONCE IV 08/26/16 13:04 08/26/16 13:08 DC 08/26/16 13:28 4.5 GM Levofloxacin 150 ml @ 100 mls/hr NOW ONCE IV 08/26/16 13:15 08/26/16 14:44 08/26/16 13:28 100 MLS/HR Linezolid 600 mg/ Prmx 300 ml @ 200 mls/hr NOW ONCE IV 08/26/16 13:15 08/26/16 14:44 08/26/16 13:58 200 MLS/HR ECG Indication: other (Hypoxia) Rate (beats per minute): 96 Rhythm: atrial fibrillation Findings: no acute ischemic change, no ectopy ED Course 1240: Previous medical records were reviewed. The patient was evaluated in room A01. A complete history and physical examination was performed. 1254: DuoNeb 3 ml INH, Sodium Chloride 2000 ml @ 999 mls/hr IV 1304: Zosyn IV 4.5 gm IV 1315: Linezolid 600 mg/Prmx 300 ml @ 200 mls/hr IV, Levofloxacin 150 ml @ 100 mls/hr IV 1405: On reevaluation, the patient is resting comfortably. I discussed the results and findings with the patient and his . They verbalized agreement of the treatment plan. [facility] The patient will be evaluated for further management and care. Medical Decision Medication Reconciliation: I attest that I have personally reviewed the patient' s current medication list. Differential includes acute coronary syndrome, myocardial infarction, CVA, TIA, anemia, infection, pneumonia, UTI, pyelonephritis, poor nutrition, dehydration, electrolyte disturbance,hypoglycemia. This is an 81-year-old male who presents to the ED with a chief complaint of fever and shortness of breath. The patient is currently at [facility]. He had a fever 101 today. He has been requiring increased oxygen at the rehabilitation facility. Patient's blood pressure was a little low there as well. His physical exam reveals no acute distress. He has some crackles in the right base. His blood pressure was 79/53 initially with a oxygen saturation of 88% on 6 L. EKG shows chronic A. fib. CBC is unremarkable as is the complete metabolic panel. Chest x-ray reveals bilateral pulmonary opacities that is worse than a previous x-ray. The patient was started on IV antibiotics as per ED pharmacist. He will be seen by the hospitalist for further inpatient evaluation and care. He was given 2 L normal saline IV. BP improved to 99/56. Total fluids 2,550cc (incl abx) given in ED, not including prehospital fluids. Consults Time Called: 1400 Consulting Physician: [facility] Returned Call: [address] [facility] Impression Primary Impression: Bilateral pneumonia Additional Impression: Hypoxia Critical Care I have personally spent 35 minutes of critical care time in the direct management of this patient. This includes bedside care, interpretation of diagnostic studies, and testing, discussion with consultants, patient, and family members, and other required patient management activities. Scribe Attestation The scribe's documentation has been prepared under my direction and personally reviewed by me in its entirety. I confirm that the note above accurately reflects all work, treatment, procedures, and medical decision making performed by me. Departure Information Dispostion Being Evaluated By Hospitalist Referrals Janeen Graves (PCP) Patient Instructions My [facility] Problem Qualifiers
[2016-08-26] MEDS ORDERED: ACETAMINOPHEN 325 MG TAB PO PRN (15:00)
[2016-08-26] MEDS ORDERED: LEVALBUTEROL/IPRATROPIUM NEB INH SCH (15:00)
[2016-08-26] MEDS ORDERED: ALBUMIN HUMAN 25% 12.5 GM/50 ML VIAL IV ONE (15:00)
[2016-08-26] MEDS ORDERED: ONDANSETRON INJ 2 MG/ML 2 ML VIAL IV PRN (15:00)
[2016-08-26 15:12] VITALS: BP 97/61; PULSE 101; TEMP 36.7; BMI 27.1
[2016-08-26] MEDS ORDERED: LEVALBUTEROL 1.25MG/0.5ML NEB INH PRN (15:15)
[2016-08-26] MEDS ORDERED: IPRATROPIUM BROMIDE NEB SOLN 0.02% 2.5 ML VIAL INH PRN (15:15)
[2016-08-26 15:36] VITALS: Ht 180.3 cm; Wt 86.6 kg
[2016-08-26] MEDS ORDERED: PIPERACILL/TAZOBAC CONSULT ACTIVE PRN (15:45)
[2016-08-26] MEDS ORDERED: NURSING VERBAL MED ORDER ONE (16:30)
[2016-08-26] MEDS: NSS + 20MEQ KCL 1000ML 1,000 ML IV SCH (17:09)
[2016-08-26] MEDS: METHYLPREDNISOLONE IV 60 MG in SYRINGE 0 ML IV SCH ×2 (17:10→20:39)
[2016-08-26] MEDS: DIGOXIN 0.125 MG TAB PO SCH (17:11)
[2016-08-26] MEDS: LACTOBACILLUS ACIDOPHILUS (FLORANEX) TAB PO SCH (17:11)
--- NOTE | 2016-08-26 18:47 | History and Physical ---
History & Physical Date & Time of Service: Aug 26, 2016 at 18:30 Chief Complaint: Bilateral Pneumonia, Hypoxia Primary Care Physician: Janeen Graves History of Present Illness Source: patient, family, spouse The patient is an 81-year-old male who presents to the emergency department from [facility] with complaint of worsening hypoxia that began a few days prior to arrival. The patient was hospitalized for sepsis approximately 2 weeks ago, had his port removed due to infection at that time, and was then discharged to [facility] for rehabilitation. During that hospitalization, the patient was begun on 2 L of nasal cannula oxygen, which was just recently increased to [address] [facility] a few days ago, and then 4 L yesterday. At [facility] today, the physician there referred him to the emergency department due to diaphoresis, fevers, hypoxia and hypotension. He has history of colon cancer, and his last chemotherapy treatment was about 5 weeks ago. Patient has no other complaints. Past Medical/Surgical History Medical Problems: (1) RADHA (acute kidney injury) Status: Resolved (2) Atrial fibrillation with RVR Status: Resolved (3) Colon cancer Status: Chronic (4) Hyperlipidemia Status: Chronic Family History Patient reports no known family medical history. Noncontributory Social History Smoking Status: Former Smoker Smokeless Tobacco Use: No Alcohol Use: none Drug Use: none Marital Status: Housing status: lives with family Occupational Status: retired Multi-Drug Resistant Organisms History of MDRO: Yes Type of MDRO: MRSA Allergies Coded Allergies: Vancomycin (Verified Allergy, Severe, SHORTNESS OF BREATH, 08/26/16) Home Medications Scheduled Ascorbic Acid (Vitamin C), 1 TAB PO QAM Aspirin (Aspirin Ec), 81 MG PO DAILY Atorvastatin (Lipitor), 80 MG PO DAILY Digoxin (Digoxin), 0.125 MG PO DAILY@16 Diltiazem HCl (Diltiazem Cd), 120 MG PO QAM Doxycycline (Monohydrate) (Doxycycline), 100 MG PO DAILY Enoxaparin (Lovenox), 120 MG SQ DAILY Erythromycin (Erythromycin), 1 APPLN OPL QPM Ferrous Sulfate (Kp Ferrous Sulfate), 1 TAB PO DAILY Folic Acid-Vit B2-Vit B6-Vit B (Folgard), 1 TAB PO DAILY Furosemide (Lasix), 20 MG PO QAM Ipratropium-Albuterol (Duoneb), 1 TREATMENT INH Q6 Metoprolol Tartrate (Metoprolol Tartrate), 100 MG PO BID Multivitamin (Multivitamin), 1 TAB PO QAM Pantoprazole (Protonix), 40 MG PO DAILY Potassium Chloride (Micro-K Ext Rel), 10 MEQ PO DAILY Prednisolone Acetate (Ophth) (Pred Forte 1% Oph), 1 DROPS OPL BID Probiotic Product (Acidophilus), 1 TAB PO BID Senna/Docusate Sod (Senokot S), 1 TAB PO NOON Review of Systems The patient denies chest pain, palpitations, shortness of breath, cough, lower extremity swelling, sore throat, chills ,weight change, fatigue, nausea, vomiting, abdominal pain, pelvic pain, blood in urine or stool, dysuria, urinary frequency or urgency, lightheadedness, dizziness, headache, memory loss , rash, abnormal bruising or bleeding, imbalance, focal weakness, numbness or tingling in arms or legs, arthralgias or myalgias, back or neck pain. The review of systems is otherwise negative other than for that already noted above, and at least 10 systems have been reviewed. Physical Exam Vital Signs Date Time Temp Pulse Resp B/P (MAP) Pulse Ox O2 Delivery O2 Flow Rate FiO2 08/26/16 17:11 106 08/26/16 15:34 37.1 85 27 82/54 96 08/26/16 15:21 85 27 96 Nasal Cannula 4.0 08/26/16 15:16 82/54 08/26/16 15:12 36.7 101 18 97/61 Room Air 08/26/16 15:06 100 26 96 Nasal Cannula 4.0 08/26/16 15:01 106 24 87/48 98 Nasal Cannula 4.0 08/26/16 14:46 94 25 83/54 95 08/26/16 14:31 98 23 82/41 95 08/26/16 14:26 92 23 94 08/26/16 14:16 99/56 08/26/16 14:11 100 24 95 08/26/16 14:00 89/60 08/26/16 13:56 90 25 96 08/26/16 13:51 99 23 95 Nasal Cannula 4.0 08/26/16 13:46 83/54 08/26/16 13:36 89 32 08/26/16 13:31 81 24 85/47 10 Nebulizer 10.0 08/26/16 13:26 85 24 97 Nasal Cannula 4.0 08/26/16 13:16 81/47 08/26/16 13:11 98 17 08/26/16 13:02 81/50 08/26/16 13:02 88 81/50 99 Nasal Cannula 4.0 08/26/16 13:01 99 Nasal Cannula 4.0 08/26/16 12:56 94 22 86 08/26/16 12:51 85 24 92 Nasal Cannula 4.0 08/26/16 12:36 96 24 08/26/16 12:31 79/53 92 Nasal Cannula 4.0 08/26/16 12:28 37.1 24 87 90/57 92 Nasal Cannula 4.0 08/26/16 12:28 76 Room Air 08/26/16 12:21 84 24 08/26/16 12:14 90 08/26/16 12:10 90/57 89 Room Air The patient is awake, alert and oriented 3, intermittently lethargic, normocephalic and atraumatic, lying in bed and in no acute distress. HEENT--PERRL, EOMI, mucous membranes and oropharynx normal. Neck--supple, no JVD or bruits, thyroid normal, trachea midline, no adenopathy. Heart--normal S1 and S2, no extra beats, no murmurs, rubs or gallops. Lungs--coarse breath sounds bilaterally, no respiratory distress, no accessory muscle use. Abdomen--normal bowel sounds and soft, nontender and nondistended, no hernias or masses, no organomegaly. Extremities--no cyanosis, clubbing or edema. There are good distal pulses b/l. Dermatologic--normal skin turgor, normal color, warm and dry, no abnormal lymph nodes, no rash. Neurologic--cranial nerves II through XII grossly intact, motor and sensory examination normal. Rheumatologic--normal range of motion, nontender, muscles and joints. Psychiatric--normal affect. Diagnostics Laboratory Results Results Past 24 Hours Test 08/26/16 12:25 08/26/16 12:52 08/26/16 13:35 Range/Units White Blood Count 11.01 4.8-10.8 K/uL Red Blood Count 3.15 4.7-6.1 M/uL Hemoglobin 10.3 14.0-18.0 g/dL Hematocrit 30.7 42-52 % Mean Corpuscular Volume 97.5 80-100 fL Mean Corpuscular Hemoglobin 32.7 25-34 pg Mean Corpuscular Hemoglobin Concent 33.6 32-36 g/dl Platelet Count 360 130-400 K/uL Mean Platelet Volume 9.0 7.4-10.4 fL Neutrophils (%) (Auto) 82.3 % Lymphocytes (%) (Auto) 7.2 % Monocytes (%) (Auto) 7.6 % Eosinophils (%) (Auto) 2.5 % Basophils (%) (Auto) 0.1 % Neutrophils # (Auto) 9.06 1.4-6.5 K/uL Lymphocytes # (Auto) 0.79 1.2-3.4 K/uL Monocytes # (Auto) 0.84 0.11-0.59 K/uL Eosinophils # (Auto) 0.28 0-0.5 K/uL Basophils # (Auto) 0.01 0-0.2 K/uL RDW Standard Deviation 53.6 36.4-46.3 fL RDW Coefficient of Variation 15.1 11.5-14.5 % Immature Granulocyte % (Auto) 0.3 % Immature Granulocyte # (Auto) 0.03 0.00-0.02 K/uL Prothrombin Time 12.9 9.0-12.0 SECONDS Prothromb Time International Ratio 1.2 0.9-1.1 Activated Partial Thromboplast Time 34.7 21.0-31.0 SECONDS Partial Thromboplastin Ratio 1.3 Sodium Level 131 136-145 mmol/L Potassium Level 4.4 3.5-5.1 mmol/L Chloride Level 96 98-107 mmol/L Carbon Dioxide Level 27 21-32 mmol/L Anion Gap 8.0 3-11 mmol/L Blood Urea Nitrogen 18 7-18 mg/dl Creatinine 1.10 0.60-1.40 mg/dl Est Creatinine Clear Calc Drug Dose 55.1 ml/min Estimated GFR () 72.1 Estimated GFR (Non- 62.2 BUN/Creatinine Ratio 16.2 10-20 Random Glucose 104 70-99 mg/dl Calcium Level 8.1 8.5-10.1 mg/dl Total Bilirubin 1.1 0.2-1 mg/dl Direct Bilirubin 0.5 0-0.2 mg/dl Aspartate Amino Transf (AST/SGOT) 41 15-37 U/L Alanine Aminotransferase (ALT/SGPT) 48 12-78 U/L Alkaline Phosphatase 90 45-117 U/L Total Creatine Kinase 15 39-308 U/L Creatine Kinase MB < 0.5 0.5-3.6 ng/ml Creatine Kinase MB Ratio 0-3.0 Troponin I < 0.015 0-0.045 ng/ml Total Protein 5.6 6.4-8.2 gm/dl Albumin 1.7 3.4-5.0 gm/dl Lipase 68 73-393 U/L Bedside Lactic Acid Venous 1.22 0.90-1.70 mmol/L Urine Color YELLOW Urine Appearance CLEAR CLEAR Urine pH 6.0 4.5-7.5 Urine Specific Brick 1.010 1.000-1.030 Urine Protein NEG NEG Urine Glucose (UA) NEG NEG Urine Ketones NEG NEG Urine Occult Blood NEG NEG Urine Nitrite NEG NEG Urine Bilirubin NEG NEG Urine Urobilinogen POS NEG Urine Leukocyte Esterase NEG NEG Urine WBC (Auto) 1-5 0-5 /hpf Urine RBC (Auto) 0-4 0-4 /hpf Urine Hyaline Casts (Auto) 0 0-5 /lpf Urine Epithelial Cells (Auto) 0-5 0-5 /lpf Urine Bacteria (Auto) NEG NEG Microbiology Results 08/26/16 Blood Culture, Received Pending 08/26/16 Blood Culture, Received Pending Diagnostic Radiology Patient Name: SWATI PERERA Unit Number: [id number] Dictated: 08/26/161314 Transcribed: 08/26/161314 ARG Printed Date/Time: [~ rep prt dt]/[~ rep prt tm] [~ rep ct labl] - [~ rep ct ivnm] [facility] [place] [address] Dictated: 08/26/161314 Transcribed: 08/26/161314 ARG Printed Date/Time: [~ rep prt dt]/[~ rep prt tm] [~ rep ct labl] - [~ rep ct ivnm] CHEST ONE VIEW PORTABLE CLINICAL HISTORY: Evaluate Fever/Sepsis COMPARISON STUDY: 08/10/2016 FINDINGS: The heart is the upper limits of normal in size. There is a left subclavian pacer/defibrillator present. There is a left internal jugular central venous catheter. Since the prior study, the patient has developed bilateral airspace opacities most pronounced the left lung base and right midlung zone. Small bilateral pleural effusions are suspected. Diagnostic considerations include a multifocal pneumonia versus areas of asymmetric pulmonary edema. Clinical and radiographic follow-up is recommended. [Multiple calcifications again project over the left shoulder similar to the prior study. IMPRESSION: 1. Interval development of bilateral pulmonary airspace opacities. Diagnostic considerations include a multifocal pneumonia versus areas of asymmetric pulmonary edema. Clinical and radiographic follow-up is recommended. Electronically signed by: Eyad Escobar M.D. 08/26/2016 1:18 PM Dictated Date/Time: 08/26/2016 1:15 PM The status of this report is Signed. Draft = Not yet reviewed or approved by Radiologist. Signed = Reviewed and approved by Radiologist. <AttendingPhy></AttendingPhy> <FamilyPhy>Janeen Graves</FamilyPhy> < PrimaryPhy>Janeen Graves</PrimaryPhy> <UnitNumber>[id number]</UnitNumber> < VisitNumber>[id number]</VisitNumber> <PatientName>SWATI PERERA</PatientName > <DateOfBirth>1935</DateOfBirth> <Location>[facility]</Location> <ServiceDate> 08/26/16</ServiceDate> <MNE>ESINDI</MNE> <OrderingPhy>Gallo Olson D.O.</ OrderingPhy> <OrderingPhyMNE>f rep ord dr de la fuente</OrderingPhyMNE> <DictatingPhyMNE> f rep dict dr de la fuente</DictatingPhyMNE> <CCListMNE>f rep ct leisa</CCListMNE> < AdmittingPhyMNE>f pt admit dr de la fuente</AdmittingPhyMNE> <AttendingPhyMNE>f pt attend dr de la fuente</AttendingPhyMNE> <ConsultingPhyMNE>f pt consult dr de la fuente</ConsultingPhyMNE> <FamilyPhyMNE>f pt fam dr de la fuente</FamilyPhyMNE> <OtherPhyMNE>f pt other dr de la fuente</OtherPhyMNE> < PrimaryPhyMNE>f pt prim care dr de la fuente</PrimaryPhyMNE> <ReferringPhyMNE>f pt referring dr de la fuente</ReferringPhyMNE> EKG EKG shows atrial fibrillation at 96 bpm, no longer with T-wave inversions inferiorly or anteriorly as compared with most recent EKG. Impression Assessment and Plan Bilateral pneumonia with hypoxia/SIRS--the patient will be admitted to the telemetry unit for close oxygen monitoring. Place on Zyvox 600 mg IV twice a day, Zosyn 3.375 mg IV every 8 hours, levofloxacin 500 mg IV every 24 hours, Solu-Medrol 60 mg IV every 6 hours, and Xopenex/Atrovent nebulizers to use every 6 hours while awake and every 2 hours when necessary. Of note, the patient is allergic to vancomycin. The patient will need PT and OT assessment time his infection is cleared Atrial fibrillation with RVR history/hypertension--continue enteric-coated aspirin 81 mg by mouth daily, digoxin 0.125 mg by mouth daily. Due to relative hypotension we will hold diltiazem CD 120 mg by mouth every morning, furosemide 20 mg by mouth every morning, metoprolol tartrate 100 mg by mouth twice a day and potassium chloride 10 mEq by mouth daily. Dermatologic infection--patient has completed his full course of daptomycin IV a few days ago. Hyperlipidemia--continue atorvastatin 80 mg by mouth daily. DVT bilateral lower extremities--change doxepin urine 120 mg subcutaneous daily to 1 mg kilogram subcutaneous every 12 hours. Left thigh status post shingles, then when transplant--continue prednisone forte , erythromycin ointment. GERD--continue pantoprazole 40 mg by mouth daily. Level of Care Telemetry Advanced Directives Existing Advance Directive: No Existing Living Will: Yes Existing Power of Cushion Assembler: Yes () Resuscitation Status FULL RESUSCITATION VTE Prophylaxis VTE Risk Assessment Done? Y/N: Yes Risk Level: Moderate Given or contraindicated: Enoxaparin (Lovenox)SQ
[2016-08-26] MEDS ORDERED: ENOXAPARIN 120 MG/0.8 ML SYR SQ SCH (19:00)
[2016-08-26] MEDS: PIPERACILL/TAZOBAC IV 3.375 GM in DEXTROSE 5% 100ML 100 ML IV SCH (19:10)
[2016-08-26] MEDS: IPRATROPIUM BROMIDE NEB SOLN 0.02% 2.5 ML VIAL INH SCH (19:22)
[2016-08-26] MEDS: LEVALBUTEROL 1.25MG/0.5ML NEB INH SCH (19:22)
[2016-08-26 19:25] VITALS: PULSE 119; O2SAT 90
[2016-08-26 19:30] VITALS: BP 99/64; PULSE 119; TEMP 36.8; O2SAT 91
[2016-08-26] MEDS: ENOXAPARIN 100 MG/1ML SYR SQ SCH (19:35)
[2016-08-26] MEDS: ERYTHROMYCIN OP OINT 1 GM PKT OPL SCH (20:39)
[2016-08-26] MEDS: PrednisoLONE ACET 1% OP SUSP 5 ML BTL OPL SCH (20:39)
[2016-08-27] VITALS (13 sets, daily range): BP systolic 90–103; BP diastolic 51–67; PULSE 102–145; TEMP 36.3–36.9; O2SAT 87–99
[2016-08-27] MEDS: PIPERACILL/TAZOBAC IV 3.375 GM in DEXTROSE 5% 100ML 100 ML IV SCH ×3 (01:49→17:14)
[2016-08-27] MEDS: LINEZOLID / D5W 600 MG in PREMIXED IN D5W 300 ML IV SCH ×2 (01:49→15:21)
[2016-08-27] MEDS: IPRATROPIUM BROMIDE NEB SOLN 0.02% 2.5 ML VIAL INH SCH ×4 (02:10→20:02)
[2016-08-27] MEDS: LEVALBUTEROL 1.25MG/0.5ML NEB INH SCH ×4 (02:10→20:02)
[2016-08-27] MEDS: METHYLPREDNISOLONE IV 60 MG in SYRINGE 0 ML IV SCH ×4 (04:36→21:30)
[2016-08-27] MEDS: NSS + 20MEQ KCL 1000ML 1,000 ML IV SCH ×2 (04:36→19:50)
[2016-08-27 06:27] LABS: COMPLETE YES; HEMATOCRIT 28.6 % (42-52); IG% 0.2 %; LYMPH % 7.2 %; LYMPH ABS # 0.42 K/uL (1.2-3.4); MEAN CORPUSCULAR HEMOGLOBIN 32.2 pg (25-34); MEAN CORPUSCULAR HGB CONC 33.6 g/dl (32-36); MEAN PLATELET VOLUME 8.5 fL (7.4-10.4); MONO % 0.9 %; NEUT % 91.7 %; PLATELET COUNT 307 K/uL (130-400); RED BLOOD COUNT 2.98 M/uL (4.7-6.1); WHITE BLOOD COUNT 5.86 K/uL (4.8-10.8)
[2016-08-27 06:47] LABS: INR 1.2 (0.9-1.1); PARTIAL THROMBOPLASTIN RATIO 1.5; PROTHROMBIN TIME (PATIENT) 12.7 SECONDS (9.0-12.0)
[2016-08-27 06:55] LABS: BUN/CREATININE RATIO 15.7 (10-20); CALCIUM 8.3 mg/dl (8.5-10.1); MAGNESIUM 2.3 mg/dl (1.8-2.4); POTASSIUM 4.1 mmol/L (3.5-5.1)
[2016-08-27] MEDS: LACTOBACILLUS ACIDOPHILUS (FLORANEX) TAB PO SCH ×3 (08:08→17:13)
[2016-08-27] MEDS: ENOXAPARIN 100 MG/1ML SYR SQ SCH ×2 (08:08→19:51)
[2016-08-27] MEDS: PrednisoLONE ACET 1% OP SUSP 5 ML BTL OPL SCH ×2 (08:08→21:31)
[2016-08-27] MEDS: ASPIRIN 81 MG ECTAB PO SCH (08:08)
[2016-08-27] MEDS: VITAMIN B COMPLEX TAB PO SCH (08:09)
[2016-08-27] MEDS: PANTOprazole SOD 40 MG TAB PO SCH (08:09)
[2016-08-27] MEDS: ATORVASTATIN 40 MG TAB PO SCH (08:09)
[2016-08-27] MEDS: ASCORBIC ACID 500 MG TAB PO SCH (08:10)
[2016-08-27] MEDS ORDERED: NURSING VERBAL MED ORDER ONE (11:00)
[2016-08-27] MEDS ORDERED: SODIUM CHLORIDE 0.9% 1000ML 250 ML IV SCH (11:15)
[2016-08-27] MEDS: DIGOXIN 0.125 MG TAB PO SCH (11:17)
[2016-08-27] MEDS: DOCUSATE SODIUM/SENNA 50/8.6MG TAB PO SCH (11:17)
[2016-08-27] MEDS: LEVOFLOXACIN / D5W 500 MG in PREMIXED IN D5W 100 ML IV SCH (13:52)
[2016-08-27] MEDS: ERYTHROMYCIN OP OINT 1 GM PKT OPL SCH (21:30)
[2016-08-27] MEDS ORDERED: DIGOXIN IV 500 MCG in SYRINGE 8 ML IV ONE (21:30)
--- NOTE | 2016-08-27 22:07 | Progress Note ---
Subjective Date of Service: Aug 27, 2016. Subjective Pt evaluation today including: conversation w/ patient, conversation w/ family , physical exam, chart review, lab review, review of studies, review of inpatient medication list Pain: no pian reported PO Intake: good po intake Pt is seen and examined by me. Pt denies Cp, Sob, dizziness, palpitation and diaphoresis. Pt denies abd pain and urinary symptoms. Pt denies blurry vision and headache. Problem List Medical Problems: (1) Bacteremia Status: Acute (2) Bilateral pneumonia Status: Acute (3) Hypoxia Status: Acute (4) Sepsis Status: Acute Review of Systems All Other Systems: Reviewed and Negative Medications Medications (Trade) Dose Ordered Sig/Thu Route Start Time Stop Time Status Last Admin Dose Admin Ascorbic Acid (Vitamin C Tab) 500 mg QAM PO 08/27/16 09:00 09/26/16 08:59 08/27/16 08:10 500 MG Aspirin (Ecotrin Tab) 81 mg DAILY PO 08/27/16 09:00 09/26/16 08:59 08/27/16 08:08 81 MG Atorvastatin Calcium (Lipitor Tab) 80 mg DAILY PO 08/27/16 09:00 09/26/16 08:59 08/27/16 08:09 80 MG Pantoprazole Sodium (Protonix Tab) 40 mg DAILY PO 08/27/16 09:00 09/26/16 08:59 08/27/16 08:09 40 MG Senna/Docusate Sodium (Senokot S Tab) 1 tab QDL PO 08/27/16 11:00 09/26/16 10:59 08/27/16 11:17 1 TAB Vitamin B Complex (Vitamin B Complex) 1 tab QAM PO 08/27/16 09:00 09/26/16 08:59 08/27/16 08:09 1 TAB Linezolid 600 mg/ Prmx 300 ml @ 300 mls/hr Q12H IV 08/27/16 02:00 09/02/16 01:59 08/27/16 15:21 300 MLS/HR Levofloxacin 500 mg/Prmx 100 ml @ 100 mls/hr DAILY@1200 IV 08/27/16 12:00 09/02/16 11:59 08/27/16 13:52 100 MLS/HR Sodium Chloride 250 ml @ 999 mls/hr Q16M IV 08/27/16 11:15 08/27/16 11:30 DC 08/27/16 11:14 999 MLS/HR Digoxin 500 mcg/ Syringe 10 ml @ 2 mls/min TODAY@2130 ONCE IV 08/27/16 21:30 08/27/16 21:34 DC 08/27/16 21:30 2 MLS/MIN Objective Vital Signs Date Time Temp Pulse Resp B/P (MAP) Pulse Ox O2 Delivery O2 Flow Rate FiO2 08/27/16 21:30 123 08/27/16 20:02 106 18 92 Nasal Cannula 4.0 08/27/16 20:00 Nasal Cannula 4.0 08/27/16 19:29 36.4 143 20 90/51 (64) 91 Nasal Cannula 4.0 08/27/16 16:28 95 Nasal Cannula 2.0 08/27/16 15:27 36.9 145 20 99/59 (72) 90 Nasal Cannula 4.0 08/27/16 14:05 120 20 87 Nasal Cannula 3.0 08/27/16 12:13 36.6 125 20 93/60 (71) 91 Nasal Cannula 3.0 08/27/16 12:00 97 Nasal Cannula 2.0 08/27/16 11:17 133 08/27/16 08:00 99 Nasal Cannula 2.0 08/27/16 07:31 36.3 133 22 103/58 (73) 99 Nasal Cannula 2.0 08/27/16 07:00 102 20 97 Nasal Cannula 4.0 08/27/16 04:00 Nasal Cannula 4.0 08/27/16 03:10 36.4 109 22 100/60 (73) 98 Nasal Cannula 4.0 08/27/16 02:10 120 26 94 Nasal Cannula 4.0 08/27/16 00:00 Nasal Cannula 4.0 08/27/16 00:00 36.4 121 22 98/67 (77) 95 Nasal Cannula 4.0 Physical Exam General Appearance: WD/WN, no apparent distress Respiratory/Chest: lungs clear Cardiovascular: no edema, no JVD, no murmur, + tachycardia, + irregularly irregular Abdomen: normal bowel sounds, non tender, no organomegaly Neurologic/Psychiatric: alert, normal mood/affect, oriented x 3 Skin: no rash Lymphatic: no adenopathy Laboratory Results Last 24 Hours Test 08/27/16 06:12 08/27/16 11:17 White Blood Count 5.86 K/uL Red Blood Count 2.98 M/uL Hemoglobin 9.6 g/dL Hematocrit 28.6 % Mean Corpuscular Volume 96.0 fL Mean Corpuscular Hemoglobin 32.2 pg Mean Corpuscular Hemoglobin Concent 33.6 g/dl Platelet Count 307 K/uL Mean Platelet Volume 8.5 fL Neutrophils (%) (Auto) 91.7 % Lymphocytes (%) (Auto) 7.2 % Monocytes (%) (Auto) 0.9 % Eosinophils (%) (Auto) 0.0 % Basophils (%) (Auto) 0.0 % Neutrophils # (Auto) 5.38 K/uL Lymphocytes # (Auto) 0.42 K/uL Monocytes # (Auto) 0.05 K/uL Eosinophils # (Auto) 0.00 K/uL Basophils # (Auto) 0.00 K/uL RDW Standard Deviation 52.3 fL RDW Coefficient of Variation 14.9 % Immature Granulocyte % (Auto) 0.2 % Immature Granulocyte # (Auto) 0.01 K/uL Prothrombin Time 12.7 SECONDS Prothromb Time International Ratio 1.2 Activated Partial Thromboplast Time 37.9 SECONDS Partial Thromboplastin Ratio 1.5 Sodium Level 137 mmol/L Potassium Level 4.1 mmol/L Chloride Level 101 mmol/L Carbon Dioxide Level 26 mmol/L Anion Gap 10.0 mmol/L Blood Urea Nitrogen 16 mg/dl Creatinine 1.00 mg/dl Est Creatinine Clear Calc Drug Dose 60.6 ml/min Estimated GFR () 80.9 Estimated GFR (Non- 69.8 BUN/Creatinine Ratio 15.7 Random Glucose 177 mg/dl Calcium Level 8.3 mg/dl Magnesium Level 2.3 mg/dl Total Bilirubin 0.9 mg/dl Direct Bilirubin 0.4 mg/dl Aspartate Amino Transf (AST/SGOT) 17 U/L Alanine Aminotransferase (ALT/SGPT) 35 U/L Alkaline Phosphatase 82 U/L Total Protein 5.6 gm/dl Albumin 1.8 gm/dl Lactic Acid Level 1.8 mmol/L Assessment and Plan Bilateral pneumonia with hypoxia/SIRS--the patient will be admitted to the telemetry unit for close oxygen monitoring. Place on Zyvox 600 mg IV twice a day, Zosyn 3.375 mg IV every 8 hours, levofloxacin 500 mg IV every 24 hours, Solu-Medrol 60 mg IV every 6 hours, and Xopenex/Atrovent nebulizers to use every 6 hours while awake and every 2 hours when necessary. Of note, the patient is allergic to vancomycin. The patient will need PT and OT assessment time his infection is cleared. -- Wbc improved from 11 to 5, no neutrophil shift. -- Cath removed which was left over send for culture. -- Blood culture pending. -- Afebrile feeling much better. Atrial fibrillation with RVR history/hypertension--continue enteric-coated aspirin 81 mg by mouth daily, digoxin 0.125 mg by mouth daily. Due to relative hypotension we will hold diltiazem CD 120 mg by mouth every morning, furosemide 20 mg by mouth every morning, metoprolol tartrate 100 mg by mouth twice a day and potassium chloride 10 mEq by mouth daily. -- BP still towards the low side. We will continue to hold BP meds for now but Pt s in chr Afib with rate runs in between 120-130s. -- Pt coumadin was recently stopped. -- Cardiology consulted -- we will monitor closely. Dermatologic infection--patient has completed his full course of daptomycin IV a few days ago. Hyperlipidemia--continue atorvastatin 80 mg by mouth daily. DVT bilateral lower extremities--change doxepin urine 120 mg subcutaneous daily to 1 mg kilogram subcutaneous every 12 hours. Left thigh status post shingles, then when transplant--continue prednisone forte , erythromycin ointment. GERD--continue pantoprazole 40 mg by mouth daily. Continued [facility] stay due to: other (hypotension and tachycardia) Discharge planning: home with home health, jail facility
[2016-08-28] VITALS (13 sets, daily range): BP systolic 98–135; BP diastolic 60–84; PULSE 78–123; TEMP 36.4–36.8; O2SAT 89–99
[2016-08-28] MEDS: LEVALBUTEROL 1.25MG/0.5ML NEB INH SCH ×4 (01:52→19:29)
[2016-08-28] MEDS: IPRATROPIUM BROMIDE NEB SOLN 0.02% 2.5 ML VIAL INH SCH ×4 (01:52→19:28)
[2016-08-28] MEDS: PIPERACILL/TAZOBAC IV 3.375 GM in DEXTROSE 5% 100ML 100 ML IV SCH ×3 (02:36→17:23)
[2016-08-28] MEDS: LINEZOLID / D5W 600 MG in PREMIXED IN D5W 300 ML IV SCH ×2 (02:37→14:40)
[2016-08-28] MEDS: METHYLPREDNISOLONE IV 60 MG in SYRINGE 0 ML IV SCH ×4 (02:43→21:22)
[2016-08-28 06:43] LABS: BASO % 0.1 %; BASO ABS # 0.01 K/uL (0-0.2); HEMATOCRIT 27.8 % (42-52); IG% 0.4 %; LYMPH % 5.8 %; LYMPH ABS # 0.74 K/uL (1.2-3.4); MEAN CELL VOLUME 97.2 fL (80-100); MEAN CORPUSCULAR HEMOGLOBIN 32.2 pg (25-34); MEAN CORPUSCULAR HGB CONC 33.1 g/dl (32-36); MEAN PLATELET VOLUME 8.7 fL (7.4-10.4); MONO % 1.9 %; NEUT % 91.8 %; PLATELET COUNT 371 K/uL (130-400); RED BLOOD COUNT 2.86 M/uL (4.7-6.1); WHITE BLOOD COUNT 12.85 K/uL (4.8-10.8)
[2016-08-28 06:44] LABS: COMPLETE YES
[2016-08-28 06:59] LABS: INR 1.1 (0.9-1.1); PARTIAL THROMBOPLASTIN RATIO 1.4; PROTHROMBIN TIME (PATIENT) 12.3 SECONDS (9.0-12.0)
[2016-08-28 07:15] LABS: BUN/CREATININE RATIO 20.7 (10-20); CALCIUM 8.2 mg/dl (8.5-10.1); CREATININE 0.99 mg/dl (0.60-1.40); MAGNESIUM 2.2 mg/dl (1.8-2.4); POTASSIUM 4.4 mmol/L (3.5-5.1)
[2016-08-28] MEDS: NSS + 20MEQ KCL 1000ML 1,000 ML IV SCH (08:00)
[2016-08-28] MEDS: DOCUSATE SODIUM/SENNA 50/8.6MG TAB PO SCH (09:11)
[2016-08-28] MEDS: LACTOBACILLUS ACIDOPHILUS (FLORANEX) TAB PO SCH ×3 (09:11→15:18)
[2016-08-28] MEDS: PANTOprazole SOD 40 MG TAB PO SCH (09:11)
[2016-08-28] MEDS: PrednisoLONE ACET 1% OP SUSP 5 ML BTL OPL SCH ×2 (09:12→21:10)
[2016-08-28] MEDS: ATORVASTATIN 40 MG TAB PO SCH (09:12)
[2016-08-28] MEDS: ASPIRIN 81 MG ECTAB PO SCH (09:12)
[2016-08-28] MEDS: ASCORBIC ACID 500 MG TAB PO SCH (09:13)
[2016-08-28] MEDS: VITAMIN B COMPLEX TAB PO SCH (09:13)
[2016-08-28] MEDS: ENOXAPARIN 100 MG/1ML SYR SQ SCH ×2 (09:13→21:11)
--- NOTE | 2016-08-28 09:31 | Progress Note ---
Subjective Date of Service: Aug 28, 2016. Subjective Pt evaluation today including: conversation w/ patient, physical exam, chart review, lab review, review of inpatient medication list Pain: no pain reported Voiding: no voiding problems, no incontinence Pt is seen and examined by me.Pt denies cp, sob, dizziness, palpitation , fever , chills, rigors and sweats. Pt received extra dose of digoxin last night. Pt rate was in 80-90's, however when we examine pt his heart rate went back up in 120-130's. Problem List Medical Problems: (1) Bacteremia Status: Acute (2) Bilateral pneumonia Status: Acute (3) Hypoxia Status: Acute (4) Sepsis Status: Acute Review of Systems All Other Systems: Reviewed and Negative Medications Medications (Trade) Dose Ordered Sig/Thu Route Start Time Stop Time Status Last Admin Dose Admin Senna/Docusate Sodium (Senokot S Tab) 1 tab QDL PO 08/27/16 11:00 09/26/16 10:59 08/28/16 09:11 1 TAB Levofloxacin 500 mg/Prmx 100 ml @ 100 mls/hr DAILY@1200 IV 08/27/16 12:00 09/02/16 11:59 08/27/16 13:52 100 MLS/HR Sodium Chloride 250 ml @ 999 mls/hr Q16M IV 08/27/16 11:15 08/27/16 11:30 DC 08/27/16 11:14 999 MLS/HR Digoxin 500 mcg/ Syringe 10 ml @ 2 mls/min TODAY@2130 ONCE IV 08/27/16 21:30 08/27/16 21:34 DC 08/27/16 21:30 2 MLS/MIN Objective Vital Signs Date Time Temp Pulse Resp B/P (MAP) Pulse Ox O2 Delivery O2 Flow Rate FiO2 08/28/16 07:54 36.4 123 22 98/60 (73) 91 Nasal Cannula 2.0 08/28/16 07:02 80 18 90 Nasal Cannula 4.0 08/28/16 04:00 36.5 92 18 106/63 (77) 93 Nasal Cannula 4.0 08/28/16 04:00 Nasal Cannula 4.0 08/28/16 01:52 98 18 93 Nasal Cannula 4.0 08/28/16 00:08 36.4 90 20 99/65 (76) 93 Nasal Cannula 4.0 08/27/16 23:59 Nasal Cannula 4.0 08/27/16 21:30 123 08/27/16 20:02 106 18 92 Nasal Cannula 4.0 08/27/16 20:00 Nasal Cannula 4.0 08/27/16 19:29 36.4 143 20 90/51 (64) 91 Nasal Cannula 4.0 08/27/16 16:28 95 Nasal Cannula 2.0 08/27/16 15:27 36.9 145 20 99/59 (72) 90 Nasal Cannula 4.0 08/27/16 14:05 120 20 87 Nasal Cannula 3.0 08/27/16 12:13 36.6 125 20 93/60 (71) 91 Nasal Cannula 3.0 08/27/16 12:00 97 Nasal Cannula 2.0 08/27/16 11:17 133 Physical Exam General Appearance: no apparent distress Eyes: EOMI Neck: supple, no JVD Respiratory/Chest: normal breath sounds, no respiratory distress, no accessory muscle use Cardiovascular: no edema, no gallop, + irregularly irregular Abdomen: normal bowel sounds, non tender, no organomegaly Extremities: normal range of motion, non-tender, normal inspection, no calf tenderness Neurologic/Psychiatric: alert, normal mood/affect, oriented x 3 Skin: normal color, warm/dry, no rash Lymphatic: no adenopathy Laboratory Results Last 24 Hours Test 08/27/16 11:17 08/28/16 05:55 Lactic Acid Level 1.8 mmol/L White Blood Count 12.85 K/uL Red Blood Count 2.86 M/uL Hemoglobin 9.2 g/dL Hematocrit 27.8 % Mean Corpuscular Volume 97.2 fL Mean Corpuscular Hemoglobin 32.2 pg Mean Corpuscular Hemoglobin Concent 33.1 g/dl Platelet Count 371 K/uL Mean Platelet Volume 8.7 fL Neutrophils (%) (Auto) 91.8 % Lymphocytes (%) (Auto) 5.8 % Monocytes (%) (Auto) 1.9 % Eosinophils (%) (Auto) 0.0 % Basophils (%) (Auto) 0.1 % Neutrophils # (Auto) 11.80 K/uL Lymphocytes # (Auto) 0.74 K/uL Monocytes # (Auto) 0.25 K/uL Eosinophils # (Auto) 0.00 K/uL Basophils # (Auto) 0.01 K/uL RDW Standard Deviation 53.9 fL RDW Coefficient of Variation 15.0 % Immature Granulocyte % (Auto) 0.4 % Immature Granulocyte # (Auto) 0.05 K/uL Prothrombin Time 12.3 SECONDS Prothromb Time International Ratio 1.1 Activated Partial Thromboplast Time 35.9 SECONDS Partial Thromboplastin Ratio 1.4 Sodium Level 138 mmol/L Potassium Level 4.4 mmol/L Chloride Level 105 mmol/L Carbon Dioxide Level 27 mmol/L Anion Gap 6.0 mmol/L Blood Urea Nitrogen 20 mg/dl Creatinine 0.99 mg/dl Est Creatinine Clear Calc Drug Dose 61.3 ml/min Estimated GFR () 81.9 Estimated GFR (Non- 70.6 BUN/Creatinine Ratio 20.7 Random Glucose 191 mg/dl Calcium Level 8.2 mg/dl Magnesium Level 2.2 mg/dl Total Bilirubin 0.6 mg/dl Direct Bilirubin 0.2 mg/dl Aspartate Amino Transf (AST/SGOT) 18 U/L Alanine Aminotransferase (ALT/SGPT) 36 U/L Alkaline Phosphatase 79 U/L Total Protein 5.3 gm/dl Albumin 1.8 gm/dl Assessment and Plan Bilateral pneumonia with hypoxia/SIRS--the patient will be admitted to the telemetry unit for close oxygen monitoring. Place on Zyvox 600 mg IV twice a day, Zosyn 3.375 mg IV every 8 hours, levofloxacin 500 mg IV every 24 hours, Solu-Medrol 60 mg IV every 6 hours, and Xopenex/Atrovent nebulizers to use every 6 hours while awake and every 2 hours when necessary. Of note, the patient is allergic to vancomycin. The patient will need PT and OT assessment time his infection is cleared. -- Wbc improved from 11 to 5, no neutrophil shift. However culture came back positive gram positive cocci X1. -- Cath removed which was left over send for culture, pending -- Afebrile feeling much better. -- Id consult will be appreciated. Atrial fibrillation with RVR history/hypertension--continue enteric-coated aspirin 81 mg by mouth daily, digoxin 0.125 mg by mouth daily. Due to relative hypotension we will hold diltiazem CD 120 mg by mouth every morning, furosemide 20 mg by mouth every morning, metoprolol tartrate 100 mg by mouth twice a day and potassium chloride 10 mEq by mouth daily. -- BP still towards the low side. We will continue to hold BP meds for now but Pt s in chr Afib with rate runs in between 120-130s. -- Pt coumadin was recently stopped. -- Cardiology consult appreciated -- Pt received extra digoxin, but heart rate went back up Dermatologic infection--patient has completed his full course of daptomycin IV a few days ago. Hyperlipidemia--continue atorvastatin 80 mg by mouth daily. DVT bilateral lower extremities--change doxepin urine 120 mg subcutaneous daily to 1 mg kilogram subcutaneous every 12 hours. Left thigh status post shingles, then when transplant--continue prednisone forte , erythromycin ointment. GERD--continue pantoprazole 40 mg by mouth daily. Continued [facility] stay due to: multiple IV medications needed, other (hypotension and tachycardia) Discharge planning: home with home health, senior care facility
--- NOTE | 2016-08-28 12:13 | Cardiology Consultation ---
Cardiology Consultation Date of Consultation: Aug 28, 2016 Attending Dispensing Operator: Nick History of Present Illness Chuy White is a 81 year old male seen in cardiology consultation per the request of Dr. Orr for the evaluation of atrial fibrillation. Pt sent from [facility] with report of anorexia, hypoxia, fever and hypotension. Upon arrival, borderline septic, afib with rvr, rate controlling meds held for hypotension. Currently, states that he is feeling a little better. He still feels feverish but main concern at this point is palpitations. States that he feels his heart is racing. No significant cp, lightheadedness, or dizziness or syncope. On last admission, he was admitted to [facility] on 08/10/16 due to complaint of persistent fever. He has a history of colon cancer with partial colectomy and had a port placed and received one chemotherapy treatment. The port had been removed on 08/09/16 due to concern of apparent infection the patient was subsequently admitted and has been treated for MRSA bacteremia with resultant sepsis. Review of his record reveals that he had stay in the intensive care unit and required support with norepinephrine and phenylephrine. A single EKG is available on the chart from 08/10/16 revealed atrial fibrillation with rapid ventricular rate at [address] abnormality. During his hospital stay, he was in atrial fibrillation with rapid ventricular rate while in the intensive care unit. His home sotalol dose was held on admission due to hypotension and the patient required transient support with norepinephrine and phenylephrine as outlined above and therefore he was not on a beta hailey initially. I reviewed his chart and also discuss his case with Dr. Angel and during the patient's ICU stay he received several doses of IV digoxin and ultimately he was placed on oral beta hailey with metoprolol as his blood pressure recovered from his sepsis. At present on telemetry the patient's rates are in the 80 beat per minute range. Today he was as high as the 130 beat per minute range but remained asymptomatic. The patient has not been seen by our practice as an outpatient in the past but was seen as an inpatient on last admission. Previously followed by Dr. Shipley of [facility] cardiology. 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 Cardiac catheterization at that time revealed severe stenosis of the circumflex and right coronary arteries received a total of 4 bare meta stents. Electrophysiology study performed at that time revealed inducible ventricular tachycardia and therefore he received an AICD. The ejection fraction at that time was reportedly 35-40% and has since improved to the lower limit of normal on a last outpatient echocardiogram performed with Dr Shipley August 2015 the ejection fraction was graded at 50-55% at that time. Past AICD interrogations at [facility] describe a single chamber [employer] AICD, he since had a generator change in early 2016 in [place] and now apparently has a [employer] AICD. He has a history of inappropriate AICD shocks due to atrial fibrillation with rapid ventricular rate with no recurrence since been placed on sotalol 2009. At the time of the April 2016 he was still dose sotalol 80 mg twice a day. He has a history of severe amiodarone toxicity and therefore amiodarone was present discontinued. He also carries a history of abdominal aortic aneurysm with previous endovascular stenting in [address] [facility]. 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 It appears that this was a bypass graft to the left popliteal artery. Within the last year he had apparently been hospitalized for a significant gastrointestinal bleed while on Coumadin and his anticoagulation was stopped. Colonoscopy is performed and he was diagnosed with colon cancer. His Coumadin was stopped and apparently aspirin was stopped and was placed back on Coumadin at 1 point. History Past Medical Surgical History: Coronary heart disease, inferior wall myocardial infarction October 2006, complicated by cardiac arrest, seizures, anoxic brain injury with bare metal stents to the right coronary artery and circumflex coronary arteries at that time Subsequent basement of a single chamber AICD, 2006, Generator change to [employer] AICD 2016, [place] Paroxysmal atrial fibrillation with resultant inappropriate AICD shocks, amiodarone toxicity, subsequent sotalol therapy Abdominal aortic aneurysm with endovascular stenting in [address] [facility] Peripheral arterial disease with bypass graft in the left popliteal artery which was apparently infected with MRSA in 2015 Gastrointestinal bleeding in 2015 prompted diagnosis of colon cancer A-port placed for chemotherapy 2016, subsequently removed 08/09/16 due to concerns of infection Inferior vena cava filter placed for acute bilateral lower extremity DVTs [facility] Past Medical/Surgical History Problem List: Medical Problems: (1) RADHA (acute kidney injury) (2) Atrial fibrillation with RVR (3) Colon cancer (4) DVT, bilateral lower limbs (5) Hyperlipidemia (6) Septic shock Family History Patient reports no known family medical history. Social History Smoking Status: Former Smoker Smokeless Tobacco Use: No Alcohol Use: none Drug Use: none Marital Status: Housing Status: lives with family Occupation: retired Review Of Systems General: The patient denies weight change, night sweats, fever, chills. Head: The patient denies headache and prior head trauma. Cardiovascular: The patient denies chest pain or chest discomfort, dyspnea on exertion, palpitations, PND, orthopnea, edema, spontaneous shortness of breath, syncope and near syncope. Pulmonary: The patient denies cough, wheeze, pleurisy, hemoptysis, sputum, and excessive snoring. Gastrointestinal: The patient denies nausea, vomiting, diarrhea, constipation, bloating, hematemesis, hematochezia, and abdominal pain. Skin: The patient denies diaphoresis and rash. Musculoskeletal: The patient denies joint pain, joint swelling, myalgia, back pain, neck pain and prior injuries. Neurological: The patient denies prior stroke and seizures Allergies Coded Allergies: Vancomycin (Verified Allergy, Severe, SHORTNESS OF BREATH, 08/26/16) Medications Reported Home Medications Medications Dose Route/Sig Max Daily Dose Days Date Category Dose Instructions Duoneb (Ipratropium-Albuterol) 3 Ml Nebu 1 Treatment INH Q6 08/26/16 Reported Senokot S (Senna/Docusate Sodium) 1 Tab Tab 1 Tab PO NOON 08/26/16 Reported Folgard (Folic Acid-Vit B2-Vit B6-Vit B) 1 Tab Tab 1 Tab PO DAILY 08/25/16 Reported Micro-K Ext Rel (Potassium Chloride) 10 Meq Cap 10 Meq PO DAILY 08/25/16 Reported Protonix (Pantoprazole Sodium) 40 Mg Tab 40 Mg PO DAILY 08/25/16 Reported Kp Ferrous Sulfate (Ferrous Sulfate) 325 Mg Tab 1 Tab PO DAILY 30 08/25/16 Reported Lovenox (Enoxaparin Sodium) 120 Mg/0.8 Ml Inj 120 Mg SQ DAILY 08/25/16 Reported Doxycycline (Doxycycline (Monohydrate)) 100 Mg Cap 100 Mg PO DAILY 08/25/16 Reported Lipitor (Atorvastatin Calcium) 80 Mg Tab 80 Mg PO DAILY 08/25/16 Reported Metoprolol Tartrate 100 Mg Tab 100 Mg PO BID 30 08/17/16 Rx Diltiazem Cd (Diltiazem HCl) 120 Mg Capcr 120 Mg PO QAM 30 08/17/16 Rx Digoxin 0.125 Mg Tab 0.125 Mg PO DAILY@16 30 08/17/16 Rx Pred Forte 1% Oph (Prednisolone Acetate (Ophth)) 1 % Liudmila 1 Drops OPL BID 08/10/16 Reported Erythromycin 1 Appln/1 Gm Oint 1 Appln OPL QPM 08/10/16 Reported Aspirin Ec (Aspirin) 81 Mg Tab 81 Mg PO DAILY 06/07/16 Reported TO START THIS MED WHEN STOPS WARFARIN (4 DAYS PRIOR TO SURGERY) Acidophilus (Probiotic Product) 1 Cap Cap 1 Tab PO BID 06/07/16 Reported Lasix (Furosemide) 20 Mg Tab 20 Mg PO QAM 06/07/16 Reported Multivitamin (Multivitamins) Tab 1 Tab PO QAM 06/07/16 Reported Vitamin C (Ascorbic Acid) 500 Mg Tab 1 Tab PO QAM 06/07/16 Reported Physical Exam Vital Signs (Last 8hrs): Last 8 Hrs Date Time Temp Pulse Resp B/P (MAP) Pulse Ox O2 Delivery O2 Flow Rate FiO2 08/28/16 11:36 36.7 117 20 110/70 (83) 94 Room Air 08/28/16 08:00 98 Nasal Cannula 2.0 08/28/16 07:54 36.4 123 22 98/60 (73) 91 Nasal Cannula 2.0 08/28/16 07:02 80 18 90 Nasal Cannula 4.0 General Appearance: Alert and Oriented x3. NAD. Head: Normocephalic Atraumatic. Eyes: PERRLA, EOMI, conjunctiva and sclera clear Neck: Supple. No carotid bruits noted. No JVD. No HJD. Respiratory: Breath sounds clear to auscultation bilaterally. No w/r/r. Cardiovascular: Reg rate and rhythm. S1 and S2 noted. No murmurs, rubs, gallops. PMI non displace. Abdomen: Normal bowel sounds, soft nontender. no abdominal bruits. Extremities: No edema, no clubbing or cyanosis. distal pulses 2/4 bilaterally. Neuro: No focal deficits. Psychiatric: Normal affect. Data Last 24 Hours Test 08/28/16 05:55 White Blood Count 12.85 K/uL Red Blood Count 2.86 M/uL Hemoglobin 9.2 g/dL Hematocrit 27.8 % Mean Corpuscular Volume 97.2 fL Mean Corpuscular Hemoglobin 32.2 pg Mean Corpuscular Hemoglobin Concent 33.1 g/dl Platelet Count 371 K/uL Mean Platelet Volume 8.7 fL Neutrophils (%) (Auto) 91.8 % Lymphocytes (%) (Auto) 5.8 % Monocytes (%) (Auto) 1.9 % Eosinophils (%) (Auto) 0.0 % Basophils (%) (Auto) 0.1 % Neutrophils # (Auto) 11.80 K/uL Lymphocytes # (Auto) 0.74 K/uL Monocytes # (Auto) 0.25 K/uL Eosinophils # (Auto) 0.00 K/uL Basophils # (Auto) 0.01 K/uL RDW Standard Deviation 53.9 fL RDW Coefficient of Variation 15.0 % Immature Granulocyte % (Auto) 0.4 % Immature Granulocyte # (Auto) 0.05 K/uL Prothrombin Time 12.3 SECONDS Prothromb Time International Ratio 1.1 Activated Partial Thromboplast Time 35.9 SECONDS Partial Thromboplastin Ratio 1.4 Sodium Level 138 mmol/L Potassium Level 4.4 mmol/L Chloride Level 105 mmol/L Carbon Dioxide Level 27 mmol/L Anion Gap 6.0 mmol/L Blood Urea Nitrogen 20 mg/dl Creatinine 0.99 mg/dl Est Creatinine Clear Calc Drug Dose 61.3 ml/min Estimated GFR () 81.9 Estimated GFR (Non- 70.6 BUN/Creatinine Ratio 20.7 Random Glucose 191 mg/dl Calcium Level 8.2 mg/dl Magnesium Level 2.2 mg/dl Total Bilirubin 0.6 mg/dl Direct Bilirubin 0.2 mg/dl Aspartate Amino Transf (AST/SGOT) 18 U/L Alanine Aminotransferase (ALT/SGPT) 36 U/L Alkaline Phosphatase 79 U/L Total Protein 5.3 gm/dl Albumin 1.8 gm/dl Imaging: EKG: Telemetry reviewed: Assessment & Plan 81-year-old male 1. Paroxysmal atrial fibrillation previously on sotalol but stopped last admission after concern for thrombus formation was held for 3 days while hypotensive also, developed dvt at that time will start cardizem gtt for now unclear as to why not on coumadin (?fall risk) will restart heparin for now and determine long term care phlebotomist candidacy during admission cont dig 2. Past history of ischemic heart disease, cardiac arrest, prompting single- chamber AICD placement cont asa 3. Peripheral arterial disease with apparent endovascular repair of abdominal aortic aneurysm, lower extremity surgical revascularization with infected popliteal artery grafted past cont asa 4. Admitted with sepsis/pneumonia triple lumen removed 5. Underlying colon CA 6. Bilateral common femoral vein DVT prompting intravenous vena cava filter placement concerns with thrombocytopenia on 08/12/69 7. thrombocytopenia resolved follow
[2016-08-28] MEDS ORDERED: DILTIAZEM BOLUS / DRIP IV STA (12:47)
[2016-08-28] MEDS ORDERED: DILTIAZEM HCL 5 MG/ML 5 ML VIAL IV SCH (13:00)
[2016-08-28] MEDS: LEVOFLOXACIN / D5W 500 MG in PREMIXED IN D5W 100 ML IV SCH (13:32)
[2016-08-28] MEDS: DILTIAZEM HCL INJ 125 MG in DEXTROSE 5% 100ML IV PRN (13:35)
[2016-08-28] MEDS: DIGOXIN 0.125 MG TAB PO SCH (15:19)
[2016-08-28] MEDS ORDERED: BISACODYL 10 MG SUPP ONE (15:26)
[2016-08-28] MEDS ORDERED: NURSING VERBAL MED ORDER ONE (15:30)
[2016-08-28] MEDS ORDERED: BISACODYL 10 MG SUPP PR PRN (15:45)
--- NOTE | 2016-08-28 17:55 | Medical Consult ---
Consultation Date of Consultation: Aug 28, 2016. Attending Physician: Marck Orr M.D. Reason for Consultation: PNA, IV Zyvox History of Present Illness 81-year-old male with history of colon cancer on chemotherapy, hospitalized last month with fever and sepsis, found to have infection of his a port with MRSA, ultimately requiring removal. He received IV antibiotics with apparent improvement and was discharged to rehabilitation for further management. Over the last several days, patient developed progressively worsening shortness of breath, fever, and hypoxia. He was sent back to the hospital where he was found to have evidence of bilateral infiltrates on chest x-ray consistent with developing pneumonia. He has been started on combination of Zyvox, levofloxacin , and Zosyn. he was also found to have rapid atrial fibrillation, and now being followed by Cardiology. Has had single positive blood culture for coagulase- negative Staph. Feeling somewhat better since admission. Currently afebrile. Past Medical/Surgical History Medical Problems: (1) Bacteremia Status: Acute (2) Bilateral pneumonia Status: Acute (3) Hypoxia Status: Acute (4) Sepsis Status: Acute Medical Problems: (1) RADHA (acute kidney injury) (2) Atrial fibrillation with RVR (3) Colon cancer (4) DVT, bilateral lower limbs (5) Hyperlipidemia (6) Septic shock Family History Patient reports no known family medical history. Social History Smoking Status: Former Smoker Smokeless Tobacco Use: No Alcohol Use: none Drug Use: none Marital Status: Housing Status: lives with significant other Occupation Status: retired Allergies Coded Allergies: Vancomycin (Verified Allergy, Severe, SHORTNESS OF BREATH, 08/26/16) Current Inpatient Medications Current Inpatient Medications Medications (Trade) Dose Ordered Sig/Thu Route Start Time Stop Time Status Last Admin Dose Admin Potassium Chloride/Sodium Chloride 1,000 ml @ 75 mls/hr [id number] IV 08/26/16 16:00 09/25/16 15:59 08/28/16 08:00 75 MLS/HR Acetaminophen (Tylenol Tab) 650 mg Q4H PRN PO 08/26/16 15:00 09/25/16 14:59 Ascorbic Acid (Vitamin C Tab) 500 mg QAM PO 08/27/16 09:00 09/26/16 08:59 08/28/16 09:13 500 MG Aspirin (Ecotrin Tab) 81 mg DAILY PO 08/27/16 09:00 8/7/17 08:59 08/28/16 09:12 81 MG Atorvastatin Calcium (Lipitor Tab) 80 mg DAILY PO 08/27/16 09:00 09/26/16 08:59 08/28/16 09:12 80 MG Digoxin (Lanoxin Tab) 0.125 mg DAILY@16 PO 08/26/16 16:00 09/25/16 15:59 08/28/16 15:19 0.125 MG Erythromycin (Erythromycin Oph Oint) 1 appln QPM OPL 08/26/16 21:00 09/05/16 20:59 08/27/16 21:30 1 APPLN Pantoprazole Sodium (Protonix Tab) 40 mg DAILY PO 08/27/16 09:00 09/26/16 08:59 08/28/16 09:11 40 MG Prednisolone Acetate (Pred Forte 1% Oph Susp) 1 drops BID OPL 08/26/16 21:00 09/25/16 20:59 08/28/16 09:12 1 DROPS Senna/Docusate Sodium (Senokot S Tab) 1 tab QDL PO 08/27/16 11:00 09/26/16 10:59 08/28/16 09:11 1 TAB Vitamin B Complex (Vitamin B Complex) 1 tab QAM PO 08/27/16 09:00 09/26/16 08:59 08/28/16 09:13 1 TAB Lactobacillus Acidophilus (Floranex Tab) 4 tab TIDM PO 08/26/16 16:45 09/25/16 17:59 08/28/16 15:18 4 TAB Linezolid 600 mg/ Prmx 300 ml @ 300 mls/hr Q12H IV 08/27/16 02:00 09/02/16 01:59 08/28/16 14:40 300 MLS/HR Piperacillin Sod/ Tazobactam Sod 3.375 gm/Dextrose 115 ml @ 28.75 mls/ hr Q8H IV 08/26/16 18:00 09/02/16 17:59 08/28/16 17:23 28.75 MLS/HR Levofloxacin 500 mg/Prmx 100 ml @ 100 mls/hr DAILY@1200 IV 08/27/16 12:00 09/02/16 11:59 08/28/16 13:32 100 MLS/HR Ondansetron HCl (Zofran Inj) 4 mg Q6H PRN IV 08/26/16 15:00 09/25/16 14:59 Methylprednisolone Sodium Succinate 60 mg/Syringe 0.96 ml @ 1.5 mls/min Q6H IV 08/26/16 16:00 09/25/16 15:59 08/28/16 15:18 1.5 MLS/MIN Ipratropium [place] (Atrovent 0.02% 0.5MG/2.5ML Neb) 0.5 mg Q6R INH 08/26/16 21:00 09/25/16 20:59 08/28/16 14:10 0.5 MG Levalbuterol (Xopenex 1.25MG/ 0.5ML Neb) 1.25 mg Q6R INH 08/26/16 21:00 09/25/16 20:59 08/28/16 14:10 1.25 MG Ipratropium [place] (Atrovent 0.02% 0.5MG/2.5ML Neb) 0.5 mg Q2H PRN INH 08/26/16 15:15 09/25/16 15:14 Levalbuterol (Xopenex 1.25MG/ 0.5ML Neb) 1.25 mg Q2H PRN INH 08/26/16 15:15 09/25/16 15:14 Piperacillin Sod/ Tazobactam Sod (Consult) 1 ea UD PRN N/A 08/26/16 15:45 09/25/16 15:44 Enoxaparin Sodium (Lovenox Inj) 90 mg Q12H SQ 08/26/16 20:00 09/25/16 19:59 08/28/16 09:13 90 MG Heparin Sodium (Porcine) (Heparin 10 Unit/ ml 5 ml Flush) 5 ml PRN PRN FLUSH 08/27/16 04:00 09/26/16 03:59 Diltiazem HCl 125 mg/Dextrose 125 ml @ 0 mls/hr Q0M PRN IV 08/28/16 13:00 09/27/16 12:59 08/28/16 13:35 5 MLS/HR Bisacodyl (Dulcolax Supp) 10 mg DAILY PRN LA 08/28/16 15:45 09/27/16 15:44 Review of Systems Constitutional: + fever, + weakness Eyes: No problem reported ENT: No problem reported Respiratory: + cough, + shortness of breath, No hemoptysis Cardiovascular: No chest pain Abdomen: No problem reported Musculoskeletal: No problem reported Genitourinary - Male: No problem reported Neurologic: No problem reported Psychiatric: No problem reported Endocrine: No problem reported Hematologic / Lymphatic: No problem reported Integumentary: No problem reported Allergic / Immunologic: No problem reported Physical Exam Date Time Temp Pulse Resp B/P (MAP) Pulse Ox O2 Delivery O2 Flow Rate FiO2 08/28/16 16:00 89 Nasal Cannula 4.0 08/28/16 16:00 36.8 116 18 114/69 (84) 89 Nasal Cannula 4.0 08/28/16 15:19 94 08/28/16 14:10 78 18 90 Nasal Cannula 4.0 08/28/16 12:00 95 Nasal Cannula 2.0 08/28/16 11:36 36.7 117 20 110/70 (83) 94 Room Air 08/28/16 08:00 98 Nasal Cannula 2.0 08/28/16 07:54 36.4 123 22 98/60 (73) 91 Nasal Cannula 2.0 08/28/16 07:02 80 18 90 Nasal Cannula 4.0 08/28/16 04:00 36.5 92 18 106/63 (77) 93 Nasal Cannula 4.0 08/28/16 04:00 Nasal Cannula 4.0 08/28/16 01:52 98 18 93 Nasal Cannula 4.0 08/28/16 00:08 36.4 90 20 99/65 (76) 93 Nasal Cannula 4.0 08/27/16 23:59 Nasal Cannula 4.0 08/27/16 21:30 123 08/27/16 20:02 106 18 92 Nasal Cannula 4.0 08/27/16 20:00 Nasal Cannula 4.0 08/27/16 19:29 36.4 143 20 90/51 (64) 91 Nasal Cannula 4.0 General Appearance: WD/WN, no apparent distress Head: normocephalic, atraumatic Eyes: normal inspection, EOMI, sclerae normal ENT: normal ENT inspection, pharynx normal Neck: supple, no adenopathy, thyroid normal, trachea midline Respiratory/Chest: chest non-tender, no respiratory distress, + rales Cardiovascular: no gallop, no murmur, + irregularly irregular Abdomen/GI: normal bowel sounds, non tender, soft, no organomegaly Back: normal inspection, no CVA tenderness Extremities/Musculoskelatal: no calf tenderness, non-tender Neurologic/Psych: alert, oriented x 3 Skin: normal color, warm/dry, no rash Lymphatic: no adenopathy Laboratory Results RUN DATE: 08/28/16 [facility] LAB PAGE 1 RUN TIME: 1254 Specimen Inquiry PATIENT: SWATI PERERA LOC: [facility] U # : [id number] AGE/SX: 81/M ROOM: [facility] REG : 08/26/[address]: Marck Orr M.D : 1935 BED: 1 DIS : STATUS: ADM IN TLOC: SPEC #: [id number] MARGARET: 08/26/16-1240 STATUS: RES REQ #: [id number] RECD: 08/26/16-[address]: Gallo Olson D.O. SOURCE: BLOOD ENTR: 08/26/16-1257 [facility] DR: Janeen Graves [facility]: ORDERED: BLOOD CULTURE COMMENTS: Comments to Entry Level Marketing Assistant SAME TIME DIFFERENT SITES Procedure Result Verified Site BLD CULT Preliminary 08/28/16-1253 Organism 1 COAG NEG STAPH NOT LUGDUNENSIS SENS NO SENSITIVITY TO FOLLOW One set of 2 positive. Isolation does not necessarily mean infection. No susceptibility tests performed. Contact microbiology laboratory ([phone]) if further studies are indicated. Phoned Positive Blood Culture Gram Stain Report to RADHA MENDENHALL on 08/27/16 At 2217 By OCTAVIO. Results were verbalized back to OCTAVIO. Last 24 Hours Test 08/28/16 05:55 White Blood Count 12.85 K/uL Red Blood Count 2.86 M/uL Hemoglobin 9.2 g/dL Hematocrit 27.8 % Mean Corpuscular Volume 97.2 fL Mean Corpuscular Hemoglobin 32.2 pg Mean Corpuscular Hemoglobin Concent 33.1 g/dl Platelet Count 371 K/uL Mean Platelet Volume 8.7 fL Neutrophils (%) (Auto) 91.8 % Lymphocytes (%) (Auto) 5.8 % Monocytes (%) (Auto) 1.9 % Eosinophils (%) (Auto) 0.0 % Basophils (%) (Auto) 0.1 % Neutrophils # (Auto) 11.80 K/uL Lymphocytes # (Auto) 0.74 K/uL Monocytes # (Auto) 0.25 K/uL Eosinophils # (Auto) 0.00 K/uL Basophils # (Auto) 0.01 K/uL RDW Standard Deviation 53.9 fL RDW Coefficient of Variation 15.0 % Immature Granulocyte % (Auto) 0.4 % Immature Granulocyte # (Auto) 0.05 K/uL Prothrombin Time 12.3 SECONDS Prothromb Time International Ratio 1.1 Activated Partial Thromboplast Time 35.9 SECONDS Partial Thromboplastin Ratio 1.4 Sodium Level 138 mmol/L Potassium Level 4.4 mmol/L Chloride Level 105 mmol/L Carbon Dioxide Level 27 mmol/L Anion Gap 6.0 mmol/L Blood Urea Nitrogen 20 mg/dl Creatinine 0.99 mg/dl Est Creatinine Clear Calc Drug Dose 61.3 ml/min Estimated GFR () 81.9 Estimated GFR (Non- 70.6 BUN/Creatinine Ratio 20.7 Random Glucose 191 mg/dl Calcium Level 8.2 mg/dl Magnesium Level 2.2 mg/dl Total Bilirubin 0.6 mg/dl Direct Bilirubin 0.2 mg/dl Aspartate Amino Transf (AST/SGOT) 18 U/L Alanine Aminotransferase (ALT/SGPT) 36 U/L Alkaline Phosphatase 79 U/L Total Protein 5.3 gm/dl Albumin 1.8 gm/dl Patient Name: SWATI PERERA Unit Number: [id number] Dictated: 08/26/161314 Transcribed: 08/26/161314 ARG Printed Date/Time: [~ rep prt dt]/[~ rep prt tm] [~ rep ct labl] - [~ rep ct ivnm] [facility] [place] [address] Dictated: 08/26/161314 Transcribed: 07/07/17 1315 ARG Printed Date/Time: [~ rep prt dt]/[~ rep prt tm] [~ rep ct labl] - [~ rep ct ivnm] CHEST ONE VIEW PORTABLE CLINICAL HISTORY: Evaluate Fever/Sepsis COMPARISON STUDY: 08/10/2016 FINDINGS: The heart is the upper limits of normal in size. There is a left subclavian pacer/defibrillator present. There is a left internal jugular central venous catheter. Since the prior study, the patient has developed bilateral airspace opacities most pronounced the left lung base and right midlung zone. Small bilateral pleural effusions are suspected. Diagnostic considerations include a multifocal pneumonia versus areas of asymmetric pulmonary edema. Clinical and radiographic follow-up is recommended. [Multiple calcifications again project over the left shoulder similar to the prior study. IMPRESSION: 1. Interval development of bilateral pulmonary airspace opacities. Diagnostic considerations include a multifocal pneumonia versus areas of asymmetric pulmonary edema. Clinical and radiographic follow-up is recommended. Electronically signed by: Eyad Escobar M.D. 08/26/2016 1:18 PM Dictated Date/Time: 08/26/2016 1:15 PM The status of this report is Signed. Draft = Not yet reviewed or approved by Radiologist. Signed = Reviewed and approved by Radiologist. <AttendingPhy></AttendingPhy> <FamilyPhy>Janeen Graves</FamilyPhy> < PrimaryPhy>Janeen Graves</PrimaryPhy> <UnitNumber>[id number]</UnitNumber> < VisitNumber>[id number]</VisitNumber> <PatientName>SWATI PERERA</PatientName > <DateOfBirth>1935</DateOfBirth> <Location>C.[facility]</Location> <ServiceDate> 08/26/16</ServiceDate> <MNE>ESINDI</MNE> <OrderingPhy>Gallo Olson D.O.</ OrderingPhy> <OrderingPhyMNE>f rep ord dr de la fuente</OrderingPhyMNE> <DictatingPhyMNE> f rep dict dr de la fuente</DictatingPhyMNE> <CCListMNE>f rep ct mne</CCListMNE> < AdmittingPhyMNE>f pt admit dr de la fuente</AdmittingPhyMNE> <AttendingPhyMNE>f pt attend dr de la fuente</AttendingPhyMNE> <ConsultingPhyMNE>f pt consult dr de la fuente</ConsultingPhyMNE> <FamilyPhyMNE>f pt fam dr de la fuente</FamilyPhyMNE> <OtherPhyMNE>f pt other dr de la fuente</OtherPhyMNE> < PrimaryPhyMNE>f pt prim care dr de la fuente</PrimaryPhyMNE> <ReferringPhyMNE>f pt referring dr de la fuente</ReferringPhyMNE> Assessment & Plan 81 yo male with colon cancer, s/p chemotherapy with recent MRSA sepsis from infected port, now with pneumonia, likely HCAP with rapid afib. Given potential for resistant pathogens including MRSA, as well as atypical such as Legionella, Zyvox + levofloxacin + Zosyn appropriate pending further culture results. Coag negative Staph in blod likely represents "contaminant". Legionella urine Ag ordered. Will follow.
[2016-08-28] MEDS: ERYTHROMYCIN OP OINT 1 GM PKT OPL SCH (21:10)
[2016-08-29] VITALS (10 sets, daily range): BP systolic 102–128; BP diastolic 61–89; PULSE 68–115; TEMP 36.2–36.8; O2SAT 90–98
[2016-08-29] MEDS: IPRATROPIUM BROMIDE NEB SOLN 0.02% 2.5 ML VIAL INH SCH ×4 (01:55→19:03)
[2016-08-29] MEDS: LEVALBUTEROL 1.25MG/0.5ML NEB INH SCH ×4 (01:55→19:03)
[2016-08-29] MEDS: LINEZOLID / D5W 600 MG in PREMIXED IN D5W 300 ML IV SCH ×2 (02:17→15:30)
[2016-08-29] MEDS: NSS + 20MEQ KCL 1000ML 1,000 ML IV SCH ×2 (02:20→10:10)
[2016-08-29] MEDS: METHYLPREDNISOLONE IV 60 MG in SYRINGE 0 ML IV SCH ×4 (02:23→22:08)
[2016-08-29] MEDS: PIPERACILL/TAZOBAC IV 3.375 GM in DEXTROSE 5% 100ML 100 ML IV SCH ×3 (02:23→17:53)
[2016-08-29] MEDS: DILTIAZEM HCL INJ 125 MG in DEXTROSE 5% 100ML IV PRN (05:49)
[2016-08-29 06:12] LABS: BASO % 0.1 %; BASO ABS # 0.01 K/uL (0-0.2); COMPLETE YES; EOS % 0.1 %; HEMATOCRIT 31.1 % (42-52); IG% 0.7 %; LYMPH % 6.1 %; LYMPH ABS # 0.64 K/uL (1.2-3.4); MEAN CELL VOLUME 97.5 fL (80-100); MEAN CORPUSCULAR HGB CONC 32.8 g/dl (32-36); MEAN PLATELET VOLUME 8.6 fL (7.4-10.4); MONO % 2.3 %; NEUT % 90.7 %; PLATELET COUNT 419 K/uL (130-400); RED BLOOD COUNT 3.19 M/uL (4.7-6.1); WHITE BLOOD COUNT 10.46 K/uL (4.8-10.8)
[2016-08-29 06:21] LABS: INR 1.2 (0.9-1.1); PARTIAL THROMBOPLASTIN RATIO 1.4; PROTHROMBIN TIME (PATIENT) 12.5 SECONDS (9.0-12.0)
[2016-08-29 06:40] LABS: BUN/CREATININE RATIO 17.7 (10-20); CALCIUM 8.1 mg/dl (8.5-10.1); CREATININE 1.2 mg/dl (0.60-1.40); MAGNESIUM 2.2 mg/dl (1.8-2.4); POTASSIUM 4.3 mmol/L (3.5-5.1)
[2016-08-29] MEDS: LACTOBACILLUS ACIDOPHILUS (FLORANEX) TAB PO SCH ×3 (10:08→15:33)
[2016-08-29] MEDS: ATORVASTATIN 40 MG TAB PO SCH (10:08)
[2016-08-29] MEDS: PANTOprazole SOD 40 MG TAB PO SCH (10:09)
[2016-08-29] MEDS: DOCUSATE SODIUM/SENNA 50/8.6MG TAB PO SCH (10:09)
[2016-08-29] MEDS: ASPIRIN 81 MG ECTAB PO SCH (10:09)
[2016-08-29] MEDS: ASCORBIC ACID 500 MG TAB PO SCH (10:09)
[2016-08-29] MEDS: ENOXAPARIN 100 MG/1ML SYR SQ SCH ×2 (10:10→22:08)
[2016-08-29] MEDS: VITAMIN B COMPLEX TAB PO SCH (10:10)
[2016-08-29] MEDS: PrednisoLONE ACET 1% OP SUSP 5 ML BTL OPL SCH ×2 (10:11→22:07)
--- NOTE | 2016-08-29 11:52 | Clinical Documentation Query ---
CLINICAL DOCUMENTATION QUERY Dr. WAGONER, Bilateral pneumonia with hypoxia/SIRS does not automatically code to pneumonia with sepsis in ICD 10 In your clinical opinion is this patient being managed for: ( xx ) Sepsis ( ) Other explanation of clinical findings (Please Explain) ( ) Unable to determine (Please Define) ( ) Need to Discuss ( ) Not Agree The medical record reflects the following clinical findings, treatment, and risk factors. Clinical Indicators: 81 yo male presenting with hypoxia. H/P indicates Bilateral pneumonia with hypoxia/SIRS. Treatment: tele, IV zyvox, IV levaquin, IV zosyn, IV solumedrol, O2 support, nebs, Risk Factors: age, recent hospital/rehab stay, immunocompromised, pneumonia Please clarify and document your clinical opinion in the progress notes and discharge summary. Terms such as "probable", "suspected", "likely", "questionable", "possible", or "still to be ruled out" are acceptable. IF IN AGREEMENT, YOU MUST DOCUMENT ABOVE DIAGNOSTIC STATEMENT IN DAILY PROGRESS NOTES AND DISCHARGE SUMMARY. This document is not part of the patient's record. Thank You, Olivia Tubbs, RN [phone]
--- NOTE | 2016-08-29 11:54 | Clinical Documentation Query ---
CLINICAL DOCUMENTATION QUERY Dr. INTERIANO, Bilateral pneumonia with hypoxia/SIRS will not automatically code to bilateral pneumonia with sepsis in ICD 10. In your clinical opinion is this patient being managed for: (x) Sepsis ( ) Other explanation of clinical findings (Please Explain) ( ) Unable to determine (Please Define) ( ) Need to Discuss ( ) Not Agree The medical record reflects the following clinical findings, treatment, and risk factors. Clinical Indicators: 81 yo male presenting with hypoxia. H/P indicates Bilateral pneumonia with hypoxia/SIRS. Treatment: tele, IV zyvox, IV levaquin, IV zosyn, IV solumedrol, O2 support, nebs, Risk Factors: age, recent hospital/rehab stay, immunocompromised, pneumonia Please clarify and document your clinical opinion in the progress notes and discharge summary. Terms such as "probable", "suspected", "likely", "questionable", "possible", or "still to be ruled out" are acceptable. IF IN AGREEMENT, YOU MUST DOCUMENT ABOVE DIAGNOSTIC STATEMENT IN DAILY PROGRESS NOTES AND DISCHARGE SUMMARY. This document is not part of the patient's record. Thank You, Olivia Tubbs RN [phone]
[2016-08-29] MEDS: LEVOFLOXACIN / D5W 500 MG in PREMIXED IN D5W 100 ML IV SCH (13:10)
[2016-08-29] MEDS ORDERED: BISACODYL 10 MG SUPP PR PRN (13:45)
[2016-08-29] MEDS ORDERED: POLYETHYLENE (MIRALAX) 17 GM PACK PO PRN (13:45)
[2016-08-29] MEDS ORDERED: POLYETHYLENE (MIRALAX) 17 GM PACK PO ONE (14:00)
--- NOTE | 2016-08-29 14:01 | Hospitalist Progress Note ---
Hospitalist Progress Note Date of Service Aug 29, 2016. (Juhi Rivera PA-C) Subjective Pt evaluation today including: conversation w/ patient, physical exam, chart review, lab review, review of studies Pain: None PO Intake: good Voiding: no voiding problems The patient was seen and examined this morning. Pt reports doing ok this morning. His main complaint is not being able to move his bowels, and reports this has been several days since his last BM. Pt is tolerating oral intake and denies having any abd pain, cramping, nausea, or vomiting. He denies chest pain , but is aware that his heart is racing a bit bc staff has informed him. He denies palpitations or flutter. He has been up and walking to the bathroom in the room without difficulty or shortness of breath. Overnight events: Cardizem gtt dosing was increased for a burst of tachycardia with HR > 150s. Additional Comments: ROS: 6 point ROS reviewed and otherwise negative. (Juhi Rivera PA-C) Objective Vital Signs Date Time Temp Pulse Resp B/P (MAP) Pulse Ox O2 Delivery O2 Flow Rate FiO2 08/29/16 12:00 Nasal Cannula 4.0 08/29/16 11:33 36.5 115 24 102/68 (79) 90 Nasal Cannula 3.0 08/29/16 08:00 Nasal Cannula 5.0 08/29/16 07:27 36.8 91 20 120/75 (90) 93 Nasal Cannula 4.0 08/29/16 07:18 72 16 93 Nasal Cannula 4.0 08/29/16 04:00 Nasal Cannula 5.0 08/29/16 03:42 36.5 71 19 112/65 (81) 98 Nasal Cannula 5.0 08/29/16 01:55 85 16 92 Nasal Cannula 4.0 08/28/16 23:59 Nasal Cannula 5.0 08/28/16 23:09 36.4 86 22 135/84 (101) 93 Nasal Cannula 5.0 08/28/16 20:00 Nasal Cannula 5.0 08/28/16 19:47 36.4 91 18 108/67 (81) 99 Nasal Cannula 5.0 08/28/16 19:29 88 14 91 Nasal Cannula 4.0 08/28/16 16:00 89 Nasal Cannula 4.0 08/28/16 16:00 36.8 116 18 114/69 (84) 89 Nasal Cannula 4.0 08/28/16 15:19 94 08/28/16 14:10 78 18 90 Nasal Cannula 4.0 (Juhi Rivera PA-C) Physical Exam General Appearance: WD/WN, no apparent distress, + pertinent finding (appears younger than stated age) Eyes: PERRL, EOMI ENT: hearing grossly normal, pharynx normal Neck: supple, no JVD Respiratory/Chest: chest non-tender, no respiratory distress, no accessory muscle use, + pertinent finding (+ On 2 L via NC, Faint crackles bilateral bases , no wheezing or rhales) Cardiovascular: regular rate, rhythm, no murmur Abdomen: normal bowel sounds, non tender, soft Extremities: non-tender, no calf tenderness, + pedal edema (minimal 1+ BLE. nonpitting) Neurologic/Psychiatric: no motor/sensory deficits, alert, oriented x 3 Skin: normal color, warm/dry (Juhi Rivera, ANUJA-C) Laboratory Results Last 24 Hours Test 08/28/16 18:28 08/28/16 21:17 08/29/16 05:54 Procalcitonin 0.29 ng/ml White Blood Count 10.46 K/uL Red Blood Count 3.19 M/uL Hemoglobin 10.2 g/dL Hematocrit 31.1 % Mean Corpuscular Volume 97.5 fL Mean Corpuscular Hemoglobin 32.0 pg Mean Corpuscular Hemoglobin Concent 32.8 g/dl Platelet Count 419 K/uL Mean Platelet Volume 8.6 fL Neutrophils (%) (Auto) 90.7 % Lymphocytes (%) (Auto) 6.1 % Monocytes (%) (Auto) 2.3 % Eosinophils (%) (Auto) 0.1 % Basophils (%) (Auto) 0.1 % Neutrophils # (Auto) 9.49 K/uL Lymphocytes # (Auto) 0.64 K/uL Monocytes # (Auto) 0.24 K/uL Eosinophils # (Auto) 0.01 K/uL Basophils # (Auto) 0.01 K/uL RDW Standard Deviation 53.3 fL RDW Coefficient of Variation 15.1 % Immature Granulocyte % (Auto) 0.7 % Immature Granulocyte # (Auto) 0.07 K/uL Prothrombin Time 12.5 SECONDS Prothromb Time International Ratio 1.2 Activated Partial Thromboplast Time 35.4 SECONDS Partial Thromboplastin Ratio 1.4 Sodium Level 138 mmol/L Potassium Level 4.3 mmol/L Chloride Level 104 mmol/L Carbon Dioxide Level 25 mmol/L Anion Gap 9.0 mmol/L Blood Urea Nitrogen 21 mg/dl Creatinine 1.20 mg/dl Est Creatinine Clear Calc Drug Dose 55.0 ml/min Estimated GFR () 64.9 Estimated GFR (Non- 56.0 BUN/Creatinine Ratio 17.7 Random Glucose 153 mg/dl Calcium Level 8.1 mg/dl Magnesium Level 2.2 mg/dl Total Bilirubin 0.6 mg/dl Direct Bilirubin 0.2 mg/dl Aspartate Amino Transf (AST/SGOT) 17 U/L Alanine Aminotransferase (ALT/SGPT) 35 U/L Alkaline Phosphatase 78 U/L Total Protein 5.4 gm/dl Albumin 1.9 gm/dl (Juhi Rivera, MAILE) Assessment and Plan Bilateral pneumonia with hypoxia/SIRS- - Continue Zyvox 600 mg IV BID, Zosyn 3.375 mg IV Q8h, levofloxacin 500 mg IV every 24 hours - Solu-Medrol 60 mg IV Q6H, still with diminished breath sounds but no wheezing so can decrease steriod today - Cont Xopenex/Atrovent nebulizers q6H while awake and Q2H prn. - PT/OT - WBC = 10.46, afebrile - Blood culture came back positive 02/21 with gram - staph not lugdenesis, the other is NGTD. Likely contaminate - Triple lumen central cath removed 08/27 for culture - NGTD - ID consulted over the weekend- await recommendations. Allergic to vancomycin Atrial fibrillation with RVR history - Paroxysmal atrial fibrillation with resultant inappropriate AICD shocks, amiodarone toxicity, subsequent sotalol therapy - continue aspirin 81 mg daily, digoxin 0.125 mg daily - Had a burst in Afib with HR> 150s overnight. 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 - AAA noted on CT scan and is measuring 5.1 at largest. - Subsequent basement of a single chamber AICD, 2006, Generator change to [place] AICD 2016, [place] Colon Cancer - A-port placed for chemotherapy 2016, subsequently removed 08/09/16 due to concerns of infection - Triple lumen central cath removed for concerns of septic source, pt will need temporary access established for chemotherapy, currently have 2 peripheral sites Hyperlipidemia -continue atorvastatin 80 mg daily GERD -continue pantoprazole 40 mg by mouth daily. DVT ppx: teds, scds, therapeutic lovenox CODE STATUS: FULL CODE Disposition: From home, discharge when medically stable. (Juhi Rivera, MAILE) PA Physician Supervision Note: I interviewed and examined the patient. Discussed with Juhi Rivera PAC and agree with findings and plan as documented in the note. Any exceptions or clarifications are listed here: None Patient here with sepsis concern for pneumonia source, he is a chemotherapy patient for colon cancer, has known coronary disease A. fib and thrombophilia with an IVC filter. Patient is doing well seems to be recovering from sepsis currently no defined bacterial source and is covered with vancomycin and Zosyn and levofloxacin. His A. fib is been difficult to control with rapid rate overnight escalating his diltiazem drip, he is restarted on metoprolol which he usually takes at home. Today vital signs are stable although slightly low blood pressure Cardiac exam is irregularly irregular Lungs have rhonchi at the bases no focal or loss no egophony Abdomen is soft nontender NABS 81-year-old male with sepsis from pneumonia source A. fib RVR. Continue antibiotics until send away legionella etc. ruled out then we'll pare down likely to one antibiotic Diltiazem drip continues but hopeful conversion oral diltiazem 08/30 cautiously begin metoprolol today Noted previously repaired abdominal aortic aneurysm Will discuss with oncology whether IV access is needs to be secured prior to leaving as patient had axis removed for concern of infection source Documented By: Ambrocio Horton (Ambrocio Horton M.D.)
[2016-08-29] MEDS: DIGOXIN 0.125 MG TAB PO SCH (15:31)
--- NOTE | 2016-08-29 16:27 | Cardiology Follow-Up ---
Subjective General Date of Service: Aug 29, 2016. Chief Complaint: follow up AF Pt evaluation today including: conversation w/ patient, physical exam History of Present Illness The patient is a 81 year old male seen in follow up. Patient feeling comfortable. Based on review of chart, he appears to be improving clinically. Allergies Coded Allergies: Vancomycin (Verified Allergy, Severe, SHORTNESS OF BREATH, 08/26/16) Social History Smoking Status: Former Smoker Hx Tobacco Use In Past Year?: No (Quit smoking in 2006) Hx Alcohol Use - Type And Amou: No Hx Substance Use - Type And Am: No Problem List Medical Problems: (1) Bacteremia Status: Acute (2) Bilateral pneumonia Status: Acute (3) Hypoxia Status: Acute (4) Sepsis Status: Acute Physical Exam Vital Signs Last Vital Signs Documentation Date Time Temp Pulse Resp B/P (MAP) Pulse Ox O2 Delivery O2 Flow Rate FiO2 08/29/16 15:31 88 08/29/16 15:27 36.5 20 102/61 (75) 92 Nasal Cannula 4.0 Physical Exam Constitutional: Level of Distress: NAD Head: normocephalic Lungs: Auscultation: no wheezing, no rales/crackles Cardiovascular: Heart Auscultation: RRR, no murmurs, no rubs Abdomen: Bowel Sounds: pertinent finding (soft , nontender ) Extremities: pertinent finding (no edema ) Neurologic: Gait & Station: pertinent finding (no focal deficits ) Assessment and Plan Assessment and Plan Impression: 81 year old male 1. AF RVR 2. Sepsis 3. bilateral femoral DVT 4. colon cancer Plan: BP is a little better. Will try to wean down diltiazem and start low dose metoprolol. Continue anticoagulation for DVT, AF, given colon CA, lovenox is preferred. Laboratory Results Last 24 Hours Test 08/28/16 18:28 08/28/16 21:17 08/29/16 05:54 Procalcitonin 0.29 ng/ml White Blood Count 10.46 K/uL Red Blood Count 3.19 M/uL Hemoglobin 10.2 g/dL Hematocrit 31.1 % Mean Corpuscular Volume 97.5 fL Mean Corpuscular Hemoglobin 32.0 pg Mean Corpuscular Hemoglobin Concent 32.8 g/dl Platelet Count 419 K/uL Mean Platelet Volume 8.6 fL Neutrophils (%) (Auto) 90.7 % Lymphocytes (%) (Auto) 6.1 % Monocytes (%) (Auto) 2.3 % Eosinophils (%) (Auto) 0.1 % Basophils (%) (Auto) 0.1 % Neutrophils # (Auto) 9.49 K/uL Lymphocytes # (Auto) 0.64 K/uL Monocytes # (Auto) 0.24 K/uL Eosinophils # (Auto) 0.01 K/uL Basophils # (Auto) 0.01 K/uL RDW Standard Deviation 53.3 fL RDW Coefficient of Variation 15.1 % Immature Granulocyte % (Auto) 0.7 % Immature Granulocyte # (Auto) 0.07 K/uL Prothrombin Time 12.5 SECONDS Prothromb Time International Ratio 1.2 Activated Partial Thromboplast Time 35.4 SECONDS Partial Thromboplastin Ratio 1.4 Sodium Level 138 mmol/L Potassium Level 4.3 mmol/L Chloride Level 104 mmol/L Carbon Dioxide Level 25 mmol/L Anion Gap 9.0 mmol/L Blood Urea Nitrogen 21 mg/dl Creatinine 1.20 mg/dl Est Creatinine Clear Calc Drug Dose 55.0 ml/min Estimated GFR () 64.9 Estimated GFR (Non- 56.0 BUN/Creatinine Ratio 17.7 Random Glucose 153 mg/dl Calcium Level 8.1 mg/dl Magnesium Level 2.2 mg/dl Total Bilirubin 0.6 mg/dl Direct Bilirubin 0.2 mg/dl Aspartate Amino Transf (AST/SGOT) 17 U/L Alanine Aminotransferase (ALT/SGPT) 35 U/L Alkaline Phosphatase 78 U/L Total Protein 5.4 gm/dl Albumin 1.9 gm/dl
[2016-08-29] MEDS ORDERED: METOPROLOL TARTRATE 25 MG TAB PO SCH (16:45)
[2016-08-29] MEDS ORDERED: METOPROLOL TARTRATE 25 MG TAB PO ONE (16:45)
[2016-08-29] MEDS: METOPROLOL TARTRATE 25 MG TAB PO SCH (22:06)
[2016-08-29] MEDS: ERYTHROMYCIN OP OINT 1 GM PKT OPL SCH (22:07)
[2016-08-30] VITALS (9 sets, daily range): BP systolic 102–144; BP diastolic 70–89; PULSE 72–91; TEMP 36.4–36.7; O2SAT 91–94
[2016-08-30] MEDS: IPRATROPIUM BROMIDE NEB SOLN 0.02% 2.5 ML VIAL INH SCH ×4 (01:45→19:14)
[2016-08-30] MEDS: LEVALBUTEROL 1.25MG/0.5ML NEB INH SCH ×4 (01:45→19:14)
[2016-08-30] MEDS: LINEZOLID / D5W 600 MG in PREMIXED IN D5W 300 ML IV SCH ×2 (03:36→14:18)
[2016-08-30] MEDS: PIPERACILL/TAZOBAC IV 3.375 GM in DEXTROSE 5% 100ML 100 ML IV SCH ×3 (03:36→18:28)
[2016-08-30] MEDS: METHYLPREDNISOLONE IV 60 MG in SYRINGE 0 ML IV SCH ×4 (03:37→23:53)
[2016-08-30 08:00] LABS: CREATININE 1.1 mg/dl (0.60-1.40)
[2016-08-30] MEDS ORDERED: NURSING VERBAL MED ORDER STA (08:20)
[2016-08-30] MEDS ORDERED: METOPROLOL TARTRATE 1 MG/ML VIAL ONE (08:22)
[2016-08-30] MEDS: ATORVASTATIN 40 MG TAB PO SCH (08:34)
[2016-08-30] MEDS: LACTOBACILLUS ACIDOPHILUS (FLORANEX) TAB PO SCH ×3 (08:34→15:56)
[2016-08-30] MEDS: ASCORBIC ACID 500 MG TAB PO SCH (08:34)
[2016-08-30] MEDS: VITAMIN B COMPLEX TAB PO SCH (08:34)
[2016-08-30] MEDS: PANTOprazole SOD 40 MG TAB PO SCH (08:34)
[2016-08-30] MEDS: ENOXAPARIN 100 MG/1ML SYR SQ SCH ×2 (08:35→21:08)
[2016-08-30] MEDS: METOPROLOL TARTRATE 25 MG TAB PO SCH ×3 (08:35→21:07)
[2016-08-30] MEDS: ASPIRIN 81 MG ECTAB PO SCH (08:35)
[2016-08-30] MEDS: DOCUSATE SODIUM/SENNA 50/8.6MG TAB PO SCH (08:36)
[2016-08-30] MEDS: PrednisoLONE ACET 1% OP SUSP 5 ML BTL OPL SCH ×2 (08:36→21:08)
--- NOTE | 2016-08-30 08:43 | Hospitalist Progress Note ---
Hospitalist Progress Note Date of Service Aug 30, 2016. (Juhi Rivera PA-C) Subjective Pt evaluation today including: conversation w/ patient, physical exam, chart review, lab review, review of studies, review of inpatient medication list Pain: None PO Intake: Good Voiding: no voiding problems The patient was seen and examined this morning. Pt reports doing well this morning, he slept better overnight and has no acute complaints. He feels his breathing is improving, and doesn't have as much of a cough. He is still requiring 3L O2 via NC and normally doesn't wear anything at baseline. Pt is requesting to see ID today, as they did not see him yesterday. He had multiple bowel movements last night with laxative on board, he had previously been constipated for many days. He has been working with PT and was up in the chair yesterday, and plans on this again today. He denies chest pain, flutter, or palpitations although his HR bumped again this morning and he recieved lopressor 5 mg IV along with metoprolol 12.5 mg with his morning meds. ROS: 6 point ROS reviewed and otherwise negative. (Juhi Rivera PA-C) Objective Vital Signs Date Time Temp Pulse Resp B/P (MAP) Pulse Ox O2 Delivery O2 Flow Rate FiO2 08/30/16 08:36 136 135/82 08/30/16 07:21 36.4 81 18 144/89 (107) 93 Nasal Cannula 3.0 08/30/16 07:10 84 16 93 Nasal Cannula 3.0 08/30/16 04:00 Nasal Cannula 2.0 08/30/16 01:01 36.4 77 20 122/70 (87) 91 Nasal Cannula 3.0 08/29/16 23:59 Nasal Cannula 2.0 08/29/16 23:02 36.5 78 18 128/89 (102) 90 Nasal Cannula 3.0 08/29/16 20:00 Nasal Cannula 2.0 08/29/16 19:03 88 16 92 Nasal Cannula 3.0 08/29/16 18:50 36.2 68 20 109/70 (83) 92 Nasal Cannula 3.0 08/29/16 16:00 Nasal Cannula 2.0 08/29/16 15:31 88 08/29/16 15:27 36.5 78 20 102/61 (75) 92 Nasal Cannula 4.0 08/29/16 14:33 92 16 92 Nasal Cannula 4.0 08/29/16 12:00 Nasal Cannula 4.0 08/29/16 11:33 36.5 115 24 102/68 (79) 90 Nasal Cannula 3.0 (Juhi Rivera PA-C) Physical Exam Notes: General Appearance: WD/WN, no apparent distress, + pertinent finding (appears younger than stated age) Eyes: PERRL, EOMI ENT: hearing grossly normal, pharynx normal Neck: supple, no JVD Respiratory/Chest: chest non-tender, no respiratory distress, no accessory muscle use, + pertinent finding (+ On 3 L via NC, Faint crackles bilateral bases , no wheezing or rhales) Cardiovascular: irregularly irregular, +slightly tachycardic, no murmur Abdomen: normal bowel sounds, non tender, soft Extremities: non-tender, no calf tenderness, no pedal edema Neurologic/Psychiatric: no motor/sensory deficits, alert, oriented x 3 (Juhi Rivera PA-C) Laboratory Results Last 24 Hours Test 08/30/16 06:34 Creatinine 1.10 mg/dl Est Creatinine Clear Calc Drug Dose 60.0 ml/min Estimated GFR () 72.1 Estimated GFR (Non- 62.2 (Juhi Rivera PA-C) Assessment and Plan Bilateral pneumonia with hypoxia/SIRS- - Continue Zyvox 600 mg IV BID, Zosyn 3.375 mg IV Q8h, levofloxacin 500 mg IV every 24 hours - Solu-Medrol 60 mg IV Q8H, continue to titrate down as tolerated - Cont Xopenex/Atrovent nebulizers q6H while awake and Q2H prn. - PT/OT - WBC = 10.46, afebrile - Blood culture came back positive 1/2 with gram - staph not lugdenesis, the other is NGTD. Likely contaminate. Redraw two sets of blood cultures for negative results so that central line can be placed for chemo. - Triple lumen central cath removed 08/27 for culture - NGTD - ID consulted over the weekend- await recommendations. Allergic to vancomycin Atrial fibrillation with RVR history - Paroxysmal atrial fibrillation with resultant inappropriate AICD shocks, amiodarone toxicity, subsequent sotalol therapy - continue aspirin 81 mg daily, digoxin 0.125 mg daily - Had a burst in Afib with HR> 120sthis morning, BP and rate has been better controlled since start of metoprolol 12.5 mg, Cardiology increased to TID. Dr. Santana to see the patient today, per nursing he plans to make recommendations regarding PO cardizem. 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 - AAA noted on CT scan and is measuring 5.1 at largest. - Subsequent placement of a single chamber AICD, 2006, Generator change to [place] AICD 2016, [place] Colon Cancer - A-port placed for chemotherapy 2016, subsequently removed 08/09/16 due to concerns of infection - Triple lumen central cath removed for concerns of septic source, pt will need temporary access established for chemotherapy, currently have 2 peripheral sites - Repeat blood cultures drawn 08/30 - Discussion held with nursing/Dr. Jaramillo regarding pt: First cycle of modified Folfox (5-FU) administered on 07/15/16 - will need a central line for future infusions with this regimen. Hyperlipidemia -continue atorvastatin 80 mg daily GERD -continue pantoprazole 40 mg by mouth daily. DVT ppx: teds, scds, therapeutic lovenox CODE STATUS: FULL CODE Disposition: From home, discharge to [facility] in ~2 days (Juhi Rivera PA-C) ANUJA Physician Supervision Note: I interviewed and examined the patient. Discussed with Juhi Rivera PAC and agree with findings and plan as documented in the note. Any exceptions or clarifications are listed here: None Patient here with sepsis concern for bilateral pneumonia gram negative source, he is a chemotherapy patient for colon cancer, has known coronary disease A. fib and thrombophilia with an IVC filter. Patient continues recovering from sepsis still no defined bacterial source on vancomycin, Zosyn and levofloxacin. A. fib is better control with metoprolol off diltiazem gtt . vital signs reamin stable better blood pressure Cardiac exam is irregularly irregular Lungs have rhonchi at the bases but clearing Abdomen is soft nontender NABS 81-year-old male with sepsis from pneumonia source A. fib RVR, now rate controlled Continue antibiotics until negative legionella if continues to improve will move to likely levaquin metoprolol and diltiazem with cardiology oversight Noted previously repaired abdominal aortic aneurysm Awaiting call back from oncology whether IV access could be PICC line Documented By: Ambrocio Horton (Ambrocio Horton M.D.)
[2016-08-30 12:13] LABS: LEGIONELLA ANTIGEN NOT DETECTED (NOT DETECTED)
[2016-08-30] MEDS: LEVOFLOXACIN / D5W 500 MG in PREMIXED IN D5W 100 ML IV SCH (12:34)
--- NOTE | 2016-08-30 13:33 | Infectious Disease Progress Nt ---
Progress Note Date of Service Aug 30, 2016. Subjective Pt evaluation today including: conversation w/ patient, conversation w/ family , physical exam, chart review, lab review, review of studies, conversation w/ network systems consultant, review of inpatient medication list Patient continues to improve slowly, less short of breath, no increase in cough , no fever.Still with bouts of tachycardia. All Other Systems: Reviewed and Negative Medications Current Inpatient Medications Medications (Trade) Dose Ordered Sig/Thu Route Start Time Stop Time Status Last Admin Dose Admin Potassium Chloride/Sodium Chloride 1,000 ml @ 75 mls/hr [id number] IV 08/26/16 16:00 09/25/16 15:59 08/30/16 00:00 75 MLS/HR Acetaminophen (Tylenol Tab) 650 mg Q4H PRN PO 08/26/16 15:00 09/25/16 14:59 Ascorbic Acid (Vitamin C Tab) 500 mg QAM PO 08/27/16 09:00 09/26/16 08:59 08/30/16 08:34 500 MG Aspirin (Ecotrin Tab) 81 mg DAILY PO 08/27/16 09:00 09/26/16 08:59 08/30/16 08:35 81 MG Atorvastatin Calcium (Lipitor Tab) 80 mg DAILY PO 08/27/16 09:00 09/26/16 08:59 08/30/16 08:34 80 MG Digoxin (Lanoxin Tab) 0.125 mg DAILY@16 PO 08/26/16 16:00 09/25/16 15:59 08/29/16 15:31 0.125 MG Erythromycin (Erythromycin Oph Oint) 1 appln QPM OPL 08/26/16 21:00 09/05/16 20:59 08/29/16 22:07 1 APPLN Pantoprazole Sodium (Protonix Tab) 40 mg DAILY PO 08/27/16 09:00 09/26/16 08:59 08/30/16 08:34 40 MG Prednisolone Acetate (Pred Forte 1% Oph Susp) 1 drops BID OPL 08/26/16 21:00 09/25/16 20:59 08/30/16 08:36 1 DROPS Vitamin B Complex (Vitamin B Complex) 1 tab QAM PO 08/27/16 09:00 09/26/16 08:59 08/30/16 08:34 1 TAB Lactobacillus Acidophilus (Floranex Tab) 4 tab TIDM PO 08/26/16 16:45 09/25/16 17:59 08/30/16 11:58 4 TAB Linezolid 600 mg/ Prmx 300 ml @ 300 mls/hr Q12H IV 08/27/16 02:00 09/02/16 01:59 08/30/16 03:36 300 MLS/HR Piperacillin Sod/ Tazobactam Sod 3.375 gm/Dextrose 115 ml @ 28.75 mls/ hr Q8H IV 08/26/16 18:00 09/02/16 17:59 08/30/16 08:35 28.75 MLS/HR Levofloxacin 500 mg/Prmx 100 ml @ 100 mls/hr DAILY@1200 IV 08/27/16 12:00 09/02/16 11:59 08/30/16 12:34 100 MLS/HR Ondansetron HCl (Zofran Inj) 4 mg Q6H PRN IV 08/26/16 15:00 09/25/16 14:59 Ipratropium [place] (Atrovent 0.02% 0.5MG/2.5ML Neb) 0.5 mg Q6R INH 08/26/16 21:00 09/25/16 20:59 08/30/16 07:11 0.5 MG Levalbuterol (Xopenex 1.25MG/ 0.5ML Neb) 1.25 mg Q6R INH 08/26/16 21:00 09/25/16 20:59 08/30/16 07:11 1.25 MG Ipratropium [place] (Atrovent 0.02% 0.5MG/2.5ML Neb) 0.5 mg Q2H PRN INH 08/26/16 15:15 09/25/16 15:14 Levalbuterol (Xopenex 1.25MG/ 0.5ML Neb) 1.25 mg Q2H PRN INH 08/26/16 15:15 09/25/16 15:14 Piperacillin Sod/ Tazobactam Sod (Consult) 1 ea UD PRN N/A 08/26/16 15:45 09/25/16 15:44 Enoxaparin Sodium (Lovenox Inj) 90 mg Q12H SQ 08/26/16 20:00 09/25/16 19:59 08/30/16 08:35 90 MG Heparin Sodium (Porcine) (Heparin 10 Unit/ ml 5 ml Flush) 5 ml PRN PRN FLUSH 08/27/16 04:00 09/26/16 03:59 Diltiazem HCl 125 mg/Dextrose 125 ml @ 0 mls/hr Q0M PRN IV 08/28/16 13:00 09/27/16 12:59 08/29/16 05:49 5 MLS/HR Bisacodyl (Dulcolax Supp) 10 mg DAILY PRN [place] 08/28/16 15:45 09/27/16 15:44 Polyethylene (Miralax Powder Packet) 17 gm DAILY PRN PO 08/29/16 13:45 09/28/16 13:44 Metoprolol Tartrate (Lopressor Tab) 12.5 mg TID PO 08/29/16 21:00 09/28/16 20:59 08/30/16 08:35 12.5 MG Methylprednisolone Sodium Succinate 60 mg/Syringe 0.96 ml @ 1.5 mls/min Q8H IV 08/30/16 16:00 09/25/16 15:59 Objective Vital Signs Date Time Temp Pulse Resp B/P (MAP) Pulse Ox O2 Delivery O2 Flow Rate FiO2 08/30/16 12:07 Nasal Cannula 2.0 08/30/16 11:52 36.6 76 18 110/73 (85) 94 3.0 08/30/16 08:36 136 135/82 08/30/16 08:00 Nasal Cannula 2.0 08/30/16 07:21 36.4 81 18 144/89 (107) 93 Nasal Cannula 3.0 08/30/16 07:10 84 16 93 Nasal Cannula 3.0 08/30/16 04:00 Nasal Cannula 2.0 08/30/16 01:01 36.4 77 20 122/70 (87) 91 Nasal Cannula 3.0 08/29/16 23:59 Nasal Cannula 2.0 08/29/16 23:02 36.5 78 18 128/89 (102) 90 Nasal Cannula 3.0 08/29/16 20:00 Nasal Cannula 2.0 08/29/16 19:03 88 16 92 Nasal Cannula 3.0 08/29/16 18:50 36.2 68 20 109/70 (83) 92 Nasal Cannula 3.0 08/29/16 16:00 Nasal Cannula 2.0 08/29/16 15:31 88 08/29/16 15:27 36.5 78 20 102/61 (75) 92 Nasal Cannula 4.0 08/29/16 14:33 92 16 92 Nasal Cannula 4.0 Physical Exam General Appearance: WD/WN, no apparent distress Eyes: normal inspection, sclerae normal ENT: normal ENT inspection, pharynx normal Neck: supple, no adenopathy, trachea midline Respiratory/Chest: chest non-tender, no respiratory distress, + rales Cardiovascular: no gallop, + systolic murmur, + irregularly irregular Abdomen: normal bowel sounds, non tender, soft, no organomegaly Extremities: non-tender, no calf tenderness Neurologic/Psychiatric: alert, oriented x 3 Skin: normal color, no rash Lymphatic: no adenopathy Laboratory Results Date/Time Source Procedure Growth Status 08/30/16 10:24 Blood Blood Culture Pending Received 08/30/16 10:05 Blood Blood Culture Pending Received Last 24 Hours Test 08/30/16 06:34 08/30/16 09:58 Creatinine 1.10 mg/dl Est Creatinine Clear Calc Drug Dose 60.0 ml/min Estimated GFR () 72.1 Estimated GFR (Non- 62.2 Assessment and Plan 81 yo male with colon cancer, s/p chemotherapy with recent MRSA sepsis from infected port, now with pneumonia, likely HCAP with rapid afib. Patient appears to be somewhat clinically improved, so would continue present antibiotics for 7 day course. Would obtain follow-up chest x-ray. Will continue to follow.
[2016-08-30] MEDS: NSS + 20MEQ KCL 1000ML 1,000 ML IV SCH ×2 (14:18)
[2016-08-30] MEDS: DIGOXIN 0.125 MG TAB PO SCH (15:56)
--- NOTE | 2016-08-30 16:23 | Cardiology Progress Note ---
Cardiology Progress Note Date of Service Aug 30, 2016. Cardiology Progress Note The patient's atrial fibrillation ventricular rate improved somewhat overnight and his diltiazem drip was discontinued. This morning his ventricular rate was just a little bit above 100 prompting administration of his a.m. dose of metoprolol tartrate 12.5 mg as well as 5 mg of metoprolol IV 1. At present, he is resting comfortably, and his heart rate is between 78 and 90 bpm on telemetry, he continues to be in atrial fibrillation. Plan: Increase metoprolol tartrate to 25 mg by mouth twice a day, and is due to 2099 , with hold for systolic blood pressure less than 95 mmHg. He has a pacemaker defibrillator for heart rate support so heart rate should not be an issue. Continue Lovenox for treatment of DVT, PE, and for stroke prophylaxis given continued atrial fibrillation.
[2016-08-30] MEDS: ERYTHROMYCIN OP OINT 1 GM PKT OPL SCH (21:08)
[2016-08-31] VITALS (9 sets, daily range): BP systolic 91–148; BP diastolic 64–92; PULSE 64–112; TEMP 36–36.8; O2SAT 86–99
[2016-08-31] MEDS: IPRATROPIUM BROMIDE NEB SOLN 0.02% 2.5 ML VIAL INH SCH ×4 (02:25→19:13)
[2016-08-31] MEDS: LEVALBUTEROL 1.25MG/0.5ML NEB INH SCH ×4 (02:26→19:13)
[2016-08-31] MEDS: NSS + 20MEQ KCL 1000ML 1,000 ML IV SCH ×2 (03:25→17:03)
[2016-08-31] MEDS: PIPERACILL/TAZOBAC IV 3.375 GM in DEXTROSE 5% 100ML 100 ML IV SCH ×3 (03:25→17:03)
[2016-08-31] MEDS: LINEZOLID / D5W 600 MG in PREMIXED IN D5W 300 ML IV SCH ×2 (03:33→12:56)
[2016-08-31 06:26] LABS: COMPLETE YES; HEMATOCRIT 32.7 % (42-52); IG% 1.6 %; LYMPH % 9.8 %; LYMPH ABS # 0.85 K/uL (1.2-3.4); MEAN CELL VOLUME 96.5 fL (80-100); MEAN CORPUSCULAR HGB CONC 34.3 g/dl (32-36); MEAN PLATELET VOLUME 8.2 fL (7.4-10.4); MONO % 3.7 %; NEUT % 84.9 %; PLATELET COUNT 416 K/uL (130-400); RED BLOOD COUNT 3.39 M/uL (4.7-6.1); WHITE BLOOD COUNT 8.69 K/uL (4.8-10.8)
[2016-08-31 06:52] LABS: POTASSIUM 4.3 mmol/L (3.5-5.1)
[2016-08-31 07:15] LABS: BUN/CREATININE RATIO 20.7 (10-20); CREATININE 1.1 mg/dl (0.60-1.40)
[2016-08-31] MEDS: LACTOBACILLUS ACIDOPHILUS (FLORANEX) TAB PO SCH ×3 (07:36→17:03)
[2016-08-31] MEDS: ATORVASTATIN 40 MG TAB PO SCH (07:36)
[2016-08-31] MEDS: ASPIRIN 81 MG ECTAB PO SCH (07:36)
[2016-08-31] MEDS: PANTOprazole SOD 40 MG TAB PO SCH (07:37)
[2016-08-31] MEDS: METOPROLOL TARTRATE 25 MG TAB PO SCH ×2 (07:37→20:39)
[2016-08-31] MEDS: VITAMIN B COMPLEX TAB PO SCH (07:37)
[2016-08-31] MEDS: ASCORBIC ACID 500 MG TAB PO SCH (07:37)
[2016-08-31] MEDS: PrednisoLONE ACET 1% OP SUSP 5 ML BTL OPL SCH ×2 (07:37→20:45)
[2016-08-31] MEDS: ENOXAPARIN 100 MG/1ML SYR SQ SCH ×2 (07:39→20:44)
[2016-08-31] MEDS: METHYLPREDNISOLONE IV 60 MG in SYRINGE 0 ML IV SCH (08:23)
--- NOTE | 2016-08-31 10:06 | DIAGNOSTIC IMAGING REPORT ---
TWO VIEW CHEST CLINICAL HISTORY: Pneumonia. FINDINGS: AP and lateral chest radiographs are compared to study dated 08/26/2016. The AP view is degraded by patient rotation. A single lead cardiac AICD is unchanged in position and partially obscures the left lower chest. The heart is enlarged and there is atherosclerotic calcification of the thoracic aorta. The pulmonary vasculature is noncongested. Small pleural effusions are identified. Again seen is multifocal patchy airspace consolidation. This is most confluence in the right midlung and at the left lung base. This has modestly cleared from 08/26/2016. There is no pneumothorax. The skeletal structures are osteopenic. Advanced degenerative change is seen in the left shoulder. IMPRESSION: 1. Cardiomegaly and AICD. There is no radiographic evidence of congestive failure. 2. Again seen is multifocal patchy airspace consolidation. This has modestly cleared from 08/26/2016. Continued follow-up to complete resolution is recommended. 3. Small pleural effusions. Electronically signed by: Scottie Grewal M.D. 08/31/2016 10:05 AM Dictated Date/Time: 08/31/2016 10:03 AM
[2016-08-31] MEDS: LEVOFLOXACIN / D5W 500 MG in PREMIXED IN D5W 100 ML IV SCH (12:55)
--- NOTE | 2016-08-31 13:34 | Hospitalist Progress Note ---
Hospitalist Progress Note Date of Service Aug 31, 2016. (Juhi Rivera PA-C) Subjective Pt evaluation today including: conversation w/ patient, physical exam, chart review, lab review, review of studies Pain: None PO Intake: Good Voiding: no voiding problems The patient was seen and examined this morning. Pt reports feeling anxious because he does not like to have his blood drawn. He reported to nursing earlier that he didn't feel well, although currently states he's feeling better. He actually got some sleep last night, and feels more rested. He denies any fevers, sweats or chills. Denies chest pain or shortness of breath, he has been moving from bed to the chair but has required help. He is not ambulating about the narvaez. Discussion regarding no plan for PICC line was held. I discussed with the pt's heme/onc physician, Dr. Jang, from [facility] last evening regarding possible PICC line insertion. At this time she deems this would benefit him due to recurrent sepsis. She had seen him in the clinic for follow up and had discussed with him about starting xeloda antineoplastic therapy vs. infusions of 5-FU. She wants to see him in clinic in 1 week after discharge. Pts questions and concerns regarding this were answered, and he is in agreement with the plan. (Juhi Rivera PA-C) Objective Vital Signs Date Time Temp Pulse Resp B/P (MAP) Pulse Ox O2 Delivery O2 Flow Rate FiO2 08/31/16 12:36 Nasal Cannula 3.0 08/31/16 10:50 36.3 64 22 105/68 (80) 92 Nasal Cannula 3.0 08/31/16 08:14 36.0 112 22 91/64 (73) 90 Nasal Cannula 3.0 08/31/16 08:00 Nasal Cannula 3.0 08/31/16 07:37 87 16 86 Nasal Cannula 3.0 08/31/16 04:01 36.7 77 16 148/92 (110) 93 Room Air 08/31/16 04:00 Nasal Cannula 2.0 08/31/16 00:00 Nasal Cannula 2.0 08/30/16 23:43 36.4 73 22 121/73 (89) 94 Nasal Cannula 3.0 08/30/16 20:00 Nasal Cannula 2.0 08/30/16 19:56 36.6 86 22 119/74 (89) 91 Nasal Cannula 3.0 08/30/16 19:14 76 16 92 Nasal Cannula 3.0 08/30/16 16:00 Nasal Cannula 2.0 08/30/16 15:56 100 08/30/16 15:34 36.7 91 20 102/71 (81) 91 Nasal Cannula 3.0 08/30/16 14:15 72 16 94 Nasal Cannula 3.0 (Juhi Rivera, MAILE) Physical Exam Notes: General Appearance: WD/WN, no apparent distress, + pertinent finding (appears younger than stated age) Eyes: PERRL, EOMI ENT: hearing grossly normal, pharynx normal Neck: supple, no JVD Respiratory/Chest: chest non-tender, no respiratory distress, no accessory muscle use, + pertinent finding (+ On 3 L via NC, Faint crackles bilateral bases , no wheezing or rhales) Cardiovascular: irregularly irregular, +slightly tachycardic with HR ~90s-100, no murmur Abdomen: normal bowel sounds, non tender, soft Extremities: non-tender, no calf tenderness, no pedal edema Neurologic/Psychiatric: no motor/sensory deficits, alert, oriented x 3 (Juhi Rivera, ANUJA-C) Laboratory Results Last 24 Hours Test 08/31/16 05:57 White Blood Count 8.69 K/uL Red Blood Count 3.39 M/uL Hemoglobin 11.2 g/dL Hematocrit 32.7 % Mean Corpuscular Volume 96.5 fL Mean Corpuscular Hemoglobin 33.0 pg Mean Corpuscular Hemoglobin Concent 34.3 g/dl Platelet Count 416 K/uL Mean Platelet Volume 8.2 fL Neutrophils (%) (Auto) 84.9 % Lymphocytes (%) (Auto) 9.8 % Monocytes (%) (Auto) 3.7 % Eosinophils (%) (Auto) 0.0 % Basophils (%) (Auto) 0.0 % Neutrophils # (Auto) 7.38 K/uL Lymphocytes # (Auto) 0.85 K/uL Monocytes # (Auto) 0.32 K/uL Eosinophils # (Auto) 0.00 K/uL Basophils # (Auto) 0.00 K/uL RDW Standard Deviation 52.7 fL RDW Coefficient of Variation 15.1 % Immature Granulocyte % (Auto) 1.6 % Immature Granulocyte # (Auto) 0.14 K/uL Sodium Level 138 mmol/L Potassium Level 4.3 mmol/L Chloride Level 103 mmol/L Carbon Dioxide Level 27 mmol/L Anion Gap 8.0 mmol/L Blood Urea Nitrogen 23 mg/dl Creatinine 1.10 mg/dl Est Creatinine Clear Calc Drug Dose 60.4 ml/min Estimated GFR () 72.1 Estimated GFR (Non- 62.2 BUN/Creatinine Ratio 20.7 Random Glucose 151 mg/dl Calcium Level 8.0 mg/dl (Juhi Rivera, MAILE) Assessment and Plan Bilateral pneumonia with hypoxia/SIRS- - Continue Zyvox 600 mg IV BID, Zosyn 3.375 mg IV Q8h, levofloxacin 500 mg IV every 24 hours x 7 day course per ID (day #4) - appreciate recs. - Solu-Medrol 60 mg IV Q8H, continue to titrate down as tolerated - Cont Xopenex/Atrovent nebulizers q6H while awake and Q2H prn. - PT/OT - No leukocytosis, trending with QOD labs - minimize blood draws - Triple lumen central cath removed 08/27 for culture - NGTD - Blood culture came back positive 1/2 with gram - staph not lugdenesis, the other is NGTD. Likely contaminate. Repeat cultures in process - I discussed with the pt's heme/onc physician, Dr. Jang, from [facility] last evening regarding possible PICC line insertion. At this time she deems this would benefit him due to recurrent sepsis. She had seen him in the clinic for follow up and had discussed with him about starting xeloda antineoplastic therapy vs. infusions of 5-FU. She wants to see him in clinic in 1 week after discharge. Atrial fibrillation with RVR history - Paroxysmal atrial fibrillation with resultant inappropriate AICD shocks, amiodarone toxicity, subsequent sotalol therapy - continue aspirin 81 mg daily, digoxin 0.125 mg daily - Had a burst in Afib with HR> 00s this morning, BP and rate has been better controlled. Discussed with Dr. Santana who has increased metoprolol to 25 mg BID. 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 - AAA noted on CT scan and is measuring 5.1 at largest. - Subsequent placement of a single chamber AICD, 2006, Generator change to [place] AICD 2016, [place] Colon Cancer - A-port placed for chemotherapy 2016, subsequently removed 08/09/16 due to concerns of infection - Triple lumen central cath removed for concerns of septic source, pt will need temporary access established for chemotherapy, currently have 2 peripheral sites - Repeat blood cultures drawn 08/30 - Discussion held with nursing/Dr. Jaramillo regarding pt: First cycle of modified Folfox (5-FU) administered on 07/15/16. Plan to transition from infusion therapy to xeloda as an outpatient, so no need for PICC line insertion. She wants to see pt in clinic within 1 week from discharge. Hyperlipidemia -continue atorvastatin 80 mg daily GERD -continue pantoprazole 40 mg by mouth daily. DVT ppx: teds, scds, therapeutic lovenox CODE STATUS: FULL CODE Disposition: From home, discharge to [facility] in 1-2days (Juhi Rivera, MAILE) PA Physician Supervision Note: I interviewed and examined the patient. Discussed with Juhi Rivera PAC and agree with findings and plan as documented in the note. Any exceptions or clarifications are listed here: None Patient here with sepsis concern for bilateral pneumonia gram negative source, he is a chemotherapy patient for colon cancer, has known coronary disease A. fib and thrombophilia with an IVC filter. Patient continues recovering from sepsis vancomycin, Zosyn and levofloxacin. repeat cxr is improved but shows residual bilateral changes, will consider CT scan given cancer history A. fib is better control with metoprolol /digoxin off diltiazem gtt but did have a run/burst of rapid rate . vital signs did have tachycardia but now less Cardiac exam is irregularly irregular Lungs more clear, some decrease at left base Abdomen is soft nontender NABS 81-year-old male with sepsis from pneumonia source A. fib RVR, now improved rate control Continue antibiotics until negative legionella if continues to improve will move to likely levaquin, concern of abnormal CXR will consider CT scan metoprolol and digoxin with cardiology oversight Noted previously repaired abdominal aortic aneurysm oncology does not want a picc line Documented By: Ambrocio Horton (Ambrocio Horton M.D.)
--- NOTE | 2016-08-31 16:06 | Cardiology Progress Note ---
Cardiology Progress Note Date of Service Aug 31, 2016. Cardiology Progress Note Patient resting comfortably. Telemetry = AF at 78 bpm at present , but RVR noted this am 8 am to 830 pm. Increase metoprolol tartrate from 25 mg BID to 37.5 mg BID Anticoagulation with lovenox.
[2016-08-31] MEDS: DIGOXIN 0.125 MG TAB PO SCH (17:04)
[2016-08-31] MEDS: ERYTHROMYCIN OP OINT 1 GM PKT OPL SCH (20:45)
[2016-08-31] MEDS: METHYLPREDNISOLONE IV 40 MG in SYRINGE 0 ML IV SCH (20:45)
[2016-09-01] VITALS (12 sets, daily range): BP systolic 100–128; BP diastolic 65–80; PULSE 66–77; TEMP 36.3–36.5; O2SAT 83–96
[2016-09-01] MEDS: IPRATROPIUM BROMIDE NEB SOLN 0.02% 2.5 ML VIAL INH SCH ×4 (01:56→19:32)
[2016-09-01] MEDS: LEVALBUTEROL 1.25MG/0.5ML NEB INH SCH ×4 (01:57→19:32)
[2016-09-01] MEDS: PIPERACILL/TAZOBAC IV 3.375 GM in DEXTROSE 5% 100ML 100 ML IV SCH ×3 (03:32→17:07)
[2016-09-01] MEDS: LINEZOLID / D5W 600 MG in PREMIXED IN D5W 300 ML IV SCH ×2 (03:33→14:38)
[2016-09-01] MEDS: NSS + 20MEQ KCL 1000ML 1,000 ML IV SCH ×2 (08:24→18:40)
[2016-09-01] MEDS: ENOXAPARIN 100 MG/1ML SYR SQ SCH ×2 (08:25→20:26)
[2016-09-01] MEDS: ATORVASTATIN 40 MG TAB PO SCH (08:26)
[2016-09-01] MEDS: LACTOBACILLUS ACIDOPHILUS (FLORANEX) TAB PO SCH ×3 (08:26→17:07)
[2016-09-01] MEDS: METHYLPREDNISOLONE IV 40 MG in SYRINGE 0 ML IV SCH (08:26)
[2016-09-01] MEDS: ASPIRIN 81 MG ECTAB PO SCH (08:26)
[2016-09-01] MEDS: METOPROLOL TARTRATE 25 MG TAB PO SCH ×2 (08:27→20:26)
[2016-09-01] MEDS: PrednisoLONE ACET 1% OP SUSP 5 ML BTL OPL SCH ×2 (08:27→20:26)
[2016-09-01] MEDS: ASCORBIC ACID 500 MG TAB PO SCH (08:28)
[2016-09-01] MEDS: PANTOprazole SOD 40 MG TAB PO SCH (08:28)
[2016-09-01] MEDS: VITAMIN B COMPLEX TAB PO SCH (08:28)
--- NOTE | 2016-09-01 09:15 | DIAGNOSTIC IMAGING REPORT ---
(CHEST) THORAX WITHOUT CLINICAL HISTORY: 81 years-old Male presenting with assess for nodule/opacities, clearance of pna, hypoxia. TECHNIQUE: Multidetector CT angiography was performed without the use of intravenous contrast. 3-D volumetric and maximum intensity projection (MIP) images were subsequently reconstructed for review. IV contrast: None. COMPARISON: Chest x-ray from 08/31/2016. CT DOSE: The estimated cumulative dose is 449.31 mGy.cm. FINDINGS: Client Experience Administrator topogram: Left-sided implanted cardiac defibrillator with single lead to the left ventricular apex. Multiple overlying leads. On soft tissue windows, normal thyroid and thoracic inlet. No axillary or supraclavicular lymphadenopathy. Few small subcentimeter mediastinal lymph nodes, nonspecific and likely reactive. Evaluation for hilar lymphadenopathy limited without intravenous contrast. Atherosclerosis of the aortic arch. Mild biatrial enlargement of the heart. Left-sided implanted cardiac defibrillator with single lead to the right ventricular apex. Aortic valve and coronary artery calcification. No pericardial effusion. Small bilateral pleural effusions. Upper abdomen unremarkable for cholelithiasis. On lung windows, multifocal reticulonodular consolidation primarily affecting the bilateral lower lobes and to a lesser degree the dependent portions of the remaining lobes. Mild background emphysematous changes. Due to the presence of extensive consolidation, evaluation for underlying pulmonary nodules is limited. Debris noted in the left mainstem bronchus (series 2 image 20). On bone windows, degenerative changes of the thoracic spine. Old rib fracture posteriorly in the left 11th rib. Calcification along the course of the left infraspinatus may be degenerative in etiology. IMPRESSION: 1. Multifocal consolidation consistent with pneumonia and/or aspiration on a background of emphysema. Evaluation for underlying pulmonary nodules is limited in this setting. Follow-up imaging could be obtained if there is continuing clinical concern. 2. Debris in the left mainstem bronchus. 3. Cardiomegaly with small bilateral pleural effusions. Electronically signed by: Jese Rosario M.D. 09/01/2016 9:14 AM Dictated Date/Time: 09/01/2016 9:04 AM
[2016-09-01] MEDS: LEVOFLOXACIN / D5W 500 MG in PREMIXED IN D5W 100 ML IV SCH (12:00)
--- NOTE | 2016-09-01 12:35 | Hospitalist Progress Note ---
Hospitalist Progress Note Date of Service Sep 01, 2016. (Juhi Rivera PA-C) Subjective Pt evaluation today including: conversation w/ patient, physical exam, chart review, lab review, review of studies Pain: None PO Intake: Good Voiding: no voiding problems The patient was seen and examined this morning. Pt reports doing well today. He slept overnight and was relieved that he didn't need blood work this morning. He reports his breathing is improving. He does not feel short of breath when he' s at rest. He has walked from bed to the doorway, and then over to the chair yesterday with assistance. Per tele, he gets tachy in the 110s with minimal exertion, and had a burst of tachycardia again this morning. Additional Comments: Constitutional: No fever, sweats or chills ENT: normal hearing, no trouble swallowing Respiratory: No cough, sputum, dyspnea at rest or on exertion Cardiovascular: No chest pain, tightness or palpitations Abdomen: No pain, nausea, vomiting, diarrhea or constipation Musculoskeletal: No joint pain, calf pain, swelling (Juhi Rivera PA-C) Objective Vital Signs Date Time Temp Pulse Resp B/P (MAP) Pulse Ox O2 Delivery O2 Flow Rate FiO2 09/01/16 12:10 36.3 75 17 100/66 (77) 92 Nasal Cannula 3.0 09/01/16 08:06 36.4 68 20 118/65 (82) 90 Nasal Cannula 3.0 09/01/16 08:00 93 Nasal Cannula 3.0 09/01/16 07:01 66 16 93 Nasal Cannula 3.0 09/01/16 04:00 Nasal Cannula 3.0 09/01/16 03:29 36.5 72 20 128/80 (96) 95 Nasal Cannula 3.0 09/01/16 00:00 Nasal Cannula 3.0 08/31/16 23:40 36.4 85 18 120/82 (95) 95 Nasal Cannula 3.0 08/31/16 20:16 36.7 80 20 118/71 (87) 95 Nasal Cannula 3.0 08/31/16 20:00 Nasal Cannula 3.0 08/31/16 19:14 67 14 93 Nasal Cannula 3.0 08/31/16 17:04 108 08/31/16 16:00 Nasal Cannula 3.0 08/31/16 15:31 36.8 72 20 111/73 (86) 99 Nasal Cannula 3.0 08/31/16 14:30 73 16 93 Nasal Cannula 3.0 08/31/16 12:36 Nasal Cannula 3.0 (Juhi Rivera, SEBASTIANC) Physical Exam Notes: General Appearance: WD/WN, no apparent distress, + pertinent finding (appears younger than stated age) Eyes: PERRL, EOMI ENT: hearing grossly normal, pharynx normal Neck: supple, no JVD Respiratory/Chest: chest non-tender, no respiratory distress, no accessory muscle use, + pertinent finding (+ On 3 L via NC, Faint crackles bilateral bases , improving, no wheezing or rhales) Cardiovascular: irregularly irregular, +slightly tachycardic with HR ~90s-100, no murmur Abdomen: normal bowel sounds, non tender, soft Extremities: non-tender, no calf tenderness, no pedal edema Neurologic/Psychiatric: no motor/sensory deficits, alert, oriented x 3 (Juhi Rivera, SEBASTIANC) Assessment and Plan Bilateral pneumonia with hypoxia/SIRS- - Continue Zyvox 600 mg IV BID, Zosyn 3.375 mg IV Q8h, levofloxacin 500 mg IV every 24 hours x 7 day course per ID (day #4) - appreciate recs. - Solu-Medrol titrated down to 40 mg Q12H last night, pts breath sounds have no wheezing, just faint crackles at baseline. Will transition to Prednisone 40 mg po x 2 days and titrate off from there. - Cont Xopenex/Atrovent nebulizers q6H while awake and Q2H prn. - PT/OT - No leukocytosis, trending with QOD labs - minimize blood draws - Triple lumen central cath removed 08/27 for culture - NGTD - Blood culture came back positive 1/2 with gram - staph not lugdenesis, the other is NGTD. Likely contaminate. Repeat cultures in process - I discussed with the pt's heme/onc physician, Dr. Jang, from [facility] on regarding possible PICC line insertion. At this time she deems a line would NOT benefit him due to recurrent sepsis. She had seen him in the clinic for follow up and had discussed with him about starting xeloda antineoplastic therapy vs. infusions of 5-FU. She wants to see him in clinic in 1 week after discharge. Atrial fibrillation with RVR history - Paroxysmal atrial fibrillation with resultant inappropriate AICD shocks, amiodarone toxicity, subsequent sotalol therapy - continue aspirin 81 mg daily, digoxin 0.125 mg daily - Had a burst in Afib with HR of 117 and several 3-4 beat runs of PVCs overnight. Increase metoprolol to 37.[address] Pires. 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 Lower extremity surgical revascularization with infected popliteal artery grafted with MRSA hx - Finished course of daptomycin on 08/24/16 for A port infected with MRSA causing sepsis on last admission. - AAA noted on CT scan and is measuring 5.1 at largest. - Subsequent placement of a single chamber AICD, 2006, Generator change to [employer] [place] AICD 2016, [place] Colon Cancer - A-port placed for chemotherapy 2016, subsequently removed 08/09/16 due to concerns of infection - Triple lumen central cath removed for concerns of septic source, pt will need temporary access established for chemotherapy, currently have 2 peripheral sites - Repeat blood cultures drawn 08/30 - Discussion held with nursing/Dr. Jaramillo regarding pt: First cycle of modified Folfox (5-FU) administered on 07/15/16. Plan to transition from infusion therapy to xeloda as an outpatient, so no need for PICC line insertion. She wants to see pt in clinic within 1 week from discharge. Hyperlipidemia -continue atorvastatin 80 mg daily GERD -continue pantoprazole 40 mg by mouth daily. DVT ppx: teds, scds, therapeutic lovenox CODE STATUS: FULL CODE Disposition: From home, discharge to [facility] in 1-2days (Juhi Rivera, MAILE) PA Physician Supervision Note: I interviewed and examined the patient. Discussed with Juhi Rivera PAC and agree with findings and plan as documented in the note. Any exceptions or clarifications are listed here: None Patient here with sepsis concern for bilateral pneumonia gram negative source, he is a chemotherapy patient for colon cancer, has known coronary disease A. fib and thrombophilia with an IVC filter. looks better today than yesterday, linezolid, Zosyn and levofloxacin. CT scan of chest given cancer history, shows bilateral pneumonia, some debris in left mainstem bronchus maybe mucus, but will ask for pulmonary opinion A. fib is better control with metoprolol /digoxin off diltiazem gtt but did have a run/burst of rapid rate, dr pires adjusting meds . vital signs did have tachycardia but now less Cardiac exam is irregularly irregular Lungs more clear, Abdomen is soft nontender NABS 81-year-old male with sepsis from pneumonia source A. fib RVR, now improved rate control meds adjusted levaquin zosyn and linezolid metoprolol and digoxin with cardiology oversight Noted previously repaired abdominal aortic aneurysm oncology does not want a picc line Documented By: Ambrocio Horton (Ambrocio Horton M.D.)
--- NOTE | 2016-09-01 14:04 | Cardiology Follow-Up ---
Subjective General Date of Service: Sep 01, 2016. Chief Complaint: follow up AF Pt evaluation today including: conversation w/ patient, physical exam History of Present Illness The patient is a 81 year old male seen in follow up. He denies any shortness of breath. He is a little disappointed about the CT chest results which suggest aspiration. Telemetry reveals continued AF. V Rates controlled in the 60's at rest. Allergies Coded Allergies: Vancomycin (Verified Allergy, Severe, SHORTNESS OF BREATH, 08/26/16) Social History Smoking Status: Former Smoker Hx Tobacco Use In Past Year?: No (Quit smoking in 2006) Hx Alcohol Use - Type And Amou: No Hx Substance Use - Type And Am: No Problem List Medical Problems: (1) Bacteremia Status: Acute (2) Bilateral pneumonia Status: Acute (3) Hypoxia Status: Acute (4) Sepsis Status: Acute Physical Exam Vital Signs Last Vital Signs Documentation Date Time Temp Pulse Resp B/P (MAP) Pulse Ox O2 Delivery O2 Flow Rate FiO2 09/01/16 12:10 36.3 75 17 100/66 (77) 92 Nasal Cannula 3.0 Physical Exam Constitutional: Level of Distress: NAD Head: normocephalic Neck: supple Lungs: Auscultation: no wheezing, no rales/crackles Cardiovascular: Heart Auscultation: RRR, no murmurs, no rubs Abdomen: Bowel Sounds: pertinent finding (soft , nontender ) Extremities: no edema, pertinent finding (no edema ) Neurologic: Gait & Station: pertinent finding (no focal deficits ) Assessment and Plan Assessment and Plan Impression: 81 year old male 1. AF RVR 2. Pneumonia, perhaps aspiration , Sepsis syndrome resolved. 3. bilateral femoral DVT 4. colon cancer 5. H/o Cardiomyopathy, LVEF normalized. Plan: Continue metoprolol tartrate 37.5 mg BID, dose increased 08/31/16. Continue anticoagulation for DVT, AF, given colon CA, lovenox is preferred.
--- NOTE | 2016-09-01 14:42 | Pulmonary Consultation ---
History General Date of Service: Sep 01, 2016. Stated Complaint: Bilateral Pneumonia, Hypoxia HPI The patient is a 81 year old male who presents to [facility] with complaints of Bilateral Pneumonia, Hypoxia. The patient's primary care provider is Janeen Graves. Mr White is a 81-year-old male with extensive medical history was admitted on from [facility] with complaint of worsening hypoxia started several days prior to admission. He was recently admitted who weeks prior for severe sepsis secondary to port infection and bacteremia. His port was subsequently removed. Post hospital discharge home on 2L NC, but had increasing oxygen requirements to 4L, subjective fevers. He was noted to by hypotensive, by rehab physician and was transferred to our facility for evaluation. Further work up revealed bilateral pneumonia and he is currently being managed for sepsis. Today, is day Day#4 ofZyvox 600 BID, Zosyn 3.375 mg IV q8h, and levoquin 500 mg IV q24. He was initially treated with solumedrol but that has subsequently been switched to prednisone being tapered. Today he denies any fever, chills, shortness of breath. He has mild productive cough. He denies any chest pain or palpitations. Feels as if he is getting better. Historian: patient Review of Systems Constitutional: reports: no symptoms Eyes: reports: no symptoms ENT: reports: no symptoms Cardiovascular: reports: no symptoms Respiratory: reports: GRAY, denies: cough, orthopnea, shortness of breath, wheezing, sputum production, cyanosis, hemoptysis Gastrointestinal: reports: no symptoms Genitourinary - Male: reports: no symptoms Musculoskeletal: reports: no symptoms Integumentary: reports: no symptoms Neurologic: reports: no symptoms Psychiatric: reports: no symptoms Endocrine: no symptoms Hematologic / Lymphatic: no symptoms Allergic / Immunologic: no symptoms Past Medical History Past Medical History: CAD ,[place] s/p single chamber ICD, Cardiac arrest w/ anoxic brain injury in 2006 Paroxysmal afib HLD AAA s/p endovascular stening in 2014 Peripheral artery disease with bypass graft complicated by MRSA infection in 2016 Colon CA 2016 A-port for chemotherapy s/p removal for infection DVTs s/p IVC RADHA Past Surgical History: See above Family History Patient reports no known family medical history. Social History Hx Tobacco Use In Past Year?: No (Quit smoking in 2006) Smoking Status: Former Smoker Alcohol: no current use Drug Use: none Marital status: Housing status: lives with family Occupational Status: retired History of MDRO History of MDRO: Yes Type of MDRO: MRSA Allergies Coded Allergies: Vancomycin (Verified Allergy, Severe, SHORTNESS OF BREATH, 08/26/16) Current Medications Reported Home Medications Medications Dose Route/Sig Max Daily Dose Days Date Category Dose Instructions Duoneb (Ipratropium-Albuterol) 3 Ml Nebu 1 Treatment INH Q6 08/26/16 Reported Senokot S (Senna/Docusate Sodium) 1 Tab Tab 1 Tab PO NOON 08/26/16 Reported Folgard (Folic Acid-Vit B2-Vit B6-Vit B) 1 Tab Tab 1 Tab PO DAILY 08/25/16 Reported Micro-K Ext Rel (Potassium Chloride) 10 Meq Cap 10 Meq PO DAILY 08/25/16 Reported Protonix (Pantoprazole Sodium) 40 Mg Tab 40 Mg PO DAILY 08/25/16 Reported Kp Ferrous Sulfate (Ferrous Sulfate) 325 Mg Tab 1 Tab PO DAILY 30 08/25/16 Reported Lovenox (Enoxaparin Sodium) 120 Mg/0.8 Ml Inj 120 Mg SQ DAILY 08/25/16 Reported Doxycycline (Doxycycline (Monohydrate)) 100 Mg Cap 100 Mg PO DAILY 08/25/16 Reported Lipitor (Atorvastatin Calcium) 80 Mg Tab 80 Mg PO DAILY 08/25/16 Reported Metoprolol Tartrate 100 Mg Tab 100 Mg PO BID 30 08/17/16 Rx Diltiazem Cd (Diltiazem HCl) 120 Mg Capcr 120 Mg PO QAM 30 08/17/16 Rx Digoxin 0.125 Mg Tab 0.125 Mg PO DAILY@16 30 08/17/16 Rx Pred Forte 1% Oph (Prednisolone Acetate (Ophth)) 1 % Liudmila 1 Drops OPL BID 08/10/16 Reported Erythromycin 1 Appln/1 Gm Oint 1 Appln OPL QPM 08/10/16 Reported Aspirin Ec (Aspirin) 81 Mg Tab 81 Mg PO DAILY 06/07/16 Reported TO START THIS MED WHEN STOPS WARFARIN (4 DAYS PRIOR TO SURGERY) Acidophilus (Probiotic Product) 1 Cap Cap 1 Tab PO BID 06/07/16 Reported Lasix (Furosemide) 20 Mg Tab 20 Mg PO QAM 06/07/16 Reported Multivitamin (Multivitamins) Tab 1 Tab PO QAM 06/07/16 Reported Vitamin C (Ascorbic Acid) 500 Mg Tab 1 Tab PO QAM 06/07/16 Reported Physical Physical Exam Vital Signs: Date Time Temp Pulse Resp B/P (MAP) Pulse Ox O2 Delivery O2 Flow Rate FiO2 09/01/16 12:10 36.3 75 17 100/66 (77) 92 Nasal Cannula 3.0 09/01/16 12:00 95 Nasal Cannula 3.0 09/01/16 11:16 77 83 09/01/16 08:06 36.4 68 20 118/65 (82) 90 Nasal Cannula 3.0 09/01/16 08:00 93 Nasal Cannula 3.0 09/01/16 07:01 66 16 93 Nasal Cannula 3.0 09/01/16 04:00 Nasal Cannula 3.0 09/01/16 03:29 36.5 72 20 128/80 (96) 95 Nasal Cannula 3.0 09/01/16 00:00 Nasal Cannula 3.0 08/31/16 23:40 36.4 85 18 120/82 (95) 95 Nasal Cannula 3.0 08/31/16 20:16 36.7 80 20 118/71 (87) 95 Nasal Cannula 3.0 08/31/16 20:00 Nasal Cannula 3.0 08/31/16 19:14 67 14 93 Nasal Cannula 3.0 08/31/16 17:04 108 08/31/16 16:00 Nasal Cannula 3.0 08/31/16 15:31 36.8 72 20 111/73 (86) 99 Nasal Cannula 3.0 08/31/16 14:30 73 16 93 Nasal Cannula 3.0 General Appearance: NO APPARENT DISTRESS Head: NORMOCEPHALIC, ATRAUMATIC Eyes: PERRLA, NO DISCHARGE, EOMI, SCLERAE NORMAL, CONJUNCTIVAE NORMAL ENT: NORMAL EAR EXAM, NORMAL NASAL EXAM, NORMAL MOUTH EXAM, NORMAL THROAT EXAM Respiratory: CLEAR TO AUSCULTATION, other (Good air entry b/l, no wheezing, sporadic crackles throughout b/l) Diagnostics Diagnostic Radiology CT chest w/o contrast 09/01/2016 1. Multifocal consolidation consistent with pneumonia and/or aspiration on a background of emphysema. 2. Debris in the left mainstem bronchus. 3. Cardiomegaly with small bilateral pleural effusions. CXR 08/26/2016 1. Interval development of bilateral pulmonary airspace opacities. Diagnostic considerations include a multifocal pneumonia versus areas of asymmetric pulmonary edema. Impression Assessment and Plan Sepsis Bilateral multifocal pneumonia most likely from aspiration Hypoxia h/o DVT s/p IVC 81 year old male with initially admitted with sepsis secondary to multifocal pneumonia. He has is currently on broad spectrum antibiotics, oxygen supplementation and nebulizer treatment. Patient seems to be clinically improving from a respiratory standpoint despite most recent findings on imaging which often lag behind patient's clinical response. Patient has some debris that in left bronchus which I suppose is mucus impaction. Patient has no known history of aspiration. Recommendations -continue w/ oxygen supplementation titrate as tolerated -keep SaO2 btw 88-92% -continue with 7 day course of antibiotics as this should suffice. -continue with xopenex and atrovent prn -titrate prednisone -continue with lovenox 90 mg Q12H indefinetly as patient has active malignancy - would be conservative at this time and hold on bronchoscopy -recommend aggressive chest PT, trial of mucomyst inhalation and flutter valve -consider speech and swallow evaluation as he may be silently aspirating -continue other medical management per primary team I appreciate the consult. Please reconsult if you have other questions or concerns. Recommend repeat imaging in 6-8 weeks to assess for interval resolution.
[2016-09-01] MEDS: ACETYLCYSTEINE 20% INHAL SOLN ***DISPENSED BY RESP. INH SCH ×2 (15:15→20:00)
[2016-09-01] MEDS: DIGOXIN 0.125 MG TAB PO SCH (17:07)
[2016-09-01] MEDS: ERYTHROMYCIN OP OINT 1 GM PKT OPL SCH (20:25)
--- NOTE | 2016-09-01 20:58 | Infectious Disease Progress Nt ---
Progress Note Date of Service Sep 01, 2016. Subjective Pt evaluation today including: conversation w/ patient, physical exam, chart review, lab review, review of studies, conversation w/ color consultant, review of inpatient medication list Patient feeling better with less shortness of breath. No fever. Continues to tolerate antibiotic without apparent difficulty. All Other Systems: Reviewed and Negative Medications Current Inpatient Medications Medications (Trade) Dose Ordered Sig/Thu Route Start Time Stop Time Status Last Admin Dose Admin Potassium Chloride/Sodium Chloride 1,000 ml @ 75 mls/hr [id number] IV 08/26/16 16:00 09/25/16 15:59 09/01/16 08:24 75 MLS/HR Acetaminophen (Tylenol Tab) 650 mg Q4H PRN PO 08/26/16 15:00 09/25/16 14:59 Ascorbic Acid (Vitamin C Tab) 500 mg QAM PO 08/27/16 09:00 09/26/16 08:59 09/01/16 08:28 500 MG Aspirin (Ecotrin Tab) 81 mg DAILY PO 08/27/16 09:00 09/26/16 08:59 09/01/16 08:26 81 MG Atorvastatin Calcium (Lipitor Tab) 80 mg DAILY PO 08/27/16 09:00 09/26/16 08:59 09/01/16 08:26 80 MG Digoxin (Lanoxin Tab) 0.125 mg DAILY@16 PO 08/26/16 16:00 09/25/16 15:59 09/01/16 17:07 0.125 MG Erythromycin (Erythromycin Oph Oint) 1 appln QPM [facility] 08/26/16 21:00 09/05/16 20:59 09/01/16 20:25 1 APPLN Pantoprazole Sodium (Protonix Tab) 40 mg DAILY PO 08/27/16 09:00 09/26/16 08:59 09/01/16 08:28 40 MG Prednisolone Acetate (Pred Forte 1% Oph Susp) 1 drops BID OPL 08/26/16 21:00 09/25/16 20:59 09/01/16 20:26 1 DROPS Vitamin B Complex (Vitamin B Complex) 1 tab QAM PO 08/27/16 09:00 09/26/16 08:59 09/01/16 08:28 1 TAB Lactobacillus Acidophilus (Floranex Tab) 4 tab TIDM PO 08/26/16 16:45 86/17 17:59 09/01/16 17:07 4 TAB Linezolid 600 mg/ Prmx 300 ml @ 300 mls/hr Q12H IV 08/27/16 02:00 09/02/16 01:59 09/01/16 14:38 300 MLS/HR Piperacillin Sod/ Tazobactam Sod 3.375 gm/Dextrose 115 ml @ 28.75 mls/ hr Q8H IV 08/26/16 18:00 09/02/16 17:59 09/01/16 17:07 28.75 MLS/HR Levofloxacin 500 mg/Prmx 100 ml @ 100 mls/hr DAILY@1200 IV 08/27/16 12:00 09/02/16 11:59 09/01/16 12:00 100 MLS/HR Ondansetron HCl (Zofran Inj) 4 mg Q6H PRN IV 08/26/16 15:00 09/25/16 14:59 Ipratropium [place] (Atrovent 0.02% 0.5MG/2.5ML Neb) 0.5 mg Q6R INH 08/26/16 21:00 09/25/16 20:59 09/01/16 19:32 0.5 MG Levalbuterol (Xopenex 1.25MG/ 0.5ML Neb) 1.25 mg Q6R INH 08/26/16 21:00 09/25/16 20:59 09/01/16 19:32 1.25 MG Ipratropium [place] (Atrovent 0.02% 0.5MG/2.5ML Neb) 0.5 mg Q2H PRN INH 08/26/16 15:15 09/25/16 15:14 Levalbuterol (Xopenex 1.25MG/ 0.5ML Neb) 1.25 mg Q2H PRN INH 08/26/16 15:15 09/25/16 15:14 Piperacillin Sod/ Tazobactam Sod (Consult) 1 ea UD PRN N/A 08/26/16 15:45 09/25/16 15:44 Enoxaparin Sodium (Lovenox Inj) 90 mg Q12H SQ 08/26/16 20:00 09/25/16 19:59 09/01/16 20:26 90 MG Heparin Sodium (Porcine) (Heparin 10 Unit/ ml 5 ml Flush) 5 ml PRN PRN FLUSH 08/27/16 04:00 09/26/16 03:59 Bisacodyl (Dulcolax Supp) 10 mg DAILY PRN VT 08/28/16 15:45 09/27/16 15:44 Polyethylene (Miralax Powder Packet) 17 gm DAILY PRN PO 08/29/16 13:45 09/28/16 13:44 Metoprolol Tartrate (Lopressor Tab) 37.5 mg BID PO 08/31/16 21:00 09/29/16 20:59 09/01/16 20:26 37.5 MG Prednisone (PredniSONE TAB) 40 mg DAILY PO 09/02/16 09:00 09/03/16 09:01 Prednisone (PredniSONE TAB) 20 mg DAILY PO 09/04/16 09:00 09/05/16 09:01 Acetylcysteine (Mucomyst 20% Inh Soln) 5 ml BIDR INH 09/01/16 15:15 10/01/16 15:14 Objective Vital Signs Date Time Temp Pulse Resp B/P (MAP) Pulse Ox O2 Delivery O2 Flow Rate FiO2 09/01/16 20:10 36.3 74 18 124/80 (95) 90 Nasal Cannula 3.0 09/01/16 19:00 72 18 94 Nasal Cannula 3.0 09/01/16 17:07 78 09/01/16 16:07 36.5 77 18 117/73 (88) 96 Nasal Cannula 3.0 09/01/16 16:00 96 Nasal Cannula 3.0 09/01/16 14:12 67 16 94 Nasal Cannula 3.0 09/01/16 12:10 36.3 75 17 100/66 (77) 92 Nasal Cannula 3.0 09/01/16 12:00 95 Nasal Cannula 3.0 09/01/16 11:16 77 83 09/01/16 08:06 36.4 68 20 118/65 (82) 90 Nasal Cannula 3.0 09/01/16 08:00 93 Nasal Cannula 3.0 09/01/16 07:01 66 16 93 Nasal Cannula 3.0 09/01/16 04:00 Nasal Cannula 3.0 09/01/16 03:29 36.5 72 20 128/80 (96) 95 Nasal Cannula 3.0 09/01/16 00:00 Nasal Cannula 3.0 08/31/16 23:40 36.4 85 18 120/82 (95) 95 Nasal Cannula 3.0 Physical Exam General Appearance: WD/WN, no apparent distress Eyes: normal inspection, sclerae normal ENT: normal ENT inspection, pharynx normal Neck: supple, no adenopathy, trachea midline Respiratory/Chest: chest non-tender, no respiratory distress, no accessory muscle use, + rhonchi Cardiovascular: no gallop, no murmur, + irregularly irregular Abdomen: normal bowel sounds, non tender, soft, no organomegaly Extremities: non-tender, no calf tenderness Neurologic/Psychiatric: alert, oriented x 3 Skin: normal color, no rash Lymphatic: no adenopathy Laboratory Results Patient Name: SWATI PERERA Unit Number: [id number] Dictated: 09/01/16903 Transcribed: 09/01/16903 PBS Printed Date/Time: [~ rep prt dt]/[~ rep prt tm] [~ rep ct labl] - [~ rep ct ivnm] [facility] [place] [address] Dictated: 09/01/16903 Transcribed: 09/01/16903 PBS Printed Date/Time: [~ rep prt dt]/[~ rep prt tm] [~ rep ct labl] - [~ rep ct ivnm] [~ rep ct add3]] (CHEST) THORAX WITHOUT CLINICAL HISTORY: 81 years-old Male presenting with assess for nodule/opacities, clearance of pna, hypoxia. TECHNIQUE: Multidetector CT angiography was performed without the use of intravenous contrast. 3-D volumetric and maximum intensity projection (MIP) images were subsequently reconstructed for review. IV contrast: None. COMPARISON: Chest x-ray from 08/31/2016. CT DOSE: The estimated cumulative dose is 449.31 mGy.cm. FINDINGS: Welding Machine Operator Gas topogram: Left-sided implanted cardiac defibrillator with single lead to the left ventricular apex. Multiple overlying leads. On soft tissue windows, normal thyroid and thoracic inlet. No axillary or supraclavicular lymphadenopathy. Few small subcentimeter mediastinal lymph nodes, nonspecific and likely reactive. Evaluation for hilar lymphadenopathy limited without intravenous contrast. Atherosclerosis of the aortic arch. Mild biatrial enlargement of the heart. Left-sided implanted cardiac defibrillator with single lead to the right ventricular apex. Aortic valve and coronary artery calcification. No pericardial effusion. Small bilateral pleural effusions. Upper abdomen unremarkable for cholelithiasis. On lung windows, multifocal reticulonodular consolidation primarily affecting the bilateral lower lobes and to a lesser degree the dependent portions of the remaining lobes. Mild background emphysematous changes. Due to the presence of extensive consolidation, evaluation for underlying pulmonary nodules is limited. Debris noted in the left mainstem bronchus (series 2 image 20). On bone windows, degenerative changes of the thoracic spine. Old rib fracture posteriorly in the left 11th rib. Calcification along the course of the left infraspinatus may be degenerative in etiology. IMPRESSION: 1. Multifocal consolidation consistent with pneumonia and/or aspiration on a background of emphysema. Evaluation for underlying pulmonary nodules is limited in this setting. Follow-up imaging could be obtained if there is continuing clinical concern. 2. Debris in the left mainstem bronchus. 3. Cardiomegaly with small bilateral pleural effusions. Electronically signed by: Jese Rosario M.D. 09/01/2016 9:14 AM Dictated Date/Time: 09/01/2016 9:04 AM The status of this report is Signed. Draft = Not yet reviewed or approved by Radiologist. Signed = Reviewed and approved by Radiologist. <AttendingPhy>Marck Orr M.D.</AttendingPhy> <FamilyPhy>Janeen Graves</FamilyPhy> <PrimaryPhy>Janeen Graves</PrimaryPhy> <UnitNumber> [id number]</UnitNumber> <VisitNumber>[id number]</VisitNumber> <PatientName> SWATI PERERA</PatientName> <DateOfBirth>1935</DateOfBirth> <Location> C.2T</Location> <ServiceDate>08/26/16</ServiceDate> <MNE>ESINDI</MNE> < OrderingPhy>Juhi Rivera PA-C</OrderingPhy> <OrderingPhyMNE>f rep ord dr de la fuente</OrderingPhyMNE> <DictatingPhyMNE>f rep dict dr de la fuente</DictatingPhyMNE > <CCListMNE>f rep ct leisa</CCListMNE> <AdmittingPhyMNE>f pt admit dr de la fuente</ AdmittingPhyMNE> <AttendingPhyMNE>f pt attend dr de la fuente</AttendingPhyMNE> <ConsultingPhyMNE>f pt consult dr de la fuente</ConsultingPhyMNE> <FamilyPhyMNE>f pt fam dr de la fuente</FamilyPhyMNE> <OtherPhyMNE>f pt other dr de la fuente</OtherPhyMNE> < PrimaryPhyMNE>f pt prim care dr de la fuente</PrimaryPhyMNE> <ReferringPhyMNE>f pt referring dr de la fuente</ReferringPhyMNE> Assessment and Plan 81 yo male with colon cancer, s/p chemotherapy with recent MRSA sepsis from infected port, now with pneumonia, likely HCAP vs aspiration with rapid afib. Patient appears to be somewhat clinically improved, so would continue present antibiotics for 7 day course. Would obtain follow-up chest x-ray. Will continue to follow.
[2016-09-02] VITALS (12 sets, daily range): BP systolic 98–127; BP diastolic 59–73; PULSE 62–91; TEMP 36.4–36.9; O2SAT 81–95
[2016-09-02] MEDS: LEVALBUTEROL 1.25MG/0.5ML NEB INH SCH ×4 (01:45→19:00)
[2016-09-02] MEDS: IPRATROPIUM BROMIDE NEB SOLN 0.02% 2.5 ML VIAL INH SCH ×4 (01:45→19:00)
[2016-09-02] MEDS: PIPERACILL/TAZOBAC IV 3.375 GM in DEXTROSE 5% 100ML 100 ML IV SCH ×2 (02:00→08:22)
[2016-09-02 06:59] LABS: INR 1.2 (0.9-1.1); PROTHROMBIN TIME (PATIENT) 12.7 SECONDS (9.0-12.0)
[2016-09-02] MEDS: ACETYLCYSTEINE 20% INHAL SOLN ***DISPENSED BY RESP. INH SCH ×2 (07:14→19:00)
[2016-09-02] MEDS: ENOXAPARIN 100 MG/1ML SYR SQ SCH ×2 (08:11→21:13)
[2016-09-02] MEDS: ASPIRIN 81 MG ECTAB PO SCH (08:12)
[2016-09-02] MEDS: ATORVASTATIN 40 MG TAB PO SCH (08:12)
[2016-09-02] MEDS: LACTOBACILLUS ACIDOPHILUS (FLORANEX) TAB PO SCH ×3 (08:13→17:27)
[2016-09-02] MEDS: PrednisoLONE ACET 1% OP SUSP 5 ML BTL OPL SCH ×2 (08:13→20:49)
[2016-09-02] MEDS: METOPROLOL TARTRATE 25 MG TAB PO SCH ×2 (08:13→20:51)
[2016-09-02] MEDS: ASCORBIC ACID 500 MG TAB PO SCH (08:13)
[2016-09-02] MEDS: VITAMIN B COMPLEX TAB PO SCH (08:14)
[2016-09-02] MEDS: PANTOprazole SOD 40 MG TAB PO SCH (08:15)
[2016-09-02] MEDS: NSS + 20MEQ KCL 1000ML 1,000 ML IV SCH (08:22)
--- NOTE | 2016-09-02 11:57 | Cardiology Progress Note ---
Cardiology Progress Note Date of Service Sep 02, 2016. Cardiology Progress Note Patient is resting comfortably. Telemetry reveals stable atrial fibrillation in the 70 to 78 bpm minute range. He had a brief episode of atrial fibrillation with mildly elevated ventricular rate first thing this morning, but is well-controlled at rest. At this point, I think is stable for transfer off of telemetry would continue his current dose of metoprolol tartrate 37.5 mg twice a day. History of from my standpoint for transfer to rehabilitation when deemed stable from a overall medical standpoint. Regarding anticoagulation, he has been anticoagulated with Lovenox given his persistent atrial fibrillation, bilateral femoral vein DVT, presumed pulmonary embolism, with underlying colon cancer. Although Lovenox is a drug choice for treatment of venous thromboembolic disease in the setting of malignancy, the patient will need long-term anticoagulation because of the atrial fibrillation, and given cost, and ease of administration, it may be better to transition him to Coumadin which he has tolerated well from an atrial fibrillation standpoint the past. Her plans for him to establish with Dr. Atkins of our practice with outpatient visit scheduled for 09/18/16. Since I have followed him in the hospital, I'll arrange follow-up with the undersigned instead and the patient was in favor of this. Dr. Cunha will be assuming rounding responsibilities for our service on . Please call with questions or concerns. Case discussed with Dr. Horton.
--- NOTE | 2016-09-02 13:32 | Progress Note ---
Subjective Date of Service: Sep 02, 2016. Problem List Medical Problems: (1) Bacteremia Status: Acute (2) Bilateral pneumonia Status: Acute (3) Hypoxia Status: Acute (4) Sepsis Status: Acute Objective Vital Signs Date Time Temp Pulse Resp B/P (MAP) Pulse Ox O2 Delivery O2 Flow Rate FiO2 09/02/16 12:59 Nasal Cannula 4.0 09/02/16 11:44 36.7 75 14 98/69 (79) 92 Nasal Cannula 4.0 09/02/16 08:00 Nasal Cannula 4.0 09/02/16 07:48 36.6 90 20 108/69 (82) 95 Nasal Cannula 4.0 09/02/16 07:14 91 18 85 Nasal Cannula 3.5 09/02/16 04:02 36.4 66 18 118/62 (80) 92 Nasal Cannula 2.0 09/02/16 04:00 Nasal Cannula 3.0 09/02/16 00:01 Nasal Cannula 3.0 09/02/16 00:00 36.4 62 18 127/67 (87) 93 Nasal Cannula 3.0 09/01/16 20:10 36.3 74 18 124/80 (95) 90 Nasal Cannula 3.0 09/01/16 20:00 Nasal Cannula 3.0 09/01/16 19:00 72 18 94 Nasal Cannula 3.0 09/01/16 17:07 78 09/01/16 16:07 36.5 77 18 117/73 (88) 96 Nasal Cannula 3.0 09/01/16 16:00 96 Nasal Cannula 3.0 09/01/16 14:12 67 16 94 Nasal Cannula 3.0 Laboratory Results Last 24 Hours Test 09/02/16 06:14 Prothrombin Time 12.7 SECONDS Prothromb Time International Ratio 1.2 Assessment and Plan 81 M with sepsis concern for bilateral pneumonia gram negative source, he is a chemotherapy patient for colon cancer, has known coronary disease, had challenges with A. fib rvr and has hx of thrombophilia with an IVC filter. A. fib is better control with metoprolol /digoxin off diltiazem gtt Dr Warner will folllow up as out pt, will convert enoxaparin to coumdan but this should not restrict movement to rehab . bilateral pneumonia, CT chest did not show any other confirmed issues, concern for gram negative pneumonia levaquin zosyn and linezolid, may consider de escalation to linezolid and levaquin( watching INR with quinalones) COPD tapering steroids, continue nebulizers Colon cancer, oncology was contacted and does not want a picc line, may transition to oral chemotherapy but will need to recover from pneumonia first. If repeat A port is needed pt requests not to see Dr Xie again but have a referral to another doctor - Triple lumen central cath removed 08/27 for culture - NGTD - Blood culture came back positive 02/21 with gram - staph not lugdenesis, the other is NGTD. Likely contaminate. Repeat cultures in process Dr. Jang, from [facility] to follow up and had discuss with him about starting xeloda antineoplastic therapy vs. infusions of 5-FU. She wants to see him in clinic in 1 week after discharge. . - AAA noted on CT scan and is measuring 5.1 at largest. - Subsequent placement of a single chamber AICD, 2006, Generator change to [place] AICD 2016, Neo Continued [facility] stay due to: multiple IV medications needed, other (hypotension and tachycardia) Discharge planning: home with home health, [facility] facility
--- NOTE | 2016-09-02 15:25 | Infectious Disease Progress Nt ---
Progress Note Date of Service Sep 02, 2016. Subjective Pt evaluation today including: conversation w/ patient, physical exam, chart review, lab review, review of studies, conversation w/ building consultant, review of inpatient medication list No new complaints. remains afebrile. All Other Systems: Reviewed and Negative Medications Current Inpatient Medications Medications (Trade) Dose Ordered Sig/Thu Route Start Time Stop Time Status Last Admin Dose Admin Acetaminophen (Tylenol Tab) 650 mg Q4H PRN PO 08/26/16 15:00 09/25/16 14:59 Ascorbic Acid (Vitamin C Tab) 500 mg QAM PO 08/27/16 09:00 09/26/16 08:59 09/02/16 08:13 500 MG Aspirin (Ecotrin Tab) 81 mg DAILY PO 08/27/16 09:00 09/26/16 08:59 09/02/16 08:12 81 MG Atorvastatin Calcium (Lipitor Tab) 80 mg DAILY PO 08/27/16 09:00 09/26/16 08:59 09/02/16 08:12 80 MG Digoxin (Lanoxin Tab) 0.125 mg DAILY@16 PO 08/26/16 16:00 09/25/16 15:59 09/01/16 17:07 0.125 MG Erythromycin (Erythromycin Oph Oint) 1 appln QPM OPL 08/26/16 21:00 09/05/16 20:59 09/01/16 20:25 1 APPLN Pantoprazole Sodium (Protonix Tab) 40 mg DAILY PO 08/27/16 09:00 09/26/16 08:59 09/02/16 08:15 40 MG Prednisolone Acetate (Pred Forte 1% Oph Susp) 1 drops BID OPL 08/26/16 21:00 09/25/16 20:59 09/02/16 08:13 1 DROPS Vitamin B Complex (Vitamin B Complex) 1 tab QAM PO 08/27/16 09:00 09/26/16 08:59 09/02/16 08:14 1 TAB Lactobacillus Acidophilus (Floranex Tab) 4 tab TIDM PO 08/26/16 16:45 09/25/16 17:59 09/02/16 12:46 4 TAB Piperacillin Sod/ Tazobactam Sod 3.375 gm/Dextrose 115 ml @ 28.75 mls/ hr Q8H IV 08/26/16 18:00 09/02/16 17:59 09/02/16 08:22 28.75 MLS/HR Ondansetron HCl (Zofran Inj) 4 mg Q6H PRN IV 08/26/16 15:00 09/25/16 14:59 Ipratropium [place] (Atrovent 0.02% 0.5MG/2.5ML Neb) 0.5 mg Q6R INH 08/26/16 21:00 09/25/16 20:59 09/02/16 14:23 0.5 MG Levalbuterol (Xopenex 1.25MG/ 0.5ML Neb) 1.25 mg Q6R INH 08/26/16 21:00 09/25/16 20:59 09/02/16 14:23 1.25 MG Ipratropium [place] (Atrovent 0.02% 0.5MG/2.5ML Neb) 0.5 mg Q2H PRN INH 08/26/16 15:15 09/25/16 15:14 Levalbuterol (Xopenex 1.25MG/ 0.5ML Neb) 1.25 mg Q2H PRN INH 08/26/16 15:15 09/25/16 15:14 Piperacillin Sod/ Tazobactam Sod (Consult) 1 ea UD PRN N/A 08/26/16 15:45 09/25/16 15:44 Enoxaparin Sodium (Lovenox Inj) 90 mg Q12H SQ 08/26/16 20:00 09/25/16 19:59 09/02/16 08:11 90 MG Heparin Sodium (Porcine) (Heparin 10 Unit/ ml 5 ml Flush) 5 ml PRN PRN FLUSH 08/27/16 04:00 09/26/16 03:59 Bisacodyl (Dulcolax Supp) 10 mg DAILY PRN SC 08/28/16 15:45 09/27/16 15:44 Polyethylene (Miralax Powder Packet) 17 gm DAILY PRN PO 08/29/16 13:45 09/28/16 13:44 Metoprolol Tartrate (Lopressor Tab) 37.5 mg BID PO 08/31/16 21:00 09/29/16 20:59 09/02/16 08:13 37.5 MG Prednisone (PredniSONE TAB) 40 mg DAILY PO 09/02/16 09:00 09/03/16 09:01 09/02/16 08:12 40 MG Prednisone (PredniSONE TAB) 20 mg DAILY PO 09/04/16 08:00 09/05/16 08:01 Acetylcysteine (Mucomyst 20% Inh Soln) 5 ml BIDR INH 09/01/16 15:15 10/01/16 15:14 09/02/16 07:14 5 ML Warfarin Sodium (Coumadin Tab) 5 mg DAILY@16 PO 09/02/16 16:00 10/02/16 15:59 Objective Vital Signs Date Time Temp Pulse Resp B/P (MAP) Pulse Ox O2 Delivery O2 Flow Rate FiO2 09/02/16 14:43 36.7 77 18 93 4.0 09/02/16 14:23 77 18 93 Nasal Cannula 4.0 09/02/16 12:59 Nasal Cannula 4.0 09/02/16 11:44 36.7 75 14 98/69 (79) 92 Nasal Cannula 4.0 09/02/16 08:00 Nasal Cannula 4.0 09/02/16 07:48 36.6 90 20 108/69 (82) 95 Nasal Cannula 4.0 09/02/16 07:14 91 18 85 Nasal Cannula 3.5 09/02/16 04:02 36.4 66 18 118/62 (80) 92 Nasal Cannula 2.0 09/02/16 04:00 Nasal Cannula 3.0 09/02/16 00:01 Nasal Cannula 3.0 09/02/16 00:00 36.4 62 18 127/67 (87) 93 Nasal Cannula 3.0 09/01/16 20:10 36.3 74 18 124/80 (95) 90 Nasal Cannula 3.0 09/01/16 20:00 Nasal Cannula 3.0 09/01/16 19:00 72 18 94 Nasal Cannula 3.0 09/01/16 17:07 78 09/01/16 16:07 36.5 77 18 117/73 (88) 96 Nasal Cannula 3.0 09/01/16 16:00 96 Nasal Cannula 3.0 Physical Exam General Appearance: WD/WN, no apparent distress Eyes: normal inspection, sclerae normal ENT: normal ENT inspection, pharynx normal Neck: supple, trachea midline Respiratory/Chest: lungs clear, normal breath sounds, no respiratory distress Cardiovascular: regular rate, rhythm, no gallop, no murmur Abdomen: normal bowel sounds, non tender, soft, no organomegaly Extremities: normal range of motion, no calf tenderness Neurologic/Psychiatric: alert, oriented x 3 Skin: normal color, warm/dry, no rash Lymphatic: no adenopathy Laboratory Results Last 24 Hours Test 09/02/16 06:14 Prothrombin Time 12.7 SECONDS Prothromb Time International Ratio 1.2 Assessment and Plan 81 yo male with colon cancer, s/p chemotherapy with recent MRSA sepsis from infected port, now with pneumonia, likely HCAP vs aspiration with rapid afib. Patient appears to be sclinically improved, so would continue present antibiotics for 7 day course. Would obtain follow-up chest x-ray. Will continue to follow.
[2016-09-02] MEDS: DIGOXIN 0.125 MG TAB PO SCH (16:27)
[2016-09-02] MEDS: WARFARIN SOD 5 MG TAB PO SCH (16:59)
--- NOTE | 2016-09-02 17:09 | Pulmonology Progress Note ---
Pulmonary Progress Note Date of Service Sep 02, 2016. Attending Dr. Armstrong Subjective Patient seen and examined at bedside. States that he is feeling better today. He denies any shortness of breath. He states that he is coughing up sputum, and walked around the Objective Vital signs today Temperature 36.7, blood pressure 109/73, respiratory rate 16, pulse ox 94% on 4 L nasal cannula. I/O cumulative 14 L positive Gen.: Awake alert oriented 3, no acute respiratory distress. CVS: S1, S2 Lungs: Bibasilar crackles but otherwise good air entry, no wheezes Abdomen: Soft, nontender nondistended, bowel sounds positive Extremities: Left upper extremity ecchymosis, chronic venous changes bilaterally , no edema, no cyanosis Labs and imaging reviewed. Assessment & Plan Sepsis Bilateral multifocal pneumonia most likely from aspiration Hypoxia h/o DVT s/p IVC 81 year old male with initially admitted with sepsis secondary to multifocal pneumonia. He has is currently on broad spectrum antibiotics, oxygen supplementation and nebulizer treatment. Patient seems to be clinically improving from a respiratory standpoint despite most recent findings on imaging which often lag behind patient's clinical response. Patient has some debris that in left bronchus which I suppose is mucus impaction. Patient has no known history of aspiration. Recommendations -continue w/ oxygen supplementation titrate as tolerated -keep SaO2 btw 88-92% -continue with 7 day course of antibiotics as this should suffice. -continue with xopenex and atrovent prn -titrate prednisone -continue with lovenox 90 mg Q12H indefinetly as patient has active malignancy - would be conservative at this time and hold on bronchoscopy -recommend aggressive chest PT, trial of mucomyst inhalation and flutter valve -consider speech and swallow evaluation as he may be silently aspirating -continue other medical management per primary team I appreciate the consult. Recommend repeat imaging in 6-8 weeks to assess for interval resolution. Pulmonary will sign off at this time. Please contact if you have any further questions or concerns. Data Medications: Current Inpatient Medications Medications (Trade) Dose Ordered Sig/Thu Route Start Time Stop Time Status Last Admin Dose Admin Acetaminophen (Tylenol Tab) 650 mg Q4H PRN PO 08/26/16 15:00 09/25/16 14:59 Ascorbic Acid (Vitamin C Tab) 500 mg QAM PO 08/27/16 09:00 09/26/16 08:59 09/02/16 08:13 500 MG Aspirin (Ecotrin Tab) 81 mg DAILY PO 08/27/16 09:00 09/26/16 08:59 09/02/16 08:12 81 MG Atorvastatin Calcium (Lipitor Tab) 80 mg DAILY PO 08/27/16 09:00 09/26/16 08:59 09/02/16 08:12 80 MG Digoxin (Lanoxin Tab) 0.125 mg DAILY@16 PO 08/26/16 16:00 09/25/16 15:59 09/02/16 16:27 0.125 MG Erythromycin (Erythromycin Oph Oint) 1 appln QPM OPL 08/26/16 21:00 09/05/16 20:59 09/01/16 20:25 1 APPLN Pantoprazole Sodium (Protonix Tab) 40 mg DAILY PO 08/27/16 09:00 09/26/16 08:59 09/02/16 08:15 40 MG Prednisolone Acetate (Pred Forte 1% Oph Susp) 1 drops BID OPL 08/26/16 21:00 09/25/16 20:59 09/02/16 08:13 1 DROPS Vitamin B Complex (Vitamin B Complex) 1 tab QAM PO 08/27/16 09:00 09/26/16 08:59 09/02/16 08:14 1 TAB Lactobacillus Acidophilus (Floranex Tab) 4 tab TIDM PO 08/26/16 16:45 09/25/16 17:59 09/02/16 12:46 4 TAB Piperacillin Sod/ Tazobactam Sod 3.375 gm/Dextrose 115 ml @ 28.75 mls/ hr Q8H IV 08/26/16 18:00 09/02/16 17:59 09/02/16 08:22 28.75 MLS/HR Ondansetron HCl (Zofran Inj) 4 mg Q6H PRN IV 08/26/16 15:00 09/25/16 14:59 Ipratropium [place] (Atrovent 0.02% 0.5MG/2.5ML Neb) 0.5 mg Q6R INH 08/26/16 21:00 09/25/16 20:59 09/02/16 14:23 0.5 MG Levalbuterol (Xopenex 1.25MG/ 0.5ML Neb) 1.25 mg Q6R INH 08/26/16 21:00 09/25/16 20:59 09/02/16 14:23 1.25 MG Ipratropium [place] (Atrovent 0.02% 0.5MG/2.5ML Neb) 0.5 mg Q2H PRN INH 08/26/16 15:15 09/25/16 15:14 Levalbuterol (Xopenex 1.25MG/ 0.5ML Neb) 1.25 mg Q2H PRN INH 08/26/16 15:15 09/25/16 15:14 Piperacillin Sod/ Tazobactam Sod (Consult) 1 ea UD PRN N/A 08/26/16 15:45 09/25/16 15:44 Enoxaparin Sodium (Lovenox Inj) 90 mg Q12H SQ 08/26/16 20:00 09/25/16 19:59 09/02/16 08:11 90 MG Heparin Sodium (Porcine) (Heparin 10 Unit/ ml 5 ml Flush) 5 ml PRN PRN FLUSH 08/27/16 04:00 09/26/16 03:59 Bisacodyl (Dulcolax Supp) 10 mg DAILY PRN IN 08/28/16 15:45 09/27/16 15:44 Polyethylene (Miralax Powder Packet) 17 gm DAILY PRN PO 08/29/16 13:45 09/28/16 13:44 Metoprolol Tartrate (Lopressor Tab) 37.5 mg BID PO 08/31/16 21:00 09/29/16 20:59 09/02/16 08:13 37.5 MG Prednisone (PredniSONE TAB) 40 mg DAILY PO 09/02/16 09:00 09/03/16 09:01 09/02/16 08:12 40 MG Prednisone (PredniSONE TAB) 20 mg DAILY PO 09/04/16 08:00 09/05/16 08:01 Acetylcysteine (Mucomyst 20% Inh Soln) 5 ml BIDR INH 09/01/16 15:15 10/01/16 15:14 09/02/16 07:14 5 ML Warfarin Sodium (Coumadin Tab) 5 mg DAILY@16 PO 09/02/16 16:00 10/02/16 15:59 I & O: 24-Hour Column 09/03/16 07:59 Intake Total 1347 ml Output Total 850 ml Balance 497 ml Vital Signs: Date Time Temp Pulse Resp B/P (MAP) Pulse Ox O2 Delivery O2 Flow Rate FiO2 09/02/16 16:45 36.4 83 16 109/73 (85) 94 Nasal Cannula 4.0 09/02/16 16:27 72 09/02/16 14:43 36.7 77 18 93 4.0 09/02/16 14:23 77 18 93 Nasal Cannula 4.0 09/02/16 13:16 81 09/02/16 12:59 Nasal Cannula 4.0 09/02/16 11:44 36.7 75 14 98/69 (79) 92 Nasal Cannula 4.0 09/02/16 08:00 Nasal Cannula 4.0 09/02/16 07:48 36.6 90 20 108/69 (82) 95 Nasal Cannula 4.0 09/02/16 07:14 91 18 85 Nasal Cannula 3.5 09/02/16 04:02 36.4 66 18 118/62 (80) 92 Nasal Cannula 2.0 09/02/16 04:00 Nasal Cannula 3.0 09/02/16 00:01 Nasal Cannula 3.0 09/02/16 00:00 36.4 62 18 127/67 (87) 93 Nasal Cannula 3.0 09/01/16 20:10 36.3 74 18 124/80 (95) 90 Nasal Cannula 3.0 09/01/16 20:00 Nasal Cannula 3.0 09/01/16 19:00 72 18 94 Nasal Cannula 3.0 09/01/16 17:07 78 Laboratory Results: Last 24 Hours Test 09/02/16 06:14 Prothrombin Time 12.7 SECONDS Prothromb Time International Ratio 1.2
[2016-09-02] MEDS: ERYTHROMYCIN OP OINT 1 GM PKT OPL SCH (21:13)
[2016-09-03] VITALS (9 sets, daily range): BP systolic 91–113; BP diastolic 52–74; PULSE 66–116; TEMP 36.3–36.8; O2SAT 90–96
[2016-09-03 07:05] LABS: MEAN CELL VOLUME 96.6 fL (80-100); MEAN CORPUSCULAR HEMOGLOBIN 32.1 pg (25-34); MEAN CORPUSCULAR HGB CONC 33.3 g/dl (32-36); MEAN PLATELET VOLUME 8.4 fL (7.4-10.4); PLATELET COUNT 346 K/uL (130-400); RED BLOOD COUNT 4.14 M/uL (4.7-6.1); WHITE BLOOD COUNT 8.55 K/uL (4.8-10.8)
[2016-09-03 07:29] LABS: INR 1.2 (0.9-1.1); PROTHROMBIN TIME (PATIENT) 12.7 SECONDS (9.0-12.0)
[2016-09-03 07:45] LABS: BUN/CREATININE RATIO 18.2 (10-20); CREATININE 0.9 mg/dl (0.60-1.40); POTASSIUM 4.1 mmol/L (3.5-5.1)
[2016-09-03] MEDS: LEVALBUTEROL 1.25MG/0.5ML NEB INH SCH ×3 (07:46→19:13)
[2016-09-03] MEDS: IPRATROPIUM BROMIDE NEB SOLN 0.02% 2.5 ML VIAL INH SCH ×3 (07:47→19:13)
[2016-09-03] MEDS: ACETYLCYSTEINE 20% INHAL SOLN ***DISPENSED BY RESP. INH SCH ×2 (07:47→19:13)
[2016-09-03] MEDS: PrednisoLONE ACET 1% OP SUSP 5 ML BTL OPL SCH ×2 (08:54→20:11)
[2016-09-03] MEDS: METOPROLOL TARTRATE 25 MG TAB PO SCH ×2 (08:54→20:11)
[2016-09-03] MEDS: ASCORBIC ACID 500 MG TAB PO SCH (08:54)
[2016-09-03] MEDS: LACTOBACILLUS ACIDOPHILUS (FLORANEX) TAB PO SCH ×3 (08:55→16:56)
[2016-09-03] MEDS: ATORVASTATIN 40 MG TAB PO SCH (08:55)
[2016-09-03] MEDS: ENOXAPARIN 100 MG/1ML SYR SQ SCH ×2 (08:55→20:13)
[2016-09-03] MEDS: ASPIRIN 81 MG ECTAB PO SCH (08:55)
[2016-09-03] MEDS: VITAMIN B COMPLEX TAB PO SCH (08:56)
[2016-09-03] MEDS: PANTOprazole SOD 40 MG TAB PO SCH (08:56)
--- NOTE | 2016-09-03 12:46 | Progress Note ---
Subjective Date of Service: Sep 03, 2016. Subjective pt continues to look better each day, for swallowing evaluation, eventual rehab placement Problem List Medical Problems: (1) Bacteremia Status: Acute (2) Bilateral pneumonia Status: Acute (3) Hypoxia Status: Acute (4) Sepsis Status: Acute Review of Systems Constitutional: + weakness, + fatigue, No fever, No chills Respiratory: + cough, + shortness of breath, + dyspnea on exertion, No sputum, No wheezing Cardiac: No chest pain, No edema Abdomen: No pain, No nausea, No vomiting, No diarrhea Male : No dysuria, No urinary frequency, No incontinence Neurologic: No memory loss, No paralysis Objective Vital Signs Date Time Temp Pulse Resp B/P (MAP) Pulse Ox O2 Delivery O2 Flow Rate FiO2 09/03/16 11:24 36.7 85 20 91/60 (70) 91 4.0 09/03/16 08:30 Nasal Cannula 4.0 09/03/16 07:47 79 16 93 Nasal Cannula 4.0 09/03/16 07:37 36.8 74 18 113/74 (87) 91 4.0 09/03/16 00:00 Nasal Cannula 4.0 09/02/16 23:09 36.9 72 16 106/59 (75) 92 Room Air 09/02/16 19:00 78 16 92 Nasal Cannula 4.0 09/02/16 16:45 36.4 83 16 109/73 (85) 94 Nasal Cannula 4.0 09/02/16 16:27 72 09/02/16 16:00 93 Nasal Cannula 4.0 09/02/16 14:43 36.7 77 18 93 4.0 09/02/16 14:23 77 18 93 Nasal Cannula 4.0 09/02/16 13:16 81 09/02/16 12:59 Nasal Cannula 4.0 Physical Exam General Appearance: WD/WN, + mild distress Eyes: PERRL, EOMI Neck: supple, thyroid normal Respiratory/Chest: + decreased breath sounds, + accessory muscle use, + rhonchi Cardiovascular: regular rate, rhythm, no murmur Abdomen: normal bowel sounds, non tender, soft Extremities: no pedal edema, no calf tenderness Laboratory Results Last 24 Hours Test 09/03/16 06:42 09/03/16 09:05 White Blood Count 8.55 K/uL Red Blood Count 4.14 M/uL Hemoglobin 13.3 g/dL Hematocrit 40.0 % Mean Corpuscular Volume 96.6 fL Mean Corpuscular Hemoglobin 32.1 pg Mean Corpuscular Hemoglobin Concent 33.3 g/dl RDW Standard Deviation 53.5 fL RDW Coefficient of Variation 15.6 % Platelet Count 346 K/uL Mean Platelet Volume 8.4 fL Prothrombin Time 12.7 SECONDS Prothromb Time International Ratio 1.2 Sodium Level 137 mmol/L Potassium Level 4.1 mmol/L Chloride Level 104 mmol/L Carbon Dioxide Level 24 mmol/L Anion Gap 9.0 mmol/L Blood Urea Nitrogen 16 mg/dl Creatinine 0.90 mg/dl Est Creatinine Clear Calc Drug Dose 74.0 ml/min Estimated GFR () 91.9 Estimated GFR (Non- 79.3 BUN/Creatinine Ratio 18.2 Random Glucose 60 mg/dl Calcium Level 8.0 mg/dl Bedside Glucose 90 mg/dl Assessment and Plan 81 M with sepsis concern for bilateral pneumonia gram negative source, he is a chemotherapy patient for colon cancer, has known coronary disease, had challenges with A. fib rvr and has hx of thrombophilia with an IVC filter. A. fib is better control with metoprolol /digoxin off diltiazem gtt Dr Warner will folllow up as out pt, Thrombophjlia, convert enoxaparin to coumdan but this should not restrict movement to rehab . bilateral pneumonia, CT chest did not show any other confirmed issues, concern for gram negative pneumonia levaquin zosyn and linezolid, may de escalation to linezolid and levaquin( watching INR with quinalones) COPD stable while tapering steroids, continue nebulizers Colon cancer, oncology was contacted and does not want a picc line, may transition to oral chemotherapy but will need to recover from pneumonia first. If repeat A port is needed pt requests not to see Dr Xie again but have a referral to another doctor - Triple lumen central cath removed 08/27 for culture - NGTD - Blood culture came back positive 1 with gram - staph not lugdenesis, the other is NGTD. Likely contaminate. Repeat cultures in process Dr. Jang, from [facility] to follow up and had discuss with him about starting xeloda antineoplastic therapy vs. infusions of 5-FU. She wants to see him in clinic in 1 week after discharge. . - AAA noted on CT scan and is measuring 5.1 at largest. - Subsequent placement of a single chamber AICD, 2006, Generator change to [employer] [place] AICD 2017, [place] Continued [facility] stay due to: multiple IV medications needed, other (hypotension and tachycardia) Discharge planning: home with home health, [facility] facility
[2016-09-03] MEDS: LEVOFLOXACIN 500 MG TAB PO SCH (13:59)
[2016-09-03] MEDS: WARFARIN SOD 5 MG TAB PO SCH (16:56)
[2016-09-03] MEDS: DIGOXIN 0.125 MG TAB PO SCH (16:56)
[2016-09-03] MEDS: ERYTHROMYCIN OP OINT 1 GM PKT OPL SCH (20:12)
[2016-09-04] VITALS (8 sets, daily range): BP systolic 92–133; BP diastolic 55–74; PULSE 65–82; TEMP 36.2–36.5; O2SAT 90–96
[2016-09-04] MEDS: IPRATROPIUM BROMIDE NEB SOLN 0.02% 2.5 ML VIAL INH SCH ×4 (01:32→19:21)
[2016-09-04] MEDS: LEVALBUTEROL 1.25MG/0.5ML NEB INH SCH ×4 (01:32→19:21)
[2016-09-04] MEDS: ACETYLCYSTEINE 20% INHAL SOLN ***DISPENSED BY RESP. INH SCH ×2 (07:20→19:20)
[2016-09-04] MEDS: METOPROLOL TARTRATE 25 MG TAB PO SCH ×2 (07:39→20:19)
[2016-09-04] MEDS: PANTOprazole SOD 40 MG TAB PO SCH (07:39)
[2016-09-04] MEDS: ENOXAPARIN 100 MG/1ML SYR SQ SCH ×2 (07:39→20:19)
[2016-09-04] MEDS: VITAMIN B COMPLEX TAB PO SCH (07:39)
[2016-09-04] MEDS: PrednisoLONE ACET 1% OP SUSP 5 ML BTL OPL SCH ×2 (07:40→20:19)
[2016-09-04] MEDS: ATORVASTATIN 40 MG TAB PO SCH (07:40)
[2016-09-04] MEDS: ASPIRIN 81 MG ECTAB PO SCH (07:40)
[2016-09-04] MEDS: ASCORBIC ACID 500 MG TAB PO SCH (07:41)
[2016-09-04] MEDS: LACTOBACILLUS ACIDOPHILUS (FLORANEX) TAB PO SCH ×3 (07:41→17:06)
[2016-09-04 08:08] LABS: INR 1.3 (0.9-1.1); PROTHROMBIN TIME (PATIENT) 14.4 SECONDS (9.0-12.0)
[2016-09-04] MEDS: LEVOFLOXACIN 500 MG TAB PO SCH (11:33)
--- NOTE | 2016-09-04 12:25 | Progress Note ---
Subjective Date of Service: Sep 04, 2016. Subjective pt states he had a good night and looking forward to rehab for getting stronger and getting home to continue his cancer treatment Problem List Medical Problems: (1) Bacteremia Status: Acute (2) Bilateral pneumonia Status: Acute (3) Hypoxia Status: Acute (4) Sepsis Status: Acute Review of Systems Constitutional: No fever, No chills Respiratory: + cough, No shortness of breath, No dyspnea on exertion Cardiac: No chest pain, No edema Abdomen: No pain, No nausea, No vomiting, No diarrhea, No constipation Musculoskeletal: No joint pain, No muscle pain, No swelling Neurologic: + weakness, No memory loss, No paralysis Psychiatric: + depression symptoms, + anxiety, No anhedonism Objective Vital Signs Date Time Temp Pulse Resp B/P (MAP) Pulse Ox O2 Delivery O2 Flow Rate FiO2 09/04/16 08:00 Nasal Cannula 3.0 09/04/16 07:21 79 16 93 Nasal Cannula 3.0 09/04/16 06:57 36.3 77 18 133/74 (93) 95 Nasal Cannula 3.0 09/04/16 01:44 Nasal Cannula 3.0 09/03/16 23:26 36.3 104 16 97/63 (74) 93 Nasal Cannula 3.0 09/03/16 19:35 36.4 116 18 91/61 (71) 93 Nasal Cannula 3.0 09/03/16 19:13 74 16 92 Nasal Cannula 3.0 09/03/16 17:00 91 Nasal Cannula 3.0 09/03/16 16:56 86 09/03/16 16:00 Nasal Cannula 3.0 09/03/16 15:59 36.3 74 20 101/52 (68) 90 Nasal Cannula 3.0 09/03/16 14:02 66 16 96 Nasal Cannula 3.0 Physical Exam General Appearance: WD/WN, + mild distress Eyes: PERRL, EOMI Neck: supple, no JVD Respiratory/Chest: + decreased breath sounds, + rhonchi Cardiovascular: regular rate, rhythm, + systolic murmur Abdomen: normal bowel sounds, non tender, soft Extremities: no pedal edema, no calf tenderness Neurologic/Psychiatric: alert, oriented x 3 Laboratory Results Last 24 Hours Test 09/04/16 07:28 Prothrombin Time 14.4 SECONDS Prothromb Time International Ratio 1.3 Assessment and Plan 81 M with sepsis concern for bilateral pneumonia gram negative source, he is a chemotherapy patient for colon cancer, has known coronary disease, had challenges with A. fib rvr and has hx of thrombophilia with an IVC filter. A. fib rate controlled with metoprolol /digoxin Dr Warner will folllow up as out pt, Thrombophjlia, convert enoxaparin to coumdan but this should not restrict movement to rehab, currently on overlap therapy . bilateral pneumonia, CT chest did not show any other confirmed issues, concern for gram negative pneumonia levaquin zosyn and linezolid, de escalation to po levaquin( watching INR with quinalones) COPD remains stable while tapering steroids, continue nebulizers Colon cancer, oncology was contacted and does not want a picc line, may transition to oral chemotherapy but will need to recover from pneumonia first. If repeat A port is needed pt requests not to see Dr Xie again but have a referral to another doctor - Triple lumen central cath removed 08/27 for culture - NGTD - Blood culture came back positive 02/21 with gram - staph not lugdenesis, the other is NGTD. Likely contaminate. Repeat cultures in process Dr. Jang, from [facility] to follow up and had discuss with him about starting xeloda antineoplastic therapy vs. infusions of 5-FU. She wants to see him in clinic in 1 week after discharge. . - AAA noted on CT scan and is measuring 5.1 at largest. - Subsequent placement of a single chamber AICD, 2006, Generator change to [employer] AICD 2017, [place] Continued [facility] stay due to: multiple IV medications needed, other (hypotension and tachycardia) Discharge planning: home with home health, [facility] facility
[2016-09-04] MEDS: DIGOXIN 0.125 MG TAB PO SCH (17:07)
[2016-09-04] MEDS: WARFARIN SOD 5 MG TAB PO SCH (17:07)
[2016-09-04] MEDS: ERYTHROMYCIN OP OINT 1 GM PKT OPL SCH (20:20)
[2016-09-05] VITALS (11 sets, daily range): BP systolic 87–109; BP diastolic 48–72; PULSE 68–132; TEMP 36.4–36.6; O2SAT 84–97
[2016-09-05] MEDS: LEVALBUTEROL 1.25MG/0.5ML NEB INH SCH ×4 (03:00→19:44)
[2016-09-05] MEDS: IPRATROPIUM BROMIDE NEB SOLN 0.02% 2.5 ML VIAL INH SCH ×4 (03:00→19:44)
[2016-09-05 05:56] LABS: INR 1.8 (0.9-1.1); PROTHROMBIN TIME (PATIENT) 19.5 SECONDS (9.0-12.0)
[2016-09-05] MEDS: ACETYLCYSTEINE 20% INHAL SOLN ***DISPENSED BY RESP. INH SCH ×2 (07:06→19:43)
[2016-09-05] MEDS: LACTOBACILLUS ACIDOPHILUS (FLORANEX) TAB PO SCH ×3 (07:38→16:38)
[2016-09-05] MEDS: PrednisoLONE ACET 1% OP SUSP 5 ML BTL OPL SCH ×2 (08:36→19:42)
[2016-09-05] MEDS: ENOXAPARIN 100 MG/1ML SYR SQ SCH ×2 (08:36→19:43)
[2016-09-05] MEDS: METOPROLOL TARTRATE 25 MG TAB PO SCH ×3 (10:49→19:42)
[2016-09-05] MEDS ORDERED: NURSING VERBAL MED ORDER ONE ×4 (12:15→16:45)
[2016-09-05] MEDS ORDERED: SODIUM CHLORIDE 0.9% 250ML 250 ML IV SCH (12:30)
--- NOTE | 2016-09-05 12:43 | DIAGNOSTIC IMAGING REPORT ---
VIDEO SWALLOW CLINICAL HISTORY: 81-year-old male with clinical concern for silent aspiration, multifocal consolidation on chest CT concerning for pneumonia and/or aspiration. TECHNIQUE: Video fluoroscopic evaluation of swallowing was performed in the AP and lateral projections by the speech pathology staff. The patient is fed nectar-thick and thin liquid barium, a barium coated wafer, and barium pudding. FLUOROSCOPY TIME: 2.2 minutes. COMPARISON: None. FINDINGS: Normal swallow reflex. Penetration and aspiration with thin liquids. No aspiration or penetration with nectar thick liquids or pudding. Cervical spine unremarkable. IMPRESSION: 1. Penetration and aspiration with thin liquids. 2. Please see the speech pathologist report for detailed findings and recommendations. Electronically signed by: Jese Rosario M.D. 09/05/2016 12:42 PM Dictated Date/Time: 09/05/2016 12:39 PM
[2016-09-05] MEDS ORDERED: SODIUM CHLORIDE 0.9% 1000ML 1,000 ML IV SCH (12:45)
[2016-09-05] MEDS: ATORVASTATIN 40 MG TAB PO SCH (12:46)
[2016-09-05] MEDS: ASPIRIN 81 MG ECTAB PO SCH (12:46)
[2016-09-05] MEDS: PANTOprazole SOD 40 MG TAB PO SCH (12:47)
[2016-09-05] MEDS: VITAMIN B COMPLEX TAB PO SCH (12:47)
[2016-09-05] MEDS: ASCORBIC ACID 500 MG TAB PO SCH (12:48)
[2016-09-05] MEDS: LEVOFLOXACIN 500 MG TAB PO SCH (12:48)
--- NOTE | 2016-09-05 12:59 | DIAGNOSTIC IMAGING REPORT ---
(BARIUM SWALLOW) ESOPHAGUS CLINICAL HISTORY: 81 years-old Male presenting with bilateral pneumonia, hypoxia, concern for silent aspiration. TECHNIQUE: A standard air contrast barium esophagram is performed. Multiple spot images of the esophagus are acquired both upright and prone. COMPARISON: None. FINDINGS: As the patient demonstrated silent aspiration, the video fluoroscopic examination was terminated prematurely. Limited views of the esophagus demonstrate suggestion of tertiary contractions likely indicating dysmotility. No gross mucosal abnormality. Gastroesophageal junction below the diaphragm with normal opening of the lower esophageal sphincter. Fluoroscopy time: 0.5 minutes.. Fluoroscopic images: 7. IMPRESSION: 1. Silent aspiration of thin liquids. This resulted in a limited examination, which was prematurely terminated. 2. 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 No gross abnormality of the gastroesophageal junction. Electronically signed by: Jese Rosario M.D. 09/05/2016 12:58 PM Dictated Date/Time: 09/05/2016 12:55 PM
[2016-09-05 15:36] LABS: HEMATOCRIT 36.8 % (42-52); MEAN CELL VOLUME 97.6 fL (80-100); MEAN CORPUSCULAR HEMOGLOBIN 32.9 pg (25-34); MEAN PLATELET VOLUME 8.7 fL (7.4-10.4); PLATELET COUNT 260 K/uL (130-400); RED BLOOD COUNT 3.77 M/uL (4.7-6.1)
[2016-09-05 15:45] LABS: MEAN CORPUSCULAR HGB CONC 33.7 g/dl (32-36)
[2016-09-05 15:49] LABS: BUN/CREATININE RATIO 19.6 (10-20); CALCIUM 7.8 mg/dl (8.5-10.1); CREATININE 0.99 mg/dl (0.60-1.40)
--- NOTE | 2016-09-05 16:11 | Hospitalist Progress Note ---
Hospitalist Progress Note Date of Service Sep 05, 2016. Subjective Pt evaluation today including: conversation w/ patient, conversation w/ family , physical exam, chart review, lab review, review of studies, conversation w/ managing consultant, review of inpatient medication list Patient with no complaints this morning was nothing by mouth for swallowing evaluation. Patient went into atrial fibrillation with rapid ventricular response and became hypotensive responded to IV hydration study revealed silent aspiration. Eyes: + worsening of vision Medications Medications (Trade) Dose Ordered Sig/Thu Route Start Time Stop Time Status Last Admin Dose Admin Sodium Chloride 1,000 ml @ 125 mls/hr Q8H IV 09/05/16 12:45 10/05/16 12:44 09/05/16 13:08 125 MLS/HR Metoprolol Tartrate (Lopressor Tab) 12.5 mg BID PO 09/05/16 20:00 10/05/16 19:59 09/05/16 12:50 12.5 MG Objective Vital Signs Date Time Temp Pulse Resp B/P (MAP) Pulse Ox O2 Delivery O2 Flow Rate FiO2 09/05/16 15:49 96 20 90/63 (72) 93 2.0 09/05/16 15:49 132 24 84 86 09/05/16 15:46 36.4 126 18 103/70 (81) 93 Nasal Cannula 2.0 09/05/16 14:21 80 16 96 Nasal Cannula 2.0 09/05/16 12:00 36.6 99 16 109/61 (77) 90 Nasal Cannula 2.0 09/05/16 11:16 90 18 101/72 (82) 93 Nasal Cannula 2.5 09/05/16 11:15 82 18 101/70 (80) 93 Nasal Cannula 2.5 09/05/16 10:30 114 18 87/48 (61) 92 Nasal Cannula 2.5 09/05/16 08:00 Nasal Cannula 2.0 09/05/16 07:56 36.5 87 18 102/67 (79) 94 2.0 09/05/16 07:08 82 16 93 Nasal Cannula 2.0 09/05/16 02:45 Nasal Cannula 4.0 09/04/16 23:29 36.5 76 18 121/66 (84) 94 Nasal Cannula 3.0 09/04/16 21:09 Nasal Cannula 4.0 09/04/16 19:59 36.3 82 20 128/65 (86) 93 Nasal Cannula 3.0 09/04/16 19:21 66 16 96 Nasal Cannula 2.0 09/04/16 17:07 78 09/04/16 16:00 Nasal Cannula 4.0 Physical Exam General Appearance: no apparent distress ENT: hearing grossly normal Neck: trachea midline Respiratory/Chest: chest non-tender, lungs clear Cardiovascular: + tachycardia, + irregularly irregular Abdomen: normal bowel sounds Extremities: normal range of motion Neurologic/Psychiatric: alert, oriented x 3 Laboratory Results Last 24 Hours Test 09/05/16 04:44 09/05/16 05:27 09/05/16 10:31 White Blood Count 8.00 K/uL Red Blood Count 3.77 M/uL Hemoglobin 12.4 g/dL Hematocrit 36.8 % Mean Corpuscular Volume 97.6 fL Mean Corpuscular Hemoglobin 32.9 pg Mean Corpuscular Hemoglobin Concent 33.7 g/dl RDW Standard Deviation 53.6 fL RDW Coefficient of Variation 16.2 % Platelet Count 260 K/uL Mean Platelet Volume 8.7 fL Sodium Level 138 mmol/L Potassium Level 4.0 mmol/L Chloride Level 104 mmol/L Carbon Dioxide Level 28 mmol/L Anion Gap 6.0 mmol/L Blood Urea Nitrogen 19 mg/dl Creatinine 0.99 mg/dl Est Creatinine Clear Calc Drug Dose 67.3 ml/min Estimated GFR () 81.9 Estimated GFR (Non- 70.6 BUN/Creatinine Ratio 19.6 Random Glucose 66 mg/dl Calcium Level 7.8 mg/dl Prothrombin Time 19.5 SECONDS Prothromb Time International Ratio 1.8 Bedside Glucose 130 mg/dl Diagnostic Results Last Resulted CBC 09/05/16 04:44 Last Resulted BMP 09/05/16 04:44 Assessment and Plan 81 M with sepsis concern for bilateral pneumonia gram negative source, he is a chemotherapy patient for colon cancer, has known coronary disease, had challenges with A. fib rvr and has hx of thrombophilia with an IVC filter. A. fib rate controlled with metoprolol /digoxin Dr Warner will folllow up as out pt,. Because of return of his atrial fibrillation with rapid ventricular response Dr. Núñez was reconsulted. Thrombophjlia, convert enoxaparin to coumdan but this should not restrict movement to rehab, currently on overlap therapy. INR is 1.8 today . bilateral pneumonia, CT chest did not show any other confirmed issues, concern for gram negative pneumonia levaquin zosyn and linezolid, de escalation to po levaquin( watching INR with quinalones) COPD remains stable while tapering steroids, continue nebulizers will recheck chest xray because of continued aspiration. Colon cancer, oncology was contacted and does not want a picc line, may transition to oral chemotherapy but will need to recover from pneumonia first. If repeat A port is needed pt requests not to see Dr Xie again but have a referral to another doctor - Triple lumen central cath removed 08/27 for culture - NGTD - Blood culture came back positive 02/21 with gram - staph not lugdenesis, the other is NGTD. Likely contaminate. Repeat cultures in process Dr. Jang, from [facility] to follow up and had discuss with him about starting xeloda antineoplastic therapy vs. infusions of 5-FU. She wants to see him in clinic in 1 week after discharge. . - AAA noted on CT scan and is measuring 5.1 at largest. - Subsequent placement of a single chamber AICD, 2006, Generator change to [employer] [facility] AICD 2017, [place] Continued [facility] stay due to: multiple IV medications needed, other (hypotension and tachycardia) Discharge planning: home with home health, group home facility Discharge planning: group home facility
[2016-09-05] MEDS: WARFARIN SOD 5 MG TAB PO SCH (16:37)
[2016-09-05] MEDS: DIGOXIN 0.125 MG TAB PO SCH (16:38)
[2016-09-05] MEDS: D5W AND NSS 1,000 ML IV SCH ×2 (16:43→23:34)
--- NOTE | 2016-09-05 18:19 | DIAGNOSTIC IMAGING REPORT ---
CHEST ONE VIEW PORTABLE CLINICAL HISTORY: aspiration pneumonia pneumonitis COMPARISON STUDY: 08/31/2016 FINDINGS: Slightly progressive right upper lobe and left suprahilar infiltrative change. Stable bibasilar infiltrative change. Mild stable cardiomegaly. Diaphragms are smooth. IMPRESSION: Subtle progressive right upper lobe and left suprahilar infiltrative change. Stable bibasilar infiltrates The above report was generated using voice recognition software. It may contain grammatical, syntax or spelling errors. Electronically signed by: Richie Berry M.D. 09/05/2016 6:18 PM Dictated Date/Time: 09/05/2016 6:17 PM
[2016-09-05] MEDS: ERYTHROMYCIN OP OINT 1 GM PKT OPL SCH (19:48)
[2016-09-06] VITALS (11 sets, daily range): BP systolic 76–118; BP diastolic 37–78; PULSE 71–132; TEMP 36.5–36.6; O2SAT 88–97
[2016-09-06] MEDS: IPRATROPIUM BROMIDE NEB SOLN 0.02% 2.5 ML VIAL INH SCH ×4 (03:00→19:01)
[2016-09-06] MEDS: LEVALBUTEROL 1.25MG/0.5ML NEB INH SCH ×4 (03:00→19:01)
[2016-09-06] MEDS: ACETYLCYSTEINE 20% INHAL SOLN ***DISPENSED BY RESP. INH SCH ×2 (07:03→19:01)
[2016-09-06] MEDS: VITAMIN B COMPLEX TAB PO SCH (07:58)
[2016-09-06] MEDS: PANTOprazole SOD 40 MG TAB PO SCH (07:58)
[2016-09-06] MEDS: D5W AND NSS 1,000 ML IV SCH ×3 (07:58→23:26)
[2016-09-06] MEDS: ASCORBIC ACID 500 MG TAB PO SCH (07:58)
[2016-09-06] MEDS: LACTOBACILLUS ACIDOPHILUS (FLORANEX) TAB PO SCH ×3 (07:59→16:27)
[2016-09-06] MEDS: ATORVASTATIN 40 MG TAB PO SCH (07:59)
[2016-09-06] MEDS: ASPIRIN 81 MG ECTAB PO SCH (07:59)
[2016-09-06] MEDS: METOPROLOL TARTRATE 25 MG TAB PO SCH ×2 (08:00→19:49)
[2016-09-06] MEDS: PrednisoLONE ACET 1% OP SUSP 5 ML BTL OPL SCH ×2 (08:00→19:49)
[2016-09-06 09:42] LABS: HEMATOCRIT 37.6 % (42-52); MEAN CELL VOLUME 98.2 fL (80-100); MEAN CORPUSCULAR HEMOGLOBIN 32.9 pg (25-34); MEAN CORPUSCULAR HGB CONC 33.5 g/dl (32-36); MEAN PLATELET VOLUME 8.9 fL (7.4-10.4); PLATELET COUNT 224 K/uL (130-400); RED BLOOD COUNT 3.83 M/uL (4.7-6.1); WHITE BLOOD COUNT 8.54 K/uL (4.8-10.8)
[2016-09-06 09:47] LABS: INR 2.6 (0.9-1.1); PROTHROMBIN TIME (PATIENT) 28.9 SECONDS (9.0-12.0)
[2016-09-06] MEDS: ENOXAPARIN 100 MG/1ML SYR SQ SCH (10:22)
[2016-09-06 10:26] LABS: BUN/CREATININE RATIO 14.2 (10-20); CALCIUM 7.8 mg/dl (8.5-10.1); CREATININE 0.94 mg/dl (0.60-1.40); POTASSIUM 3.2 mmol/L (3.5-5.1)
[2016-09-06] MEDS ORDERED: NURSING VERBAL MED ORDER ONE ×3 (10:30→16:30)
[2016-09-06] MEDS: LEVOFLOXACIN 500 MG TAB PO SCH (11:59)
--- NOTE | 2016-09-06 13:16 | Cardiology Follow-Up ---
Subjective General Date of Service: Sep 06, 2016. Chief Complaint: follow up AF Pt evaluation today including: conversation w/ patient, physical exam, chart review, lab review, review of studies, review of inpatient medication list History of Present Illness The patient is a 81 year old male seen at the request of hospitalists for atrial fibrillation and rapid ventricular response. Patient hospitalized since 08/26/16. Chart reviewed. Patient found to be atrial fibrillation with rapid ventricular response. He was prescribed metoprolol 37.5 mg twice daily. Digoxin also added to his medical regimen. He is anticoagulated with Coumadin. On 09/05/16 the patient was taken to radiology for a swallow evaluation. He apparently stood up quickly became acutely lightheaded and dizzy. No overt syncope reported. He was subsequently noted to be tachycardic. Swallow study demonstrated silent aspiration. Patient has been treated with intravenous hydration. Noted some mild lightheadedness with standing earlier today. Denies any palpitations or sensation of tachycardia. No chest discomfort. Diet has been changed to stick and liquids. INR is therapeutic today. Offers no other complaints currently. Allergies Coded Allergies: Vancomycin (Verified Allergy, Severe, SHORTNESS OF BREATH, 08/26/16) Social History Smoking Status: Former Smoker Hx Tobacco Use In Past Year?: No (Quit smoking in 2006) Hx Alcohol Use - Type And Amou: No Hx Substance Use - Type And Am: No Problem List Medical Problems: (1) Bacteremia Status: Acute (2) Bilateral pneumonia Status: Acute (3) Hypoxia Status: Acute (4) Sepsis Status: Acute Review of Systems Respiratory: + cough, + dyspnea on exertion, No sputum, No wheezing, No shortness of breath, No dyspnea at rest Cardiac: No chest pain, No orthopnea, No PND, No edema, No claudication, No palpitations Physical Exam Vital Signs Last Vital Signs Documentation Date Time Temp Pulse Resp B/P (MAP) Pulse Ox O2 Delivery O2 Flow Rate FiO2 09/06/16 11:11 36.6 88 16 95/62 (73) 97 2.0 09/06/16 08:00 Nasal Cannula Physical Exam Constitutional: Level of Distress: NAD Head: normocephalic Neck: supple Lungs: Auscultation: no wheezing, rales/crackles on the right Cardiovascular: Heart Auscultation: no murmurs, no rubs, irregular rate rhythm Abdomen: Bowel Sounds: normal, pertinent finding (soft , nontender ) Inspection & Palpation: soft, non-distended, no tenderness, guarding & rebound Extremities: no edema, no clubbing, no ulcers, pertinent finding (no edema ) Neurologic: Gait & Station: pertinent finding (no focal deficits ) Cranial Nerves: grossly intact Assessment and Plan Assessment and Plan 1. Persistent atrial fibrillation with controlled ventricular response. - Transient rapid ventricular response recorded yesterday associated with episode of volume depletion and orthostatic hypotension - INR therapeutic - ECG currently demonstrates atrial fibrillation at a heart rate of 82 bpm. 2. Pneumonia, perhaps aspiration , Sepsis syndrome resolved. 3. Bilateral femoral DVT 4. Hypokalemia 5. H/o Cardiomyopathy with normalization of left ventricular systolic function 6. Colon CA Plan: Agree with gentle hydration at this time. Potassium will be replaced orally . 40 mEq KCl ordered. Patient will continue current dose of metoprolol, 12.5 mg twice daily in addition to oral digoxin. Coumadin will be dosed for goal INR of 2.0-3.0. Patient has a cardiology appointment set up with Dr. Atkins later this month. No further cardiac testing at this time. Laboratory Results Last 24 Hours Test 09/06/16 09:11 White Blood Count 8.54 K/uL Red Blood Count 3.83 M/uL Hemoglobin 12.6 g/dL Hematocrit 37.6 % Mean Corpuscular Volume 98.2 fL Mean Corpuscular Hemoglobin 32.9 pg Mean Corpuscular Hemoglobin Concent 33.5 g/dl RDW Standard Deviation 54.4 fL RDW Coefficient of Variation 16.7 % Platelet Count 224 K/uL Mean Platelet Volume 8.9 fL Prothrombin Time 28.9 SECONDS Prothromb Time International Ratio 2.6 Sodium Level 141 mmol/L Potassium Level 3.2 mmol/L Chloride Level 108 mmol/L Carbon Dioxide Level 28 mmol/L Anion Gap 5.0 mmol/L Blood Urea Nitrogen 13 mg/dl Creatinine 0.94 mg/dl Est Creatinine Clear Calc Drug Dose 64.5 ml/min Estimated GFR () 87.2 Estimated GFR (Non- 75.2 BUN/Creatinine Ratio 14.2 Random Glucose 122 mg/dl Calcium Level 7.8 mg/dl
[2016-09-06] MEDS ORDERED: SODIUM CHLORIDE 0.9% 500ML 500 ML IV SCH (14:15)
[2016-09-06] MEDS ORDERED: POTASSIUM CHLORIDE 20 MEQ TABCR PO ONE (14:30)
[2016-09-06] MEDS: DIGOXIN 0.125 MG TAB PO SCH (16:26)
[2016-09-06] MEDS: WARFARIN SOD 5 MG TAB PO SCH (16:27)
--- NOTE | 2016-09-06 16:29 | DIAGNOSTIC IMAGING REPORT ---
CHEST ONE VIEW PORTABLE CLINICAL HISTORY: aspiration pneumonia COMPARISON STUDY: 09/05/2016 FINDINGS: The cardiac and mediastinal contours remain stable. There are bilateral pulmonary airspace opacity similar to the prior study. There is a left subclavian pacer/defibrillator present. No pneumothorax is visualized.[ IMPRESSION: Stable bilateral pulmonary airspace opacities consistent with a multifocal pneumonitis. Continued radiographic follow-up is recommended Electronically signed by: Eyad Escobar M.D. 09/06/2016 4:28 PM Dictated Date/Time: 09/06/2016 4:27 PM
[2016-09-06] MEDS ORDERED: PIPERACILL/TAZOBAC CONSULT ACTIVE PRN (16:45)
[2016-09-06] MEDS: LINEZOLID 600 MG TAB PO SCH ×2 (16:48→21:52)
[2016-09-06] MEDS ORDERED: PIPERACILL/TAZOBAC IV 4.5 GM in DEXTROSE 5% 100ML 100 ML IV ONE (17:00)
[2016-09-06] MEDS: ERYTHROMYCIN OP OINT 5 MG/GM 3.5 GM TUBE OP SCH (19:49)
[2016-09-06] MEDS: PIPERACILL/TAZOBAC IV 4.5 GM in DEXTROSE 5% 100ML 100 ML IV SCH (21:53)
--- NOTE | 2016-09-06 22:43 | Hospitalist Progress Note ---
Hospitalist Progress Note Date of Service Sep 06, 2016. Subjective Pt evaluation today including: conversation w/ patient, chart review, review of inpatient medication list Patient with orthostatic blood pressure changes feels weak when he stands can't walk Medications Medications (Trade) Dose Ordered Sig/Thu Route Start Time Stop Time Status Last Admin Dose Admin Potassium Chloride (Klor-Con Tab) 40 meq NOW ONCE PO 09/06/16 14:30 09/06/16 14:31 DC 09/06/16 14:25 40 MEQ Sodium Chloride 500 ml @ 250 mls/hr Q2H IV 09/06/16 14:15 09/06/16 16:14 DC 09/06/16 14:25 250 MLS/HR Piperacillin Sod/ Tazobactam Sod 4.5 gm/Dextrose 120 ml @ 30 mls/hr Q8 IV 09/06/16 22:00 09/13/16 21:59 09/06/16 21:53 30 MLS/HR Linezolid (Zyvox Tab) 600 mg BID PO 09/06/16 16:30 09/20/16 16:29 09/06/16 21:52 600 MG Erythromycin (Erythromycin Oph Oint) 1 appln QPM OP 09/06/16 21:00 10/06/16 20:59 09/06/16 19:49 1 APPLN Piperacillin Sod/ Tazobactam Sod 4.5 gm/Dextrose 120 ml @ 200 mls/hr NOW ONCE IV 09/06/16 17:00 09/06/16 17:35 DC 09/06/16 16:57 200 MLS/HR Objective Vital Signs Date Time Temp Pulse Resp B/P (MAP) Pulse Ox O2 Delivery O2 Flow Rate FiO2 09/06/16 19:46 100 98/63 (75) 09/06/16 19:02 71 16 93 Nasal Cannula 2.0 09/06/16 16:26 89 09/06/16 16:14 132 22 88 Nasal Cannula 2.0 09/06/16 16:13 36.5 102 20 99/67 (78) 92 Nasal Cannula 2.0 09/06/16 16:13 117 22 86/54 (65) 88 Nasal Cannula 2.0 09/06/16 16:00 Nasal Cannula 2.0 09/06/16 14:15 97/64 (75) 7/18/17 14:14 75 16 92 Nasal Cannula 2.0 09/06/16 14:00 88/55 (66) 76/37 (50) 09/06/16 11:11 36.6 88 16 95/62 (73) 97 2.0 09/06/16 08:00 Nasal Cannula 2.0 09/06/16 07:27 36.6 71 18 118/78 (91) 94 2.0 09/06/16 07:04 71 16 91 Nasal Cannula 2.0 09/06/16 00:00 Nasal Cannula 2.0 09/05/16 23:46 36.6 68 18 95/60 (72) 92 2.0 Physical Exam General Appearance: no apparent distress Eyes: sclerae normal ENT: hearing grossly normal Neck: supple Respiratory/Chest: lungs clear Cardiovascular: regular rate, rhythm Abdomen: normal bowel sounds, non tender, soft Extremities: non-tender Neurologic/Psychiatric: alert Laboratory Results Last 24 Hours Test 09/06/16 09:11 White Blood Count 8.54 K/uL Red Blood Count 3.83 M/uL Hemoglobin 12.6 g/dL Hematocrit 37.6 % Mean Corpuscular Volume 98.2 fL Mean Corpuscular Hemoglobin 32.9 pg Mean Corpuscular Hemoglobin Concent 33.5 g/dl RDW Standard Deviation 54.4 fL RDW Coefficient of Variation 16.7 % Platelet Count 224 K/uL Mean Platelet Volume 8.9 fL Prothrombin Time 28.9 SECONDS Prothromb Time International Ratio 2.6 Sodium Level 141 mmol/L Potassium Level 3.2 mmol/L Chloride Level 108 mmol/L Carbon Dioxide Level 28 mmol/L Anion Gap 5.0 mmol/L Blood Urea Nitrogen 13 mg/dl Creatinine 0.94 mg/dl Est Creatinine Clear Calc Drug Dose 64.5 ml/min Estimated GFR () 87.2 Estimated GFR (Non- 75.2 BUN/Creatinine Ratio 14.2 Random Glucose 122 mg/dl Calcium Level 7.8 mg/dl Assessment and Plan 81 M with sepsis concern for bilateral pneumonia gram negative source, he is a chemotherapy patient for colon cancer, has known coronary disease, had challenges with A. fib rvr and has hx of thrombophilia with an IVC filter. A. fib rate controlled with metoprolol /digoxin Dr Warner will folllow up as out pt,. Because of return of his atrial fibrillation with rapid ventricular response Dr. Núñez was reconsulted. Thrombophjlia, convert enoxaparin to coumdan but this should not restrict movement to rehab, currently on overlap therapy. INR is 1.8 today . bilateral pneumonia, CT chest did not show any other confirmed issues, concern for gram negative pneumonia levaquin zosyn and linezolid, de escalation to po levaquin( watching INR with quinalones) COPD remains stable while tapering steroids, continue nebulizers will recheck chest xray because of continued aspiration. Repeat x-ray no significant change. Secondary to patient's orthostatic hypotension fluids have been increased. Zosyn has been discontinued however will be restarted with linezolid. Colon cancer, oncology was contacted and does not want a picc line, may transition to oral chemotherapy but will need to recover from pneumonia first. If repeat A port is needed pt requests not to see Dr Xie again but have a referral to another doctor - Triple lumen central cath removed 08/27 for culture - NGTD - Blood culture came back positive 02/21 with gram - staph not lugdenesis, the other is NGTD. Likely contaminate. Repeat cultures in process Dr. Jang, from [facility] to follow up and had discuss with him about starting xeloda antineoplastic therapy vs. infusions of 5-FU. She wants to see him in clinic in 1 week after discharge. . - AAA noted on CT scan and is measuring 5.1 at largest. - Subsequent placement of a single chamber AICD, 2006, Generator change to [employer] [facility] AICD 2017, [place] Continued [facility] stay due to: multiple IV medications needed, other (hypotension and tachycardia) Discharge planning: home with home health, [place] [facility] facility
[2016-09-07] VITALS (11 sets, daily range): BP systolic 60–126; BP diastolic 42–80; PULSE 70–153; TEMP 36.3–36.8; O2SAT 83–95
[2016-09-07] MEDS: LEVALBUTEROL 1.25MG/0.5ML NEB INH SCH ×4 (01:15→18:58)
[2016-09-07] MEDS: IPRATROPIUM BROMIDE NEB SOLN 0.02% 2.5 ML VIAL INH SCH ×4 (01:15→18:58)
[2016-09-07] MEDS: PIPERACILL/TAZOBAC IV 4.5 GM in DEXTROSE 5% 100ML 100 ML IV SCH (05:55)
[2016-09-07] MEDS: D5W AND NSS 1,000 ML IV SCH ×3 (05:55→19:08)
[2016-09-07] MEDS: ACETYLCYSTEINE 20% INHAL SOLN ***DISPENSED BY RESP. INH SCH ×2 (07:08→20:00)
[2016-09-07] MEDS: METOPROLOL TARTRATE 25 MG TAB PO SCH ×2 (08:00→19:59)
[2016-09-07 08:06] LABS: HEMATOCRIT 37.6 % (42-52); MEAN CELL VOLUME 98.2 fL (80-100); MEAN CORPUSCULAR HEMOGLOBIN 31.3 pg (25-34); MEAN CORPUSCULAR HGB CONC 31.9 g/dl (32-36); MEAN PLATELET VOLUME 8.4 fL (7.4-10.4); PLATELET COUNT 180 K/uL (130-400); RED BLOOD COUNT 3.83 M/uL (4.7-6.1)
[2016-09-07 08:14] LABS: INR 2.9 (0.9-1.1); PROTHROMBIN TIME (PATIENT) 32.3 SECONDS (9.0-12.0)
[2016-09-07 08:45] LABS: BUN/CREATININE RATIO 12.1 (10-20); CALCIUM 7.5 mg/dl (8.5-10.1); CREATININE 0.95 mg/dl (0.60-1.40); POTASSIUM 4.2 mmol/L (3.5-5.1)
[2016-09-07] MEDS: VITAMIN B COMPLEX TAB PO SCH (08:50)
[2016-09-07] MEDS: ASPIRIN 81 MG ECTAB PO SCH (08:50)
[2016-09-07] MEDS: LINEZOLID 600 MG TAB PO SCH ×2 (08:50→20:00)
[2016-09-07] MEDS: ASCORBIC ACID 500 MG TAB PO SCH (08:50)
[2016-09-07] MEDS: ATORVASTATIN 40 MG TAB PO SCH (08:51)
[2016-09-07] MEDS: PANTOprazole SOD 40 MG TAB PO SCH (08:51)
[2016-09-07] MEDS: LACTOBACILLUS ACIDOPHILUS (FLORANEX) TAB PO SCH ×3 (08:51→16:53)
[2016-09-07] MEDS: PrednisoLONE ACET 1% OP SUSP 5 ML BTL OPL SCH ×2 (08:52→19:58)
--- NOTE | 2016-09-07 10:52 | Infectious Disease Progress Nt ---
Progress Note Date of Service Sep 07, 2016. Subjective Pt evaluation today including: conversation w/ patient, physical exam, chart review, lab review, review of studies, conversation w/ operations consultant, review of inpatient medication list Patient with history of MRSA, colon cancer on chemotherapy, and now hospitalized for concerns of fever and sepsis. He had worsening SOB and hypoxia on admission and was found to have likely HCAP. He initially was placed on Zosyn , Zyvox, and Levaquin. He completed 7 days and was de-escalated off of abx. He was then found to have worsening orthostatic hypotension and began to feel worse again. Fluids and antibiotics were restarted. He has improved today. I did discuss this patient with Dr. Pardo. WBC count this morning was 7.60. Most recent CXR showed stable bilateral airspace opacities consistent with multifocal pneumonitis lkely from aspiration. All Other Systems: Reviewed and Negative Medications Current Inpatient Medications Medications (Trade) Dose Ordered Sig/Thu Route Start Time Stop Time Status Last Admin Dose Admin Acetaminophen (Tylenol Tab) 650 mg Q4H PRN PO 08/26/16 15:00 09/25/16 14:59 Ascorbic Acid (Vitamin C Tab) 500 mg QAM PO 08/27/16 09:00 09/26/16 08:59 09/07/16 08:50 500 MG Aspirin (Ecotrin Tab) 81 mg DAILY PO 08/27/16 09:00 09/26/16 08:59 09/07/16 08:50 81 MG Atorvastatin Calcium (Lipitor Tab) 80 mg DAILY PO 08/27/16 09:00 09/26/16 08:59 09/07/16 08:51 80 MG Digoxin (Lanoxin Tab) 0.125 mg DAILY@16 PO 08/26/16 16:00 09/25/16 15:59 09/06/16 16:26 0.125 MG Pantoprazole Sodium (Protonix Tab) 40 mg DAILY PO 08/27/16 09:00 09/26/16 08:59 09/07/16 08:51 40 MG Prednisolone Acetate (Pred Forte 1% Oph Susp) 1 drops BID OPL 08/26/16 21:00 09/25/16 20:59 09/07/16 08:52 1 DROPS Vitamin B Complex (Vitamin B Complex) 1 tab QAM PO 08/27/16 09:00 09/26/16 08:59 09/07/16 08:50 1 TAB Lactobacillus Acidophilus (Floranex Tab) 4 tab TIDM PO 08/26/16 16:45 09/25/16 17:59 09/07/16 08:51 4 TAB Ondansetron HCl (Zofran Inj) 4 mg Q6H PRN IV 08/26/16 15:00 09/25/16 14:59 Ipratropium [place] (Atrovent 0.02% 0.5MG/2.5ML Neb) 0.5 mg Q6R INH 08/26/16 21:00 09/25/16 20:59 09/07/16 07:08 0.5 MG Levalbuterol (Xopenex 1.25MG/ 0.5ML Neb) 1.25 mg Q6R INH 08/26/16 21:00 09/25/16 20:59 09/07/16 07:08 1.25 MG Ipratropium [place] (Atrovent 0.02% 0.5MG/2.5ML Neb) 0.5 mg Q2H PRN INH 08/26/16 15:15 09/25/16 15:14 Levalbuterol (Xopenex 1.25MG/ 0.5ML Neb) 1.25 mg Q2H PRN INH 08/26/16 15:15 09/25/16 15:14 Heparin Sodium (Porcine) (Heparin 10 Unit/ ml 5 ml Flush) 5 ml PRN PRN FLUSH 08/27/16 04:00 09/26/16 03:59 Bisacodyl (Dulcolax Supp) 10 mg DAILY PRN VA 08/28/16 15:45 09/27/16 15:44 Polyethylene (Miralax Powder Packet) 17 gm DAILY PRN PO 08/29/16 13:45 09/28/16 13:44 Acetylcysteine (Mucomyst 20% Inh Soln) 5 ml BIDR INH 09/01/16 15:15 10/01/16 15:14 09/07/16 07:08 5 ML Warfarin Sodium (Coumadin Tab) 5 mg DAILY@16 PO 09/02/16 16:00 10/02/16 15:59 09/06/16 16:27 5 MG Levofloxacin (Levaquin Tab) 500 mg DAILY@11 PO 09/03/16 13:00 09/10/16 12:59 09/06/16 11:59 500 MG Metoprolol Tartrate (Lopressor Tab) 12.5 mg BID PO 09/05/16 20:00 10/05/16 19:59 09/06/16 19:49 12.5 MG Dextrose/Sodium Chloride 1,000 ml @ 150 mls/hr Q6H40M IV 09/05/16 16:45 10/05/16 16:44 09/07/16 05:55 150 MLS/HR Piperacillin Sod/ Tazobactam Sod 4.5 gm/Dextrose 120 ml @ 30 mls/hr Q8 IV 09/06/16 22:00 09/13/16 21:59 09/07/16 05:55 30 MLS/HR Linezolid (Zyvox Tab) 600 mg BID PO 09/06/16 16:30 09/20/16 16:29 09/07/16 08:50 600 MG Piperacillin Sod/ Tazobactam Sod (Consult) 1 ea UD PRN N/A 09/06/16 16:45 10/06/16 16:44 Erythromycin (Erythromycin Oph Oint) 1 appln QPM OP 09/06/16 21:00 10/06/16 20:59 09/06/16 19:49 1 APPLN Hydrocortisone Sodium Succinate 100 mg/Syringe 2 ml @ 4 mls/min Q8 IV 09/07/16 14:00 10/07/16 13:59 UNV Hydrocortisone Sodium Succinate 100 mg/Syringe 2 ml @ 4 mls/min 1035 ONCE IV 09/07/16 10:35 09/07/16 10:36 UNV Objective Vital Signs Date Time Temp Pulse Resp B/P (MAP) Pulse Ox O2 Delivery O2 Flow Rate FiO2 09/07/16 08:42 153 60/42 (48) 09/07/16 08:41 111 85/56 (66) 09/07/16 08:40 94 95/56 (69) 09/07/16 08:00 Nasal Cannula 2.0 09/07/16 07:09 80 16 93 Nasal Cannula 2.0 09/07/16 06:46 36.4 70 18 111/73 (86) 95 2.0 71 126/80 (95) 09/07/16 00:00 Nasal Cannula 2.0 09/06/16 23:49 36.5 84 20 106/69 (81) 94 2.0 09/06/16 19:46 100 98/63 (75) 09/06/16 19:02 71 16 93 Nasal Cannula 2.0 09/06/16 16:26 89 09/06/16 16:14 132 22 88 Nasal Cannula 2.0 09/06/16 16:13 36.5 102 20 99/67 (78) 92 Nasal Cannula 2.0 09/06/16 16:13 117 22 86/54 (65) 88 Nasal Cannula 2.0 09/06/16 16:00 Nasal Cannula 2.0 09/06/16 14:15 97/64 (75) 09/06/16 14:14 75 16 92 Nasal Cannula 2.0 09/06/16 14:00 88/55 (66) 76/37 (50) 09/06/16 11:11 36.6 88 16 95/62 (73) 97 2.0 Physical Exam General Appearance: WD/WN, no apparent distress Eyes: normal inspection, sclerae normal ENT: hearing grossly normal Neck: supple, trachea midline Respiratory/Chest: no respiratory distress, no accessory muscle use, + decreased breath sounds (throughout) Cardiovascular: + tachycardia Abdomen: normal bowel sounds, non tender, soft Neurologic/Psychiatric: alert, normal mood/affect Skin: normal color, warm/dry, no rash Laboratory Results CHEST ONE VIEW PORTABLE CLINICAL HISTORY: aspiration pneumonia COMPARISON STUDY: 09/05/2016 FINDINGS: The cardiac and mediastinal contours remain stable. There are bilateral pulmonary airspace opacity similar to the prior study. There is a left subclavian pacer/defibrillator present. No pneumothorax is visualized.[ IMPRESSION: Stable bilateral pulmonary airspace opacities consistent with a multifocal pneumonitis. Continued radiographic follow-up is recommended Item Value Date Time Blood Culture - Final Complete 08/30/16 1024 Blood NO GROWTH Blood Culture - Final Complete 08/30/16 1005 Blood NO GROWTH Last 24 Hours Test 09/07/16 07:45 09/07/16 10:21 White Blood Count 7.60 K/uL Red Blood Count 3.83 M/uL Hemoglobin 12.0 g/dL Hematocrit 37.6 % Mean Corpuscular Volume 98.2 fL Mean Corpuscular Hemoglobin 31.3 pg Mean Corpuscular Hemoglobin Concent 31.9 g/dl RDW Standard Deviation 56.2 fL RDW Coefficient of Variation 16.9 % Platelet Count 180 K/uL Mean Platelet Volume 8.4 fL Prothrombin Time 32.3 SECONDS Prothromb Time International Ratio 2.9 Sodium Level 142 mmol/L Potassium Level 4.2 mmol/L Chloride Level 109 mmol/L Carbon Dioxide Level 28 mmol/L Anion Gap 5.0 mmol/L Blood Urea Nitrogen 12 mg/dl Creatinine 0.95 mg/dl Est Creatinine Clear Calc Drug Dose 63.9 ml/min Estimated GFR () 86.1 Estimated GFR (Non- 74.2 BUN/Creatinine Ratio 12.1 Random Glucose 89 mg/dl Calcium Level 7.5 mg/dl Assessment and Plan Patient with bilateral aspiration pneumonitis and likely bilateral pneumonia. He initially completed 7 days of abx therapy and had been improving. Began to worsen again off of abx therapy and was restarted on IV Zosyn, Levaquin, and Zyvox. Feel that this patient can transition to PO Augmentin, Levaquin, and Zyvox. Will follow on PO therapy. If he continues to do well, would completed 7 more days. Case reviewed and agree with above assessment.
[2016-09-07] MEDS ORDERED: HYDROCORTISONE IV 100 MG in SYRINGE 0 ML IV ONE (11:30)
[2016-09-07] MEDS: LEVOFLOXACIN 500 MG TAB PO SCH (12:11)
[2016-09-07] MEDS: WARFARIN SOD 5 MG TAB PO SCH (15:43)
[2016-09-07] MEDS: DIGOXIN 0.125 MG TAB PO SCH (15:45)
[2016-09-07] MEDS: AMOXICILLIN/CLAVULANATE TAB 875 MG TAB PO SCH (16:53)
--- NOTE | 2016-09-07 19:01 | Hospitalist Progress Note ---
Hospitalist Progress Note Date of Service Sep 07, 2016. Subjective Pt evaluation today including: conversation w/ patient Patient remained severely orthostatic despite fluid challenge Objective Vital Signs Date Time Temp Pulse Resp B/P (MAP) Pulse Ox O2 Delivery O2 Flow Rate FiO2 09/07/16 16:00 Nasal Cannula 2.0 09/07/16 15:51 36.3 133 20 113/74 (87) 93 Nasal Cannula 2.0 133 100/74 (83) 133 73/47 (56) 09/07/16 15:45 100 09/07/16 14:24 76 16 93 Nasal Cannula 2.0 09/07/16 13:37 103 83 09/07/16 11:29 36.4 107 18 116/73 (87) 93 Nasal Cannula 2.0 09/07/16 08:42 153 60/42 (48) 09/07/16 08:41 111 85/56 (66) 09/07/16 08:40 94 95/56 (69) 09/07/16 08:00 Nasal Cannula 2.0 09/07/16 07:09 80 16 93 Nasal Cannula 2.0 09/07/16 06:46 36.4 70 18 111/73 (86) 95 2.0 71 126/80 (95) 09/07/16 00:00 Nasal Cannula 2.0 09/06/16 23:49 36.5 84 20 106/69 (81) 94 2.0 09/06/16 19:46 100 98/63 (75) 09/06/16 19:02 71 16 93 Nasal Cannula 2.0 Physical Exam General Appearance: no apparent distress ENT: hearing grossly normal Neck: trachea midline Respiratory/Chest: lungs clear Cardiovascular: regular rate, rhythm Abdomen: normal bowel sounds Extremities: non-tender Laboratory Results Last 24 Hours Test 09/07/16 07:45 09/07/16 10:47 White Blood Count 7.60 K/uL Red Blood Count 3.83 M/uL Hemoglobin 12.0 g/dL Hematocrit 37.6 % Mean Corpuscular Volume 98.2 fL Mean Corpuscular Hemoglobin 31.3 pg Mean Corpuscular Hemoglobin Concent 31.9 g/dl RDW Standard Deviation 56.2 fL RDW Coefficient of Variation 16.9 % Platelet Count 180 K/uL Mean Platelet Volume 8.4 fL Prothrombin Time 32.3 SECONDS Prothromb Time International Ratio 2.9 Sodium Level 142 mmol/L Potassium Level 4.2 mmol/L Chloride Level 109 mmol/L Carbon Dioxide Level 28 mmol/L Anion Gap 5.0 mmol/L Blood Urea Nitrogen 12 mg/dl Creatinine 0.95 mg/dl Est Creatinine Clear Calc Drug Dose 63.9 ml/min Estimated GFR () 86.1 Estimated GFR (Non- 74.2 BUN/Creatinine Ratio 12.1 Random Glucose 89 mg/dl Calcium Level 7.5 mg/dl Procalcitonin < 0.05 ng/ml Assessment and Plan (1) Adrenal insufficiency 81 M with sepsis concern for bilateral pneumonia gram negative source, he is a chemotherapy patient for colon cancer, has known coronary disease, had challenges with A. fib rvr and has hx of thrombophilia with an IVC filter. A. fib rate controlled with metoprolol /digoxin Dr Warner will folllow up as out pt,. Because of return of his atrial fibrillation with rapid ventricular response Dr. Núñez was reconsulted. Thrombophjlia, convert enoxaparin to coumdan but this should not restrict movement to rehab, currently on overlap therapy. INR is 1.8 today . bilateral pneumonia, CT chest did not show any other confirmed issues, concern for gram negative pneumonia levaquin zosyn and linezolid, de escalation to po levaquin( watching INR with quinalones) COPD remains stable while tapering steroids, continue nebulizers will recheck chest xray because of continued aspiration. Repeat x-ray no significant change. Secondary to patient's orthostatic hypotension fluids have been increased. Zosyn has been discontinued however will be restarted with linezolid. Persistent orthostatic hypotension will continue IV hydration and treat for possible adrenal insufficiency Colon cancer, oncology was contacted and does not want a picc line, may transition to oral chemotherapy but will need to recover from pneumonia first. If repeat A port is needed pt requests not to see Dr Xie again but have a referral to another doctor - Triple lumen central cath removed 08/27 for culture - NGTD - Blood culture came back positive 02/21 with gram - staph not lugdenesis, the other is NGTD. Likely contaminate. Repeat cultures in process Dr. Jang, from [facility] to follow up and had discuss with him about starting xeloda antineoplastic therapy vs. infusions of 5-FU. She wants to see him in clinic in 1 week after discharge. . - AAA noted on CT scan and is measuring 5.1 at largest. - Subsequent placement of a single chamber AICD, 2006, Generator change to [facility] [place] AICD 2017, Neo Continued [facility] stay due to: multiple IV medications needed, other (hypotension and tachycardia) Discharge planning: home with home health, care home facility
[2016-09-07] MEDS: ERYTHROMYCIN OP OINT 5 MG/GM 3.5 GM TUBE OP SCH (19:59)
[2016-09-07] MEDS: HYDROCORTISONE IV 100 MG in SYRINGE 0 ML IV SCH (20:02)
[2016-09-08] VITALS (14 sets, daily range): BP systolic 100–133; BP diastolic 64–85; PULSE 69–120; TEMP 36.2–36.6; O2SAT 78–96
[2016-09-08] MEDS: LEVALBUTEROL 1.25MG/0.5ML NEB INH SCH ×4 (01:57→20:19)
[2016-09-08] MEDS: IPRATROPIUM BROMIDE NEB SOLN 0.02% 2.5 ML VIAL INH SCH ×4 (01:57→20:19)
[2016-09-08] MEDS: D5W AND NSS 1,000 ML IV SCH ×2 (02:01→08:13)
[2016-09-08] MEDS: HYDROCORTISONE IV 100 MG in SYRINGE 0 ML IV SCH (04:52)
[2016-09-08] MEDS: ACETYLCYSTEINE 20% INHAL SOLN ***DISPENSED BY RESP. INH SCH ×2 (06:59→20:19)
[2016-09-08 07:47] LABS: BUN/CREATININE RATIO 9.1 (10-20); CALCIUM 7.3 mg/dl (8.5-10.1); CREATININE 0.88 mg/dl (0.60-1.40); POTASSIUM 4.2 mmol/L (3.5-5.1)
[2016-09-08 07:52] LABS: HEMATOCRIT 35.7 % (42-52); MEAN CELL VOLUME 98.6 fL (80-100); MEAN CORPUSCULAR HEMOGLOBIN 33.1 pg (25-34); MEAN CORPUSCULAR HGB CONC 33.6 g/dl (32-36); MEAN PLATELET VOLUME 9.5 fL (7.4-10.4); PLATELET COUNT 112 K/uL (130-400); RED BLOOD COUNT 3.62 M/uL (4.7-6.1); WHITE BLOOD COUNT 8.25 K/uL (4.8-10.8)
[2016-09-08] MEDS: ASCORBIC ACID 500 MG TAB PO SCH (08:13)
[2016-09-08] MEDS: PANTOprazole SOD 40 MG TAB PO SCH (08:13)
[2016-09-08] MEDS: METOPROLOL TARTRATE 25 MG TAB PO SCH ×2 (08:14→19:52)
[2016-09-08] MEDS: ATORVASTATIN 40 MG TAB PO SCH (08:14)
[2016-09-08] MEDS: LACTOBACILLUS ACIDOPHILUS (FLORANEX) TAB PO SCH ×3 (08:14→16:42)
[2016-09-08] MEDS: ASPIRIN 81 MG ECTAB PO SCH (08:14)
[2016-09-08] MEDS: VITAMIN B COMPLEX TAB PO SCH (08:15)
[2016-09-08] MEDS: LINEZOLID 600 MG TAB PO SCH ×2 (08:15→19:53)
[2016-09-08] MEDS: PrednisoLONE ACET 1% OP SUSP 5 ML BTL OPL SCH ×2 (08:15→19:51)
[2016-09-08] MEDS: AMOXICILLIN/CLAVULANATE TAB 875 MG TAB PO SCH ×2 (08:16→16:42)
--- NOTE | 2016-09-08 11:05 | Infectious Disease Progress Nt ---
Progress Note Date of Service Sep 08, 2016. Subjective Pt evaluation today including: conversation w/ patient, physical exam, chart review, lab review, review of studies, review of inpatient medication list Patient is feeling improved today. He states that he is feeling stronger and has a little more energy today. WBC count today was 8.25. Creatinine was stable at 0.88. He is tolerating his PO abx well. He denies SOB, chest pain, or cough. All Other Systems: Reviewed and Negative Medications Current Inpatient Medications Medications (Trade) Dose Ordered Sig/Thu Route Start Time Stop Time Status Last Admin Dose Admin Acetaminophen (Tylenol Tab) 650 mg Q4H PRN PO 08/26/16 15:00 09/25/16 14:59 Ascorbic Acid (Vitamin C Tab) 500 mg QAM PO 08/27/16 09:00 09/26/16 08:59 09/08/16 08:13 500 MG Aspirin (Ecotrin Tab) 81 mg DAILY PO 08/27/16 09:00 09/26/16 08:59 09/08/16 08:14 81 MG Atorvastatin Calcium (Lipitor Tab) 80 mg DAILY PO 08/27/16 09:00 09/26/16 08:59 09/08/16 08:14 80 MG Digoxin (Lanoxin Tab) 0.125 mg DAILY@16 PO 08/26/16 16:00 09/25/16 15:59 09/07/16 15:45 0.125 MG Pantoprazole Sodium (Protonix Tab) 40 mg DAILY PO 08/27/16 09:00 09/26/16 08:59 09/08/16 08:13 40 MG Prednisolone Acetate (Pred Forte 1% Oph Susp) 1 drops BID OPL 08/26/16 21:00 09/25/16 20:59 09/08/16 08:15 1 DROPS Vitamin B Complex (Vitamin B Complex) 1 tab QAM PO 08/27/16 09:00 09/26/16 08:59 09/08/16 08:15 1 TAB Lactobacillus Acidophilus (Floranex Tab) 4 tab TIDM PO 08/26/16 16:45 09/25/16 17:59 09/08/16 08:14 4 TAB Ondansetron HCl (Zofran Inj) 4 mg Q6H PRN IV 08/26/16 15:00 09/25/16 14:59 Ipratropium Gates (Atrovent 0.02% 0.5MG/2.5ML Neb) 0.5 mg Q6R INH 08/26/16 21:00 09/25/16 20:59 09/08/16 06:59 0.5 MG Levalbuterol (Xopenex 1.25MG/ 0.5ML Neb) 1.25 mg Q6R INH 08/26/16 21:00 09/25/16 20:59 09/08/16 07:00 1.25 MG Ipratropium Gates (Atrovent 0.02% 0.5MG/2.5ML Neb) 0.5 mg Q2H PRN INH 08/26/16 15:15 09/25/16 15:14 Levalbuterol (Xopenex 1.25MG/ 0.5ML Neb) 1.25 mg Q2H PRN INH 08/26/16 15:15 09/25/16 15:14 Heparin Sodium (Porcine) (Heparin 10 Unit/ ml 5 ml Flush) 5 ml PRN PRN FLUSH 08/27/16 04:00 09/26/16 03:59 Bisacodyl (Dulcolax Supp) 10 mg DAILY PRN OK 08/28/16 15:45 09/27/16 15:44 Polyethylene (Miralax Powder Packet) 17 gm DAILY PRN PO 08/29/16 13:45 09/28/16 13:44 Acetylcysteine (Mucomyst 20% Inh Soln) 5 ml BIDR INH 09/01/16 15:15 10/01/16 15:14 09/08/16 06:59 5 ML Levofloxacin (Levaquin Tab) 500 mg DAILY@11 PO 09/03/16 13:00 09/10/16 12:59 09/07/16 12:11 500 MG Metoprolol Tartrate (Lopressor Tab) 12.5 mg BID PO 09/05/16 20:00 10/05/16 19:59 09/08/16 08:14 12.5 MG Linezolid (Zyvox Tab) 600 mg BID PO 09/06/16 16:30 09/20/16 16:29 09/08/16 08:15 600 MG Erythromycin (Erythromycin Oph Oint) 1 appln QPM OP 09/06/16 21:00 10/06/16 20:59 09/07/16 19:59 1 APPLN Amoxicillin/ Clavulanate Potassium (Augmentin Tab) 875 mg BIDM PO 09/07/16 17:00 09/14/16 16:59 09/08/16 08:16 875 MG Warfarin Sodium (Coumadin Tab) 3 mg DAILY@16 PO 09/08/16 16:00 10/08/16 15:59 Prednisone (PredniSONE TAB) 40 mg DAILY PO 09/08/16 11:00 10/08/16 10:59 UNV Objective Vital Signs Date Time Temp Pulse Resp B/P (MAP) Pulse Ox O2 Delivery O2 Flow Rate FiO2 09/08/16 08:00 Nasal Cannula 2.0 09/08/16 07:43 91 101/64 (76) 09/08/16 07:42 91 108/85 (93) 09/08/16 07:39 36.6 94 18 129/75 (93) 94 Nasal Cannula 2.0 09/08/16 07:03 80 16 93 Nasal Cannula 2.0 09/08/16 04:23 36.6 82 18 133/79 (97) 96 2.0 09/08/16 00:05 69 20 120/84 (96) 94 09/08/16 00:04 70 20 118/83 (95) 93 2.0 09/08/16 00:03 36.6 100 18 123/83 (96) 91 2.0 09/08/16 00:00 Nasal Cannula 2.0 09/07/16 19:32 36.8 136 20 95/60 (72) 93 Nasal Cannula 2.0 09/07/16 18:58 76 16 93 Nasal Cannula 2.0 09/07/16 16:00 Nasal Cannula 2.0 09/07/16 15:51 36.3 133 20 113/74 (87) 93 Nasal Cannula 2.0 133 100/74 (83) 133 73/47 (56) 09/07/16 15:45 100 09/07/16 14:24 76 16 93 Nasal Cannula 2.0 09/07/16 13:37 103 83 09/07/16 11:29 36.4 107 18 116/73 (87) 93 Nasal Cannula 2.0 Physical Exam General Appearance: WD/WN, no apparent distress Eyes: normal inspection, sclerae normal ENT: hearing grossly normal Neck: supple, trachea midline Respiratory/Chest: chest non-tender, no respiratory distress, no accessory muscle use, + decreased breath sounds (bases) Cardiovascular: regular rate, rhythm, no murmur Abdomen: normal bowel sounds, non tender, soft Neurologic/Psychiatric: alert, normal mood/affect Skin: normal color, warm/dry, no rash Laboratory Results Item Value Date Time Blood Culture - Final Complete 08/30/16 1024 Blood NO GROWTH Blood Culture - Final Complete 08/30/16 1005 Blood NO GROWTH Last 24 Hours Test 09/08/16 06:52 White Blood Count 8.25 K/uL Red Blood Count 3.62 M/uL Hemoglobin 12.0 g/dL Hematocrit 35.7 % Mean Corpuscular Volume 98.6 fL Mean Corpuscular Hemoglobin 33.1 pg Mean Corpuscular Hemoglobin Concent 33.6 g/dl RDW Standard Deviation 58.2 fL RDW Coefficient of Variation 17.1 % Platelet Count 112 K/uL Mean Platelet Volume 9.5 fL Sodium Level 142 mmol/L Potassium Level 4.2 mmol/L Chloride Level 110 mmol/L Carbon Dioxide Level 27 mmol/L Anion Gap 5.0 mmol/L Blood Urea Nitrogen 8 mg/dl Creatinine 0.88 mg/dl Est Creatinine Clear Calc Drug Dose 68.9 ml/min Estimated GFR () 92.7 Estimated GFR (Non- 80.0 BUN/Creatinine Ratio 9.1 Random Glucose 141 mg/dl Calcium Level 7.3 mg/dl Chemistry Specimen Hemolysis Assessment and Plan (1) Adrenal insufficiency Patient with bilateral aspiration pneumonitis and probable bilateral pneumonia. He initially completed 7 days of abx therapy and had been improving. Began to worsen again off of abx therapy and was restarted on IV Zosyn, Levaquin, and Zyvox. Transitioned to PO Augmentin and D/C'd Zosyn yesterday. Feel that this patient can continue on PO Augmentin, Levaquin, and Zyvox. If he continues to do well, would completed 7 more days. He is OK for D/C from ID perspective when able. He should follow up as outpatient prior to D/C of abx. Case reviewed and agree with above assessment.
[2016-09-08] MEDS: LEVOFLOXACIN 500 MG TAB PO SCH (11:52)
[2016-09-08] MEDS ORDERED: WARFARIN SOD 3 MG TAB PO SCH (16:00)
[2016-09-08] MEDS: DIGOXIN 0.125 MG TAB PO SCH (16:41)
--- NOTE | 2016-09-08 16:45 | Progress Note ---
Subjective Date of Service: Sep 08, 2016. Subjective pt feels much better is able to ambulate short distances, at bedside and updated, trying to coorindate outpt opthomology shot which is scheduled for tuesday 09/12. Pt and family is happy with that plan. If pt remains stable overnight will move to [facility] tomorrow Problem List Medical Problems: (1) Bacteremia Status: Acute (2) Bilateral pneumonia Status: Acute (3) Hypoxia Status: Acute (4) Sepsis Status: Acute Review of Systems Constitutional: No fever, No chills, No fatigue, No problem reported Respiratory: + dyspnea on exertion, No cough, No sputum, No shortness of breath Cardiac: + edema, No chest pain, No orthopnea, No PND Abdomen: No pain, No nausea, No vomiting, No diarrhea Neurologic: + weakness, No memory loss, No paralysis Psychiatric: No depression symptoms, No anhedonism, No anxiety Objective Vital Signs Date Time Temp Pulse Resp B/P (MAP) Pulse Ox O2 Delivery O2 Flow Rate FiO2 09/08/16 07:43 91 101/64 (76) 09/08/16 07:42 91 108/85 (93) 09/08/16 07:39 36.6 94 18 129/75 (93) 94 Nasal Cannula 2.0 09/08/16 07:03 80 16 93 Nasal Cannula 2.0 09/08/16 04:23 36.6 82 18 133/79 (97) 96 2.0 09/08/16 00:05 69 20 120/84 (96) 94 09/08/16 00:04 70 20 118/83 (95) 93 2.0 09/08/16 00:03 36.6 100 18 123/83 (96) 91 2.0 09/08/16 00:00 Nasal Cannula 2.0 09/07/16 19:32 36.8 136 20 95/60 (72) 93 Nasal Cannula 2.0 09/07/16 18:58 76 16 93 Nasal Cannula 2.0 09/07/16 16:00 Nasal Cannula 2.0 09/07/16 15:51 36.3 133 20 113/74 (87) 93 Nasal Cannula 2.0 133 100/74 (83) 133 73/47 (56) 09/07/16 15:45 100 09/07/16 14:24 76 16 93 Nasal Cannula 2.0 09/07/16 13:37 103 83 09/07/16 11:29 36.4 107 18 116/73 (87) 93 Nasal Cannula 2.0 09/07/16 08:42 153 60/42 (48) 09/07/16 08:41 111 85/56 (66) 09/07/16 08:40 94 95/56 (69) Physical Exam General Appearance: WD/WN, + mild distress Eyes: PERRL, EOMI Neck: supple, no JVD Respiratory/Chest: chest non-tender, + decreased breath sounds, + accessory muscle use, + rhonchi Cardiovascular: regular rate, rhythm, no murmur Abdomen: normal bowel sounds, non tender, soft Extremities: no pedal edema, no calf tenderness Neurologic/Psychiatric: alert, oriented x 3 Laboratory Results Last 24 Hours Test 09/07/16 10:47 09/08/16 06:52 Procalcitonin < 0.05 ng/ml White Blood Count 8.25 K/uL Red Blood Count 3.62 M/uL Hemoglobin 12.0 g/dL Hematocrit 35.7 % Mean Corpuscular Volume 98.6 fL Mean Corpuscular Hemoglobin 33.1 pg Mean Corpuscular Hemoglobin Concent 33.6 g/dl RDW Standard Deviation 58.2 fL RDW Coefficient of Variation 17.1 % Platelet Count 112 K/uL Mean Platelet Volume 9.5 fL Sodium Level 142 mmol/L Potassium Level 4.2 mmol/L Chloride Level 110 mmol/L Carbon Dioxide Level 27 mmol/L Anion Gap 5.0 mmol/L Blood Urea Nitrogen 8 mg/dl Creatinine 0.88 mg/dl Est Creatinine Clear Calc Drug Dose 68.9 ml/min Estimated GFR () 92.7 Estimated GFR (Non- 80.0 BUN/Creatinine Ratio 9.1 Random Glucose 141 mg/dl Calcium Level 7.3 mg/dl Chemistry Specimen Hemolysis Assessment and Plan (1) Adrenal insufficiency 81 M with sepsis concern for bilateral pneumonia gram negative source, he is a chemotherapy patient for colon cancer, has known coronary disease, had challenges with A. fib rvr and has hx of thrombophilia with an IVC filter. Pt had a unfortunate experience with steroid taper from 40-20, rebounded with hydrocortisone, now will change to po prednisone again, stop IVf and follow BP A. fib rate controlled with metoprolol /digoxin Dr Warner will folllow up as out pt, Thrombophilia, coumadin is therapeutic and trending upward, reduce daily dose . bilateral pneumonia, CT chest did not show any other confirmed issues, concern for gram negative pneumonia, this is significant and associated with hypoxia levaquin zosyn and linezolid, de escalation to po syvox and levaquin( watching INR with quinalones) COPD remains stable while tapering steroids, continue nebulizers Did have lower bp on 09/07, given fluid bolus and stress steroids Colon cancer, oncology was contacted and does not want a picc line, may transition to oral chemotherapy but will need to recover from pneumonia first. If repeat A port is needed pt requests not to see Dr Xie again but have a referral to another doctor [facility], they will arrange referral to healthcare insurance sales agent for ophthalmologic injection - Triple lumen central cath removed 08/27 for culture - NGTD - Blood culture came back positive 02/21 with gram - staph not lugdenesis, the other is NGTD. Likely contaminate. Repeat cultures in process Dr. Jang, from [facility] to follow up and had discuss with him about starting xeloda antineoplastic therapy vs. infusions of 5-FU. She wants to see him in clinic in 1 week after discharge. . - AAA noted on CT scan and is measuring 5.1 at largest. - Subsequent placement of a single chamber AICD, 2006, Generator change to [facility] AICD 2016, Neo Continued [facility] stay due to: multiple IV medications needed, other (hypotension and tachycardia) Discharge planning: correction facility
[2016-09-08] MEDS: ERYTHROMYCIN OP OINT 5 MG/GM 3.5 GM TUBE OP SCH (19:52)
[2016-09-09] VITALS: O2SAT 96
[2016-09-09] MEDS: LEVALBUTEROL 1.25MG/0.5ML NEB INH SCH ×3 (01:51→13:58)
[2016-09-09] MEDS: IPRATROPIUM BROMIDE NEB SOLN 0.02% 2.5 ML VIAL INH SCH ×3 (01:51→13:58)
[2016-09-09] MEDS: ACETYLCYSTEINE 20% INHAL SOLN ***DISPENSED BY RESP. INH SCH (07:10)
[2016-09-09 07:42] LABS: PROTHROMBIN TIME (PATIENT) 61.6 SECONDS (9.0-12.0)
[2016-09-09 07:43] LABS: INR 5.4 (0.9-1.1)
[2016-09-09 07:49] VITALS: BP 129/77; PULSE 78; TEMP 36.8; O2SAT 98
[2016-09-09 07:59] LABS: BUN/CREATININE RATIO 16.5 (10-20); CALCIUM 7.7 mg/dl (8.5-10.1); CREATININE 0.95 mg/dl (0.60-1.40); POTASSIUM 3.9 mmol/L (3.5-5.1)
[2016-09-09 08:00] VITALS: O2SAT 98
[2016-09-09] MEDS ORDERED: LPR25 PO (08:14)
[2016-09-09] MEDS ORDERED: LVQ500 PO (08:14)
[2016-09-09] MEDS ORDERED: LINE1TAB2 PO (08:14)
[2016-09-09] MEDS ORDERED: ACET-1047 PO (08:14)
[2016-09-09] MEDS: PrednisoLONE ACET 1% OP SUSP 5 ML BTL OPL SCH (08:18)
[2016-09-09] MEDS: AMOXICILLIN/CLAVULANATE TAB 875 MG TAB PO SCH ×2 (08:18→16:55)
[2016-09-09] MEDS: ASCORBIC ACID 500 MG TAB PO SCH (08:18)
[2016-09-09] MEDS ORDERED: PRED10TA PO (08:18)
[2016-09-09] MEDS: VITAMIN B COMPLEX TAB PO SCH (08:18)
[2016-09-09] MEDS ORDERED: DOXY-300 PO (08:18)
[2016-09-09] MEDS: LACTOBACILLUS ACIDOPHILUS (FLORANEX) TAB PO SCH ×3 (08:19→16:55)
[2016-09-09] MEDS: ASPIRIN 81 MG ECTAB PO SCH (08:19)
[2016-09-09] MEDS: LINEZOLID 600 MG TAB PO SCH (08:19)
[2016-09-09] MEDS: ATORVASTATIN 40 MG TAB PO SCH (08:19)
[2016-09-09] MEDS: PANTOprazole SOD 40 MG TAB PO SCH (08:20)
[2016-09-09] MEDS: METOPROLOL TARTRATE 25 MG TAB PO SCH (08:21)
--- NOTE | 2016-09-09 08:23 | Discharge Instructions ---
Discharge Instructions Date of Service Sep 09, 2016. Admission Reason for Admission: Bilateral Pneumonia, Hypoxia Discharge Discharge Diagnosis / Problem: bilateral pneumonia, afib rvr, adrenal crisis Discharge Goals Goal(s): Diagnostic testing, Therapeutic intervention Activity Recommendations Activity Level: Assistance Required Therapies: Physical Therapy, Occupational Therapy, Speech Therapy . Additional Information Patient informed of condition: Yes Advance Directives: Yes DNR: No Level of Care: Acute Rehab Communicable Disease: Yes Prognosis: Stable Armstrong Catheter: No Instructions / Follow-Up Instructions / Follow-Up 81 M with sepsis concern for bilateral pneumonia gram negative source, he is a chemotherapy patient for colon cancer, has known coronary disease, had challenges with A. fib rvr and has hx of thrombophilia with an IVC filter. Pt had a unfortunate experience with steroid taper from 40-20, rebounded with hydrocortisone, now will change to po prednisone with slow taper A. fib rate controlled with metoprolol /digoxin Dr Warner will folllow up as out pt, Thrombophilia, coumadin became supra- therapeutic 09/09 did get vitamin K on , will need to follow daily for a bit . bilateral pneumonia, CT chest did not show any other confirmed issues( but still concern as CXR is significant consider re CT at some point), concern for gram negative pneumonia, thiswas associated with hypoxia levaquin zosyn and linezolid, de escalation to po zyvox and levaquin, typically takes supressive doxycycline while on chemo tx, will need to restart once complete zyvoxx and levaquin COPD remains stable while tapering steroids, continue nebulizers Colon cancer, oncology was contacted and does not want a picc line, may transition to oral chemotherapy but will need to recover from pneumonia first. If repeat A port is needed pt requests not to see Dr Xie again but have a referral to another doctor [facility] 09/09, they will arrange referral to vamp maker for ophthalmologic injection - Triple lumen central cath removed 08/27 for culture - NGTD - Blood culture came back positive 02/21 with gram - staph not lugdenesis, the other is NGTD. Likely contaminate. Repeat cultures in process Dr. Jang, from [facility] to follow up and had discuss with him about starting xeloda antineoplastic therapy vs. infusions of 5-FU. She wants to see him in clinic in 1 week after discharge. . - AAA noted on CT scan and is measuring 5.1 at largest. - Subsequent placement of a single chamber AICD, 2006, Generator change to [facility] AICD 2017, [place] Current Hospital Diet Patient's current hospital diet: Regular Diet Discharge Diet Recommended Diet: Regular Diet Pending Studies Studies pending at discharge: no Laboratory Results Hemoglobin A1c Test 08/11/16 05:59 Range/Units Estimated Average Glucose 123 mg/dl Hemoglobin A1c 5.9 H 4.5-5.6 % Medical Emergencies . Who to Call and When: Medical Emergencies: If at any time you feel your situation is an emergency, please call 911 immediately. . Non-Emergent Contact Non-Emergency issues call your: Oncologist Call Non-Emergent contact if: temperature is above 101, your pain is unusual for you . . "Provider Documentation" section prepared by Ambrocio Horton. . Core Measure Problem Core Measures: None
--- NOTE | 2016-09-09 08:24 | History and Physical ---
History & Physical Date & Time of Service: Sep 09, 2016 at 08:23 Chief Complaint: Bilateral Pneumonia, Hypoxia Primary Care Physician: Janeen Graves History of Present Illness The patient is an 81-year-old male who presents to the emergency department from [facility] with complaint of worsening hypoxia that began a few days prior to arrival. The patient was hospitalized for sepsis approximately 2 weeks ago, had his port removed due to infection at that time, and was then discharged to [facility] for rehabilitation. During that hospitalization, the patient was begun on 2 L of nasal cannula oxygen, which was just recently increased to 3 L at [facility] a few days ago, and then 4 L yesterday. At [facility] today, the physician there referred him to the emergency department due to diaphoresis, fevers, hypoxia and hypotension. He has history of colon cancer, and his last chemotherapy treatment was about 5 weeks ago. Patient has no other complaints. Past Medical/Surgical History Medical Problems: (1) RADHA (acute kidney injury) Status: Resolved (2) Atrial fibrillation with RVR Status: Resolved (3) Colon cancer Status: Chronic (4) Hyperlipidemia Status: Chronic Family History Patient reports no known family medical history. Social History Smoking Status: Former Smoker Smokeless Tobacco Use: No Alcohol Use: none Drug Use: none Marital Status: Housing status: lives with family Occupational Status: retired Multi-Drug Resistant Organisms History of MDRO: Yes Type of MDRO: MRSA Allergies Coded Allergies: Vancomycin (Verified Allergy, Severe, SHORTNESS OF BREATH, 08/26/16) Home Medications Scheduled Ascorbic Acid (Vitamin C), 1 TAB PO QAM Aspirin (Aspirin Ec), 81 MG PO DAILY Atorvastatin (Lipitor), 80 MG PO DAILY Digoxin (Digoxin), 0.125 MG PO DAILY@16 Diltiazem HCl (Diltiazem Cd), 120 MG PO QAM Doxycycline (Monohydrate) (Doxycycline), 100 MG PO DAILY Enoxaparin (Lovenox), 120 MG SQ DAILY Erythromycin (Erythromycin), 1 APPLN OPL QPM Ferrous Sulfate (Kp Ferrous Sulfate), 1 TAB PO DAILY Folic Acid-Vit B2-Vit B6-Vit B (Folgard), 1 TAB PO DAILY Furosemide (Lasix), 20 MG PO QAM Ipratropium-Albuterol (Duoneb), 1 TREATMENT INH Q6 Levofloxacin (Levofloxacin), 500 MG PO DAILY@11 Linezolid (Linezolid), 600 MG PO BID Metoprolol Tartrate (Metoprolol Tartrate), 100 MG PO BID Metoprolol Tartrate (Lopressor), 12.5 MG PO BID Multivitamin (Multivitamin), 1 TAB PO QAM Pantoprazole (Protonix), 40 MG PO DAILY Potassium Chloride (Micro-K Ext Rel), 10 MEQ PO DAILY Prednisolone Acetate (Ophth) (Pred Forte 1% Oph), 1 DROPS OPL BID Prednisone (Prednisone), 10 MG PO UD Probiotic Product (Acidophilus), 1 TAB PO BID Senna/Docusate Sod (Senokot S), 1 TAB PO NOON Scheduled PRN Acetaminophen (Mapap), 650 MG PO Q4H PRN for Pain or Fever Physical Exam Vital Signs Date Time Temp Pulse Resp B/P (MAP) Pulse Ox O2 Delivery O2 Flow Rate FiO2 09/09/16 07:49 36.8 78 18 129/77 (94) 98 2.0 09/09/16 00:00 96 Nasal Cannula 2.0 09/08/16 23:25 36.2 72 20 101/67 (78) 94 Nasal Cannula 2.0 76 106/66 (79) 76 100/65 (77) 09/08/16 20:19 77 16 96 Nasal Cannula 2.0 09/08/16 19:33 36.5 77 19 101/66 (78) 96 Nasal Cannula 2.0 09/08/16 16:41 83 09/08/16 16:00 Nasal Cannula 2.0 09/08/16 14:59 36.3 120 20 103/68 (80) 91 Nasal Cannula 2.0 09/08/16 14:30 120 78 09/08/16 13:52 78 16 96 Nasal Cannula 2.0 The patient is awake, alert and oriented 3, intermittently lethargic, normocephalic and atraumatic, lying in bed and in no acute distress. HEENT--PERRL, EOMI, mucous membranes and oropharynx normal. Neck--supple, no JVD or bruits, thyroid normal, trachea midline, no adenopathy. Heart--normal S1 and S2, no extra beats, no murmurs, rubs or gallops. Lungs--coarse breath sounds bilaterally, no respiratory distress, no accessory muscle use. Abdomen--normal bowel sounds and soft, nontender and nondistended, no hernias or masses, no organomegaly. Extremities--no cyanosis, clubbing or edema. There are good distal pulses b/l. Dermatologic--normal skin turgor, normal color, warm and dry, no abnormal lymph nodes, no rash. Neurologic--cranial nerves II through XII grossly intact, motor and sensory examination normal. Rheumatologic--normal range of motion, nontender, muscles and joints. Psychiatric--normal affect. Diagnostics Laboratory Results Results Past 24 Hours Test 09/09/16 07:10 Range/Units Prothrombin Time 61.6 9.0-12.0 SECONDS Prothromb Time International Ratio 5.4 0.9-1.1 Sodium Level 141 136-145 mmol/L Potassium Level 3.9 3.5-5.1 mmol/L Chloride Level 109 98-107 mmol/L Carbon Dioxide Level 26 21-32 mmol/L Anion Gap 6.0 3-11 mmol/L Blood Urea Nitrogen 16 7-18 mg/dl Creatinine 0.95 0.60-1.40 mg/dl Est Creatinine Clear Calc Drug Dose 63.9 ml/min Estimated GFR () 86.1 Estimated GFR (Non- 74.2 BUN/Creatinine Ratio 16.5 10-20 Random Glucose 81 70-99 mg/dl Calcium Level 7.7 8.5-10.1 mg/dl Impression Assessment and Plan (1) Adrenal insufficiency 81 M with sepsis concern for bilateral pneumonia gram negative source, he is a chemotherapy patient for colon cancer, has known coronary disease, had challenges with A. fib rvr and has hx of thrombophilia with an IVC filter. Pt had a unfortunate experience with steroid taper from 40-20, rebounded with hydrocortisone, now will change to po prednisone with slow taper A. fib rate controlled with metoprolol /digoxin Dr Warner will folllow up as out pt, Thrombophilia, coumadin became supra- therapeutic 09/09 did get vitamin K on , will need to follow daily for a bit . bilateral pneumonia, CT chest did not show any other confirmed issues( but still concern as CXR is significant consider re CT at some point), concern for gram negative pneumonia, thiswas associated with hypoxia levaquin zosyn and linezolid, de escalation to po zyvox and levaquin, typically takes supressive doxycycline while on chemo tx, will need to restart once complete zyvoxx and levaquin COPD remains stable while tapering steroids, continue nebulizers Colon cancer, oncology was contacted and does not want a picc line, may transition to oral chemotherapy but will need to recover from pneumonia first. If repeat A port is needed pt requests not to see Dr Xie again but have a referral to another doctor [facility] 09/09, they will arrange referral to truck hop for ophthalmologic injection - Triple lumen central cath removed 08/27 for culture - NGTD - Blood culture came back positive 02/21 with gram - staph not lugdenesis, the other is NGTD. Likely contaminate. Repeat cultures in process Dr. Jang, from [facility] to follow up and had discuss with him about starting xeloda antineoplastic therapy vs. infusions of 5-FU. She wants to see him in clinic in 1 week after discharge. . - AAA noted on CT scan and is measuring 5.1 at largest. - Subsequent placement of a single chamber AICD, 2006, Generator change to [place] AICD 2017, [place] Advanced Directives Existing Advance Directive: No Existing Living Will: Yes Existing Power of Tower Crane Operator: Yes () VTE Prophylaxis VTE Risk Assessment Done? Y/N: Yes Risk Level: Moderate Given or contraindicated: Enoxaparin (Lovenox)SQ
[2016-09-09] MEDS ORDERED: PHYTONADIONE 5 MG TAB PO ONE (08:45)
[2016-09-09] MEDS: LEVOFLOXACIN 500 MG TAB PO SCH (10:47)
[2016-09-09 11:36] VITALS: BP 90/60; PULSE 84; TEMP 36.5; O2SAT 93
[2016-09-09 15:35] VITALS: BP_SYST 100; BP_SYST 101; BP_SYST 106; BP_DIAS 68; BP_DIAS 79; PULSE 81; PULSE 97; TEMP 36.6; O2SAT 93
[2016-09-09 16:00] VITALS: O2SAT 98
[2016-09-09] MEDS: DIGOXIN 0.125 MG TAB PO SCH (16:54)
--- NOTE | 2016-09-09 18:20 | Discharge Summary ---
Discharge Summary Date of Service Sep 09, 2016. Discharge Summary Admission Date: Aug 26, 2016 at 14:47 Discharge Date: Sep 09, 2016 Discharge Disposition: Rehab Principal Diagnosis: bilateral pneumonia, adrenal supression, colon cancer, afib rvr Medication Reconciliation New Medications: Prednisone (Prednisone) 10 Mg Tab 10 MG PO UD, #50 TAB slow taper 40 for 5 days 30 for 5 days 20 for 5 days 10 for 5 dys Acetaminophen (Mapap) 325 Mg Tab 650 MG PO Q4H PRN for Pain or Fever, #90 TAB Levofloxacin (Levofloxacin) 500 Mg Tab 500 MG PO DAILY@11, #7 TAB Linezolid (Linezolid) 600 Mg Tab 600 MG PO BID, #14 TAB Metoprolol Tartrate (Lopressor) 25 Mg Tab 12.5 MG PO BID, #60 TAB Changed Medications: Doxycycline (Monohydrate) (Doxycycline) 100 Mg Cap 100 MG PO DAILY, #30 (Medication details modified) resume once levaquin and zyvoxx is done Continued Medications: Ascorbic Acid (Vitamin C) 500 Mg Tab 1 TAB PO QAM Aspirin (Aspirin Ec) 81 Mg Tab 81 MG PO DAILY TO START THIS MED WHEN STOPS WARFARIN (4 DAYS PRIOR TO SURGERY) Atorvastatin (Lipitor) 80 Mg Tab 80 MG PO DAILY, TAB Digoxin (Digoxin) 0.125 Mg Tab 0.125 MG PO DAILY@16 for 30 Days, #30 TAB Erythromycin (Erythromycin) 1 Appln/1 Gm Oint 1 APPLN OPL QPM Folic Acid-Vit B2-Vit B6-Vit B (Folgard) 1 Tab Tab 1 TAB PO DAILY Ipratropium-Albuterol (Duoneb) 3 Ml Nebu 1 TREATMENT INH Q6, INHA Multivitamin (Multivitamin) Tab 1 TAB PO QAM, TAB Pantoprazole (Protonix) 40 Mg Tab 40 MG PO DAILY, #30 TAB Prednisolone Acetate (Ophth) (Pred Forte 1% Oph) 1 % Liudmila 1 DROPS OPL BID, #5 ML Probiotic Product (Acidophilus) 1 Cap Cap 1 TAB PO BID Senna/Docusate Sod (Senokot S) 1 Tab Tab 1 TAB PO NOON, TAB Discontinued Medications: Diltiazem HCl (Diltiazem Cd) 120 Mg Capcr 120 MG PO QAM for 30 Days, #30 TAB Enoxaparin (Lovenox) 120 Mg/0.8 Ml Inj 120 MG SQ DAILY, SYR Ferrous Sulfate (Kp Ferrous Sulfate) 325 Mg Tab 1 TAB PO DAILY for 30 Days, #30 TAB 3 Refills Furosemide (Lasix) 20 Mg Tab 20 MG PO QAM, TAB Metoprolol Tartrate (Metoprolol Tartrate) 100 Mg Tab 100 MG PO BID for 30 Days, #60 TAB Potassium Chloride (Micro-K Ext Rel) 10 Meq Cap 10 MEQ PO DAILY, CAP Discharge Exam Review of Systems: Constitutional: + weakness, + fatigue, No fever, No chills Cardiovascular: No chest pain, No orthopnea, No edema Abdomen: No pain, No nausea, No diarrhea Physical Exam: General Appearance: WD/WN, + mild distress Neck: supple, no JVD Respiratory/Chest: + decreased breath sounds, + accessory muscle use, + rhonchi Cardiovascular: regular rate, rhythm, no murmur Abdomen / GI: normal bowel sounds, non tender, soft Hospital Course (1) Adrenal insufficiency 81 M with sepsis concern for bilateral pneumonia gram negative source, he is a chemotherapy patient for colon cancer, has known coronary disease, had challenges with A. fib rvr and has hx of thrombophilia with an IVC filter. Pt had a unfortunate experience with steroid taper from 40-20, rebounded with hydrocortisone, now will change to po prednisone with slow taper A. fib rate controlled with metoprolol /digoxin Dr Warner will folllow up as out pt, Thrombophilia, coumadin became supra- therapeutic 09/09 did get vitamin K on , will need to follow daily for a bit . bilateral pneumonia, CT chest did not show any other confirmed issues( but still concern as CXR is significant consider re CT at some point), concern for gram negative pneumonia, thiswas associated with hypoxia levaquin zosyn and linezolid, de escalation to po zyvox and levaquin, typically takes supressive doxycycline while on chemo tx, will need to restart once complete zyvoxx and levaquin COPD remains stable while tapering steroids, continue nebulizers Colon cancer, oncology was contacted and does not want a picc line, may transition to oral chemotherapy but will need to recover from pneumonia first. If repeat A port is needed pt requests not to see Dr Xie again but have a referral to another doctor [facility] 09/09, they will arrange referral to slat basket maker machine for ophthalmologic injection - Triple lumen central cath removed 08/27 for culture - NGTD - Blood culture came back positive 02/21 with gram - staph not lugdenesis, the other is NGTD. Likely contaminate. Repeat cultures in process Dr. Jang, from [facility] to follow up and had discuss with him about starting xeloda antineoplastic therapy vs. infusions of 5-FU. She wants to see him in clinic in 1 week after discharge. . - AAA noted on CT scan and is measuring 5.1 at largest. - Subsequent placement of a single chamber AICD, 2006, Generator change to [place] AICD 2017, Ryan Total Time Spent: Greater than 30 minutes This includes examination of the patient, discharge planning, medication reconciliation, and communication with other providers. Discharge Instructions Please refer to the electronic Patient Visit Report (Discharge Instructions) for additional information.
== END 2016-09-09 18:05 | DRG 871 ==
LOC: EDBD 12:06 → C.ED 12:07 → C.2T 14:47 → ENRESERV 14:59 → C.MS4W 09-02 14:49 → ENRESERV 09-02 15:02 → CMPBEDREQ 09-02 16:29 → C.4E 09-08 16:52
PROVIDERS: ADMIT Hospitalist; ATTEND Internal Medicine
DX: A41.9 Sepsis, unspecified organism (principal); J15.6 Pneumonia due to other Gram-negative bacteria; I82.413 Acute embolism and thrombosis of femoral vein, bilateral; C18.9 Malignant neoplasm of colon, unspecified; E27.40 Unspecified adrenocortical insufficiency; I25.10 Atherosclerotic heart disease of native coronary artery without angina pectoris; I25.2 Old myocardial infarction; E78.5 Hyperlipidemia, unspecified; I48.91 Unspecified atrial fibrillation; K21.9 Gastro-esophageal reflux disease without esophagitis; R09.02 Hypoxemia; J44.9 Chronic obstructive pulmonary disease, unspecified; I73.9 Peripheral vascular disease, unspecified; K59.00 Constipation, unspecified; Z79.01 Long term (current) use of anticoagulants; Z79.82 Long term (current) use of aspirin; Z79.899 Other long term (current) drug therapy; Z95.0 Presence of cardiac pacemaker; Z87.891 Personal history of nicotine dependence

== ENCOUNTER → 2016-10-28 | Outpatient (CLI) | payer BC ==
[~2016-10-28] MED LIST changes: +ACET-1047 PO; -CRDCD120 PO; -ENOX120I SQ; -FERR1TAB13 PO; -FURO-85 PO; +IPRASOL4 INH; +LINE1TAB2 PO; -LPR100 PO; +LPR25 PO; +LVQ500 PO; -POTA10CA28 PO; +PRED10TA PO; +SENN-65 PO
--- NOTE | 2016-10-28 12:38 | DIAGNOSTIC IMAGING REPORT ---
VIDEO SWALLOW CLINICAL HISTORY: 81 years-old Male with ASPIRATION. TECHNIQUE: Video fluoroscopic evaluation of swallowing was performed in the AP and lateral projections by the speech pathology staff. The patient is fed nectar-thick and thin liquid barium, a barium coated wafer, and barium pudding. FLUOROSCOPY TIME: 2.9 minutes. COMPARISON STUDY: Swallow study 09/05/2016. FINDINGS: Intermittent aspiration is noted with thin liquids. There is delayed transit without aspiration involving nectar thick liquids. No significant dysmotility with pudding consistency. Esophageal dysmotility is again suggested. IMPRESSION: 1. Intermittent aspiration with thin liquids. 2. Please see the speech pathologist report for detailed findings and recommendations. Electronically signed by: Carlos Alexander M.D. 10/28/2016 12:36 PM Dictated Date/Time: 10/28/2016 12:33 PM
--- NOTE | 2016-10-28 15:19 | SWALLOWING EVALUATION ---
REFERRING SPEECH PATHOLOGIST: Parul Wesley MS, CCC-MANAGEMENT SME/L HISTORY: This 81 year-old male was referred for a VFSS at [facility] in order to determine readiness to stop using thickened liquids. The patient has a PMH significant for (B) pneumonia in August 2016 in the setting of sepsis from an infected A-port used for chemotherapy. Other PMH: RADHA, A-fib with RVR, colon CA, and hyperlipidemia. Further treatment for the Colon CA is yet to be determined. Currently the patient's diet level is regular with nectar-thick liquids. He has had a course of VitalStim therapy during acute inpatient rehabilitation and has had continued MANAGEMENT SME intervention for dysphagia with [facility] following discharge from acute rehab. PROCEDURE: The patient was seen in the Radiology Department of [facility] for the VFSS. Cursory examination of the oral cavity revealed adequate dentition. Movement of the articulators was WNL. The patient stood for the procedure was seated on a stool and was viewed in both the Anterior-Posterior (A-P) and Lateral planes. Volitional phonation exercises completed in the A-P plane revealed bilateral vocal fold movement and low vocal intensity with wet/gurgly vocal quality. In the lateral plane, the patient was given the following boluses: 1 tsp. thin liquid barium x 2, single swallow thin liquid barium self-presented from a cup, sequential swallows of thin liquid barium self-presented from a cup, 1 tsp. nectar-thick liquid barium, single swallow nectar-thick liquid barium self-presented from a cup, 1 tsp. barium pudding, and 1 club cracker with barium pudding. The patient was then repositioned into the A-P plane and given 1 tsp. barium pudding. RESULTS: Oral Stage: No interlabial bolus loss. Cohesive bolus between tongue and palatal seal with thin liquid bolus. Prolonged mastication with disorganized bolus formation and bolus transport. Majority of solid bolus remained intraorally after initial swallow. Timely initiation of pharyngeal swallow when the bolus head was at the posterior angle of the ramus. The patient demonstrated an abnormal bolus formation and transfer pattern with solid foods. He would transfer the masticated bolus to the tongue base, initiate swallow, swallow a small portion of the bolus, redirect the remainder back into his mouth and repeat. The patient reported being aware of doing this, but considered it "normal" for him. He did not report odynophagia or any concern regarding this swallowing pattern. Pharyngeal Stage: No bolus between soft palate and pharyngeal wall. Partial laryngeal elevation, partial hyoid excursion, partial epiglottic inversion (only to horizontal), incomplete laryngeal vestibular closure. Pharyngeal stripping wave was diminished. Pharyngeal contraction is complete. Distention and duration of PES opening was partial with partial obstruction of flow. Wide column of contrast between tongue base and pharyngeal wall. Collection of retained material in the valleculae and pyriform sinuses after the swallow. Trace/trickle aspiration of thin liquids during and after swallows. This occurred d/t incomplete pharyngeal ROM and weak tongue base retraction. It also accounts for the patient's wet/gurgly vocal quality since he would also be aspirating his secretions. If the patient cleared his throat and re-swallowed immediately, then he was able to clear material from the laryngeal vestibule and prevent aspiration. It should be noted that the patient consistently used his compensatory strategies (effortful swallow, exhaling after the swallow) throughout the study and they were helpful. Double swallows also helped clear retention in the valleculae after swallowing thickened liquid boluses. Esophageal Stage: No significant bolus retention as a pudding bolus transited the esophagus. SUMMARY/RECOMMENDATIONS: This patient presents with moderate oral-pharyngeal dysphagia. The following is recommended: 1. Regular diet and thin liquids. Rationale for thin liquids is as follows: pt is aspirating saliva/secretions regardless; aspiration is trace/trickle and intermittent; pt is able to complete oral hygiene and compensatory strategies to minimize effects of aspiration 2. Compensatory Strategies: ORAL HYGIENE: clean all surfaces of mouth PRIOR TO oral intake in the morning, after meals, and before bed at night; effortful swallows; exhalation after the swallow 3. Consideration of completion of one more session with referring MANAGEMENT SME to review results and recommendations and to have patient demonstrate all techniques. A summary of the results and recommendations was discussed with the patient and his immediately following the study. They were also going to the oncologist the same day of the study to determine what, if anything, is to be the course of action in treating the patient's colon CA. They are aware that if the patient becomes immunocompromised he will be at higher risk for aspiration pneumonia-even from aspirating secretions. They will need to be hyper-vigilant re: patient's respiratory status. They verbalized understanding. Thank you for referral of this patient. Please contact me at if any additional information is needed.
== END | disposition home or self-care (01) ==
LOC: C.RAD 11:34
PROVIDERS: ATTEND Physician Assistant
DX: R13.14 Dysphagia, pharyngoesophageal phase (principal); J18.9 Pneumonia, unspecified organism; C18.9 Malignant neoplasm of colon, unspecified; E78.5 Hyperlipidemia, unspecified; I48.91 Unspecified atrial fibrillation